=== PATIENT | female | born 1955 | race Caucasian/White ===

== ENCOUNTER → 2017-12-14 12:08 | Outpatient (CLI) | payer SELFPAY | PROVIDERS: Family Provider Family Medicine Geriatric Medicine; PCP Family Medicine Geriatric Medicine; Visit Provider Family Medicine Geriatric Medicine | DX: R69 Illness, unspecified (principal) | CPT/HCPCS: 87633 ==

== ENCOUNTER → 2018-09-05 10:04 | Outpatient (CLI) | payer MEDICARE, SELFPAY ==
[2018-09-05 12:38] LABS: Absolute Lymphocyte Count 1.84 X10^3/ul (0.83-4.51); Absolute Neutrophil Count 4.2 X10^3/uL (2.0-7.7); Basophil# 0.06 X10^3/uL; Basophil% 0.8 % (0-1); Eosinophil# 0.56 X10^3/uL; Eosinophils% 7.9 % (0-5); Hematocrit 45.6 % (37-47); Hemoglobin 14.4 g/dl (12.0-15.0); Lymphocyte # 1.84 X10^3/ul (4.0); Lymphocyte % 25.8 % (19-41); Mean Corp Hgb Conc 31.6 g/gl (32-36); Mean Corpuscular Hgb 30.1 pg (27.0-32.0); Mean Corpuscular Volume 95.2 fL (81-99); Mean Platelet Vol. 11.2 fl (6.2-12.0); Monocyte# 0.51 X10^3/uL; Monocyte% 7.2 % (0-10); Neutrophil # 4.15 X10^3/uL (2.7-7.7); Neutrophil % 58.3 % (47-70); Platelet Count 262 K/mm3 (150-450); RBC Distribution Width SD 45.1 fl (35.1-43.9); Red Blood Count 4.79 M/mm3 (4.2-5.4); White Blood Count 7.1 K/mm3 (4.4-11.0)
[2018-09-05 12:44] LABS: POSITIVE COUNT NO; POSITIVE DIFFERENTIAL NO; POSITIVE MORPHOLOGY NO
[2018-09-05 12:58] LABS: ALB/GLOB Ratio 0.9 RATIO (0.9-2.4); AST(SGOT) 31 U/L (15-37); Alanine Aminotransfer ALT/SGPT 42 U/L (13-56); Albumin, Serum 3.5 g/dL (3.2-5.0); Alkaline Phosphatase 208 U/L (45-117); Anion Gap 5 (5-15); BUN 5 mg/dL (7-18); BUN/Creat Ratio 7.7 RATIO (10-20); Calcium,Total 8.8 mg/dL (8.5-10.1); Chloride 105 mmol/L (98-107); Creatinine, Serum 0.65 mg/dL (0.55-1.02); EST Glomerular Filtration Rate 97 mL/min (>60); Est Glom Filt Rate - Afr Amer 118 mL/min (>60); Globulin 3.9 g/dL (2.2-4.2); Glucose 104 mg/dL (74-106); Potassium 3.7 mmol/L (3.5-5.1); Protein, Total 7.4 g/dL (6.4-8.2); Sodium Level 139 mmol/L (136-145); Thyroid Stim Hormone (TSH) 0.77 uIU/mL (0.358-3.74)
== END ==
PROVIDERS: Family Provider Family Medicine Geriatric Medicine; PCP Family Medicine Geriatric Medicine; Visit Provider Family Medicine Geriatric Medicine
DX: I10 Essential (primary) hypertension (principal)
CPT/HCPCS: 36415; 80053; 84443; 85025

== ENCOUNTER → 2018-09-12 17:47 | Outpatient (CLI) | payer MEDICARE, BC, SELFPAY ==
--- NOTE | 2018-09-12 17:56 | CT_ITS ---
STUDY: LOW DOSE CT LUNG CANCER SCREENING REASON FOR EXAM: Female, 63 years old. TOBACCO USE X 45 YRS 1/2 PPD. WEIGHT 129 RADIATION DOSAGE (If Supplied By Facility): CTDIvol = ( 2.01 ) mGy, DLP = ( 70.22 ) mGycm TECHNIQUE: No contrast was administered. Low dose technique was utilized (average mAS-38 and kVp 120). 1.25 mm axial source images with a slice interval of 1.25-mm were reconstructed in lung windows. 2.5 mm axial source images with a slice interval of 2.5-mm were reconstructed in lung windows. 5.0 mm axial source images with a slice interval of 5.0-mm were reconstructed in soft tissue windows. Nodule measured using lung windows on PACS and/or independent workstation with automated measurement of minimum and maximum diameter. Nodule measurement reported as average diameter rounded to the nearest whole number. Growth is defined as an increase ins size of greater than 1.5 mm. COMPARISON: None. NODULES: Hyperinflation are noted in both lungs suggesting COPD. There is no demonstrated pleural abnormality. Normal heart and pericardium. Normal mediastinum. Normal hilar regions. Normal unenhanced pulmonary arteries. Normal aorta arch and descending thoracic aorta. There is demineralization of the thoracic spine. Old compression fractures are noted at T5, T6, T7, T8, T12, L1. There is no demonstrated abnormality of the visualized upper abdomen. CT/Low Dose CT Lung Screening IMPRESSION: Lung-RADS category 2. Recommendation: Routine screening CT scan in one year. IMPORTANT NOTES FOR USE: ACR Lung-RADS Version 1.0 Assessment Categories Release Date: December 24, 2013 Category: Coded 0-4 bases on nodule(s) with highest degree of suspicion. Negative screen is defined as categories 1 and 2; a positive screen is defined as categories 3 and 4. Category 3 and 4A nodules that are unchanged on interval CT should be coded as category 2, and individuals returned to screening in 12 months. Category 4X: Category 3 or 4 nodules with additional imaging findings that increase the suspicion of lung cancer, such as spiculation, GGN that doubles in size in 1 year, enlarged lymph notes, etc. Category Modifiers: S (significant finding unrelated to lung cancer) and C (prior history of treated lung cancer) may be added to the 0-4 Lung-RADS Electronically Signed: Luis Higgins MD at 8:20 EST Tel , Service support ,
== END ==
PROVIDERS: Family Provider Family Medicine Geriatric Medicine; PCP Family Medicine Geriatric Medicine; Referring Provider Family Medicine Geriatric Medicine; Visit Provider Family Medicine Geriatric Medicine
DX: Z87.891 Personal history of nicotine dependence (principal)
CPT/HCPCS: G0297

== ENCOUNTER → 2020-03-07 | Outpatient (CLI) | payer MEDICARE, SELFPAY ==
[2020-03-07 13:41] VITALS: BMI 19.2
[2020-03-07 15:19] LABS: Absolute Lymphocyte Count 1.86 X10^3/uL (0.83-4.51); Absolute Neutrophil Count 2.2 X10^3/uL (2.0-7.7); Basophil# 0.09 X10^3/uL; Basophil% 1.8 % (0-1); Eosinophil# 0.48 X10^3/uL; Eosinophils% 9.4 % (0-5); Hematocrit 46.6 % (37-47); Hemoglobin 14.6 g/dL (12.0-15.0); Lymphocyte # 1.86 X10^3/ul (4.0); Lymphocyte % 36.5 % (19-41); Mean Corp Hgb Conc 31.3 g/dL (32-36); Mean Corpuscular Hgb 30.9 pg (27.0-32.0); Mean Corpuscular Volume 98.5 fL (81-99); Mean Platelet Vol. 10.2 fl (6.2-12.0); Monocyte# 0.46 X10^3/uL; NRBC Flagged by Analyzer 0 % (0-5); Neutrophil % 43.1 % (47-70); Platelet Count 305 K/mm3 (150-450); RBC Distribution Width CV 11.8 % (11.6-14.6); RBC Distribution Width SD 42.8 fl (35.1-43.9); Red Blood Count 4.73 M/mm3 (4.2-5.4); White Blood Count 5.1 K/mm3 (4.4-11.0)
[2020-03-07 16:13] LABS: ALB/GLOB Ratio 0.9 RATIO (0.9-2.4); AST(SGOT) 31 U/L (15-37); Alanine Aminotransfer ALT/SGPT 48 U/L (13-56); Albumin, Serum 3.6 g/dL (3.2-5.0); Alkaline Phosphatase 248 U/L (45-117); Anion Gap 7 (5-15); BUN 6 mg/dL (7-18); BUN/Creat Ratio 9.3 RATIO (10-20); Calcium,Total 9.1 mg/dL (8.5-10.1); Chloride 100 mmol/L (98-107); Cholesterol 277 mg/dL (200); Creatinine, Serum 0.65 mg/dL (0.55-1.02); EST Glomerular Filtration Rate 97 mL/min (>60); Est Glom Filt Rate - Afr Amer 118 mL/min (>60); Globulin 4.2 g/dL (2.2-4.2); Glucose 105 mg/dL (74-106); High Density Lipoprotein 72 mg/dL; Potassium 4.5 mmol/L (3.5-5.1); Protein, Total 7.8 g/dL (6.4-8.2); Sodium Level 137 mmol/L (136-145); Triglycerides 127 mg/dL; Very Low Density Lipoprotein 25 mg/dL (5-40)
[2020-03-07 16:25] LABS: Vitamin D,25 Hydroxy 28.5 ng/mL
== END | disposition home or self-care (01) ==
LOC: BIMLAB 14:25
PROVIDERS: PCP Internal Medicine; Referring Provider Internal Medicine; Visit Provider Internal Medicine
DX: I10 Essential (primary) hypertension (principal); J45.909 Unspecified asthma, uncomplicated; E55.9 Vitamin D deficiency, unspecified
CPT/HCPCS: 36415; 80053; 80061; 82306; 85025

== ENCOUNTER → 2020-04-08 14:01 | Outpatient (CLI) | payer MEDICARE, SELFPAY ==
[2020-03-07 13:41] VITALS: BMI 19.2
[2020-04-08 13:32] VITALS: BMI 19.5
--- NOTE | 2020-04-08 14:03 | CT_ITS ---
STUDY: LOW DOSE CT LUNG CANCER SCREENING REASON FOR EXAM: Female, 64 years old. ASYMPTOMATIC, LUNG CANCER SCREENING RADIATION DOSAGE (If Supplied By Facility): CTDIvol = ( 2.01 ) mGy, DLP = ( 70.22 ) mGycm TECHNIQUE: No contrast was administered. Low dose technique was utilized (average mAS-38 and kVp 120). 1.25 mm axial source images with a slice interval of 1.25-mm were reconstructed in lung windows. 2.5 mm axial source images with a slice interval of 2.5-mm were reconstructed in lung windows. 5.0 mm axial source images with a slice interval of 5.0-mm were reconstructed in soft tissue windows. Nodule measured using lung windows on PACS and/or independent workstation with automated measurement of minimum and maximum diameter. Nodule measurement reported as average diameter rounded to the nearest whole number. Growth is defined as an increase ins size of greater than 1.5 mm. COMPARISON: Comparison is made with prior examination dated 09/12/2018. NODULES: No suspicious nodules are seen. Emphysema: Hyperinflation. Stable thickening in both lung apices with emphysematous changes and small bulla formation worse in the upper lobes. Endobronchial lesion: None. Calcified left hilar lymph nodes. Aorta: Atherosclerotic plaque formation of the aortic arch. Coronary arteries: Coronary artery calcification. Mediastinal nodes: Small benign-appearing mediastinal lymph nodes. Other chest and abdominal findings: Stable loss of height of the T5, T6 T7 T8 and T12 vertebrae. CT/Low Dose CT Lung Screening IMPRESSION: Lung-RADS category 2 - Continue annual screening with LDCT in 12 months. IMPORTANT NOTES FOR USE: ACR Lung-RADS Version 1.0 Assessment Categories Release Date: December 24, 2013 Category: Coded 0-4 bases on nodule(s) with highest degree of suspicion. Negative screen is defined as categories 1 and 2; a positive screen is defined as categories 3 and 4. Category 3 and 4A nodules that are unchanged on interval CT should be coded as category 2, and individuals returned to screening in 12 months. Category 4X: Category 3 or 4 nodules with additional imaging findings that increase the suspicion of lung cancer, such as spiculation, GGN that doubles in size in 1 year, enlarged lymph notes, etc. Category Modifiers: S (significant finding unrelated to lung cancer) and C (prior history of treated lung cancer) may be added to the 0-4 Lung-RADS Electronically Signed: Rivera De La O, at 14:29 EDT , Service support ,
== END ==
PROVIDERS: PCP Internal Medicine; Referring Provider Nurse Practitioner Family; Visit Provider Nurse Practitioner Family
DX: Z12.2 Encounter for screening for malignant neoplasm of respiratory organs (principal); F17.210 Nicotine dependence, cigarettes, uncomplicated
CPT/HCPCS: G0297

== ENCOUNTER → 2020-05-01 | Outpatient (CLI) | payer MEDICARE, SELFPAY ==
[2020-04-08 13:32] VITALS: BMI 19.5
--- NOTE | 2020-05-01 13:19 | BI_ITS ---
MAMMOGRAPHY - BILATERAL SCREENING REASON FOR EXAM: Female, 64 years old. Routine annual screening examination. PERTINENT HISTORY: Daughter with breast cancer. TECHNIQUE: Digital bilateral breast chevy (3D mammographic acquisition) in the CC and MLO projections. 2-D mediolateral oblique (MLO) and craniocaudad (CC) views of both breasts were obtained. CAD: Full Field Digital Mammography with Computer Added Detection was performed. COMPARISON: None. Baseline examination. FINDINGS: Breast Composition: The breasts are almost entirely fatty. There are no dominant masses or suspicious calcifications. No other significant abnormalities are identified. BI/SCREEN MAMM (CAD) W/CHEVY BILAT IMPRESSION: Negative screening mammogram. Yearly followup mammogram recommended. (A) ASSESSMENT CATEGORY: BIRADS Category 1: Negative. A letter regarding these results will be sent to the patient by the facility within 30 days. Approximately 10% of breast cancers are not detected by mammography. A normal mammogram should not delay biopsy of a clinically suspicious abnormality. [id number] Electronically Signed: Rivera De La O, at 15:29 EDT , Service support ,
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
== END | disposition home or self-care (01) ==
LOC: OPBD 13:19
PROVIDERS: PCP Internal Medicine; Referring Provider Internal Medicine; Visit Provider Internal Medicine
DX: Z78.0 Asymptomatic menopausal state (principal); Z12.31 Encounter for screening mammogram for malignant neoplasm of breast
CPT/HCPCS: 77063; 77067; 77080

== ENCOUNTER 2020-09-16 00:12 | Emergency (ER) | payer OTHER, MEDICARE, SELFPAY ==
[2020-06-06 13:35] VITALS: BMI 19.5
[2020-09-16 00:13] VITALS: BP 160/82; PULSE 85; RESP 18; TEMP 36.5; O2SAT 94; BMI 23.1
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
[2020-09-16] MEDS: Ketorolac 15 MG/ML Vial IM (00:25)
[2020-09-16 01:40] VITALS: O2SAT 98
== END 2020-09-16 01:49 | disposition home or self-care (01) ==
PROVIDERS: Emergency Provider Student in an Organized Health Care Education/Training Program; PCP Internal Medicine
DX: S16.1XXA Strain of muscle, fascia and tendon at neck level, initial encounter (principal); S39.012A Strain of muscle, fascia and tendon of lower back, initial encounter; J45.909 Unspecified asthma, uncomplicated; I10 Essential (primary) hypertension; F41.9 Anxiety disorder, unspecified; F32.9 Major depressive disorder, single episode, unspecified; F17.200 Nicotine dependence, unspecified, uncomplicated; Z79.899 Other long term (current) drug therapy; V43.52XA Car driver injured in collision with other type car in traffic accident, initial encounter; Y93.I9 Activity, other involving external motion; Y92.410 Unspecified street and highway as the place of occurrence of the external cause; Y99.8 Other external cause status
CPT/HCPCS: 72040; 72100; 96372; 99284

== ENCOUNTER → 2020-11-07 14:57 | Outpatient (CLI) | payer MEDICARE, SELFPAY ==
[2020-11-07 13:13] VITALS: BMI 22.6
--- NOTE | 2020-11-07 14:58 | RAD_ITS ---
INDICATION: shortness of breath EXAMINATION/TECHNIQUE: X-RAY - XR Chest 2 Views COMPARISON: None. FINDINGS: The lungs are clear. Tortuous and calcified thoracic aorta. The heart is not enlarged. No pleural effusion or pneumothorax. Biapical pleural scarring. Degenerative changes of the thoracic spine. Multiple compression deformities of several thoracic vertebra. RAD/Chest PA and Lateral IMPRESSION: Multiple compression deformities of several thoracic vertebra. No acute cardiopulmonary findings. Electronically Signed: Oleg Dawn MD at 21:50 EST Tel , Service support ,
== END ==
PROVIDERS: PCP Internal Medicine; Referring Provider Nurse Practitioner Family; Visit Provider Nurse Practitioner Family
DX: R06.00 Dyspnea, unspecified (principal)
CPT/HCPCS: 71046

== ENCOUNTER → 2021-04-09 13:07 | Outpatient (CLI) | payer MEDICARE, SELFPAY ==
[2021-04-09 12:40] VITALS: BMI 22.6
[2021-04-09 15:00] LABS: Absolute Lymphocyte Count 1.95 X10^3/uL (0.83-4.51); Absolute Neutrophil Count 3.4 X10^3/uL (2.0-7.7); Basophil# 0.07 X10^3/uL; Basophil% 1.1 % (0-1); Eosinophil# 0.24 X10^3/uL; Eosinophils% 3.8 % (0-5); Hematocrit 43.9 % (37-47); Hemoglobin 13.8 g/dL (12.0-15.0); Lymphocyte # 1.95 X10^3/ul (0.83-4.51); Lymphocyte % 30.8 % (19-41); Mean Corp Hgb Conc 31.4 g/dL (32-36); Mean Corpuscular Hgb 30.5 pg (27.0-32.0); Mean Corpuscular Volume 97.1 fL (81-99); Mean Platelet Vol. 10.7 fl (6.2-12.0); Monocyte# 0.69 X10^3/uL; Monocyte% 10.9 % (0-10); NRBC Flagged by Analyzer 0 % (0-5); Neutrophil # 3.36 X10^3/uL (2.7-7.7); Neutrophil % 53.1 % (47-70); Platelet Count 284 K/mm3 (150-450); RBC Distribution Width CV 12.3 % (11.6-14.6); RBC Distribution Width SD 44.1 fl (35.1-43.9); Red Blood Count 4.52 M/mm3 (4.2-5.4); White Blood Count 6.3 K/mm3 (4.4-11.0)
[2021-04-09 15:16] LABS: ALB/GLOB Ratio 0.9 RATIO (0.9-2.4); AST(SGOT) 67 U/L (15-37); Alanine Aminotransfer ALT/SGPT 76 U/L (13-56); Albumin, Serum 3.5 g/dL (3.2-5.0); Alkaline Phosphatase 216 U/L (45-117); Anion Gap 6 (5-15); BUN 11 mg/dL (7-18); BUN/Creat Ratio 18.6 RATIO (10-20); Calcium,Total 9.2 mg/dL (8.5-10.1); Chloride 103 mmol/L (98-107); Cholesterol 220 mg/dL (200); Creatinine, Serum 0.59 mg/dL (0.55-1.02); EST Glomerular Filtration Rate 108 mL/min (>60); Est Glom Filt Rate - Afr Amer 131 mL/min (>60); Glucose 97 mg/dL (74-106); High Density Lipoprotein 85 mg/dL; Potassium 4.6 mmol/L (3.5-5.1); Protein, Total 7.5 g/dL (6.4-8.2); Sodium Level 141 mmol/L (136-145); Triglycerides 54 mg/dL; Very Low Density Lipoprotein 11 mg/dL (5-40)
[2021-04-09 15:21] LABS: Vitamin D,25 Hydroxy 34.1 ng/mL
== END ==
PROVIDERS: PCP Internal Medicine; Referring Provider Physician Assistant; Visit Provider Physician Assistant
DX: I10 Essential (primary) hypertension (principal); F32.9 Major depressive disorder, single episode, unspecified; F41.9 Anxiety disorder, unspecified; J45.909 Unspecified asthma, uncomplicated; E55.9 Vitamin D deficiency, unspecified
CPT/HCPCS: 36415; 80053; 80061; 82306; 85025

== ENCOUNTER → 2021-05-13 13:52 | Outpatient (CLI) | payer MEDICARE, SELFPAY ==
[2021-05-13 15:19] LABS: AST(SGOT) 35 U/L (15-37); Alanine Aminotransfer ALT/SGPT 50 U/L (13-56); Albumin, Serum 3.2 g/dL (3.2-5.0); Alkaline Phosphatase 183 U/L (45-117); Bilirubin, Direct 0.07 mg/dL (0.00-0.30); Protein, Total 7.2 g/dL (6.4-8.2)
== END ==
PROVIDERS: PCP Internal Medicine; Referring Provider Physician Assistant; Visit Provider Physician Assistant
DX: R74.8 Abnormal levels of other serum enzymes (principal)
CPT/HCPCS: 36415; 80076

== ENCOUNTER → 2022-04-02 | Outpatient (CLI) | payer MEDICARE, SELFPAY ==
[2022-04-02 16:42] LABS: Absolute Lymphocyte Count 1.52 X10^3/uL (0.83-4.51); Absolute Neutrophil Count 3.1 X10^3/uL (2.0-7.7); Basophil# 0.07 X10^3/uL; Basophil% 1.3 % (0-1); Eosinophil# 0.21 X10^3/uL; Hematocrit 43.4 % (37-47); Hemoglobin 14.2 g/dL (12.0-15.0); Lymphocyte # 1.52 X10^3/ul (0.83-4.51); Lymphocyte % 28.8 % (19-41); Mean Corp Hgb Conc 32.7 g/dL (32-36); Mean Corpuscular Hgb 32.1 pg (27.0-32.0); Mean Platelet Vol. 10.7 fl (6.2-12.0); Monocyte% 7.6 % (0-10); NRBC Flagged by Analyzer 0 % (0-5); Neutrophil # 3.06 X10^3/uL (2.7-7.7); Neutrophil % 58.1 % (47-70); Platelet Count 267 K/mm3 (150-450); RBC Distribution Width CV 12.1 % (11.6-14.6); RBC Distribution Width SD 44.5 fl (35.1-43.9); Red Blood Count 4.43 M/mm3 (4.2-5.4); White Blood Count 5.3 K/mm3 (4.4-11.0)
[2022-04-02 17:02] LABS: AST(SGOT) 29 U/L (15-37); Alanine Aminotransfer ALT/SGPT 38 U/L (13-56); Albumin, Serum 3.6 g/dL (3.2-5.0); Alkaline Phosphatase 197 U/L (45-117); Anion Gap 5 (5-15); BUN 7 mg/dL (7-18); BUN/Creat Ratio 10.9 RATIO (10-20); Chloride 101 mmol/L (98-107); Cholesterol 187 mg/dL (200); Creatinine, Serum 0.64 mg/dL (0.55-1.02); EST Glomerular Filtration Rate 97 mL/min (>60); Est Glom Filt Rate - Afr Amer 118 mL/min (>60); Globulin 3.7 g/dL (2.2-4.2); Glucose 111 mg/dL (74-106); High Density Lipoprotein 67 mg/dL; Potassium 4.3 mmol/L (3.5-5.1); Protein, Total 7.3 g/dL (6.4-8.2); Sodium Level 137 mmol/L (136-145); Thyroid Stim Hormone (TSH) 0.82 uIU/mL (0.358-3.74); Triglycerides 112 mg/dL; Very Low Density Lipoprotein 22 mg/dL (5-40)
== END | disposition home or self-care (01) ==
LOC: BIMLAB 14:38
PROVIDERS: PCP Internal Medicine; Referring Provider Nurse Practitioner Family; Visit Provider Nurse Practitioner Family
DX: I10 Essential (primary) hypertension (principal); M19.90 Unspecified osteoarthritis, unspecified site; J45.909 Unspecified asthma, uncomplicated; F41.9 Anxiety disorder, unspecified; F32.9 Major depressive disorder, single episode, unspecified
CPT/HCPCS: 36415; 80053; 80061; 84443; 85025

== ENCOUNTER → 2022-04-15 | Outpatient (CLI) | payer MEDICARE, SELFPAY ==
--- NOTE | 2022-04-15 14:03 | BI_ITS ---
MAMMOGRAPHY - BILATERAL SCREENING REASON FOR EXAM: Female, 66 years old. Routine annual screening examination. PERTINENT HISTORY: Daughter with breast cancer. TECHNIQUE: Digital bilateral breast chevy (3D mammographic acquisition) in the CC and MLO projections. 2-D mediolateral oblique (MLO) and craniocaudad (CC) views of both breasts were obtained. CAD: Full Field Digital Mammography with Computer Added Detection was performed. COMPARISON: Comparison is made with prior study 05/01/2020. FINDINGS: Breast Composition: The breasts are almost entirely fatty. There are no dominant masses or suspicious calcifications. No other significant abnormalities are identified. There has been no significant change since the prior study. BI/SCRN MAMM (CAD)W/CHEVY BILAT IMPRESSION: Stable bilateral screening mammogram. Yearly follow-up mammogram recommended. (A) ASSESSMENT CATEGORY: BIRADS Category 1: Negative. A letter regarding these results will be sent to the patient by the facility within 30 days. Approximately 10% of breast cancers are not detected by mammography. A normal mammogram should not delay biopsy of a clinically suspicious abnormality. [id number] Electronically Signed: Rivera De La O MD at 15:00 EDT ,
== END | disposition home or self-care (01) ==
LOC: OPBI 14:02
PROVIDERS: PCP Internal Medicine; Referring Provider Nurse Practitioner Family; Visit Provider Nurse Practitioner Family
DX: Z12.31 Encounter for screening mammogram for malignant neoplasm of breast (principal); Z80.3 Family history of malignant neoplasm of breast
CPT/HCPCS: 77063; 77067

== ENCOUNTER → 2022-06-29 | Outpatient (CLI) | payer MEDICARE, SELFPAY ==
--- NOTE | 2022-06-29 13:24 | CT_ITS ---
STUDY: LOW DOSE CT LUNG CANCER SCREENING REASON FOR EXAM: Female, 66 years old. Lung cancer screening -- and gt;20 pk yr hx;current smoker;asymptomatic RADIATION DOSAGE (If Supplied By Facility): CTDIvol = ( 1.52 ) mGy, DLP = ( 49.45 ) mGycm TECHNIQUE: No contrast was administered. Low dose technique was utilized (average mAS-38 and kVp 120). 1.25 mm axial source images with a slice interval of 1.25-mm were reconstructed in lung windows. 2.5 mm axial source images with a slice interval of 2.5-mm were reconstructed in lung windows. 5.0 mm axial source images with a slice interval of 5.0-mm were reconstructed in soft tissue windows. COMPARISON: Comparison is made with prior examination dated 04/08/2020. NODULES: No suspicious nodules are seen. Emphysema: Scarring in the apices. Hyperinflation. Emphysematous changes. Endobronchial lesion: None Aorta: Atherosclerotic calcific plaques. CORONARY ARTERIES: Coronary artery calcification is seen. Heart: Unremarkable. Pulmonary artery: Unremarkable. Mediastinal nodes: Small benign-appearing mediastinal lymph nodes. Other chest and abdominal findings: CT/Low Dose CT Lung Screening IMPRESSION: Lung-RADS category 2 - Continue annual screening with LDCT in 12 months. IMPORTANT NOTES FOR USE: ACR Lung-RADS Version 1.1 Assessment Categories Release Date: 2018 Category: Coded 0-4 bases on nodule(s) with highest degree of suspicion. Negative screen is defined as categories 1 and 2; a positive screen is defined as categories 3 and 4. Category 3 and 4A nodules that are unchanged on interval CT should be coded as category 2, and individuals returned to screening in 12 months. Category 4X: Category 3 or 4 nodules with additional imaging findings that increase the suspicion of lung cancer, such as spiculation, GGN that doubles in size in 1 year, enlarged lymph notes, etc. Category Modifiers: S (significant finding unrelated to lung cancer) Electronically Signed: Rivera De La O MD at 14:30 EDT ,
== END | disposition home or self-care (01) ==
LOC: CT 13:23
PROVIDERS: PCP Internal Medicine; Referring Provider Nurse Practitioner Family; Visit Provider Nurse Practitioner Family
DX: Z87.891 Personal history of nicotine dependence (principal); Z12.2 Encounter for screening for malignant neoplasm of respiratory organs
CPT/HCPCS: 71271

== ENCOUNTER → 2022-10-08 | Outpatient (CLI) | payer MEDICARE, SELFPAY ==
[2022-10-08 16:46] LABS: AST(SGOT) 30 U/L (15-37); Alanine Aminotransfer ALT/SGPT 36 U/L (13-56); Albumin, Serum 3.7 g/dL (3.2-5.0); Alkaline Phosphatase 148 U/L (45-117); Anion Gap 5 (5-15); BUN 8 mg/dL (7-18); BUN/Creat Ratio 12.9 RATIO (10-20); Calcium,Total 9.3 mg/dL (8.5-10.1); Chloride 101 mmol/L (98-107); Creatinine, Serum 0.62 mg/dL (0.55-1.02); EST Glomerular Filtration Rate 102 mL/min (>60); Est Glom Filt Rate - Afr Amer 123 mL/min (>60); Globulin 3.8 g/dL (2.2-4.2); Glucose 114 mg/dL (74-106); Potassium 4.1 mmol/L (3.5-5.1); Protein, Total 7.5 g/dL (6.4-8.2); Sodium Level 135 mmol/L (136-145)
== END | disposition home or self-care (01) ==
LOC: BIMLAB 14:54
PROVIDERS: PCP Internal Medicine; Referring Provider Internal Medicine; Visit Provider Internal Medicine
DX: M81.0 Age-related osteoporosis without current pathological fracture (principal)
CPT/HCPCS: 36415; 80053; 82306

== ENCOUNTER → 2022-10-21 | Outpatient (CLI) | payer MEDICARE, SELFPAY ==
--- NOTE | 2022-10-21 14:23 | BD_ITS ---
STUDY: DUAL ENERGY X-RAY ABSORPTIOMETRY / DXA REASON FOR EXAM: Female, 67 years old. Osteoporosis TECHNIQUE: Bone Mineral Density (BMD) measurements of lumbar spine and bilateral hips were obtained. COMPARISON: Comparison is made with prior study dated 05/01/2020. FINDINGS: Lumbar Spine (L1-L4): g/cm2 (0.877) / T-score (-2.0) / Z-score (0.1) Findings are suggestive of osteopenia with a moderate fracture risk. Left Femur Total: g/cm2 (0.678) / T-score (-2.2) / Z-score (-0.7) Left Femoral Neck: g/cm2 (0.609) / T-score (-2.2) / Z-score (-0.4) Right Femur Total: g/cm2 (0.631) / T-score (-2.6) / Z-score (-1.1) Right Femoral Neck: g/cm2 (0.562) / T-score (-2.6) / Z-score (-0.8) The T-Scores on the most recent prior examination were: Lumbar Spine (L1-L4): There has been worsening of bone density since the previous examination. Left Femur Total: which represents an improvement of 0.8%. Right Femur Total: which represents a worsening of 0.9%. BD/Dexa Bone Density Study IMPRESSION: The patient is considered osteoporotic as outlined below according to World [employer] Organization (WHO) criteria with a high fracture risk. There has been worsening of bone density since the previous examination. Reference Information: The T-score is the number of standard deviations above or below the standard which is normal for young adults at their peak bone mineral density. The World Health Organization (WHO) interprets the T-scores as follows: Above -1 Normal bone density Between -1 and -2.5 Osteopenia Equal to / or below -2.5 Osteoporosis As a practical clinical guideline, osteopenia may be graded as follows: Mild -1 through -1.5 Moderate -1.6 through -2.0 Severe -2.1 through -2.4 The Z-score is the number of standard deviations above or below age-matched controls. A Z-score of less than -1.5 would be considered abnormal. References: 1. NIH Osteoporosis and Related Bone Diseases www osteo.org 2. International Society for Clinical Densitometry www iscd.org 3. National Osteoporosis Foundation www nof.org Electronically Signed: Rivera De La O MD at 15:38 EST ,
== END | disposition home or self-care (01) ==
LOC: OPBD 14:20
PROVIDERS: PCP Internal Medicine; Referring Provider Internal Medicine; Visit Provider Internal Medicine
DX: M81.0 Age-related osteoporosis without current pathological fracture (principal)
CPT/HCPCS: 77080

== ENCOUNTER → 2023-01-06 | Outpatient (CLI) | payer MEDICARE, SELFPAY ==
[2023-01-06 17:06] LABS: Absolute Lymphocyte Count 1.44 X10^3/uL (0.83-4.51); Absolute Neutrophil Count 2.2 X10^3/uL (2.0-7.7); Basophil# 0.06 X10^3/uL; Basophil% 1.3 % (0-1); Eosinophil# 0.37 X10^3/uL; Eosinophils% 8.3 % (0-5); Hemoglobin 14.5 g/dL (12.0-15.0); Lymphocyte # 1.44 X10^3/ul (0.83-4.51); Lymphocyte % 32.2 % (19-41); Mean Corp Hgb Conc 31.5 g/dL (32-36); Mean Corpuscular Hgb 31.5 pg (27.0-32.0); Mean Corpuscular Volume 99.8 fL (81-99); Mean Platelet Vol. 11.1 fl (6.2-12.0); Monocyte# 0.45 X10^3/uL; Monocyte% 10.1 % (0-10); NRBC Flagged by Analyzer 0 % (0-5); Neutrophil # 2.15 X10^3/uL (2.7-7.7); Neutrophil % 48.1 % (47-70); Platelet Count 266 K/mm3 (150-450); RBC Distribution Width CV 11.9 % (11.6-14.6); RBC Distribution Width SD 43.8 fl (35.1-43.9); Red Blood Count 4.61 M/mm3 (4.2-5.4); White Blood Count 4.5 K/mm3 (4.4-11.0)
[2023-01-06 17:28] LABS: ALB/GLOB Ratio 0.9 RATIO (0.9-2.4); AST(SGOT) 34 U/L (15-37); Alanine Aminotransfer ALT/SGPT 58 U/L (13-56); Albumin, Serum 3.6 g/dL (3.2-5.0); Alkaline Phosphatase 228 U/L (45-117); Anion Gap 5 (5-15); BUN 9 mg/dL (7-18); BUN/Creat Ratio 16.8 RATIO (10-20); Calcium,Total 9.4 mg/dL (8.5-10.1); Chloride 103 mmol/L (98-107); Creatinine, Serum 0.54 mg/dL (0.55-1.02); EST Glomerular Filtration Rate 120 mL/min (>60); Est Glom Filt Rate - Afr Amer 145 mL/min (>60); Glucose 101 mg/dL (74-106); Potassium 4.3 mmol/L (3.5-5.1); Protein, Total 7.6 g/dL (6.4-8.2); Sodium Level 137 mmol/L (136-145); Vitamin D,25 Hydroxy 49.2 ng/mL
== END | disposition home or self-care (01) ==
LOC: BIMLAB 15:04
PROVIDERS: PCP Internal Medicine; Referring Provider Internal Medicine; Visit Provider Internal Medicine
DX: I10 Essential (primary) hypertension (principal); M81.0 Age-related osteoporosis without current pathological fracture
CPT/HCPCS: 36415; 80053; 82306; 85025

== ENCOUNTER → 2023-09-22 | Outpatient (CLI) | payer MEDICARE, SELFPAY ==
--- OUTSIDE RECORDS SUMMARY | 2023-09-22 16:07 | XMS RPT_ITS | CCD ---
Author Name Unknown Address [address] [place] [address] Organization [facility] Care Team Providers Care Educational Technician Name Role Phone DarrellBlanche Avery Primary Care Provider Jillian GONGORA, Silviano Oh Primary Care Provider [phone] Allergies Allergy Classification Reported Allergen(s) Allergy Type Date of Onset Reaction(s) Facility (2 sources) moxifloxacin Drug Allergy 1 Rash, Swelling [facility] Medications Current Medications Medication Drug Class(es) Dates Sig (Normalized) Sig (Original) amoxicillin 875 mg / clavulanate 125 mg oral tablet (1 source) Penicillin-class Antibacterial Start: 12-14-2022 End: 12-21-2022 take 1 tablet by mouth twice daily amoxicillin-clavulan ic acid (AUGMENTIN) 875-125 mg per tablet Indications: Sinobronchitis Take 1 tablet by mouth twice daily for 7 days. 14 tablet 0 12/14/2022 12/21/2022 Active Completed/Discontinued Medications Medication Drug Class(es) Dates Sig (Normalized) Sig (Original) 8 hr acetaminophen 650 mg extended release oral tablet (1 source) Start: 04-02-2022 acetaminophen 650 mg CR tablet Take by mouth. 0 04/02/2022 Active Problems Problem Classification Problem Date Documented Da te Episodic/Chronic Allergic reactions (1 source) Allergic contact dermatitis due to metal; Translations: [Allergic contact dermatitis due to metals] Episodic Other upper respiratory infections (1 source) Chronic sinusitis; Translations: [Chronic sinusitis, unspecified] Chronic Results Test Name Value Interpretation Reference Range Facil ity Vital Signs Date Time Vital Sign Value Performing Clinician Faci lity 12-14-2022 14:29-0400 Body temperature 97.2 [degF] Ericka Choe APRN.[employer] Work Phone: [facility] 12-14-2022 14:29-0400 Body weight 52.62 kg Ericka Praisler-Wood SENIOR CONTRACT SPECIALIST.[employer] Work Phone: [facility] 12-14-2022 14:29-0400 Diastolic blood pressure 72 mm[Hg] Ericka Praisler-Wood SENIOR CONTRACT SPECIALIST.[employer] Work Phone: [facility] 12-14-2022 14:29-0400 Heart rate 101 /min Ericka Praisler-Wood SENIOR CONTRACT SPECIALIST.[employer] Work Phone: [facility] 12-14-2022 14:29-0400 Respiratory rate 20 /min Ericka Praisler-Wood SENIOR CONTRACT SPECIALIST.[employer] Work Phone: [facility] 12-14-2022 14:29-0400 SaO2% (BldA) [Mass fraction] 97 % Ericka Praisler-Wood SENIOR CONTRACT SPECIALIST.[employer] Work Phone: [facility] 12-14-2022 14:29-0400 Systolic blood pressure 124 mm[Hg] Ericka Praisler-Wood SENIOR CONTRACT SPECIALIST.[employer] Work Phone: [facility] 12-02-2020 13:39-0400 Body Temperature 97.7 [degF] [facility] c 12-02-2020 13:39-0400 Body weight 59.88 kg [facility] 12-02-2020 13:39-0400 BP Diastolic 82 mm[Hg] [facility] 12-02-2020 13:39-0400 BP Systolic 132 mm[Hg] [facility] 12-02-2020 13:39-0400 Pulse (Heart Rate) 110 /min [facility] 12-02-2020 13:39-0400 Pulse Oximetry 95 % [facility] 12-02-2020 13:39-0400 Respiratory Rate 18 /min [facility] Encounters Encounter Date Encounter Type Care Provider Facility Start: 12-14-2022 End: 12-14-2022 Patient encounter procedure Ericka Praisler-Wood SENIOR CONTRACT SPECIALIST.[employer] Work Phone: [facility] Plan of Treatment Date Care Activity Detail Author Start: 04-29-2023 Influenza vaccination INFLUENZA (Sea son Ended) [facility] Start: 08-29-2022 ADVANCE DIRECTIVE DISCUSSION ADVANCE DIRECTIVE DISCUSSION [facility] Start: 08-29-2022 DEPRESSION ASSESSMENT DEPRESSION ASS ESSMENT [facility] Start: 06-17-2021 COVID-19 VACCINE (3 - Booster for Pfizer series) COVID-19 VACCINE (3 - Booster for Pfizer series) [facility] Start: 04-29-2021 Influenza vaccination INFLUENZA (Sea son Ended) [facility] Start: 2018 ADVANCE DIRECTIVE DISCUSSION ADVANCE DIRECTIVE DISCUSSION [facility] Start: 2018 BONE DENSITY BONE DENSITY [facility] Start: 2018 PNEUMOVAX AGE 65 AND OVER WITH 5YR LOOKBACK (#1) PNEUMOVAX AGE 65 AND OVER WITH 5YR LOOKBACK (#1) [facility] Start: 2003 Screening for malign ant neoplasm of colon [facility] Start: 2003 SHINGRIX VACCINE (1 of 2) SHINGRIX V ACCINE (1 of 2) [facility] Start: 1998 COLOGUARD (FIT-DNA) COLOGUARD (FIT-D NA) [facility] Start: 1998 Colonoscopy COLONOSCOPY [facility] Start: 1998 COLORECTAL CANCER SCREENING COLORECTAL CANCER SCREENING [facility] Start: [address] COLONOGRAPHY [facility] Start: 1998 DIABETES SCREEN DIABETES SCREEN [facility] Start: 1998 FECAL OCCULT BLOOD FECAL OCCULT BLOO D [facility] Start: 1998 LIPID SCREEN LIPID SCREEN [facility] Start: 1998 SIGMOIDOSCOPY SIGMOIDOSCOPY [facility] Start: 1993 Mammography MAMMOGRAM [facility] Start: 1972 Urine microalbumin profile DTAP,TDAP ,TD (1 - Tdap) [facility] Start: 1971 HEPATITIS C SCREENING HEPATITIS C SC REENING [facility] Start: 1965 Adult depression scr eening assessment DEPRESSION SCREENING [facility] Start: 1959 PNEUMOCOCCAL: 65+ (1 - PCV) PNEUMOCOCCAL: 65+ (1 - PCV) [facility] Payers Date Payer Category Payer Medicare MEDICARE MEDICAR E A AND B [id number] 2018-Present [place], [place] Medicare [id number] 2018 Medicare MEDICARE MEDICAR E A AND B [id number] 2018-Present [phone] [place] [address] Medicare [id number] Social History Date Type Detail Facility Start: 12-02-2020 Tobacco smoking stat [facility] Current every day smoker [facility] Start: 12-02-2020 End: 12-14-2022 Tobacco use and exposure Never used [facility] Start: 1955 Sex Assigned At Not on file [facility] Exposure to SARS-CoV -2 (event) Not sure [facility] Start: 12-14-2022 Tobacco smoking stat [facility] Occasional tobacco smoker [facility] History of tobacco use Cigarette Smoker [facility] History of Present illness Narrative 12-14-2022 Ericka Choe APRN.[employer] - 12/14/2022 2:39 PM EDT Note Date & Type Note Facility 12-14-2022 History of Presen t illness Narrative Subjective Cough Associated symptoms include headaches and shortness of breath. Pertinent negatives include no chills, no ear pain, no sore throat and no myalgias. Viola George is a 67 year old female who presents with a week of sinus congestion, cough, productive cough, sinus headache. She has not had a fever. She has been taking sudafed, and using her albuterol and advair inhaler. She has had intermittent shortness of breath. 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 Review of Systems Constitutional: Negative for chills and fever. HENT: Positive for congestion and sinus pain. Negative for ear pain and sore throat. Respiratory: Positive for cough, sputum production and shortness of breath. Cardiovascular: Negative. Gastrointestinal: Negative for diarrhea, nausea and vomiting. Musculoskeletal: Negative for myalgias. Neurological: Positive for headaches. BP 124/72 Pulse 101 Temp 36.2 C (97.2 F) (Tympanic) Resp 20 Wt 52.6 kg (116 lb) SpO2 97% No past medical history on file. No past surgical history on file. ALLERGIES Moxifloxacin MEDICATIONS acetaminophen 650 mg CR tablet Take by mouth. PROLIA 60 mg/mL simvastatin (ZOCOR) 40 mg tablet lisinopril (ZESTRIL, PRINIVIL) 40 mg tablet Take 40 mg by mouth. hydroCHLOROthiazide (HYDRODIURIL, ESIDRIX) 12.5 mg tablet fluticasone-salmeterol (ADVAIR, WIXELA) 250-50 mcg/dose inhaler INHALE ONE PUFF BY MOUTH TWICE DAILY citalopram (CELEXA) 40 mg tablet Take 40 mg by mouth. albuterol HFA (PROVENTIL HFA, VENTOLIN HFA) 90 mcg/actuation inhaler albuterol HFA (PROVENTIL HFA, VENTOLIN HFA) 90 mcg/actuation inhaler cyclobenzaprine (FLEXERIL) 10 mg tablet Take 10 mg by mouth. metoprolol succinate ER (TOPROL XL) 25 mg 24 hr tablet Take 25 mg by mouth. amoxicillin-clavulanic acid (AUGMENTIN) 875-125 mg per tablet Take 1 tablet by mouth twice daily for 7 days. predniSONE (DELTASONE) 20 mg tablet Take 2 tablets by mouth once daily for 4 days. Take daily with food. No family history on file. Social History Tobacco Use Smoking status: Some Days Types: Cigarettes Smokeless tobacco: Never Substance Use Topics Drug use: Never Objective Physical Exam Vitals and nursing note reviewed. Constitutional: Appearance: Normal appearance. HENT: Right Ear: Tympanic membrane, ear canal and external ear normal. Left Ear: Tympanic membrane, ear canal and external ear normal. Nose: Nasal tenderness, mucosal edema, congestion and rhinorrhea present. Mouth/Throat: Mouth: Mucous membranes are moist. Pharynx: Oropharynx is clear. Uvula midline. No oropharyngeal exudate or posterior oropharyngeal erythema. Cardiovascular: Rate and Rhythm: Normal rate and regular rhythm. Heart sounds: Normal heart sounds. Pulmonary: Effort: Pulmonary effort is normal. No respiratory distress. Breath sounds: Examination of the right-upper field reveals wheezing. Examination of the left-upper field reveals wheezing. Examination of the right-lower field reveals wheezing. Examination of the left-lower field reveals wheezing. Wheezing present. No rales. Musculoskeletal: Cervical back: Neck supple. Lymphadenopathy: Cervical: No cervical adenopathy. Skin: General: Skin is warm and dry. Findings: No erythema or rash. Neurological: Mental Status: She is alert. ASSESSMENT/PLAN: 1. Sinobronchitis - ICD9: 473.9, 490, ICD10: J32.9, J40 - Will begin treatment with as per antibiotic as written, see orders - The patient should also use her inhalers as prescribed. - Supportive care with plenty of fluids, rest, and analgesia prn. - AMOXICILLIN 875 MG-POTASSIUM CLAVULANATE 125 MG TABLET - PREDNISONE 20 MG TABLET - Follow-up with your PCP in 3-5 days if symptoms have not improved or sooner if symptoms worsen - Discussed red flags and need for immediate medical evaluation if any occur. - Discussed supportive care treatment with fluids, rest and analgesia. - Discussed expected course of illness Ericka Choe APRN.CNP documented in this encounter [facility] Instructions 12-14-2022 Patient Instructions Note Date & Type Note Facility 12-14-2022 Instructions Ericka Choe APRN.CNP - 12/14/2022 2:37 PM EDT ASSESSMENT/PLAN: 1. Sinobronchitis - ICD9: 473.9, 490, ICD10: J32.9, J40 - Will begin treatment with as per antibiotic as written, see orders - The patient should also use her inhalers as prescribed. - Supportive care with plenty of fluids, rest, and analgesia prn. - AMOXICILLIN 875 MG-POTASSIUM CLAVULANATE 125 MG TABLET - PREDNISONE 20 MG TABLET - Follow-up with your PCP in 3-5 days if symptoms have not improved or sooner if symptoms worsen - Discussed red flags and need for immediate medical evaluation if any occur. - Discussed supportive care treatment with fluids, rest and analgesia. - Discussed expected course of illness Ericka Choe APRN.CNP ACUTE BRONCHITIS: You have acute bronchitis. This means the airway passages in your lungs are inflamed. Bronchitis may be caused by viruses or bacteria. Inhaling cigarette smoke will always make it worse. Exposure to irritating chemicals or second hand smoke as well as allergies can contribute to bronchitis. Repeat episodes of bronchitis may cause lifelong lung problems. Acute bronchitis is usually treated with rest, fluids, cough medicine, and possibly antibiotics or inhaled medicine to open up the small airways. It is very important that you avoid smoke and drink increased amounts of fluids. A cool air vaporizer can help thin bronchial secretions. This makes it easier to cough and clear your chest. If you are a cigarette smoker, consider using nicotine gum or skin patches to help you withdraw. Recovery from bronchitis is often slow, but you should start feeling better after 2-3 days of treatment. Please call your doctor or return here if you have any of the following symptoms: Increased fever, chills, or chest pain. Severe shortness of breath or bloody sputum. Do not improve after 3 days of proper treatment. documented in this encounter [facility] Evaluation note Note Date & Type Note Facility documented in this encounter [facility] Summary Purpose Family History No Family History Records FoundNo Family History Records Found Advance Directives No Advanced Directives Records FoundNo Advanced Directives Records Found History of Present Illness * Robyn Flowers (Ashish) - 12/02/2020 1:53 PM EDT This note was created using [employer]. Subjective Viola George is a 65 year old female. HPI Patient presents with a rash around her neck the past 2 weeks. She wore a metal necklace prior to the rash and then it had started the day after. She has gotten rashes from metal previously. She thinks maybe it was nickel. She had noticed her throat was feeling a little swollen today so she came infor evaluation. No cough. No chest pain. States her chest feels little tight but she does have asthma. No wheezing recently. She has not tried anything [id number] for her symptoms. No other newmedications. No new exposures other than the metal necklace. Review of Systems Constitutional: Negative for chills, fatigue and fever. HENT: Negative. Eyes: Negative. Respiratory: Negative. Cardiovascular: Negative. Gastrointestinal: Negative. Endocrine: Negative. Genitourinary: Negative. Musculoskeletal: Negative. Skin: Positive for rash. All other systems reviewed and are negative. No past medical history on file. Current Outpatient Medications Medication Sig Dispense Refill fluticasone-salmeterol (ADVAIR DISKUS) 250-50 mcg/dose INHALE ONE PUFF BY MOUTH TWICE DAILY albuterol HFA (PROAIR HFA) 90 mcg/actuation inhaler simvastatin (ZOCOR) 40 mg tablet lisinopril (ZESTRIL, PRINIVIL) 40 mg tablet Take 40 mg by mouth. hydroCHLOROthiazide (HYDRODIURIL, ESIDRIX) 12.5 mg tablet citalopram (CELEXA) 40 mg tablet Take 40 mg by mouth. albuterol HFA (PROVENTIL HFA, VENTOLIN HFA) 90 mcg/actuation inhaler cyclobenzaprine (FLEXERIL) 10 mg tablet Take 10 mg by mouth. metoprolol succinate ER (TOPROL XL) 25 mg 24 hr tablet Take 25 mg by mouth. predniSONE (DELTASONE) 20 mg tablet Take 2 tablets by mouth once daily for 5 days. 10 tablet 0 cetirizine (ZYRTEC) 10 mg tablet Take 1 tablet by mouth once daily for 14 days. 14 tablet 0 triamcinolone acetonide (KENALOG) 0.1 % cream Apply 1 application to affected area three times daily for 7 days. Apply sparingly to area for rash/itching. 45 g 0 No current facility-administered medications for this visit. No past surgical history on file. No family history on file. Social History Tobacco Use Smoking status: Current Every Day Smoker Smokeless tobacco: Never Used Substance Use Topics Alcohol use: Not on file Drug use: Not on file Objective BP 132/82 Pulse 110 Temp 36.5 C (97.7 F) (Tympanic) Resp 18 Wt 59.9 kg (132 lb) SpO2 95% Physical Exam Vitals reviewed. Constitutional: Appearance: Normal appearance. HENT: Head: Normocephalic and atraumatic. Mouth/Throat: Lips: [place]. Mouth: Mucous membranes are moist. Pharynx: Oropharynx is clear. Uvula midline. No pharyngeal swelling, posterior oropharyngeal erythema or uvula swelling. Tonsils: 0 on the right. 0 on the left. Neck: Comments: Patient has multiple erythematous papular lesions circumferentially around her neck with some scabbing and excoriations. Consistent with contact dermatitis. No swelling. Cardiovascular: Rate and Rhythm: Normal rate and regular rhythm. Heart sounds: Normal heart sounds. Comments: HR 92 bpm Pulmonary: Effort: Pulmonary effort is normal. Breath sounds: Normal breath sounds. Skin: General: Skin is warm and dry. Neurological: Mental Status: She is alert. Assessment and Plan ASSESSMENT/PLAN: 1. Allergic contact dermatitis due to metals - ICD9: 692.83, ICD10: L23.0 Given prednisone, triamcinolone, and zyrtec. Discussed with patient concerning symptoms to go to the emergency department or follow up here. Avoid the necklace in the future. Pt agreeable with this plan. Robyn Flowers PA-C documented in this encounter Assessments Diagnosis Allergic contact dermatitis due to metals- Primary Dermatitis due to metals Additional Source Comments INFORMATION SOURCE (unrecogn ized section and content) DATE CREATED AUTHOR AUTHOR'S ORGANIZ ATION 12/03/2020 [facility] Source Comments (unrecognize d section and content) In the event this informatio n is protected by the Federal Confidentiality of Alcohol and Drug Abuse Patient Records regulations: The Federal rules restrict any use of the information to criminally investigate or prosecute any alcohol or drug abuse patient.[facility] the event this information is protected by the Federal Confidentiality of Alcohol and Drug Abuse Patient Records regulations: The Federal rules restrict any use of the information to criminally investigate or prosecute any alcohol or drug abuse patient.[facility] Reason for Visit (unrecogniz ed section and content) Reason Comments Cough T reported chest con gestion, Reeves x1 wk. Care Teams (unrecognized sec tion and content) FOR RECORDS PERTAINING TO PATIENTS WHO ARE OR HAVE BEEN ENROLLED IN A CHEMICAL DEPENDENCY/SUBSTANCEABUSE PROGRAM, SOME INFORMATION MAY BE OMITTED. This clinical summary was aggregated from multiple sources. Caution should be exercised in using it in the provision of clinical care. This summary normalizes information from multiple sources, and as a consequence, information in this document may materially change the coding, format and clinical context of patient data. In addition, data may be omitted in some cases. CLINICAL DECISIONS SHOULD BE BASED ON THE PRIMARY CLINICAL RECORDS. [employer] [facility]. provides no warranty or guarantee of the accuracy or completeness of information in this document.
[2023-09-22 16:36] LABS: Absolute Lymphocyte Count 1.45 X10^3/uL (0.83-4.51); Absolute Neutrophil Count 2.5 X10^3/uL (2.0-7.7); Basophil# 0.08 X10^3/uL; Basophil% 1.7 % (0-1); Eosinophil# 0.17 X10^3/uL; Eosinophils% 3.6 % (0-5); Hematocrit 42.1 % (37-47); Lymphocyte # 1.45 X10^3/ul (0.83-4.51); Lymphocyte % 30.9 % (19-41); Mean Corp Hgb Conc 33.3 g/dL (32-36); Mean Corpuscular Hgb 31.7 pg (27.0-32.0); Mean Corpuscular Volume 95.2 fL (81-99); Mean Platelet Vol. 9.7 fl (6.2-12.0); Monocyte# 0.47 X10^3/uL; NRBC Flagged by Analyzer 0 % (0-5); Neutrophil # 2.52 X10^3/uL (2.7-7.7); Neutrophil % 53.6 % (47-70); Platelet Count 251 K/mm3 (150-450); RBC Distribution Width CV 11.6 % (11.6-14.6); RBC Distribution Width SD 40.6 fl (35.1-43.9); Red Blood Count 4.42 M/mm3 (4.2-5.4); White Blood Count 4.7 K/mm3 (4.4-11.0)
[2023-09-22 16:56] LABS: ALB/GLOB Ratio 0.9 RATIO (0.9-2.4); AST(SGOT) 23 U/L (15-37); Alanine Aminotransfer ALT/SGPT 34 U/L (13-56); Albumin, Serum 3.5 g/dL (3.2-5.0); Alkaline Phosphatase 178 U/L (45-117); Anion Gap 3 (5-15); BUN 8 mg/dL (7-18); BUN/Creat Ratio 13.5 RATIO (10-20); Calcium,Total 9.4 mg/dL (8.5-10.1); Chloride 100 mmol/L (98-107); Cholesterol 187 mg/dL (200); Creatinine, Serum 0.59 mg/dL (0.55-1.02); EST Glomerular Filtration Rate 107 mL/min (>60); Est Glom Filt Rate - Afr Amer 129 mL/min (>60); Globulin 3.8 g/dL (2.2-4.2); Glucose 120 mg/dL (74-106); High Density Lipoprotein 82 mg/dL; Potassium 4.4 mmol/L (3.5-5.1); Protein, Total 7.3 g/dL (6.4-8.2); Sodium Level 133 mmol/L (136-145); Triglycerides 58 mg/dL; Very Low Density Lipoprotein 12 mg/dL (5-40)
== END | disposition home or self-care (01) ==
LOC: BIMLAB 15:50
PROVIDERS: PCP Internal Medicine; Referring Provider Internal Medicine; Visit Provider Internal Medicine
DX: I10 Essential (primary) hypertension (principal)
CPT/HCPCS: 36415; 80053; 80061; 85025

== ENCOUNTER → 2023-10-14 | Outpatient (CLI) | payer MEDICARE, SELFPAY ==
--- OUTSIDE RECORDS SUMMARY | 2023-10-14 16:27 | XMS RPT_ITS | CCD ---
Author Name Unknown Address [address] [place] [address] Organization [facility] Care Team Providers Care Applications Systems Analyst Name Role Phone DarrellBlanche Avery Primary Care Provider Jillian GONGORA, Silviano Oh Primary Care Provider Allergies Allergy Classification Reported Allergen(s) Allergy Type Date of Onset Reaction(s) Facility (2 sources) moxifloxacin Drug Allergy 1 Rash, Swelling [facility] Medications Current Medications Medication Drug Class(es) Dates [...] 14:29-0400 Body temperature 97.2 [degF] Ericka Choe APRN.POWDERER Work Phone: [facility] 12-14-2022 14:29-0400 Body weight 52.62 kg Ericka Praisler-Wood MANAGER AGRICULTURAL.POWDERER Work Phone: [facility] 12-14-2022 14:29-0400 Diastolic blood pressure 72 mm[Hg] Ericka Praisler-Wood MANAGER AGRICULTURAL.POWDERER Work Phone: [facility] 12-14-2022 14:29-0400 Heart rate 101 /min Ericka Praisler-Wood MANAGER AGRICULTURAL.POWDERER Work Phone: [facility] 12-14-2022 14:29-0400 Respiratory rate 20 /min Ericka Praisler-Wood MANAGER AGRICULTURAL.POWDERER Work Phone: [facility] 12-14-2022 14:29-0400 SaO2% (BldA) [Mass fraction] 97 % Ericka Praisler-Wood MANAGER AGRICULTURAL.POWDERER Work Phone: [facility] 12-14-2022 14:29-0400 Systolic blood pressure 124 mm[Hg] Ericka Praisler-Wood MANAGER AGRICULTURAL.POWDERER Work Phone: [facility] 12-02-2020 13:39-0400 Body Temperature 97.7 [degF] [facility] 12-02-2020 13:39-0400 Body weight 59.88 kg [facility] 12-02-2020 13:39-0400 BP Diastolic 82 mm[Hg] [facility] 12-02-2020 13:39-0400 BP Systolic 132 mm[Hg] [facility] 12-02-2020 13:39-0400 Pulse (Heart Rate) 110 /min [facility] 12-02-2020 13:39-0400 Pulse Oximetry 95 % [facility] 12-02-2020 13:39-0400 Respiratory Rate 18 /min [facility] Encounters Encounter Date Encounter Type Care Provider Facility Start: 12-14-2022 End: 12-14-2022 Patient encounter procedure Ericka Praisler-Wood MANAGER AGRICULTURAL.POWDERER Work Phone: [facility] Care Plan of Treatment Date Care Activity Detail Author Start: 04-29-2023 Influenza vaccination INFLUENZA (Sea son Ended) [facility] Start: 08-29-2022 ADVANCE DIRECTIVE DISCUSSION ADVANCE DIRECTIVE DISCUSSION [facility] Start: 08-29-2022 DEPRESSION ASSESSMENT DEPRESSION ASS ESSMENT [facility] Start: 06-17-2021 COVID-19 VACCINE (3 - Booster for Pfizer series) COVID-19 VACCINE (3 - Booster for Pfizer series) [facility] Start: 04-29-2021 Influenza vaccination INFLUENZA (Sea son Ended) [facility] Start: 2018 ADVANCE DIRECTIVE DISCUSSION ADVANCE DIRECTIVE DISCUSSION [facility] Start: 2018 BONE DENSITY BONE DENSITY [facility] Start: 2018 PNEUMOVAX AGE 65 AND OVER WITH 5YR LOOKBACK (#1) PNEUMOVAX AGE 65 AND OVER WITH 5YR LOOKBACK (#1) [facility] Start: 2003 Screening for malign ant neoplasm of colon [facility] Start: 2003 SHINGRIX VACCINE (1 of 2) SHINGRIX V ACCINE (1 of 2) [facility] Start: 1998 COLOGUARD (FIT-DNA) COLOGUARD (FIT-D NA) [facility] Start: 1998 Colonoscopy COLONOSCOPY [facility] Start: 1998 COLORECTAL CANCER SCREENING COLORECTAL CANCER SCREENING [facility] Start: [address] COLONOGRAPHY [facility] Start: 1998 DIABETES SCREEN DIABETES SCREEN [facility] Start: 1998 FECAL OCCULT BLOOD FECAL OCCULT BLOO D [facility] Start: 1998 LIPID SCREEN LIPID SCREEN [facility] Start: 1998 SIGMOIDOSCOPY SIGMOIDOSCOPY [facility] Start: 1993 Mammography MAMMOGRAM [facility] Start: 1972 Urine microalbumin profile DTAP,TDAP ,TD (1 - Tdap) [facility] Start: 1971 HEPATITIS C SCREENING HEPATITIS C SC REENING [facility] Start: 1965 Adult depression scr eening assessment DEPRESSION SCREENING [facility] Start: 1959 PNEUMOCOCCAL: 65+ (1 - PCV) PNEUMOCOCCAL: 65+ (1 - PCV) [facility] Payers Date Payer Category Payer Medicare MEDICARE MEDICAR E A AND B [id number] 2018-Present [place], [place] Medicare [id number] 2018 Medicare MEDICARE MEDICAR E A AND B [id number] 2018-Present [phone] [place] [address] Medicare [id number] Social History Date Type Detail Facility Start: 12-02-2020 Tobacco smoking stat [facility] Current every day smoker [facility] Start: 12-02-2020 End: 12-14-2022 Tobacco use and exposure Never used [facility] Start: 1955 Sex Assigned At Not on file [facility] Exposure to SARS-CoV -2 (event) Not sure [facility] Start: 12-14-2022 Tobacco smoking stat [facility] Occasional tobacco smoker [facility] History of tobacco use Cigarette Smoker [facility] History of Present illness Narrative 12-14-2022 Ericka Choe APRN.POWDERER - 12/14/2022 2:39 PM EDT Note Date [...] shortness of breath. 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 documented in this encounter [facility] Evaluation note Note Date & Type Note Facility documented in this encounter [facility] Summary Purpose Family History No Family History Records FoundNo Family History Records Found Advance Directives No Advanced Directives Records FoundNo Advanced Directives Records Found History of Present Illness * Robyn Flowers (Ashish) - 12/02/2020 1:53 PM EDT This note was created using inDplayriter. Subjective Viola George is a 65 year [...] wheezing recently. She has not tried anything [id number] for her symptoms. No other newmedications. No [...] HENT: Head: Normocephalic and atraumatic. Mouth/Throat: Lips: Haena. Mouth: Mucous membranes are moist. Pharynx: Oropharynx [...] DATE CREATED AUTHOR AUTHOR'S ORGANIZ ATION 12/03/2020 [facility] Source Comments (unrecognize d section and content) In the event this informatio n is protected by the Federal Confidentiality of Alcohol and Drug Abuse Patient Records regulations: The Federal rules restrict any use of the information to criminally investigate or prosecute any alcohol or drug abuse patient.[facility] the event this information is protected by the Federal Confidentiality of Alcohol and Drug Abuse Patient Records regulations: The Federal rules restrict any use of the information to criminally investigate or prosecute any alcohol or drug abuse patient.[facility] Reason for Visit (unrecogniz ed section and [...] BE BASED ON THE PRIMARY CLINICAL RECORDS. [facility]. provides no warranty or guarantee of the accuracy or completeness of information in this document.
[2023-10-14 16:44] LABS: GGTP 180 U/L (5-55)
== END | disposition home or self-care (01) ==
LOC: BIMLAB 14:42
PROVIDERS: PCP Internal Medicine; Referring Provider Internal Medicine; Visit Provider Internal Medicine
DX: R74.8 Abnormal levels of other serum enzymes (principal)
CPT/HCPCS: 36415; 82977

== ENCOUNTER → 2024-03-09 | Outpatient (CLI) | payer MEDICARE, SELFPAY ==
[2024-03-09 16:53] LABS: Absolute Lymphocyte Count 1.15 X10^3/uL (0.83-4.51); Absolute Neutrophil Count 2.9 X10^3/uL (2.0-7.7); Basophil# 0.06 X10^3/uL; Basophil% 1.3 % (0-1); Eosinophil# 0.25 X10^3/uL; Eosinophils% 5.3 % (0-5); Hemoglobin 13.4 g/dL (12.0-15.0); Lymphocyte # 1.15 X10^3/ul (0.83-4.51); Lymphocyte % 24.4 % (19-41); Mean Corp Hgb Conc 32.7 g/dL (32-36); Mean Corpuscular Hgb 30.9 pg (27.0-32.0); Mean Corpuscular Volume 94.7 fL (81-99); Mean Platelet Vol. 10.8 fl (6.2-12.0); Monocyte# 0.38 X10^3/uL; Monocyte% 8.1 % (0-10); NRBC Flagged by Analyzer 0 % (0-5); Neutrophil # 2.85 X10^3/uL (2.7-7.7); Neutrophil % 60.5 % (47-70); Platelet Count 212 K/mm3 (150-450); RBC Distribution Width CV 11.8 % (11.6-14.6); RBC Distribution Width SD 41.3 fl (35.1-43.9); Red Blood Count 4.33 M/mm3 (4.2-5.4); White Blood Count 4.7 K/mm3 (4.4-11.0)
[2024-03-09 17:05] LABS: Vitamin D,25 Hydroxy 19.3 ng/mL
[2024-03-09 17:13] LABS: ALB/GLOB Ratio 0.9 RATIO (0.9-2.4); AST(SGOT) 33 U/L (15-37); Alanine Aminotransfer ALT/SGPT 30 U/L (13-56); Albumin, Serum 3.4 g/dL (3.2-5.0); Alkaline Phosphatase 231 U/L (45-117); Anion Gap 5 (5-15); BUN 4 mg/dL (7-18); BUN/Creat Ratio 5.8 RATIO (10-20); Calcium,Total 9.1 mg/dL (8.5-10.1); Chloride 96 mmol/L (98-107); Creatinine, Serum 0.69 mg/dL (0.55-1.02); EST Glomerular Filtration Rate 89 mL/min (>60); Est Glom Filt Rate - Afr Amer 108 mL/min (>60); Globulin 3.8 g/dL (2.2-4.2); Glucose 123 mg/dL (74-106); Potassium 4.3 mmol/L (3.5-5.1); Protein, Total 7.2 g/dL (6.4-8.2); Sodium Level 130 mmol/L (136-145)
== END | disposition home or self-care (01) ==
PROVIDERS: PCP Internal Medicine; Referring Provider Internal Medicine; Visit Provider Internal Medicine
DX: I10 Essential (primary) hypertension (principal); M81.0 Age-related osteoporosis without current pathological fracture
CPT/HCPCS: 36415; 80053; 82306; 85025

== ENCOUNTER → 2024-03-22 | Outpatient (CLI) | payer MEDICARE, SELFPAY ==
[2024-03-22 16:49] LABS: Anion Gap 5 (5-15); BUN 7 mg/dL (7-18); BUN/Creat Ratio 11.3 RATIO (10-20); Calcium,Total 9.1 mg/dL (8.5-10.1); Chloride 102 mmol/L (98-107); Creatinine, Serum 0.62 mg/dL (0.55-1.02); EST Glomerular Filtration Rate 101 mL/min (>60); Est Glom Filt Rate - Afr Amer 122 mL/min (>60); Glucose 97 mg/dL (74-106); Sodium Level 135 mmol/L (136-145)
== END | disposition home or self-care (01) ==
LOC: BIMLAB 15:58
PROVIDERS: PCP Internal Medicine; Referring Provider Internal Medicine; Visit Provider Internal Medicine
DX: E87.1 Hypo-osmolality and hyponatremia (principal)
CPT/HCPCS: 36415; 80048

== ENCOUNTER → 2024-05-02 | Outpatient (CLI) | payer MEDICARE, OTHER, SELFPAY ==
--- NOTE | 2024-05-02 14:41 | BI_ITS ---
MAMMOGRAPHY - BILATERAL SCREENING REASON FOR EXAM: Female, 68 years old. Routine annual screening examination. PERTINENT HISTORY: Daughter with breast cancer. TECHNIQUE: Digital bilateral breast chevy (3D mammographic acquisition) in the CC and MLO projections. 2-D mediolateral oblique (MLO) and craniocaudad (CC) views of both breasts were obtained. CAD: Full Field Digital Mammography with Computer Added Detection was performed. COMPARISON: Comparison is made with prior study April 15, 2022 and May 01, 2020. FINDINGS: Breast Composition: The breasts are almost entirely fatty. There are no dominant masses or suspicious calcifications. No other significant abnormalities are identified. There has been no significant change since the prior study. BI/SCRN MAMM (CAD)W/CHEVY BILAT IMPRESSION: Stable bilateral screening mammogram. Yearly follow-up mammogram recommended. (A) ASSESSMENT CATEGORY: BIRADS Category 1: Negative. A letter regarding these results will be sent to the patient by the facility within 30 days. Approximately 10% of breast cancers are not detected by mammography. A normal mammogram should not delay biopsy of a clinically suspicious abnormality. [id number] Electronically Signed: Rivera De La O MD at 15:29 EDT ,
== END | disposition home or self-care (01) ==
LOC: OPBI 14:40
PROVIDERS: PCP Internal Medicine; Referring Provider Internal Medicine; Visit Provider Internal Medicine
DX: Z12.31 Encounter for screening mammogram for malignant neoplasm of breast (principal)
CPT/HCPCS: 77063; 77067

== ENCOUNTER 2024-05-10 13:49 | Outpatient (CLI) | payer MEDICARE, SELFPAY ==
[2024-05-10] MEDS: Zoledronic Acid 5 MG 100 ML 300 MG IV (14:07)
[2024-05-10] MEDS: 0.9% NaCl Peripheral Flush Adult/Peds IV (14:07)
[2024-05-10 14:12] VITALS: BP 169/88; PULSE 93; RESP 16; TEMP 36.3; O2SAT 93; BMI 21.6
[2024-05-10 14:36] VITALS: BP 152/76; PULSE 90; RESP 16; TEMP 36.4
== END 2024-05-10 23:59 | disposition home or self-care (01) ==
PROVIDERS: PCP Internal Medicine; Referring Provider Internal Medicine; Visit Provider Internal Medicine
DX: M81.0 Age-related osteoporosis without current pathological fracture (principal)
CPT/HCPCS: 96365; A4216; J3489

== ENCOUNTER 2024-05-14 10:58 | Emergency (ER) | payer MEDICARE, SELFPAY ==
[2024-05-14 10:59] VITALS: BP 187/91; PULSE 104; RESP 18; TEMP 36.1; O2SAT 98; BMI 20.6
--- NOTE | 2024-05-14 11:43 | RAD_ITS ---
STUDY: X-RAY - LUMBAR SPINE REASON FOR EXAM: Female, 68 years old. 3-4 week history of back pain. TECHNIQUE: 3 view(s) of the lumbar spine were obtained. COMPARISON: Comparison is made with prior study dated March 16, 2021. FINDINGS: There is an exaggerated lumbar lordosis. There is no substantial scoliosis. Minimal anterior listhesis of L4 on L5. Loss of height of the L5 vertebrae as well as the T12 and L1 vertebrae. This has progressed as compared to prior study. There is multi-level degenerative disc disease with multi-level disc space narrowing. Facet joint osteoarthritis. There is atherosclerotic calcification of the abdominal aorta without a demonstrated aneurysm. RAD/Lumbar Spine 2 or 3 Views IMPRESSION: Degenerative changes of the spine, as detailed above. Exaggerated lordosis. Loss of height of the superior endplate of the T12, L1 and L5 vertebrae. These have progressed as compared to prior study. Electronically Signed: Rivera De La O MD at 12:33 EDT ,
--- NOTE | 2024-05-14 11:43 | RAD_ITS ---
STUDY: X-RAY - THORACIC SPINE REASON FOR EXAM: Female, 68 years old. Back pain. TECHNIQUE: 3 view(s) of the thoracic spine were obtained. COMPARISON: None. FINDINGS: There is an increase in the normal thoracic kyphosis. Mild dextroscoliosis. There is demineralization of the thoracic spine. Loss of height of mid and lower dorsal vertebrae. There is multilevel disc space narrowing of the thoracic spine. Atherosclerotic calcification of the aortic arch. RAD/Thoracic Spine 2 Views IMPRESSION: Minimal dextroscoliosis of the upper thoracic spine. Increased kyphosis. Loss of height of the mid and lower dorsal vertebrae. Electronically Signed: Rivera De La O MD at 12:37 EDT ,
--- NOTE | 2024-05-14 11:44 | EDS_ITS ---
HPI History of Present Illness Chief Complaint: Back Informant: patient Narrative Narrative: 68-year-old female with gradual onset of pain in her low-mid back nonlateralizing worse with movement for the past 3 to 4 weeks. She been referred to pain management has not seen them yet. She been taking baclofen and Tylenol for the pain, she had this from a prior back problem ended up being a compression fracture. She does not recall the events surrounding the onset of the pain. She denies any bowel or bladder dysfunction, radiation down her legs, numbness, or focal weakness. She denies any urinary abnormalities/symptoms. No saddle anesthesia. [facility] Medical History Hyponatremia Health care maintenance Cat bite of hand Elevated liver enzymes Chronic cough COPD (chronic obstructive pulmonary disease) Right hip pain Tobacco use disorder, continuous Encounter for screening for malignant neoplasm of lung in current smoker with 30 pack year history or greater Osteoporosis Muscle spasm of back Osteoarthritis Asthma exacerbation Allergic rhinitis Heart burn Pleurisy Vitamin deficiency History of skin cancer Osteoarthritis History of kidney stones Migraine High cholesterol Hypertension Frequent headaches History of fracture Back pain Asthma Arthritis Seasonal allergies Home Medications ?Medication ?Instructions ?Recorded ?Last Taken ?Type Lactobacillus acidophilus 250 100 mmu cells PO DAILY 03/07/20 Unknown History million cell capsule (Probiotic Acidophilus) ephedrine-guaifenesin 12.5 mg-200 1 tab PO Q4H PRN 03/07/20 Unknown History mg tablet (Primatene Asthma) nebulizer accessories (Hypersoniq #1 ea 07/01/20 Unknown Rx Nebulizer Cartridge) albuterol sulfate 2.5 mg/3 mL 2.5 mg (3 mL) inhalation Q4H PRN 06/17/21 Unknown Rx (0.083 %) solution for nebulization shortness of breath or wheezing #90 mL calcium carb 300 mg-D3 20 mcg-mag 1 tab PO DAILY 07/09/21 Unknown History ox 25 mg-copying machine repairer 0.5 [id number] tablet (Caltrate-D3 Plus Minerals) ascorbic acid (vitamin C) 500 mg mg PO 11/05/21 Unknown History capsule acetaminophen 650 mg 650 mg PO Q8H 04/02/22 Unknown History tablet,extended release (Tylenol Arthritis Pain) triamcinolone acetonide 0.1 % 1 applic topical TID PRN rash #80 01/06/23 Unknown Rx topical cream grams fluticasone propionate 50 1 spray intranasal BID PRN 09/26/23 Unknown Rx mcg/actuation nasal allergies, congestion #16 grams spray,suspension metoprolol succinate 25 mg 12.5 mg (1/2 x 25 mg) PO DAILY #90 09/26/23 Unknown Rx tablet,extended release 24 hr tabs albuterol sulfate 90 mcg/actuation 2 puff inhalation Q4H PRN 03/09/24 Unknown Rx aerosol inhaler shortness of breath or wheezing #18 grams citalopram 40 mg tablet (Celexa) 40 mg PO DAILY #90 tabs 03/09/24 Unknown Rx hydrochlorothiazide 12.5 mg tablet 12.5 mg PO QAM #90 tabs 03/09/24 Unknown Rx lisinopril 40 mg tablet 40 mg PO DAILY #90 tabs 03/09/24 Unknown Rx meloxicam 15 mg tablet See Rx Instructions .Route 03/09/24 Unknown Rx .COMPLEX #90 tabs montelukast 10 mg tablet 10 mg PO QHS #90 tabs 03/09/24 Unknown Rx (Singulair) simvastatin 40 mg tablet 40 mg PO QPM #90 tabs 03/09/24 Unknown Rx zoledronic acid 5 mg/100 mL in 1 ea .Route .Yearly #100 mL 03/09/24 Unknown Rx mannitol 5 %-water intravenous piggybck (Reclast) baclofen 10 mg tablet 5 - 10 mg (0.5 - 1 x 10 mg) PO BID 03/13/24 Unknown Rx PRN muscle spasm #30 tabs budesonide 160 mcg-glycopyr 9 2 inh inhalation BID #10.7 grams 05/08/24 Unknown Rx mcg-formot 4.8 mcg/actuation HFA inhaler (Breztri Aerosphere) oxycodone-acetaminophen 5 mg-325 1 tab PO Q6H PRN PRN Pain 3 days 05/14/24 Unknown Rx mg tablet #12 TABLETS Allergy/AdvReac Type Severity Reaction Status Date / Time moxifloxacin (From Avelox) Allergy Severe hives/swell Verified 05/14/24 11:02 ing Seasonal Allergies: Uncoded Allergy Intermediate Other Verified 05/14/24 11:02 Family History Father Skin cancer TIA (transient ischemic attack) High cholesterol Hypertension Heart disease Asthma Alzheimer disease Surgical History H/O tubal ligation H/O hernia repair History of tonsillectomy and adenoidectomy Social History 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- [employer] Smoking Status: Current every day smoker tobacco type: cigarettes Tobacco: How many years used: 45 Electronic Cigarette Use: not used second hand exposure: Yes quit status: has quit before alcohol intake: never substance use type: does not use what type of physical activity do you participate in: walking ROS ROS ED Constitutional Constitutional ED: Denies chills or fever(s) Cardiovascular Cardiovascular: Denies syncope Gastrointestinal Gastrointestinal: Denies abdominal pain, constipation, fecal incontinence, nausea or vomiting Genitourinary Genitourinary ED: Reports other Details: no urinary retention ; Denies abdominal discomfort or urinary incontinence Musculoskeletal Musculoskeletal: Reports as per HPI and back pain; Denies extremity pain or neck pain Integumentary Denies rash or wounds Neurologic Neurologic: Denies headache(s), paresthesias or weakness EXAM Physical Exam Const Vital Signs: 05/14/24 10:59 Temperature 96.9 F L Temperature Source Temporal Pulse Rate 104 H Respiratory Rate 18 Blood Pressure 187/91 H Blood Pressure Mean 123 Pulse Ox 98 Oxygen Delivery Method Room Air Positive well nourished and well developed General Appearance ED: well developed and NAD HEENT Negative for trauma or tenderness Eyes PERRL and EOMs intact bilaterally Neck full ROM and supple GI normal to inspection, nondistended, normoactive bowel sounds, soft to palpation and non-tender Back/Spine normal to inspection Back/Spine Narrative: Patient has some mild midline lower thoracic and upper lumbar tenderness including the paraspinal musculature bilaterally. Inspection is normal. She is able to sit up and bend over just with discomfort. Ranges full. General Back: Negative for CVA tenderness Lumbar Spine / Lower Back: lumbar spinal tenderness, paraspinal muscle tenderness and straight leg raise negative bilaterally Extremity normal to inspection, full ROM and no pedal edema Neuro oriented x3 and no sensory deficits noted Sensorium / Orientation: alert Motor Exam: strength 5/5 throughout and clonus absent Deep Tendon Reflexes: Rt Patellar (L4): 2+, Lt Patellar (L4): 2+, Rt Ankle (S1): 2+ and Lt Ankle (S1): 2+ Deep Tendon Reflexes Back: Rt Patellar (L4): 2+, Lt Patellar (L4): 2+, Rt Ankle (S1): 2+ and Lt Ankle (S1): 2+ Plantar Reflex: Downgoing: bilateral Psych mental status grossly normal and thought process normal Skin no rashes or lesions noted and no wounds MDM MDM MDM Narrative Medical decision making narrative: Thoracic and lumbar spine x-rays were obtained. 2 views of the thoracic and 3 views of the lumbar spine noted by myself, she does appear to have some minor superior endplate fractures, radiology was in agreement that there is nothing definitively acute, age is undetermined. Patient was doing better after oxycodone but then she was worse after they did obtain the x-rays. She is neurologically intact, does not need any emergent MRI today, I think she is stable to follow-up as an outpatient as scheduled. Will prescribe her some pain medication. Radiography Diagnostic Testing: Clinical Impression(s) from Imaging Studies Lumbar Spine X-Ray 05/14/24 11:43 IMPRESSION: Degenerative changes of the spine, as detailed above. Exaggerated lordosis. Loss of height of the superior endplate of the T12, L1 and L5 vertebrae. These have progressed as compared to prior study. Electronically Signed: Rivera De La O MD at 12:33 EDT , Thoracic Spine X-Ray 05/14/24 11:43 IMPRESSION: Minimal dextroscoliosis of the upper thoracic spine. Increased kyphosis. Loss of height of the mid and lower dorsal vertebrae. Electronically Signed: Rivera De La O MD at 12:37 EDT , Discharge Plan Triage Chief Complaint: Back ED Provider: Kamron Zazueta Dx/Rx/DC Orders Clinical Impression: Acute low back pain, Compression fracture of thoracic vertebra Instructions: Compression Fx Prescriptions: New oxycodone-acetaminophen 5-325 mg tablet 1 tab PO Q6H PRN PRN (Reason: Pain) 3 Days Qty: 12 0RF No Action Primatene Asthma 12.5-200 mg tablet 1 tab PO Q4H PRN Probiotic Acidophilus 1.5 mg (250 million cell) capsule 100 mmu cells PO DAILY Rx Instructions: administer with large glass of water Caltrate-D3 Plus Minerals 300 mg-800 unit -25 mg-0.5 mg tablet 1 tab PO DAILY ascorbic acid (vitamin C) 500 mg capsule PO acetaminophen [Tylenol Arthritis Pain] 650 mg tablet extended release 650 mg PO Q8H triamcinolone acetonide 0.1 % cream 1 applic topical TID PRN (Reason: rash) Qty: 80 2RF zoledronic yqea-jzskwlev-allft [Reclast] 5 mg/100 mL piggyback 1 ea .Route .Yearly Qty: 100 0RF Rx Instructions: Yearly albuterol sulfate 90 mcg/actuation HFA aerosol inhaler 2 puff INHALATION Q4H PRN (Reason: shortness of breath or wheezing) Qty: 18 2RF meloxicam 15 mg tablet See Rx Instructions .ROUTE .COMPLEX Qty: 90 1RF Dose Instruction: TAKE ONE-HALF TO ONE TABLET BY MOUTH ONCE DAILY NEEDED FOR JOINT PAIN Rx Instructions: TAKE ONE-HALF TO ONE TABLET BY MOUTH ONCE DAILY NEEDED FOR JOINT PAIN lisinopril 40 mg tablet 40 mg PO DAILY Qty: 90 1RF hydrochlorothiazide 12.5 mg tablet 12.5 mg PO QAM Qty: 90 1RF simvastatin 40 mg tablet 40 mg PO QPM Qty: 90 1RF montelukast [Singulair] 10 mg tablet 10 mg PO QHS Qty: 90 1RF citalopram [Celexa] 40 mg tablet 40 mg PO DAILY Qty: 90 1RF (DME) Hypersoniq Nebulizer Cartridge Misc See Rx Instructions .ROUTE .MEDSUPPLY Qty: 1 2RF Rx Instructions: nebulizer supplies albuterol sulfate 2.5 mg /3 mL (0.083 %) solution for nebulization 2.5 mg INHALATION Q4H PRN (Reason: shortness of breath or wheezing) Qty: 90 3RF fluticasone propionate 50 mcg/actuation spray,suspension 1 spray intranasal BID PRN (Reason: allergies, congestion) Qty: 16 3RF Rx Instructions: administer into each nostril metoprolol succinate 25 mg tablet extended release 24 hr 12.5 mg PO DAILY Qty: 90 0RF baclofen 10 mg tablet 5 - 10 mg PO BID PRN (Reason: muscle spasm) Qty: 30 1RF Breztri Aerosphere 160-9-4.8 mcg/actuation HFA aerosol inhaler 2 inh inhalation BID Qty: 10.7 1RF Primary Care Provider: Silviano Walsh Referrals: Silviano Walsh MD [Primary Care Provider] - (And/or Dr. Anderson as scheduled) Activity Restrictions/Additional Instructions: You may start by taking half of a prescription pain pill if you need one, you may also take 1 or 2 to begin with if you need, they will does not last as long. Print Language: Mauritanian Disposition Disposition: Home, Self Care
[2024-05-14] MEDS: oxyCODONE 5 MG Tablet PO (12:01)
[2024-05-14 13:25] VITALS: BP 175/84; PULSE 70; RESP 16; TEMP 36.6; O2SAT 99
--- NOTE | 2024-05-14 13:26 | ED.RN ---
DR. CONTRERAS AWARE OF ELEVATED BP. PT IS PRESCRIBED HYPERTENSION MEDICATION. PT IS RATING PAIN 7/10. PT WAS GIVEN PAIN MEDICATION. NO CHANGE IN BEHAVIOR. PT IS LAUGHING IN BED ON CELL PHONE.
== END 2024-05-14 13:37 | disposition home or self-care (01) ==
PROVIDERS: Emergency Provider Emergency Medicine; PCP Internal Medicine; Visit Provider Emergency Medicine
DX: M54.50 Low back pain, unspecified (principal); S22.009A Unspecified fracture of unspecified thoracic vertebra, initial encounter for closed fracture; J44.9 Chronic obstructive pulmonary disease, unspecified; X58.XXXA Exposure to other specified factors, initial encounter; F17.210 Nicotine dependence, cigarettes, uncomplicated; I10 Essential (primary) hypertension; E78.00 Pure hypercholesterolemia, unspecified; M81.0 Age-related osteoporosis without current pathological fracture; M19.90 Unspecified osteoarthritis, unspecified site; G43.909 Migraine, unspecified, not intractable, without status migrainosus; Z79.899 Other long term (current) drug therapy; Z85.828 Personal history of other malignant neoplasm of skin
CPT/HCPCS: 72070; 72100; 99282

== ENCOUNTER 2024-06-08 15:30 | Outpatient (RCR) | payer MEDICARE, SELFPAY | END 2024-06-08 19:00 | disposition home or self-care (01) | LOC: PT 15:30 | PROVIDERS: PCP Internal Medicine; Referring Provider Internal Medicine; Visit Provider Internal Medicine | DX: M54.9 Dorsalgia, unspecified (principal); G89.29 Other chronic pain | CPT/HCPCS: 97110; 97162 ==

== ENCOUNTER → 2024-06-28 | Outpatient (CLI) | payer MEDICARE, SELFPAY ==
--- NOTE | 2024-06-28 14:49 | RAD_ITS ---
STUDY: X-RAY - PELVIS AND RIGHT HIP REASON FOR EXAM: Female, 68 years old. Right hip pain. TECHNIQUE: 3 views of the pelvis and right hip. COMPARISON: None. FINDINGS: There is a non-specific bowel gas pattern. There are multiple metallic surgical clips in the pelvis.. Normal bilateral iliac wings, sacroiliac joints and visualized sacrum. Normal bilateral superior and inferior pubic rami. Normal pubic symphysis. Normal bilateral ischial tuberosities. Normal visualized femoral head. Normal acetabulum. Normal hip joint. There is no demonstrated acute fracture. RAD/HIP, UNI W/ Pelvis 2-3 Views IMPRESSION: Unremarkable x-ray examination of the pelvis and right hip. Electronically Signed: Ignacio Brady MD at 15:32 EDT ,
[2024-06-28 15:14] LABS: Absolute Lymphocyte Count 1.18 X10^3/uL (0.83-4.51); Absolute Neutrophil Count 5.4 X10^3/uL (2.0-7.7); Basophil# 0.06 X10^3/uL; Basophil% 0.8 % (0-1); Eosinophil# 0.27 X10^3/uL; Eosinophils% 3.6 % (0-5); Hematocrit 46.2 % (37-47); Hemoglobin 14.6 g/dL (12.0-15.0); Lymphocyte # 1.18 X10^3/ul (0.83-4.51); Lymphocyte % 15.8 % (19-41); Mean Corp Hgb Conc 31.6 g/dL (32-36); Mean Corpuscular Volume 98.1 fL (81-99); Mean Platelet Vol. 10.6 fl (6.2-12.0); Monocyte# 0.56 X10^3/uL; Monocyte% 7.5 % (0-10); NRBC Flagged by Analyzer 0 % (0-5); Neutrophil # 5.38 X10^3/uL (2.7-7.7); Neutrophil % 71.9 % (47-70); Platelet Count 337 K/mm3 (150-450); RBC Distribution Width CV 12.4 % (11.6-14.6); RBC Distribution Width SD 45.4 fl (35.1-43.9); Red Blood Count 4.71 M/mm3 (4.2-5.4); White Blood Count 7.5 K/mm3 (4.4-11.0)
[2024-06-28 15:54] LABS: Anion Gap 3 (5-15); BUN 9 mg/dL (7-18); BUN/Creat Ratio 13.2 RATIO (10-20); Calcium,Total 9.7 mg/dL (8.5-10.1); Chloride 104 mmol/L (98-107); Creatinine, Serum 0.68 mg/dL (0.55-1.02); EST Glomerular Filtration Rate 91 mL/min (>60); Est Glom Filt Rate - Afr Amer 110 mL/min (>60); Glucose 126 mg/dL (74-106); Sodium Level 136 mmol/L (136-145)
--- OUTSIDE RECORDS SUMMARY | 2024-06-28 18:06 | XMS RPT_ITS | CCD ---
Author Organization [facility] Care Team Providers Care Ratings Analyst Name Role Phone Blanche Ramírez Primary Care Provider [phone] Silviano Walsh MD Primary Care Provider Silviano Walsh MD Primary Care Provider Allergies Allergy Classification Reported Allergen(s) Allergy Type Date of Onset Reaction(s) Facility (3 sources) moxifloxacin Drug Allergy 1 Rash, Swelling [facility] Medications Current Medications Medication Drug Class(es) Dates Sig (Normalized) Sig (Original) 8 hr acetaminophen 650 mg extended release oral tablet (2 sources) Start: 04-02-2022 acetaminophen 650 mg CR tablet Take by mouth. 04/02/2022 Active Comment on above: Take by mouth. [id number] 200 actuat albuterol 0.09 mg/actuat metered dose inhaler (5 sources) beta2-Adrenergic Agonist Start: 05-30-2017 albuterol HFA (PROVENTIL HFA, VENTOLIN HFA) 90 mcg/actuation inhaler 11/26/2020 Active Start: 05-30-2017 albuterol HFA (PROAIR HFA) 90 mcg/actuation inhaler amoxicillin 875 mg / clavulanate 125 mg oral tablet (1 source) Penicillin-class Antibacterial Start: 12-14-2022 End: 12-21-2022 take 1 tablet by mouth twice daily amoxicillin-clavulanic acid (AUGMENTIN) 875-125 mg per tablet Indications: Sinobronchitis Take 1 tablet by mouth twice daily for 7 days. 14 tablet 0 12/14/2022 12/21/2022 Active Comment on above: Take 1 tablet by baljinder twice daily for 7 days. baclofen 10 mg oral tablet (1 source) gamma-Aminobutyric Acid-ergic Agonist Start: 01-06-2023 baclofen (LIORESAL) 10 mg tablet 01/06/2023 Active citalopram 40 mg oral tablet (3 sources) Serotonin Reuptake Inhibitor citalopram (CELEXA) 40 mg tablet Take 40 mg by mouth. Active Comment on above: Take 40 mg by mouth. cyclobenzaprine hydrochloride 10 mg oral tablet (3 sources) Muscle Relaxant cyclobenzaprine (FLEXERIL) 10 mg tablet Take 10 mg by mouth. Active Comment on above: Take 10 mg by mouth. 1 ml denosumab 60 mg/ml prefilled syringe (2 sources) RANK Ligand Inhibitor Start: 10-12-2022 PROLIA 60 mg/mL 10/12/2022 Active fluticasone / salmeterol (3 sources) Corticosteroid, beta2-Adrenergic Agonist Start: 03-15-2017 take 1 puff(s) by mouth twice daily fluticasone-salmeterol (ADVAIR, WIXELA) 250-50 mcg/dose inhaler INHALE ONE PUFF BY MOUTH TWICE DAILY 03/15/2017 Active Start: 03-15-2017 take 1 puff(s) by mo uth twice daily fluticasone-salmeterol (ADVAIR, WIXELA) 250-50 mcg/dose inhaler INHALE ONE PUFF BY MOUTH TWICE DAILY 0 03/15/2017 Active Start: 03-15-2017 take 1 puff(s) by mo uth twice daily fluticasone-salmeterol (ADVAIR DISKUS) 250-50 mcg/dose INHALE ONE PUFF BY MOUTH TWICE DAILY 0 03/15/2017 Active Comment on above: INHALE ONE PUFF BY M OUTH TWICE DAILY hydroCHLOROthiazide 12.5 mg oral tablet (3 sources) Thiazide Diuretic Start: 2020 hydroCHLOROthiazide (HYDRODIURIL, ESIDRIX) 12.5 mg tablet 09/26/2020 Active lisinopril 40 mg oral tablet (3 sources) Angiotensin Converting Enzyme Inhibitor lisinopril (ZESTRIL, PRINIVIL) 40 mg tablet Take 40 mg by mouth. Active Comment on above: Take 40 mg by mouth. 24 hr metoprolol succinate 25 mg extended release oral tablet (3 sources) beta-Adrenergic Chantel take 1 tablet by mouth every twenty-four hours metoprolol succinate ER (TOPROL XL) 25 mg 24 hr tablet Take 25 mg by mouth. Active Comment on above: Take 25 mg by mouth. predniSONE 20 mg oral tablet (2 sources) Start: 2022 End: 2022 take 2 tablets by mouth once daily at mealtime predniSONE (DELTASONE) 20 mg tablet Indications: Sinobronchitis Take 2 tablets by mouth once daily for 4 days. Take daily with food. 8 tablet 0 12/14/2022 12/18/2022 Active Start: 12-02-2020 End: 12-07-2020 take 2 tablets by mouth once daily predniSONE (DELTASONE) 20 mg tablet Take 2 tablets by mouth once daily for 5 days. 10 tablet 0 12/02/2020 12/07/2020 Active Comment on above: Take 2 tablets by [facility] once daily for 5 days. Take 2 tablets by [facility] once daily for 4 days. Take daily with food. simvastatin 40 mg oral tablet (3 sources) HMG-CoA Reductase Inhibitor Start: 09-27-2020 simvastatin (ZOCOR) 40 mg tablet 09/27/2020 Active Completed/Discontinued Medications Medication Drug Class(es) Dates Sig (Normalized) Sig (Original) albuterol HFA (PROVENTIL HFA, VENTOLIN HFA) 90 mcg/actuation inhaler (1 source) Start: 11-26-2020 albuterol HFA (PROVENTIL HFA, VENTOLIN HFA) 90 mcg/actuation inhaler cetirizine hydrochloride 10 mg oral tablet (1 source) Histamine-1 Receptor Antagonist Start: 12-02-2020 End: 12-16-2020 take 1 tablet by mouth once daily cetirizine (ZYRTEC) 10 mg tablet Take 1 tablet by mouth once daily for 14 days. 14 tablet 0 12/02/2020 12/16/2020 Active Comment on above: Take 1 tablet by [facility] once daily for 14 days. triamcinolone acetonide 1 mg/ml topical cream (1 source) Corticosteroid Start: 12-02-2020 End: 12-09-2020 triamcinolone acetonide (KENALOG) 0.1 % cream Apply 1 application to affected area three times daily for 7 days. Apply sparingly to area for rash/itching. 45 g 0 12/02/2020 12/09/2020 Active Comment on above: Apply 1 application to affected area three times daily for 7 days. Apply sparingly to area for rash/itching. Problems Problem Classification Problem Date Documented Da te Episodic/Chronic Allergic reactions (1 source) Allergic contact dermatitis due to metal; Translations: [Allergic contact dermatitis due to metals] Episodic Other upper respiratory infections (1 source) Chronic sinusitis; Translations: [Chronic sinusitis, unspecified] Chronic Spondylosis; intervertebral disc disorders; other back problems (1 source) Acute back pain with sciatica; Translations: [Lumbago with sciatica, right side] 01-17-2023 Episodic Results Test Name Value Interpretation Reference Range Facility XR Lumbar spine 3 Viewson IMPRESSION: Age indeterminant moderate superior endplate compression deformity of T12 and mild superior endplate compression deformity of L1. Grade 1 retrolisthesis of L1 on L2 and of L2 on L3. Degenerative changes as described Utility Agent: EILEEN Transcribe Date/Time: Jan 17 2023 4:03P Dictated by : RANDELL BAXTER MD This examination was interpreted and the report reviewed and electronically signed by: RANDELL BAXTER MD on Jan 17 2023 4:06PM [facility] DIVISION OF RADIOLOGY * * *Final Report* * * DATE OF EXAM: Jan 17 2023 3:56PM [id number] - XR LUMBAR 3V AP/LAT/L5-S1 / PROCEDURE REASON: Acute right-sided low back pain with right-sided sciatica * * * * Physician Interpretation * * * * TITLE: XR LUMBAR 3V AP/LAT/L5-S1 CLINICAL INDICATION: Back pain TECHNIQUE: 3 view radiographic study of the lumbar spine COMPARISON: None FINDINGS: For the purposes of this report, L4/L5 will be at the level of the iliac crests. There is exaggeration of the normal lumbar lordosis. There is mild age indeterminate superior endplate compression deformity of L1. There is moderate age indeterminate superior endplate compression deformity of T12. There is grade 1 retrolisthesis of L1 on L2 and of L2 on L3 in a stepwise fashion. There is mild disc space narrowing of L1/L2. There is facet joint arthrosis at L3/L4, L4/L5 and L5/S1. There is atherosclerotic calcification of the vasculature. Tubal ligation clips in the pelvis. DIVISION OF RADIOLOGY Provider, [facility] [place] - 01/17/2023 * * *Final Report* * * DATE OF EXAM: Jan 17 2023 3:56PM [id number] - XR LUMBAR 3V AP/LAT/L5-S1 / PROCEDURE REASON: Acute right-sided low back pain with right-sided sciatica * * * * Physician Interpretation * * * * TITLE: XR LUMBAR 3V AP/LAT/L5-S1 CLINICAL INDICATION: Back pain TECHNIQUE: 3 view radiographic study of the lumbar spine COMPARISON: None FINDINGS: For the purposes of this report, L4/L5 will be at the level of the iliac crests. There is exaggeration of the normal lumbar lordosis. There is mild age indeterminate superior endplate compression deformity of L1. There is moderate age indeterminate superior endplate compression deformity of T12. There is grade 1 retrolisthesis of L1 on L2 and of L2 on L3 in a stepwise fashion. There is mild disc space narrowing of L1/L2. There is facet joint arthrosis at L3/L4, L4/L5 and L5/S1. There is atherosclerotic calcification of the vasculature. Tubal ligation clips in the pelvis. IMPRESSION IMPRESSION: Age indeterminant moderate superior endplate compression deformity of T12 and mild superior endplate compression deformity of L1. Grade 1 retrolisthesis of L1 on L2 and of L2 on L3. Degenerative changes as described Utility Agent: EILEEN Transcribe Date/Time: Jan 17 2023 4:03P Dictated by : RANDELL BAXTER MD This examination was interpreted and the report reviewed and electronically signed by: RANDELL BAXTER MD on Jan 17 2023 4:06PM [facility] Radiology Study observation (narrative) [facility] XR Lumbar spine 3 ViewsOrder ed By: [facility] Provider on 01-17-2023 [facility] CNOVon 12-02-2020 CNOV Office Visit ([facility] ) -------- VIOLA GEORGE ([id number]) 1955 F Date Time Provider Department 12/02/20 1:30 PM MADELINE CHAIDEZ) [facility] During your visit today, we recorded the following information about you: Temperature Pulse Respiration Blood pressure 97.7 degrees 110/minute 18/minute 132/82 Weight 59.9 kg Madeline Chaidez PA-C 12/02/2020 2:28 PM Signed This note was created using [employer]. Subjective Viola George is a 65 year [...] a little swollen today so she came in for evaluation. No cough. No chest pain. States her chest feels little tight but she does have asthma. No wheezing recently. She has not tried anything [id number] for her symptoms. No other new medications. No new exposures other than the metal necklace. Review of Systems Constitutional: Negative for chills, fatigue and fever. HENT: Negative. Eyes: Negative. Respiratory: Negative. Cardiovascular: Negative. Gastrointestinal: Negative. Endocrine: Negative. Genitourinary: Negative. Musculoskeletal: Negative. Skin: Positive for rash. All other systems reviewed and are negative. No past medical history on file. Current Outpatient Medications Medication Sig Dispense Refill - fluticasone-salmeterol (ADVAIR DISKUS) 250-50 mcg/dose INHALE ONE PUFF BY MOUTH TWICE DAILY - albuterol HFA (PROAIR HFA) 90 mcg/actuation inhaler - simvastatin (ZOCOR) 40 mg tablet - lisinopril (ZESTRIL, PRINIVIL) 40 mg tablet Take 40 mg by mouth. - hydroCHLOROthiazide (HYDRODIURIL, ESIDRIX) 12.5 mg tablet - citalopram (CELEXA) 40 mg tablet Take 40 mg by mouth. - albuterol HFA (PROVENTIL HFA, VENTOLIN HFA) 90 mcg/actuation inhaler - cyclobenzaprine (FLEXERIL) 10 mg tablet Take 10 mg by mouth. - metoprolol succinate ER (TOPROL XL) 25 mg 24 hr tablet Take 25 mg by mouth. - predniSONE (DELTASONE) 20 mg tablet Take 2 tablets by mouth once daily for 5 days. 10 tablet 0 - cetirizine (ZYRTEC) 10 mg tablet Take 1 tablet by mouth once daily for 14 days. 14 tablet 0 - triamcinolone acetonide (KENALOG) 0.1 % cream Apply 1 application to affected area three times daily for 7 days. Apply sparingly to area for rash/itching. 45 g 0 No current facility-administered medications for this visit. No past surgical history on file. No family history on file. Social History Tobacco Use - Smoking status: Current Every Day Smoker - Smokeless tobacco: Never Used Substance Use Topics - Alcohol use: Not on file - Drug use: Not on file Objective BP 132/82 Pulse 110 Temp 36.5 ?C (97.7 ?F) (Tympanic) Resp 18 Wt 59.9 kg (132 lb) SpO2 95% Physical Exam Vitals reviewed. Constitutional: Appearance: Normal appearance. HENT: Head: Normocephalic and atraumatic. Mouth/Throat: Lips: [place]. Mouth: Mucous membranes are moist. Pharynx: Oropharynx [...] the future. Pt agreeable with this plan. Madeline Chaidez PA-C Referring Provider: SELF [[id number]] Allergies As of Date: 12/02/2020 Noted Allergy Reaction MOXIFLOXACIN 12/02/2020 2 - Rash 7 - Swelling Date Reviewed: Never Reviewed Reason for Visit: Rash [1087] Cmt: around neck x 2 weeks, itching and swollen throat x today Primary Visit Diagnosis:Allergic contact dermatitis due to metals [L23.0] Order(s):predniSONE (DELTASONE) 20 mg tabletTake 2 tablets by mouth once daily for 5 days.Disp: 10 tabletRfl: 0 cetirizine (ZYRTEC) 10 mg tabletTake 1 tablet by mouth once daily for 14 days.Disp: 14 tabletRfl: 0 triamcinolone acetonide (KENALOG) 0.1 % creamApply 1 application to affected area three times daily for 7 days. Apply sparingly to area for rash/itching.Disp: 45 gRfl: 0 Prescriptions as of 12/02/2020 Sig: FLUTICASONE 250 MCG-SALMETERO* INHALE ONE PUFF BY MOUTH TWIC* ALBUTEROL SULFATE HFA 90 MCG/* SIMVASTATIN 40 MG TABLET LISINOPRIL 40 MG TABLET Take 40 mg by mouth. HYDROCHLOROTHIAZIDE 12.5 MG T* CITALOPRAM 40 MG TABLET Take 40 mg by mouth. ALBUTEROL SULFATE HFA 90 MCG/* CYCLOBENZAPRINE 10 MG TABLET Take 10 mg by mouth. METOPROLOL SUCCINATE ER 25 MG* Take 25 mg by mouth. PREDNISONE 20 MG TABLET Take 2 tablets by mouth once * CETIRIZINE 10 MG TABLET Take 1 tablet by mouth once d* TRIAMCINOLONE ACETONIDE 0.1 %* Apply 1 application to affect* Problem List As Of Date: 12/02/2020 (None) Prescriptions ordered this encounter Disp Refills Start End PREDNISONE 20 MG TABLET 10 t* 0 12/02/2020 12/07/2020 Route: ORAL Sig: Take 2 tablets by mouth once daily for 5 days. CETIRIZINE 10 MG TABLET 14 t* 0 12/02/2020 12/16/2020 Route: ORAL Sig: Take 1 tablet by mouth once daily for 14 days. TRIAMCINOLONE ACETONIDE 0.1 % TOPICA* 45 g 0 12/02/2020 12/09/2020 Route: TOPICAL Sig: Apply 1 application to affected area three times daily for 7 days. Apply sparingly to area for rash/itching. Encounter Status:Closed by MADELINE CHAIDEZ PA-C on 12/02/20 [facility] PROGRESSon 12-02-2020 PROGRESS HNO ID: [id number] Author: Madeline Boudreaux) Lionel Service: ? Author Type: Physician Flange Machine Operator Type: Progress Notes Filed: 12/02/2020 2:28 PM Note Text: This note was created using [employer]. Subjective Viola George is a 65 year [...] a little swollen today so she came in for evaluation. No cough. No chest pain. States her chest feels little tight but she does have asthma. No wheezing recently. She has not tried anything [id number] for her symptoms. No other new medications. No new exposures other than the metal necklace. Review of Systems Constitutional: Negative for chills, fatigue and fever. HENT: Negative. Eyes: Negative. Respiratory: Negative. Cardiovascular: Negative. Gastrointestinal: Negative. Endocrine: Negative. Genitourinary: Negative. Musculoskeletal: Negative. Skin: Positive for rash. All other systems reviewed and are negative. No past medical history on file. Current Outpatient Medications Medication Sig Dispense Refill - fluticasone-salmeterol (ADVAIR DISKUS) 250-50 mcg/dose INHALE ONE PUFF BY MOUTH TWICE DAILY - albuterol HFA (PROAIR HFA) 90 mcg/actuation inhaler - simvastatin (ZOCOR) 40 mg tablet - lisinopril (ZESTRIL, PRINIVIL) 40 mg tablet Take 40 mg by mouth. - hydroCHLOROthiazide (HYDRODIURIL, ESIDRIX) 12.5 mg tablet - citalopram (CELEXA) 40 mg tablet Take 40 mg by mouth. - albuterol HFA (PROVENTIL HFA, VENTOLIN HFA) 90 mcg/actuation inhaler - cyclobenzaprine (FLEXERIL) 10 mg tablet Take 10 mg by mouth. - metoprolol succinate ER (TOPROL XL) 25 mg 24 hr tablet Take 25 mg by mouth. - predniSONE (DELTASONE) 20 mg tablet Take 2 tablets by mouth once daily for 5 days. 10 tablet 0 - cetirizine (ZYRTEC) 10 mg tablet Take 1 tablet by mouth once daily for 14 days. 14 tablet 0 - triamcinolone acetonide (KENALOG) 0.1 % cream Apply 1 application to affected area three times daily for 7 days. Apply sparingly to area for rash/itching. 45 g 0 No current facility-administered medications for this visit. No past surgical history on file. No family history on file. Social History Tobacco Use - Smoking status: Current Every Day Smoker - Smokeless tobacco: Never Used Substance Use Topics - Alcohol use: Not on file - Drug use: Not on file Objective BP 132/82 Pulse 110 Temp 36.5 ?C (97.7 ?F) (Tympanic) Resp 18 Wt 59.9 kg (132 lb) SpO2 95% Physical Exam Vitals reviewed. Constitutional: Appearance: Normal appearance. HENT: Head: Normocephalic and atraumatic. Mouth/Throat: Lips: [place]. Mouth: Mucous membranes are moist. Pharynx: Oropharynx [...] the future. Pt agreeable with this plan. Madeline Chaidez PA-C Normal [facility] COVID PCR, SCREENING CONGREG ATEon 02-21-2020 CORONAVIRUS 2019,PCR NOT DETECTED Normal Not Detected [facility] Comment on above: Result Comment: This assay is designed to detect the N, ORF1ab and/or S genes of SARS-CoV-2 via nucleic acid amplification. A Negative (NOT DETECTED) result does not preclude 2019-nCoV infection since the adequacy of sample collection and/or low viral burden may result in presence of viral nucleic acids below the clinical sensitivity of this test method. Negative (NOT DETECTED) result should not be used as the sole basis for treatment or other patient management decisions. Rather negative results should be combined with clinical observations, patient history, and epidemiological information to make patient management decisions. Fact sheet for providers: https://www.fda.gov/media/419462/download Fact sheet for patients: https://www.fda.gov/media/162419/download This test has received FDA Emergency Use Authorization (EUA) and has been verified by [facility] ([facility]). This test is only authorized for the duration of time that circumstances exist to justify the authorization of the emergency use of in vitro diagnostic tests for the detection of SARS-CoV-2 virus and/or diagnosis of COVID-19 infection under section 564(b)(1) of the Act, 21 U.S.C. 360bbb-3(b)(1), unless the authorization is terminated or revoked sooner. [facility] ([facility]) is certified under CLIA-88 as qualified to perform high complexity testing. This tests analytical performance characteristics have been determined by [facility]. Testing is performed at [facility] is located at [address] [place] [address] (CLIA License #[id number], CAP #[id number]). Performed By: #### C VCLA #### [facility] [address] [place] [address] COVID PCR, SCREENING CONGREG ATEon 02-20-2020 Lab Specimen Source Nasal, Nasopharyngeal Normal [facility] Comment on above: Performed By: #### C VCLA #### [facility] [address] [place] [address] Vital Signs Date Time Vital Sign Value Performing Clinician Hugh esposito 12-14-2022 14:29-0400 Body temperature 97.2 [degF] Ericka Choe APRN.CNP Work Phone: [facility] 12-14-2022 14:29-0400 Body weight 52.62 kg Ericka Praisler-Wood LOCOMOTIVE ENGINEER.DIRECTOR OF PHYSICAL SECURITY Work Phone: [facility] 12-14-2022 14:29-0400 Diastolic blood pressure 72 mm[Hg] Ericka Praisler-Wood LOCOMOTIVE ENGINEER.DIRECTOR OF PHYSICAL SECURITY Work Phone: [facility] 12-14-2022 14:29-0400 Heart rate 101 /min Ericka Praisler-Wood LOCOMOTIVE ENGINEER.DIRECTOR OF PHYSICAL SECURITY Work Phone: [facility] 12-14-2022 14:29-0400 Respiratory rate 20 /min Ericka Praisler-Wood LOCOMOTIVE ENGINEER.DIRECTOR OF PHYSICAL SECURITY Work Phone: [facility] 12-14-2022 14:29-0400 SaO2% (BldA) [Mass fraction] 97 % Ericka Praisler-Wood LOCOMOTIVE ENGINEER.DIRECTOR OF PHYSICAL SECURITY Work Phone: [facility] 12-14-2022 14:29-0400 Systolic blood pressure 124 mm[Hg] Ericka Praisler-Wood LOCOMOTIVE ENGINEER.DIRECTOR OF PHYSICAL SECURITY Work Phone: [facility] 12-02-2020 13:39-0400 Body Temperature 97.7 [degF] [facility] 12-02-2020 13:39-0400 Body weight 59.88 kg [facility] 12-02-2020 13:39-0400 BP Diastolic 82 mm[Hg] [facility] 12-02-2020 13:39-0400 BP Systolic 132 mm[Hg] [facility] 12-02-2020 13:39-0400 Pulse (Heart Rate) 110 /min [facility] 12-02-2020 13:39-0400 Pulse Oximetry 95 % [facility] 12-02-2020 13:39-0400 Respiratory Rate 18 /min [facility] Encounters Encounter Date Encounter Type Care Provider Facility Start: 01-17-2023 End: 01-17-2023 Subsequent hospital visit by physician [facility] Work Phone: Radiology Comment on above: Acute right-sided lo w back pain with right-sided sciatica [M54.41] Start: 12-14-2022 End: 12-14-2022 Patient encounter procedure Ericka Choe LOCOMOTIVE ENGINEER.DIRECTOR OF PHYSICAL SECURITY Work Phone: [facility] Comment on above: Sinobronchitis (Prim randal Dx) Start: 12-02-2020 End: 12-02-2020 Patient encounter procedure Madeline Gutierrez (Ashish) [place] Work Phone: [facility] Comment on above: Allergic contact spencer matitis due to metals (Primary Dx) Procedures Date Procedure Procedure Detail Performing Clinician Start: 01-17-2023 Radex spine lumbosac ral 2/3 views Marina TRUJILLO Work Phone: Plan of Treatment Date Care Activity Detail Author Start: 05-14-2032 Urine microalbumin profile DTa P,Tdap,Td Vaccine (2 - Td or Tdap) [facility] Start: 04-29-2024 Covid-19 Vaccine () Covid-19 Vaccine () [facility] Start: 04-29-2024 Influenza vaccination Influenza Vacc ine (#1) [facility] Start: 08-29-2023 Advance Directive Discussion Advance Directive Discussion [facility] Start: 04-29-2023 Influenza vaccination INFLUENZA (Sea son Ended) [facility] Start: 03-28-2023 Screening for malign ant neoplasm of colon [facility] Start: 08-29-2022 ADVANCE DIRECTIVE DISCUSSION ADVANCE DIRECTIVE DISCUSSION [facility] Start: 08-29-2022 DEPRESSION ASSESSMENT DEPRESSION ASS ESSMENT [facility] Start: 06-17-2021 COVID-19 VACCINE (3 - Booster for Pfizer series) COVID-19 VACCINE (3 - Booster for Pfizer series) [facility] Start: 04-29-2021 Influenza vaccination INFLUENZA (Sea son Ended) [facility] Start: 2018 ADVANCE DIRECTIVE DISCUSSION ADVANCE DIRECTIVE DISCUSSION [facility] Start: 2018 BONE DENSITY BONE DENSITY [facility] Start: 2018 PNEUMOVAX AGE 65 AND OVER WITH 5YR LOOKBACK (#1) PNEUMOVAX AGE 65 AND OVER WITH 5YR LOOKBACK (#1) [facility] Start: 2018 Screening for osteoporosis Bone Dens ity Screening [facility] Start: 2013 RSV Vaccine (1 - 1-d ose 60+ series) RSV Vaccine (1 - 1-dose 60+ series) [facility] Start: 2003 Screening for malign ant neoplasm of colon [facility] Start: 2003 SHINGRIX VACCINE (1 of 2) SHINGRIX V ACCINE (1 of 2) [facility] Start: 1998 COLOGUARD (FIT-DNA) COLOGUARD (FIT-D NA) [facility] Start: 1998 Colonoscopy COLONOSCOPY [facility] Start: 1998 COLORECTAL CANCER SCREENING COLORECTAL CANCER SCREENING [facility] Start: [address] COLONOGRAPHY [facility] Start: 1998 DIABETES SCREEN DIABETES SCREEN [facility] Start: 1998 Diabetes Screening Diabetes Screenin g [facility] Start: 1998 FECAL OCCULT BLOOD FECAL OCCULT BLOO D [facility] Start: 1998 Lipid panel Lipid Screening [facility] Start: 1998 LIPID SCREEN LIPID SCREEN [facility] Start: 1998 Screening for malign ant neoplasm of colon [facility] Start: 1998 SIGMOIDOSCOPY SIGMOIDOSCOPY [facility] Start: 1993 Mammography MAMMOGRAM [facility] Start: 1993 Screening for malign ant neoplasm of breast Mammogram Screening [facility] Start: 1972 Urine microalbumin profile DTAP,TDAP ,TD (1 - Tdap) [facility] Start: 1971 Anxiety Screening Anxiety Screening [facility] Start: 1971 Depression Screening Depression Scre ening [facility] Start: 1971 HEPATITIS C SCREENING HEPATITIS C [facility] Start: 1971 Hepatitis C screening Hepatitis C [facility] Start: 1965 Adult depression scr eening assessment DEPRESSION SCREENING [facility] Start: 1959 Pneumococcal Vaccine : 65+ (1 of 2 - PCV) Pneumococcal Vaccine: 65+ (1 of 2 - PCV) [facility] Start: 1959 PNEUMOCOCCAL: 65+ (1 - PCV) PNEUMOCOCCAL: 65+ (1 - PCV) [facility] Payers Date Payer Category Payer Medicare MEDICARE MEDICAR E A AND B [id number] 2018-Present [place], [place] Medicare [id number] 2018 Medicare MEDICARE MEDICAR E A AND B [id number] 2018-Present [phone] [place] [address] Medicare [id number] Social History Date Type Detail Facility Start: 12-02-2020 Tobacco smoking stat [facility] Current every day smoker [facility] Start: 12-02-2020 End: 12-14-2022 Tobacco use and exposure Never used [facility] Start: 1955 Sex Assigned At Not on file [facility] Exposure to SARS-CoV -2 (event) Not sure [facility] Start: 12-14-2022 Tobacco smoking stat [facility] Occasional tobacco smoker [facility] History of tobacco use Cigarette Smoker [facility] Start: 12-02-2020 End: 01-17-2023 History of Social function [facility] Start: 12-02-2020 End: 01-17-2023 Tobacco use panel [facility] National Score (1-10 0), lower number is lower risk Not on file [facility] History of Present illness Narrative 01-17-2023 Celeste Ojeda, RT(R) - 01/17/2023 3:40 PM EDT Note Date & Type Note Facility 01-17-2023 History of Presen t illness Narrative Radiology Service Progress Note PATIENT NAME: Viola George DATE OF SERVICE: January 17, 2023 TIME: 3:46 PM PATIENT IDENTITY VERIFICATION COMPLETED USING TWO (2) IDENTIFIERS: Name and Date of confirmed by patient verbally. FALL SCREENING: Has the patient had 2 falls in the last year or 1 fall with injury or currently using an Ambulatory Assistive Device (Walker, Cane, Wheelchair, Crutches, etc.)? No PATIENT GENDER DATA: Female. status: : No status: NO. PATIENT RELEVANT IMPLANT DATA REVIEWED: Not Applicable RADIOLOGY DEPARTMENT: General X-ray: Exam(s) Completed: Spine X-Ray(s): Lumbar AP / LAT / L5-S1 PERIPHERAL IV DATA: Not applicable SIGNED BY: RT Shola(R) January 17, 2023 3:46 PM documented in this encounter [facility] History of Present illness Narrative 12-14-2022 Ericka Choe APRN.DIRECTOR OF PHYSICAL SECURITY - 12/14/2022 2:39 PM EDT Note Date [...] shortness of breath. 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 documented in this encounter [facility] Evaluation note Note Date & Type Note Facility Evaluation note Diagnosis Sinobronchitis- Primary Unspecified sinusitis (chronic) documented in this encounter [facility] Evaluation note Note Date & Type Note Facility Evaluation note Diagnosis Acute right-sided low back pain with right-sided sciatica documented in this encounter [facility] Reason for referral (narrative) Diagnostic Procedure Only (Urgent) - Closed Note Date & Type Note Facility Reason for referral (narrati ve) Specialty Diagnoses / Procedures Referred By Zeynep t Referred To Contact XR IMAGING Diagnoses Acute right-sided low back pain with right-sided sciatica Procedures XR LUMBAR GENERAL 3V AP/LAT/L5-S1 RADEX SPINE LUMBOSACRAL 2/3 VIEWS [facility] [address] [place] [address] [place] [address] Referral ID Status Reason Start Date Expiration Date V isits Requested Visits Authorized [id number] Closed Auto-Generate d Referral 01/17/2023 02/16/2024 1 1 [facility] Reason for visit Narrative Diagnostic Procedure Only (Urgent) - Closed Note Date & Type Note Facility Reason for visit Narrative Specialty Diagnoses / Procedures Referred By Contac t Referred To Contact XR IMAGING Diagnoses Acute right-sided low back pain with right-sided sciatica Procedures XR LUMBAR GENERAL 3V AP/LAT/L5-S1 RADEX SPINE LUMBOSACRAL 2/3 VIEWS [facility] [address] [place] [address] [place] [address] Referral ID Status Reason Start Date Expiration Date V isits Requested Visits Authorized [id number] Closed Auto-Generate d Referral 01/17/2023 02/16/2024 1 1 [facility] Summary Purpose Family History No Family History Records FoundNo Family History Records Found Advance Directives No Advanced Directives Records FoundNo Advanced Directives Records Found History of Present Illness * Madeline Chaidez (Ashish) - 12/02/2020 1:53 PM EDT This note was created using LumiFoldriter. Subjective Viola George is a 65 year [...] wheezing recently. She has not tried anything [id number]-kei-[id number] for her symptoms. No other newmedications. No [...] HENT: Head: Normocephalic and atraumatic. Mouth/Throat: Lips: [place]. Mouth: Mucous membranes are moist. Pharynx: Oropharynx [...] the future. Pt agreeable with this plan. Madeline Chaidez PA-C documented in this encounter Assessments Diagnosis Allergic contact dermatitis due to metals- Primary Dermatitis due to metals Additional Source Comments INFORMATION SOURCE (unrecogn ized section and content) DATE CREATED AUTHOR 03/18/2020 [facility] DATE CREATED AUTHOR AUTHOR'S ORGANIZ ATION 12/03/2020 [facility] Source Comments (unrecognize d section and content) In the event this informatio n is protected by the Federal Confidentiality of Alcohol and Drug Abuse Patient Records regulations: The Federal rules restrict any use of the information to criminally investigate or prosecute any alcohol or drug abuse patient[facility] event this information is protected by the Federal Confidentiality of Alcohol and Drug Abuse Patient Records regulations: The Federal rules restrict any use of the information to criminally investigate or prosecute any alcohol or drug abuse patient.[facility] the event this information is protected by the Federal Confidentiality of Alcohol and Drug Abuse Patient Records regulations: The Federal rules restrict any use of the information to criminally investigate or prosecute any alcohol or drug abuse patient.[facility] Reason for Visit (unrecogniz ed section and content) Reason Comments Rash around neck x 2 week s, itching and swollen throat x today Reason Comments Cough T reported chest con gestion, Reeves x1 wk. Care Teams (unrecognized sec tion and content) Ratings Analyst Relationship Specialty Start Date End Date Silviano Walsh MD [address] [place] [address] PCP - General Internal Medicine 12/14/22 Ratings Analyst Relationship Specialty Start Date End Date Silviano Walsh MD [address] [place] [address] PCP - General Internal Medicine 12/14/22 FOR RECORDS PERTAINING TO PATIENTS WHO ARE [...] BE BASED ON THE PRIMARY CLINICAL RECORDS. [facility]. provides no warranty or guarantee of the accuracy or completeness of information in this document.
== END | disposition home or self-care (01) ==
PROVIDERS: PCP Internal Medicine; Referring Provider Internal Medicine; Visit Provider Internal Medicine
DX: M25.551 Pain in right hip (principal); I10 Essential (primary) hypertension
CPT/HCPCS: 36415; 73502; 80048; 85025

== ENCOUNTER 2024-10-01 23:04 | Emergency (ER) | payer MEDICARE, SELFPAY ==
[2024-10-01 23:05] VITALS: BP 157/95; PULSE 112; RESP 18; TEMP 36.8; O2SAT 92; BMI 18.1
--- NOTE | 2024-10-02 00:13 | RAD_ITS ---
PROCEDURE: CHEST PA AND LATERAL REASON FOR EXAM: Cough. Dyspnea. TECHNIQUE: Frontal and lateral views of the chest. COMPARISON: CT chest from 06/29/2022. FINDINGS: Cardiac size and pulmonary vasculature are within normal limits. No consolidation, pleural effusion, or pneumothorax is present. There is hyperinflation of the lungs with flattening of the hemidiaphragms compatible with COPD. There is biapical scarring. There are chronic anterior wedge compression fractures involving the thoracic spine. There is scoliosis of the thoracolumbar spine. RAD/Chest PA and Lateral IMPRESSION: 1. No acute cardiopulmonary process. 2. COPD. Reading Location: [facility]
[2024-10-02 00:25] VITALS: PULSE 100; RESP 20
[2024-10-02] MEDS: Ipratropium/Albuterol Sulfate 3 ML AMPUL.NEB INHALATION (00:25)
[2024-10-02] MEDS: Albuterol 2.5 MG/3 ML VIAL.NEB. INHALATION (00:25)
[2024-10-02] MEDS: predniSONE 20 MG Tablet 60 MG PO (00:41)
[2024-10-02 01:04] VITALS: BP 159/85; PULSE 91; RESP 16; O2SAT 93
--- NOTE | 2024-10-02 01:07 | CPS ---
[0025] x1 Albuterol given to pt. in ED as well
--- NOTE | 2024-10-02 01:43 | EX.ED.DYSGE1 ---
HPI History of Present Illness Chief Complaint: Shortness of Breath Informant: patient and family Narrative Narrative: Patient is a 69-year-old female with past medical history of hypertension hyperlipidemia and COPD. She states she does not require supplemental oxygen at baseline. She reports that she was seen at an urgent care roughly 1 week ago for similar symptoms. She states at that time she tested negative for COVID and influenza and had a chest x-ray did not reveal any obvious pneumonia. She reports she was placed on an inhaler and steroids and a Z-Niko. She reports has been taking those as directed but her cough and shortness of breath symptoms have persisted and secondary to this she returns for repeat evaluation [facility] Medical History Flu vaccine need Chronic back pain Hyponatremia Health care maintenance Cat bite of hand Elevated liver enzymes Chronic cough COPD (chronic obstructive pulmonary disease) Right hip pain Tobacco use disorder, continuous Encounter for screening for malignant neoplasm of lung in current smoker with 30 pack year history or greater Osteoporosis Muscle spasm of back Osteoarthritis Asthma exacerbation Allergic rhinitis Heart burn Pleurisy Vitamin deficiency History of skin cancer Osteoarthritis History of kidney stones Migraine High cholesterol Hypertension Frequent headaches History of fracture Back pain Asthma Arthritis Seasonal allergies Home Medications ?Medication ?Instructions ?Recorded ?Last Taken ?Type Lactobacillus acidophilus 250 100 mmu cells PO DAILY 03/07/20 Unknown History million cell capsule (Probiotic Acidophilus) ephedrine-guaifenesin 12.5 mg-200 1 tab PO Q4H PRN 03/07/20 Unknown History mg tablet (Primatene Asthma) nebulizer accessories (Hypersoniq #1 ea 07/01/20 Unknown Rx Nebulizer Cartridge) albuterol sulfate 2.5 mg/3 mL 2.5 mg (3 mL) inhalation Q4H PRN 06/17/21 Unknown Rx (0.083 %) solution for nebulization shortness of breath or wheezing #90 mL calcium 300 mg-D3 20 mcg-magnesium 1 tab PO DAILY 07/09/21 Unknown History 25 mg-coppr 0.5 jh-dhyb-whsy tablet (Caltrate-D3 Plus Minerals) ascorbic acid (vitamin C) 500 mg mg PO 11/05/21 Unknown History capsule acetaminophen 650 mg 650 mg PO Q8H 04/02/22 Unknown History tablet,extended release (Tylenol Arthritis Pain) triamcinolone acetonide 0.1 % 1 applic topical TID PRN rash #80 01/06/23 Unknown Rx topical cream grams fluticasone propionate 50 1 spray intranasal BID PRN 09/26/23 Unknown Rx mcg/actuation nasal allergies, congestion #16 grams spray,suspension hydrochlorothiazide 12.5 mg tablet 12.5 mg PO QAM #90 tabs 03/09/24 Unknown Rx lisinopril 40 mg tablet 40 mg PO DAILY #90 tabs 03/09/24 Unknown Rx meloxicam 15 mg tablet See Rx Instructions .Route 03/09/24 Unknown Rx .COMPLEX #90 tabs montelukast 10 mg tablet 10 mg PO QHS #90 tabs 03/09/24 Unknown Rx (Singulair) simvastatin 40 mg tablet 40 mg PO QPM #90 tabs 03/09/24 Unknown Rx zoledronic acid 5 mg/100 mL in 1 ea .Route .Yearly #100 mL 03/09/24 Unknown Rx mannitol 5 %-water intravenous piggybck (Reclast) metoprolol succinate 25 mg 12.5 mg (1/2 x 25 mg) PO DAILY #90 06/28/24 Unknown Rx tablet,extended release 24 hr tabs budesonide 160 mcg-glycopyr 9 2 inh inhalation BID #10.7 grams 07/05/24 Unknown Rx mcg-formot 4.8 mcg/actuation HFA inhaler (Breztri Aerosphere) baclofen 10 mg tablet 10 mg PO Q8H PRN muscle spasm #90 08/30/24 Unknown Rx tabs citalopram 40 mg tablet (Celexa) 40 mg PO DAILY #90 tabs 09/21/24 Unknown Rx albuterol sulfate 90 mcg/actuation 2 puff inhalation Q4H PRN 09/28/24 Unknown Rx aerosol inhaler shortness of breath or wheezing #18 grams codeine 10 mg-guaifenesin 100 mg/5 10 ml PO 4X/DAY PRN cough 7 days 10/02/24 Unknown Rx mL oral liquid (Guaifenesin AC) #280 mL ipratropium 0.5 mg-albuterol 3 mg 3 ml inhalation Q6H PRN shortness 10/02/24 Unknown Rx (2.5 mg base)/3 mL nebulization of breath #180 mL soln prednisone 10 mg tablet 10 mg PO UD #33 tabs 10/02/24 Unknown Rx Allergy/AdvReac Type Severity Reaction Status Date / Time moxifloxacin (From Avelox) Allergy Severe hives/swell Verified 10/01/24 23:07 ing Seasonal Allergies: Uncoded Allergy Intermediate Other Verified 10/01/24 23:07 Family History Father Skin cancer TIA (transient ischemic attack) High cholesterol Hypertension Heart disease Asthma Alzheimer disease Surgical History H/O tubal ligation H/O hernia repair History of tonsillectomy and adenoidectomy Social History 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- [employer] Smoking Status: Current every day smoker tobacco type: cigarettes Tobacco: How many years used: 45 Electronic Cigarette Use: not used second hand exposure: Yes quit status: has quit before alcohol intake: never substance use type: does not use what type of physical activity do you participate in: walking ROS ROS ED Constitutional Constitutional ED: Denies chills or fever(s) Eyes Eyes: Denies blurry vision or change in vision ENT ENT ED: Reports rhinorrhea and sore throat Cardiovascular Cardiovascular: Denies chest pain Respiratory/Chest Respiratory/Chest: Reports cough and dyspnea Gastrointestinal Gastrointestinal: Denies abdominal pain, diarrhea, nausea or vomiting Genitourinary Genitourinary ED: Denies dysuria Musculoskeletal Musculoskeletal: Reports myalgias Integumentary Denies rash Neurologic Neurologic: Denies headache(s) Hematologic/Lymphatic Hematologic/Lymphatic: Denies easy bleeding or easy bruising Allergic/Immunologic Allergic/Immunologic ED: Denies mouth swelling or tongue swelling EXAM Physical Exam Const Vital Signs: 10/01/24 23:05 10/01/24 23:22 10/02/24 00:25 Temperature 98.2 F Temperature Source Oral Pulse Rate 112 H 100 Respiratory Rate 18 20 H Respiratory Effort Short of Breath Respiratory Depth Shallow Respiratory Pattern Normal Blood Pressure 157/95 H Blood Pressure Mean 115 Pulse Ox 92 Oxygen Delivery Method Room Air 10/02/24 01:04 Temperature Temperature Source Pulse Rate 91 Respiratory Rate 16 Respiratory Effort Respiratory Depth Respiratory Pattern Blood Pressure 159/85 H Blood Pressure Mean 109 Pulse Ox 93 Oxygen Delivery Method Room Air Positive well nourished and well developed General Appearance ED: well developed; Negative for pallor HEENT HEENT Narrative: Nasal mucosa is hyperemic and boggy There is cobblestoning present in the posterior pharynx consistent with sinus drainage without airway edema or compromise Eyes PERRL and EOMs intact bilaterally General Eye ED: Negative for scleral icterus Neck supple and no JVD Chest Wall palpation of chest normal Resp normal respiratory effort Resp Narrative: Breath sounds are diminished throughout with diffuse inspiratory and expiratory wheezing and faint rhonchi noted in the bilateral lower lobes However no nasal flaring retractions tachypnea accessory muscle use or stridor Cardio regular rate and regular rhythm Extremity normal to inspection Extremity Narrative: No asymmetric edema no pitting edema negative Homans' sign bilaterally Neuro oriented x3, CN's II-XII intact bilaterally and no sensory deficits noted Sensorium / Orientation: alert Motor Exam: strength 5/5 throughout Psych mental status grossly normal Skin no rashes or lesions noted General Skin Exam: Negative for jaundice or pallor MDM MDM MDM Narrative Medical decision making narrative: Patient presented to the ER in no acute respiratory distress satting in the mid 90s on room air. Her constellation of symptoms are most concerning for viral infection such as COVID versus influenza versus RSV. There is also potential for pneumonia. As vitals are stable and she is not showing signs of respiratory distress I do not feel there is need for blood work. Chest x-ray was obtained which revealed COPD changes consistent with history but no pneumonia or pneumothorax. Viral swab was positive for RSV which correlates with her congestion cough shortness of breath sensation and symptoms being present for over 7 days. At this time she is not in respiratory distress she is not hypoxic she is not requiring supplemental oxygen and therefore there is no need for admission to the hospital. As this is viral there is no need for emergent antibiotics but patient will continue with steroids and breathing treatments to help control inflammation from the virus but is otherwise safe for discharge History & Record Review Discussion w/independent historian: Patient and Family Radiography Diagnostic Testing: Clinical Impression(s) from Imaging Studies Chest X-Ray 10/02/24 00:13 IMPRESSION: 1. No acute cardiopulmonary process. 2. COPD. Reading Location: [facility] Chest x-ray as interpreted by the emergency medicine physician reveals no acute infiltrate pneumothorax or pleural effusion Discharge Plan Triage Chief Complaint: Shortness of Breath ED Provider: Luis Madrigal Dx/Rx/DC Orders Clinical Impression: RSV bronchitis, Hypertension, COPD (chronic obstructive pulmonary disease) Instructions: RSV (Respiratory Syncytial Virus), ED COPD Flare Prescriptions: New prednisone 10 mg tablet 10 mg PO UD Qty: 33 0RF Rx Instructions: Take 4 tablets daily for 3 days, then 3 daily for 3 days, then 2 daily for 3 days, then 1 a day for 3 days then 1 QOD for 3 doses. ipratropium-albuterol 0.5 mg-3 mg(2.5 mg base)/3 mL solution for nebulization 3 ml inhalation Q6H PRN (Reason: shortness of breath) Qty: 180 0RF codeine-guaifenesin [Guaifenesin AC] 10-100 mg/5 mL liquid 10 ml PO 4X/DAY PRN (Reason: cough) 7 Days Qty: 280 0RF No Action Primatene Asthma 12.5-200 mg tablet 1 tab PO Q4H PRN Probiotic Acidophilus 1.5 mg (250 million cell) capsule 100 mmu cells PO DAILY Rx Instructions: administer with large glass of water Caltrate-D3 Plus Minerals 300 mg-800 unit -25 mg-0.5 mg tablet 1 tab PO DAILY ascorbic acid (vitamin C) 500 mg capsule PO acetaminophen [Tylenol Arthritis Pain] 650 mg tablet extended release 650 mg PO Q8H triamcinolone acetonide 0.1 % cream 1 applic topical TID PRN (Reason: rash) Qty: 80 2RF zoledronic cfha-bfbwrxms-tpfwo [Reclast] 5 mg/100 mL piggyback 1 ea .Route .Yearly Qty: 100 0RF Rx Instructions: Yearly meloxicam 15 mg tablet See Rx Instructions .ROUTE .COMPLEX Qty: 90 1RF Dose Instruction: TAKE ONE-HALF TO ONE TABLET BY MOUTH ONCE DAILY NEEDED FOR JOINT PAIN Rx Instructions: TAKE ONE-HALF TO ONE TABLET BY MOUTH ONCE DAILY NEEDED FOR JOINT PAIN lisinopril 40 mg tablet 40 mg PO DAILY Qty: 90 1RF hydrochlorothiazide 12.5 mg tablet 12.5 mg PO QAM Qty: 90 1RF simvastatin 40 mg tablet 40 mg PO QPM Qty: 90 1RF montelukast [Singulair] 10 mg tablet 10 mg PO QHS Qty: 90 1RF metoprolol succinate 25 mg tablet extended release 24 hr 12.5 mg PO DAILY Qty: 90 1RF (DME) Hypersoniq Nebulizer Cartridge Misc See Rx Instructions .ROUTE .MEDSUPPLY Qty: 1 2RF Rx Instructions: nebulizer supplies albuterol sulfate 2.5 mg /3 mL (0.083 %) solution for nebulization 2.5 mg INHALATION Q4H PRN (Reason: shortness of breath or wheezing) Qty: 90 3RF fluticasone propionate 50 mcg/actuation spray,suspension 1 spray intranasal BID PRN (Reason: allergies, congestion) Qty: 16 3RF Rx Instructions: administer into each nostril Breztri Aerosphere 160-9-4.8 mcg/actuation HFA aerosol inhaler 2 inh inhalation BID Qty: 10.7 3RF baclofen 10 mg tablet 10 mg PO Q8H PRN (Reason: muscle spasm) Qty: 90 1RF citalopram [Celexa] 40 mg tablet 40 mg PO DAILY Qty: 90 1RF albuterol sulfate 90 mcg/actuation HFA aerosol inhaler 2 puff INHALATION Q4H PRN (Reason: shortness of breath or wheezing) Qty: 18 0RF Stand Alone Forms: ED Work / School Excuse Primary Care Provider: Silviano Walsh Referrals: Silviano Walsh MD [Primary Care Provider] - Print Language: Ghanaian Disposition Disposition: Home, Self Care Discharge Date/Time: 10/02/24 02:34
[2024-10-02 02:32] VITALS: BP 171/83; PULSE 87; RESP 18; TEMP 36.1; O2SAT 97
== END 2024-10-02 02:34 | disposition home or self-care (01) ==
LOC: ED 10-02 02:03
PROVIDERS: Emergency Provider Emergency Medicine; PCP Internal Medicine; Visit Provider Emergency Medicine
DX: J44.0 Chronic obstructive pulmonary disease with (acute) lower respiratory infection (principal); J20.5 Acute bronchitis due to respiratory syncytial virus; I10 Essential (primary) hypertension; E78.00 Pure hypercholesterolemia, unspecified; M81.0 Age-related osteoporosis without current pathological fracture; Z79.899 Other long term (current) drug therapy; F17.210 Nicotine dependence, cigarettes, uncomplicated
CPT/HCPCS: 71046; 87631; 94640; 99282

== ENCOUNTER → 2024-11-22 | Outpatient (CLI) | payer MEDICARE, SELFPAY ==
[2024-11-22 16:33] LABS: Absolute Lymphocyte Count 1.37 X10^3/uL (0.83-4.51); Absolute Neutrophil Count 2.6 X10^3/uL (2.0-7.7); Basophil# 0.06 X10^3/uL; Basophil% 1.3 % (0-1); Eosinophil# 0.15 X10^3/uL; Eosinophils% 3.2 % (0-5); Hematocrit 39.9 % (37-47); Lymphocyte # 1.37 X10^3/ul (0.83-4.51); Lymphocyte % 29.3 % (19-41); Mean Corp Hgb Conc 32.6 g/dL (32-36); Mean Corpuscular Hgb 30.9 pg (27.0-32.0); Mean Corpuscular Volume 94.8 fL (81-99); Mean Platelet Vol. 11.1 fl (6.2-12.0); Monocyte# 0.48 X10^3/uL; Monocyte% 10.3 % (0-10); NRBC Flagged by Analyzer 0 % (0-5); Neutrophil # 2.61 X10^3/uL (2.7-7.7); Neutrophil % 55.7 % (47-70); Platelet Count 233 K/mm3 (150-450); RBC Distribution Width CV 12.5 % (11.6-14.6); RBC Distribution Width SD 43.6 fl (35.1-43.9); Red Blood Count 4.21 M/mm3 (4.2-5.4); White Blood Count 4.7 K/mm3 (4.4-11.0)
[2024-11-22 20:02] LABS: ALB/GLOB Ratio 1.4 RATIO (0.9-2.4); AST(SGOT) 36 U/L (<=31); Alanine Aminotransfer ALT/SGPT 32 U/L (<=34); Albumin, Serum 3.7 g/dL (3.4-4.8); Alkaline Phosphatase 288 U/L (35-104); Anion Gap 12 (5-15); BUN 7 mg/dL (4-19); BUN/Creat Ratio 11.8 RATIO (10-20); Calcium,Total 9.1 mg/dL (7.6-11.0); Carbon Dioxide 25.3 mmol/L (21.0-32.0); Chloride 102 mmol/L (98-108); Creatinine, Serum 0.58 mg/dL (0.70-1.20); EST Glomerular Filtration Rate 97 (>60); Globulin 2.6 g/dL (2.2-4.2); Glucose 91 mg/dL (70-99); Potassium 4.4 mmol/L (3.3-5.1); Protein, Total 6.3 g/dL (5.9-8.4); Sodium Level 139 mmol/L (133-145); Thyroid Stim Hormone (TSH) 0.811 uIU/mL (0.300-4.200); Total Bilirubin 0.26 mg/dL (0.00-1.30)
== END | disposition home or self-care (01) ==
LOC: BIMLAB 15:02
PROVIDERS: PCP Internal Medicine; Referring Provider Physician Assistant; Visit Provider Physician Assistant
DX: I10 Essential (primary) hypertension (principal); R63.4 Abnormal weight loss
CPT/HCPCS: 36415; 80053; 84436; 84443; 85025

== ENCOUNTER → 2024-12-12 | Outpatient (CLI) | payer MEDICARE, SELFPAY | END | disposition home or self-care (01) | LOC: LABSPEC 15:26 | PROVIDERS: PCP Internal Medicine; Referring Provider Physician Assistant; Visit Provider Physician Assistant | DX: R63.4 Abnormal weight loss (principal) | CPT/HCPCS: 82274 ==

== ENCOUNTER → 2025-01-22 | Outpatient (CLI) | payer MEDICARE, SELFPAY ==
--- NOTE | 2025-01-22 14:20 | CT_ITS ---
PROCEDURE: LOW DOSE CT LUNG SCREENING 01/22/2025 REASON FOR EXAM: LUNG CANCER SCREENING Current smoker. TECHNIQUE: Low Dose CT Lung screening without contrast. Coronal and Sagittal reconstruction series were provided. One or more dose reduction techniques were used (e.g., Automated exposure control, adjustment of the mA and/or kV according to patient size, use of iterative reconstruction technique). REFERENCE LINK: [employer] Lung-RADS RADIATION DOSE SUMMARY: CTDlvol: 2.01 mGy DLP: 65.7 mGycm COMPARISON: Prior study dated June 29, 2022.. FINDINGS: PULMONARY NODULES: (Only nodules >3mm are reported) Nodules described below are on series 1 unless otherwise specified. Pulmonary Nodules: No suspicious pulmonary nodules are seen. Hardware:None Lymph Nodes:Small benign-appearing mediastinal lymph nodes. Heart and Vasculature:The heart is nonenlarged. Coronary Artery Calcifications: Present Lungs and Airways: Mild emphysematous changes are present. Stable scarring at both lung apices. Pleura:Unremarkable Upper Abdomen:Unremarkable Bones:Degenerative changes of the thoracic spine. CT/Low Dose CT Lung Screening IMPRESSION: No suspicious nodular seen. Coronary artery calcification (CAC) is is present Lung-RADS Category: 2 BENIGN (BASED ON IMAGING FEATURES OR INDOLENT BEHAVIOR). RECOMMEND 12-MONTH SCREENING LDCT. Other Significant Findings: None. Reading Location: [place] [address]
== END | disposition home or self-care (01) ==
LOC: CT 14:14
PROVIDERS: PCP Internal Medicine; Referring Provider Nurse Practitioner Family; Visit Provider Nurse Practitioner Family
DX: Z12.2 Encounter for screening for malignant neoplasm of respiratory organs (principal); Z87.891 Personal history of nicotine dependence
CPT/HCPCS: 71271

== ENCOUNTER → 2025-01-23 | Outpatient (CLI) | payer MEDICARE, SELFPAY ==
[2025-01-23 17:15] LABS: Absolute Lymphocyte Count 1.74 X10^3/uL (0.83-4.51); Absolute Neutrophil Count 1.7 X10^3/uL (2.0-7.7); Basophil% 2.2 % (0-1); Hematocrit 41.1 % (37-47); Hemoglobin 13.3 g/dL (12.0-15.0); Lymphocyte # 1.74 X10^3/ul (0.83-4.51); Lymphocyte % 38.3 % (19-41); Mean Corp Hgb Conc 32.4 g/dL (32-36); Mean Corpuscular Hgb 30.9 pg (27.0-32.0); Mean Corpuscular Volume 95.6 fL (81-99); Mean Platelet Vol. 11.9 fl (6.2-12.0); Monocyte# 0.46 X10^3/uL; Monocyte% 10.1 % (0-10); NRBC Flagged by Analyzer 0 % (0-5); Neutrophil # 1.73 X10^3/uL (2.7-7.7); Neutrophil % 38.2 % (47-70); Platelet Count 211 K/mm3 (150-450); RBC Distribution Width CV 12.6 % (11.6-14.6); RBC Distribution Width SD 44.2 fl (35.1-43.9); White Blood Count 4.5 K/mm3 (4.4-11.0)
[2025-01-23 17:20] LABS: Hemoglobin A1c 5.3 % (<=5.6)
[2025-01-23 18:02] LABS: Hepatitis B Surface Antibody Nonreactive
[2025-01-23 18:11] LABS: ALB/GLOB Ratio 1.3 RATIO (0.9-2.4); AST(SGOT) 44 U/L (<=31); Alanine Aminotransfer ALT/SGPT 41 U/L (<=34); Alkaline Phosphatase 355 U/L (35-104); Anion Gap 9 (5-15); BUN 7 mg/dL (4-19); Bilirubin, Direct 0.12 mg/dL (0.00-0.30); Calcium,Total 9.2 mg/dL (7.6-11.0); Carbon Dioxide 26.9 mmol/L (21.0-32.0); Chloride 100 mmol/L (98-108); Cholesterol 216 mg/dL (<=200); Creatinine, Serum 0.57 mg/dL (0.70-1.20); EST Glomerular Filtration Rate 97 (>60); Ferritin 68 ng/mL (22-378); Glucose 78 mg/dL (70-99); High Density Lipoprotein 71 mg/dL; Low Density Lipoprotein Calc. 122 mg/dL; Potassium 3.7 mmol/L (3.3-5.1); Sodium Level 137 mmol/L (133-145); Thyroid Stim Hormone (TSH) 0.868 uIU/mL (0.300-4.200); Total Bilirubin 0.25 mg/dL (0.00-1.30); Triglycerides 116 mg/dL; Very Low Density Lipoprotein 23 mg/dL (5-40); Vitamin D,25 Hydroxy 31.9 ng/mL (30-100); cholesterol:hdl ratio screen 3.03
[2025-01-23 18:24] LABS: International Normalized Ratio 0.9; Prothrombin Time (Protime)PT. 12.2 SECONDS (11.7-14.9)
[2025-01-23 18:52] LABS: CRP < 3.00 mg/L (0.0-3.0); LDH 188 U/L (84-246)
[2025-01-25 15:08] LABS: ANTINUCLEAR ANTIBODIES DIRECT Negative (Negative); Anti-Mitochondrial AB <20.0 Units (0.0-20.0)
[2025-01-25 16:09] LABS: Alkaline Phosphatase, Serum 353 IU/L (44-121); Anti-Smooth Muscle ABS 126 Units (0-19); Bone Fraction 24 % (14-68); GGTP 165 IU/L (0-60); HEPATITIS B SURFACE AG Negative (Negative); Hep C Antibodies Non Reactive (Non Reactive); Hepatitis A IgM Antibody Negative (Negative); Hepatitis B Core AB IgM Negative (Negative); Intestinal Fraction 0 % (0-18); Liver Fraction 76 % (18-85)
== END | disposition home or self-care (01) ==
PROVIDERS: PCP Internal Medicine; Referring Provider Internal Medicine; Visit Provider Internal Medicine
DX: I10 Essential (primary) hypertension (principal); K74.60 Unspecified cirrhosis of liver; M81.0 Age-related osteoporosis without current pathological fracture; R63.4 Abnormal weight loss; R74.8 Abnormal levels of other serum enzymes; R73.9 Hyperglycemia, unspecified
CPT/HCPCS: 36415; 80053; 80061; 80074; 82248; 82306; 82728; 82977; 83036; 83516; 83615; 84075; 84080; 84443; 85025; 85610; 86038; 86140; 86225; 86706

== ENCOUNTER → 2025-05-03 | Outpatient (CLI) | payer MEDICARE, SELFPAY ==
--- NOTE | 2025-05-03 07:23 | US_ITS ---
PROCEDURE: ABD LIMITED W/ ELASTOGRAPHY REASON FOR EXAM: ELEVATED ALP AND GGT COMPARISON: None. TECHNIQUE: Procedure Code: [id number] Modality: US Procedure: ABD LIMITED W/ ELASTOGRAPHY Right upper quadrant abdominal ultrasound. [facility] ElastQ Imaging shear wave elastography for non-invasive assessment of liver tissue stiffness. [facility] EPIQ Elite. FINDINGS: LIVER: Size: Unremarkable Length: 16.7 cm Echotexture: Coarsened Contour: Normal Lesions: None identified Elastography: EQI Med: 6.5 kPa EQI Med Remy: 1.47 m/s IQR/Med: 22 %* GALLBLADDER: Multiple small gallstones. COMMON BILE DUCT: Normal measuring 5.6 mm . PANCREAS: Normal Visualized portions of the right kidney are unremarkable. No right upper quadrant ascites. The spleen is not enlarged. The spleen measures 8.5 cm 3.8 cm 3.8 cm. US/ABD Limited w/ Elastography IMPRESSION: Mild hepatic fibrosis. Multiple gallstones. The spleen is not enlarged. Reference Values: SRU <1.37 m/s (5.7kPa): No to mild fibrosis 1.37 m/s - 2.2 m/s: Moderate to severe fibrosis >2.2 m/s (15kPa): Significant fibrosis / cirrhosis METAVIR Score F2 or higher: 1.34 m/s (5.7kPa) F3 or higher: 1.55 m/s (7.3kPa) F4: 1.80 m/s (10kPa) * If the IQR/Med is >30%, the variance in the measurements is a large and the a ccuracy of the measurement may be in question. Reading Location: [place] [address]
--- OUTSIDE RECORDS SUMMARY | 2025-05-03 07:37 | XMS RPT_ITS | CCD ---
Author Organization [facility] Care Team Providers Care Floor Nurse Name Role Phone Blanche Ramírez Primary Care Provider [phone] Dr. Silviano Walsh Primary Care Provider [phone] Dr. Silviano Walsh Referring Provider [phone] Erica CIGARETTE MACHINE FILLER, CIGARETTE MACHINE FILLER-C Luís Attending Provider [phone] Dr. Silviano Walsh Primary Care Provider [phone] Dr. Silviano Walsh Referring Provider [phone] Erica CIGARETTE MACHINE FILLER, CIGARETTE MACHINE FILLER-C Luís Attending Provider [phone] Norma CIGARETTE MACHINE FILLER, CIGARETTE MACHINE FILLER-C Trinity Attending Provider Dr. Silviano Walsh Primary Care Provider [phone] Norma CIGARETTE MACHINE FILLER, CIGARETTE MACHINE FILLER-C Trinity Referring Provider Dr. Silviano Walsh Attending Provider [phone] Dr. Silviano Walsh Referring Provider [phone] Silviano Walsh MD Primary Care Provider [phone] Dr. Silviano Walsh Primary Care Provider [phone]) Dr. Silviano Walsh Attending Provider [phone] Dr. Silviano Walsh Referring Provider [phone] Dr. Silviano Walsh Primary Care Provider [phone] [phone]) Dr. Silviano Walsh Attending Provider [phone] Dr. Silviano Walsh Referring Provider [phone] Silviano Walsh MD Primary Care Provider [phone] Jillian GONGORA, Dr. Shore Primary Care Provider Jillian GONGORA, Dr. Shore Referring Provider [phone] Frank Oro Attending Provider Rohan LEE, Dr. Smith Attending Provider Rohan LEE, Dr. Smith Emergency Provider Jillian GONGORA, Dr. Shore Attending Provider [phone] Malik Diaz Attending Provider Malik Diaz Referring Provider Norma CIGARETTE MACHINE FILLER-C, Trinity Attending Provider Norma CIGARETTE MACHINE FILLER-C, Trinity Referring Provider Jani GONGORA, Dr. Berrios Attending Provider Jillian GONGORA, Dr. Shore Primary Care Provider Jillian GONGORA, Dr. Shore Referring Provider [phone] Jani GONGORA, Dr. Berrios Referring Provider Jillian GONGORA, Dr. Shore Primary Care Provider Jillian GONGORA, Dr. Shore Referring Provider [phone] THO ANDERSON Attending Unavailable ANDERSON, THO Primary Care Unavailable ANDERSON, THO Admitting Unavailable RENEA, SAMIR CHI Consulting Unavailable PROVIDER, UNKNOWN Consulting Unavailable PROVIDER, UNKNOWN Consulting Unavailable ANDERSON, THO Primary Care Unavailable ANDERSON, THO Admitting Unavailable ANDERSON, THO Attending Unavailable RENEA, SAMIR CHI Consulting Unavailable PROVIDER, UNKNOWN Consulting Unavailable PROVIDER, UNKNOWN Consulting Unavailable ANDERSON, THO Primary Care Unavailable ANDERSON, THO Admitting Unavailable ANDERSON, THO Attending Unavailable RENEA, SAMIR CHI Consulting Unavailable PROVIDER, UNKNOWN Consulting Unavailable PROVIDER, UNKNOWN Consulting Unavailable ANDERSON, THO Attending Unavailable PROVIDER, UNKNOWN Consulting Unavailable ANDERSON, THO Primary Care Unavailable ANDERSON, THO Admitting Unavailable ANDERSON, THO Primary Care Unavailable ANDERSON, THO Admitting Unavailable ANDERSON, THO Attending Unavailable RENEA, SAMIR CHI Consulting Unavailable PROVIDER, UNKNOWN Consulting Unavailable PROVIDER, UNKNOWN Consulting Unavailable Norma CIGARETTE MACHINE FILLER-C, Trinity Referring Provider Jillian GONGORA, Dr. Shore Primary Care Provider Jillian GONGORA, Dr. Shore Referring Provider Malik Diaz Attending Provider Oleghe, Efewongbe Primary Care Unavailable Oleghe, Efewongbe Referring Unavailable Jani, Yash Attending Unavailable Oleghe, Efewongbe Primary Care Unavailable Norma CIGARETTE MACHINE FILLER, Trinity Referring Unavailable Norma CIGARETTE MACHINE FILLER, Trinity Attending Unavailable Oleghe, Efewongbe Referring Unavailable Oleghe, Efewongbe Primary Care Unavailable Oleghe, Efewongbe Attending Unavailable Oleghe, Efewongbe Attending Unavailable Oleghe, Efewongbe Primary Care Unavailable Oleghe, Efewongbe Referring Unavailable Oleghe, Efewongbe Primary Care Unavailable Waystephanie PAMalik Referring Unavailable Waystephanie PA, Malik Attending Unavailable Oleghe, Efewongbe Primary Care Unavailable Wayt PA, Malik Attending Unavailable Wayt PA, Malik Referring Unavailable Oleghe, Efewongbe Attending Unavailable Oleghe, Efewongbe Referring Unavailable Oleghe, Efewongbe Primary Care Unavailable Oleghe, Efewongbe Primary Care Unavailable Jani, Yash Attending Unavailable Jani, Yash Referring Unavailable Oleghe, Efewongbe Referring Unavailable Oleghe, Efewongbe Primary Care Unavailable WayMalik Barboza Attending Unavailable Norma CIGARETTE MACHINE FILLER, Trinity Attending Unavailable Oleghe, Efewongbe Primary Care Unavailable Norma CIGARETTE MACHINE FILLER, Trinity Referring Unavailable Oleghe, Efewongbe Referring Unavailable Oleghe, Efewongbe Primary Care Unavailable Wayt Malik TRUJILLO Attending Unavailable Oleghe, Efewongbe Primary Care Unavailable Oleghe, Efewongbe Referring Unavailable Wayt PA, Malik Attending Unavailable Oleghe, Efewongbe Referring Unavailable Oleghe, Efewongbe Primary Care Unavailable Wayt PA, Malik Attending Unavailable Oleghe, Efewongbe Attending Unavailable Oleghe, Efewongbe Primary Care Unavailable Oleghe, Efewongbe Referring Unavailable Oleghe, Efewongbe Attending Unavailable Oleghe, Efewongbe Primary Care Unavailable Oleghe, Efewongbe Referring Unavailable Frank Oro Attending Unavailable Oleghe, Efewongbe Primary Care Unavailable Oleghe, Efewongbe Referring Unavailable Oleghe, Efewongbe Attending Unavailable Oleghe, Efewongbe Primary Care Unavailable Oleghe, Efewongbe Referring Unavailable Oleghe, Efewongbe Primary Care Unavailable Oleghe, Efewongbe Referring Unavailable Malik Diaz Attending Unavailable Oleghe, Efewongbe Referring Unavailable Oleghe, Efewongbe Primary Care Unavailable Oleghe, Efewongbe Attending Unavailable Oleghe, Efewongbe Primary Care Unavailable Kamron Zazueta Attending Unavailable Oleghe, Efewongbe Primary Care Unavailable Luis Madrigal Attending Unavailable Oleghe, Efewongbe Primary Care Unavailable Yash Gunter Referring Unavailable Yash Gunter Attending Unavailable Oleghe, Efewongbe Referring Unavailable Oleghe, Efewongbe Primary Care Unavailable Oleghe, Efewongbe Attending Unavailable Allergies Allergy Classification Reported Allergen(s) Allergy Type Date of Onset Reaction(s) Facility (19 sources) moxifloxacin Drug Allergy 1 Rash, Swelling [facility] (10 sources) Seasonal Allergies: Uncoded; Translations: [Seasonal Allergies: Uncoded] Allergy to substance 5 Other [facility] Comment on above: runny nose, cough (1 source) AVALOX Drug allergy (disorder) [facility] (1 source) moxifloxacin Drug Allergy 5 [facility] Medications Current Medications Medication Drug Class(es) Dates Sig (Normalized) Sig (Original) 8 hr acetaminophen 650 mg extended release oral tablet (20 sources) Start: 04-02-2022 End: 12-21-2024 take 1 tablet by mouth every eight hours as needed Acetaminophen (Tylenol Arthritis Pain) 650 mg tablet extended release Active 650 mg PO Q8H as needed December 21, 2024 2:00pm Comment on above: Take by mouth. [id number] 200 actuat albuterol 0.09 mg/actuat metered dose inhaler (20 sources) beta2-Adrenergic Agonist Start: 11-10-2020 End: 04-19-2025 Albuterol Sulfate 90 mcg/actuation HFA aerosol inhaler Active 2 NMA INHALATION Q4H as needed for shortness of breath or wheezing 18 April 19, 2025 1:51pm Start: 11-10-2020 End: 09-26-2023 take 1 puff(s) by inhalation every four hours Albuterol Sulfate Active 2 PUFF INHALATION Q4H September 26, 2023 5:49pm Start: 03-07-2020 End: 06-17-2021 take 2.5 mg by inhalation every four hours as needed for wheezing Albuterol Sulfate 2.5 mg /3 mL (0.083 %) solution for nebulization Discontinued 2.5 mg INHALATION Q4H as needed for shortness of breath or wheezing 90 3 January 08, 2021 8:25am June 17, 2021 2:00pm Start: 03-07-2020 End: 11-10-2020 Albuterol Sulfate 90 mcg/act uation HFA aerosol inhaler Discontinued 2 NMA INHALATION EVERY 6 HOURS as needed for shortness of breath or wheezing 18 October 24, 2020 5:29pm November 10, 2020 11:19pm Start: 03-07-2020 End: 11-10-2020 take 1 puff(s) by inhalation every six hours Albuterol Sulfate Discontinued 2 PUFF INHALATION EVERY 6 HOURS October 24, 2020 4:29pm November 10, 2020 10:19pm Start: 05-30-2017 albuterol HFA (PROVENTIL HFA, VENTOLIN HFA) 90 mcg/actuation inhaler 11/26/2020 Active Start: 05-30-2017 albuterol HFA (PROAIR HFA) 90 mcg/actuation inhaler albuterol 0.833 mg/ml / ipratropium bromide 0.167 mg/ml inhalation solution (18 sources) Anticholinergic, beta2-Adrenergic Agonist Start: 09-27-2024 End: 10-02-2024 take 1 mL by inhalation every six hours as needed Ipratropium-Albuterol 0.5 mg-3 mg(2.5 mg base)/3 mL solution for nebulization Active 3 mL INHALATION EVERY 6 HOURS as needed for shortness of breath 180 0 October 02, 2024 2:44am ascorbic acid 500 mg oral capsule (16 sources) Vitamin C Start: 11-05-2021 Ascorbic Acid (Vitamin C) 500 mg capsule Active mg PO November 05, 2021 1:00am Start: 11-05-2021 Ascorbic Acid (Vitamin C) Active MG PO November 05, 2021 12:00am baclofen 10 mg oral tablet (20 sources) gamma-Aminobutyric Acid-ergic Agonist Start: 05-23-2024 End: 08-30-2024 take 1 tablet by mouth every eight hours as needed for muscle spasms Baclofen 10 mg tablet Active 10 mg PO Q8H as needed for muscle spasm 90 1 August 30, 2024 2:50pm Start: 01-06-2023 baclofen (SARAH ESAL) 10 mg tablet 01/06/2023 Active Start: 11-05-2021 End: 05-23-2024 take 5-10 mg by mouth twice daily as needed for muscle spasms Baclofen 10 mg tablet Discontinued 5 - 10 mg PO TWICE A DAY as needed for muscle spasm 30 March 13, 2024 10:36am May 23, 2024 1:35pm Cxgewzuskj-Ogodaqkm-Mbhojvaq ol (20 sources) Corticosteroid, beta2-Adrenergic Agonist Start: 12-21-2024 Dypvpuhnno-Pjehnvis-Juwmottv ol (Breztri Aerosphere) 160-9-4.8 mcg/actuation HFA aerosol inhaler Active 2 NMA INHALATION TWICE A DAY 10.7 3 December 21, 2024 2:42pm Start: 12-21-2024 Budesonide-Gly copyr-Formoterol (Breztri Aerosphere) 160-9-4.8 mcg/actuation HFA aerosol inhaler Active 2 NMA INHALATION TWICE A DAY 10.7 December 21, 2024 2:42pm Start: 10-09-2024 End: 12-21-2024 Ewshmkaklr-Qrhhizvu-Mgxqxbws ol (Breztri Aerosphere) 160-9-4.8 mcg/actuation HFA aerosol inhaler Discontinued 2 NMA INHALATION TWICE A DAY 10.7 3 October 09, 2024 12:34pm December 21, 2024 2:42pm Start: 10-09-2024 End: 12-21-2024 Aayjiuwgom-Waaepmwy-Jvqutual ol (Breztri Aerosphere) 160-9-4.8 mcg/actuation HFA aerosol inhaler Discontinued 2 NMA INHALATION TWICE A DAY 10.7 October 09, 2024 12:34pm December 21, 2024 2:42pm Start: 10-09-2024 Budesonide-Gly copyr-Formoterol (Breztri Aerosphere) 160-9-4.8 mcg/actuation HFA aerosol inhaler Active 2 NMA INHALATION TWICE A DAY 10.7 October 09, 2024 12:34pm Start: 07-05-2024 End: 10-09-2024 Ffzeaulzvz-Gefshoid-Lifamydz ol (Breztri Aerosphere) 160-9-4.8 mcg/actuation HFA aerosol inhaler Discontinued 2 NMA INHALATION TWICE A DAY 10.7 3 July 05, 2024 11:40am October 09, 2024 12:34pm Start: 07-05-2024 End: 10-09-2024 Vpmntmdsoc-Jyvtqyko-Zguedwsv ol (Breztri Aerosphere) 160-9-4.8 mcg/actuation HFA aerosol inhaler Discontinued 2 NMA INHALATION TWICE A DAY 10.7 July 05, 2024 11:40am October 09, 2024 12:34pm Start: 07-04-2024 End: 07-05-2024 Tsxzuuzdlv-Qbbwubni-Ivlpguoa ol (Breztri Aerosphere) 160-9-4.8 mcg/actuation HFA aerosol inhaler Discontinued 2 NMA INHALATION TWICE A DAY 10.7 1 July 04, 2024 4:42pm July 05, 2024 11:40am Start: 07-04-2024 End: 07-05-2024 Cuaamqnsvv-Uvliklot-Puwaezxd ol (Breztri Aerosphere) 160-9-4.8 mcg/actuation HFA aerosol inhaler Discontinued 2 NMA INHALATION TWICE A DAY 10.7 July 04, 2024 4:42pm July 05, 2024 11:40am Start: 05-08-2024 End: 07-04-2024 Ysyhwydkvk-Tgeoqyjm-Urvaljdf ol (Breztri Aerosphere) 160-9-4.8 mcg/actuation HFA aerosol inhaler Discontinued 2 NMA INHALATION TWICE A DAY 10.7 May 08, 2024 4:11pm July 04, 2024 4:42pm Start: 05-08-2024 End: 07-04-2024 Zaceygjptt-Vcdkxksj-Pojszufs ol (Breztri Aerosphere) 160-9-4.8 mcg/actuation HFA aerosol inhaler Discontinued 2 NMA INHALATION TWICE A DAY 10.7 May 08, 2024 4:11pm July 04, 2024 4:42pm Start: 08-08-2023 End: 05-08-2024 Tqbinhqdcd-Adbckjyh-Mtvqpmkt ol (Breztri Aerosphere) 160-9-4.8 mcg/actuation HFA aerosol inhaler Discontinued 2 NMA INHALATION TWICE A DAY 10.7 1 August 08, 2023 4:57pm May 08, 2024 4:12pm Start: 08-08-2023 End: 05-08-2024 Wofccavmny-Mypqoasx-Heqkpszb ol (Breztri Aerosphere) 160-9-4.8 mcg/actuation HFA aerosol inhaler Discontinued 2 NMA INHALATION TWICE A DAY 10.7 August 08, 2023 4:57pm May 08, 2024 4:12pm Start: 08-08-2023 Budesonide-Gly copyr-Formoterol (Breztri Aerosphere) 160-9-4.8 mcg/actuation HFA aerosol inhaler Active 2 INH INHALATION TWICE A DAY 10.7 August 08, 2023 3:57pm Start: 05-30-2023 End: 08-08-2023 Wkauryiotc-Oooueutd-Jhsyhdwn ol (Breztri Aerosphere) 160-9-4.8 mcg/actuation HFA aerosol inhaler Discontinued 2 NMA INHALATION TWICE A DAY 10.7 1 May 30, 2023 8:59pm August 08, 2023 4:57pm Start: 05-30-2023 End: 08-08-2023 Gnsoutussj-Ehgzvczw-Zkdledtj ol (Breztri Aerosphere) 160-9-4.8 mcg/actuation HFA aerosol inhaler Discontinued 2 NMA INHALATION TWICE A DAY 10.7 May 30, 2023 8:59pm August 08, 2023 4:57pm Start: 05-30-2023 End: 12-11-2023 Fnttrxjjqo-Sbunjmvo-Madmnqzm ol (Breztri Aerosphere) 160-9-4.8 mcg/actuation HFA aerosol inhaler Discontinued 2 INH INHALATION TWICE A DAY 10.7 May 30, 2023 7:59pm August 08, 2023 3:57pm Start: 01-18-2023 End: 05-30-2023 Iqsbplwwbd-Edjfgtyz-Otdgwymf ol (Breztri Aerosphere) 160-9-4.8 mcg/actuation HFA aerosol inhaler Discontinued 2 NMA INHALATION TWICE A DAY 10.7 3 January 18, 2023 12:00am May 30, 2023 8:59pm Start: 01-18-2023 End: 05-30-2023 Ztdzvwcjju-Axwxcrrt-Kdfjjlnv ol (Breztri Aerosphere) 160-9-4.8 mcg/actuation HFA aerosol inhaler Discontinued 2 NMA INHALATION TWICE A DAY 10.7 January 18, 2023 12:00am May 30, 2023 8:59pm Start: 01-18-2023 End: 05-30-2023 Zxmjlqthjr-Mfcldmpe-Bxcqzoxh ol (Breztri Aerosphere) 160-9-4.8 mcg/actuation HFA aerosol inhaler Discontinued 2 INH INHALATION TWICE A DAY 10.7 January 17, 2023 11:00pm May 30, 2023 7:59pm Ca Carb-D3-Mag Dq-Iju-Kntn-Zn (Caltrate + D3 Plus Minerals) 300 mg-800 unit -25 mg-0.5 mg tablet (16 sources) Start: 07-09-2021 take 1 tablet by mouth once daily Ca Carb-D3-Mag Iq-Med-Lpmy-Zn (Caltrate + D3 Plus Minerals) 300 mg-800 unit -25 mg-0.5 mg tablet Active 1 {tbl} PO DAILY July 09, 2021 1:00am Start: 07-09-2021 take 1 tablet by baljinder once daily Ca Carb-D3-Mag Ft-Xqp-Yqle-Zn (Caltrate + D3 Plus Minerals) 300 mg-800 unit -25 mg-0.5 mg tablet Active 1 TABLET PO DAILY July 09, 2021 12:00am Start: 07-09-2021 take 1 tablet by baljinder once daily Ca Carb-D3-Mag Nf-Acd-Alsx-Zn (Caltrate + D3 Plus Minerals) 300 mg-800 unit -25 mg-0.5 mg tablet Active 1 TABLET PO DAILY July 09, 2021 1:00am hydroCHLOROthiazide 25 mg oral tablet (20 sources) Thiazide Diuretic Start: 04-19-2025 take 1 tablet by mouth once daily Hydrochlorothiazide 25 mg tablet Active 25 mg PO daily 30 0 April 19, 2025 12:00am Start: 03-22-2025 End: 04-19-2025 take 1 tablet by mouth once daily in the morning Hydrochlorothiazide 12.5 mg tablet Discontinued 12.5 mg PO EVERY MORNING 30 0 March 22, 2025 12:00am April 19, 2025 1:46pm Start: 09-26-2020 End: 10-05-2024 take 1 tablet by mouth once daily in the morning Hydrochlorothiazide 12.5 mg tablet Discontinued 12.5 mg PO EVERY MORNING 90 1 September 26, 2023 6:50pm March 09, 2024 3:09pm ibuprofen 200 mg oral tablet (20 sources) Nonsteroidal Anti-inflammatory Drug Start: 12-21-2024 take 1 tablet by mouth once as needed Ibuprofen 200 mg tablet Active 200 mg PO ONCE as needed December 21, 2024 12:00am Start: 03-07-2020 End: 11-05-2021 take 1 capsule by mouth every six hours as needed Ibuprofen 200 mg capsule Discontinued 200 mg PO EVERY 6 HOURS as needed March 07, 2020 12:00am November 05, 2021 12:20pm lactobacillus acidophilus 1.5 mg oral capsule (16 sources) Start: 03-07-2020 Lactobacillus Acidophilus (Probiotic Acidophilus) 1.5 mg (250 million cell) capsule Active 100 NMA PO DAILY March 07, 2020 12:00am administer with large glass of water 24 hr metoprolol succinate 50 mg extended release oral tablet (20 sources) beta-Adrenergi c Chantel Start: 04-19-2025 take 1 tablet by mouth once daily Metoprolol Succinate 50 mg tablet extended release 24 hr Active 50 mg PO daily 30 0 April 19, 2025 12:00am Start: 12-21-2024 End: 04-19-2025 take 1 tablet by mouth once daily Metoprolol Succinate 25 mg tablet extended release 24 hr Discontinued 25 mg PO DAILY 90 1 December 21, 2024 2:34pm April 19, 2025 1:46pm Start: 03-07-2020 End: 12-21-2024 take 2 tablets by mouth once daily Metoprolol Succinate 25 mg tablet extended release 24 hr Discontinued 12.5 mg PO DAILY 90 0 September 26, 2023 6:50pm June 28, 2024 1:51pm Start: 03-07-2020 End: 09-26-2023 take 12.5 mg by mouth once daily Metoprolol Succinate Active 12.5 MG PO DAILY September 26, 2023 5:50pm Start: 03-07-2020 End: 03-07-2020 take 1 capsule by mouth once daily Metoprolol Succinate 25 mg capsule,sprinkle,ER 24hr Discontinued 25 mg PO DAILY March 07, 2020 12:00am March 07, 2020 2:20pm take 1 tablet by baljinder th every twenty-four hours metoprolol succinate ER (TOPROL XL) 25 mg 24 hr tablet Take 25 mg by mouth. Active Comment on above: Take 25 mg by mouth. Nebulizer Accessories (Hypersoniq Nebulizer Cartridge) misc (16 sources) Start: 07-01-2020 Nebulizer Accessories (Hypersoniq Nebulizer Cartridge) misc Active 0 .ROUTE .MEDSUPPLY 1 July 01, 2020 1:00am Unspecified asthma, uncomplicated nebulizer supplies Start: 07-01-2020 Nebulizer Acce ssories (Hypersoniq Nebulizer Cartridge) misc Active 0 .ROUTE .MEDSUPPLY July 01, 2020 12:00am nebulizer supplies Start: 07-01-2020 Nebulizer Acce ssories (Hypersoniq Nebulizer Cartridge) misc Active 0 .ROUTE .MEDSUPPLY July 01, 2020 1:00am nebulizer supplies traMADol hydrochloride 50 mg oral tablet (9 sources) Opioid Agonist Start: 11-22-2024 take 1 tablet by mouth three times daily as needed Tramadol 50 mg tablet Active 50 mg PO THREE TIMES A DAY as needed November 22, 2024 12:00am triamcinolone acetonide 1 mg/ml topical cream (20 sources) Corticosteroid Start: 01-06-2023 End: 01-06-2023 Triamcinolone Acetonide 0.1 % cream Active 1 NMA TOPICAL THREE TIMES A DAY as needed for rash 80 2 January 06, 2023 4:52pm Start: 12-02-2020 End: 12-09-2020 triamcinolone acetonide (ARTI ALOG) 0.1 % cream Apply 1 application to affected area three times daily for 7 days. Apply sparingly to area for rash/itching. 45 g 0 12/02/2020 12/09/2020 Active Comment on above: Apply 1 application to affected area three times daily for 7 days. Apply sparingly to area for rash/itching. ursodiol 500 mg oral tablet (10 sources) Bile Acid Start: 01-26-2025 take 1 tablet by mouth three times daily Ursodiol 500 mg tablet Active 500 mg PO THREE TIMES A DAY 90 30 4 January 26, 2025 7:23am After the lab draw Start: 01-23-2025 End: 01-26-2025 take 1 tablet by mouth twice daily Ursodiol 500 mg tablet Discontinued 500 mg PO TWICE A DAY 60 30 4 January 23, 2025 12:00am January 26, 2025 7:24am After the lab draw 100 ml zoledronic acid 0.05 mg/ml injection (9 sources) Bisphosphonate Start: 03-09-2024 Zoledronic Eazz-Hgcasghl-Lgwnz (Reclast) 5 mg/100 mL piggyback Active 1 NMA .Route .Yearly 100 0 March 09, 2024 12:00am Yearly Completed/Discontinued Medications Medication Drug Class(es) Dates Sig (Normalized) Sig (Original) acetaminophen 500 mg / diphenhydrAMINE hydrochloride 25 mg oral tablet (16 sources) Histamine-1 Receptor Antagonist Start: 03-07-2020 End: 03-09-2024 Diphenhydramine-Ac etaminophen (Tylenol Pm Extra Strength) 25-500 mg tablet Discontinued 2 {tbl} PO AT BEDTIME as needed March 07, 2020 12:00am March 09, 2024 2:54pm acetaminophen 325 mg / oxyCODONE hydrochloride 5 mg oral tablet (9 sources) Opioid Agonist Start: 05-14-2024 End: 05-23-2024 Oxycodone-Acetamin ophen 5-325 mg tablet Discontinued 1 {tbl} PO EVERY 6 HOURS NEEDED as needed for Pain 12 3 0 May 14, 2024 May 23, 2024 1:21pm Compression fracture of thoracic vertebra Albuterol 90 mcg/actuation aerosol (9 sources) Start: 03-07-2020 End: 03-07-2020 Albuterol 90 mcg/actuation aerosol Discontinued 90 ug INHALATION .2 [id number] March 07, 2020 12:00am March 07, 2020 2:22pm albuterol 90 mcg/actuation aerosol inhaler (7 sources) Start: 03-07-2020 End: 03-07-2020 albuterol 90 mcg/actuation aerosol inhaler Discontinued 90 MCG INHALATION .2 [id number] March 06, 2020 11:00pm March 07, 2020 1:22pm Start: 03-07-2020 End: 03-07-2020 albuterol 90 mcg/actuation a erosol inhaler Discontinued 90 MCG INHALATION .2 [id number] March 07, 2020 12:00am March 07, 2020 2:22pm albuterol HFA (PROVENTIL HFA, VENTOLIN HFA) 90 mcg/actuation inhaler (1 source) Start: 11-26-2020 albuterol HFA (PROVENTIL HFA, VENTOLIN HFA) 90 mcg/actuation inhaler alendronic acid 70 mg oral tablet (20 sources) Bisphosphonate Start: 06-06-2020 End: 11-05-2021 take 1 tablet by mouth every week Alendronate 70 mg tablet Discontinued 70 mg PO EVERY WEEK 10 October 31, 2020 3:41pm November 05, 2021 12:00pm amoxicillin 875 mg / clavulanate 125 mg oral tablet (20 sources) Penicillin-class Antibacterial Start: 03-09-2024 End: 05-14-2024 Amoxicillin-Pot Clavulanate 875-125 mg tablet Discontinued 1 {tbl} PO Q12H 14 0 March 09, 2024 12:00am May 14, 2024 11:03am Start: 10-08-2022 End: 01-06-2023 Amoxicillin-Pot Clavulanate 875-125 mg tablet Discontinued 1 {tbl} PO TWICE A DAY 14 0 October 08, 2022 1:00am January 06, 2023 2:25pm Start: 10-08-2022 End: 01-06-2023 take 1 tablet by mouth twice daily Amoxicillin-Pot Clavulanate Discontinued 1 TABLET PO TWICE A DAY 14 October 08, 2022 12:00am January 06, 2023 1:25pm Start: 05-14-2022 End: 06-29-2022 Amoxicillin-Pot Clavulanate 875-125 mg tablet Discontinued 1 {tbl} PO TWICE A DAY May 14, 2022 12:00am June 29, 2022 1:08pm Start: 05-14-2022 End: 06-29-2022 take 1 tablet by mouth twice daily Amoxicillin-Pot Clavulanate Discontinued 1 TABLET PO TWICE A DAY May 13, 2022 11:00pm June 29, 2022 12:08pm Start: 02-10-2021 End: 04-09-2021 Amoxicillin-Pot Clavulanate (Augmentin) 875-125 mg tablet Discontinued 1 {tbl} PO TWICE A DAY 14 February 10, 2021 10:11am April 09, 2021 12:36pm Start: 11-07-2020 End: 01-22-2021 Amoxicillin-Pot Clavulanate (Augmentin) 875-125 mg tablet Discontinued 1 {tbl} PO TWICE A DAY 14 November 07, 2020 1:00am January 22, 2021 2:26pm Comment on above: Take 1 tablet by baljinder twice daily for 7 days. cetirizine hydrochloride 10 mg oral tablet (1 source) Histamine-1 Receptor Antagonist Start: 12-03-19 End: 12-17-19 take 1 tablet by mouth once daily cetirizine (ZYRTEC) 10 mg tablet Take 1 tablet by mouth once daily for 14 days. 14 tablet 0 12/02/2020 12/16/2020 Active Comment on above: Take 1 tablet by [facility] once daily for 14 days. cholecalciferol 0.01 mg oral capsule (16 sources) Vitamin D Start: 06-06-20 End: 07-09-20 take 1 capsule by mouth once daily Cholecalciferol (Vitamin D3) 10 mcg (400 unit) capsule Discontinued 10 ug PO DAILY June 06, 2020 12:00am July 09, 2021 2:09pm citalopram 40 mg oral tablet (20 sources) Serotonin Reuptake Inhibitor Start: 04-22-20 End: 09-21-19 take 1 tablet by mouth once daily Citalopram (Celexa) 40 mg tablet Discontinued 40 mg PO DAILY September 18, 2024 1:58pm September 21, 2024 5:04pm Start: 03-07-2020 End: 04-22-2020 Citalopram (Celexa) 40 mg ta blet Discontinued 20 mg PO DAILY April 22, 2020 12:00am April 22, 2020 11:57am Comment on above: Take 40 mg by mouth. codeine phosphate 2 mg/ml / guaiFENesin 20 mg/ml oral solution (9 sources) Opioid Agonist Start: 10-02-19 End: 12-22-19 take 1 mL by mouth four times daily as needed for cough Codeine-Guaifenesin (Guaifenesin Ac) 10-100 mg/5 mL liquid Discontinued 10 mL PO 4 TIMES DAILY as needed for cough 280 7 0 October 02, 2024 2:45am December 21, 2024 2:00pm Respiratory syncytial virus bronchitis Acute bronchitis due to respiratory syncytial virus cyclobenzaprine hydrochloride 10 mg oral tablet (20 sources) Muscle Relaxant Start: 04-09-20 End: 11-06-19 take 1 tablet by mouth twice daily as needed for muscle spasms Cyclobenzaprine 10 mg tablet Discontinued 10 mg PO TWICE A DAY as needed for muscle spasm 30 1 September 16, 2021 3:09pm November 05, 2021 12:21pm Start: 03-07-2020 End: 04-09-2021 take 1 tablet by mouth three times daily as needed for muscle spasms Cyclobenzaprine 10 mg tablet Discontinued 10 mg PO THREE TIMES A DAY as needed for muscle spasm 30 0 March 20, 2021 1:54pm April 09, 2021 12:59pm Comment on above: Take 10 mg by mouth. 1 ml denosumab 60 mg/ml prefilled syringe (20 sources) RANK Ligand Inhibitor Start: 09-20-19 End: 03-09-20 24 Denosumab (Prolia) 60 mg/mL syringe Discontinued 60 mg SC every 6 months 1 March 24, 2023 4:44pm March 09, 2024 2:54pm dexamethasone 6 mg oral tablet (16 sources) Corticosteroid Start: 09-01-19 End: 11-06-19 take 1 tablet by mouth once daily Dexamethasone 6 mg tablet Discontinued 6 mg PO DAILY 7 0 September 01, 2021 1:00am November 05, 2021 12:00pm doxycycline hyclate 100 mg oral capsule (16 sources) Tetracycline-class Drug Start: 10-02-19 End: 11-08-19 take 1 capsule by mouth twice daily Doxycycline Hyclate 100 mg capsule Discontinued 100 mg PO TWICE A DAY 14 0 October 02, 2020 1:00am November 07, 2020 2:11pm ePHEDrine hydrochloride 12.5 mg / guaiFENesin 200 mg oral tablet (16 sources) alpha-Adrenergic Agonist, beta-Adrenergic Agonist, Norepinephrine Releasing Agent Start: 03-07-20 End: 12-22-19 Ephedrine-Guaifenesi n (Primatene Asthma) 12.5-200 mg tablet Discontinued 1 {tbl} PO Q4H as needed March 07, 2020 12:00am December 21, 2024 2:01pm fluticasone propionate 0.05 mg/actuat metered dose nasal spray (20 sources) Corticosteroid Start: 07-09-20 End: 03-12-20 Fluticasone Propionate 50 mcg/actuation spray,suspension Discontinued 1 NMA INTRANASAL TWICE A DAY as needed for allergies, congestion 16 September 26, 2023 6:50pm March 12, 2025 1:21pm administer into each nostril Start: 07-09-2021 End: 09-26-2023 take 1 spray(s) nasal route twice daily Fluticasone Propionate Active 1 SPRAY INTRANASAL TWICE A DAY September 26, 2023 5:50pm administer into each nostril Fluticasone Propion-Salmeterol (20 sources) Corticosteroid, beta2-Adrenergic Agonist Start: 11-09-2022 End: 01-18-2023 Fluticasone Propion-Salmeterol (Advair Diskus) 500-50 mcg/dose blister with device Discontinued 1 NMA INHALATION TWICE A DAY 60 3 November 09, 2022 2:14pm January 18, 2023 2:28pm Start: 11-09-2022 End: 01-18-2023 Fluticasone Propion-Salmeter ol (Advair Diskus) 500-50 mcg/dose blister with device Discontinued 1 NMA INHALATION TWICE A DAY 60 November 09, 2022 2:14pm January 18, 2023 2:28pm Start: 11-09-2022 End: 01-18-2023 Fluticasone Propion-Salmeter ol (Advair Diskus) 500-50 mcg/dose blister with device Discontinued 1 INH INHALATION TWICE A DAY 60 November 09, 2022 1:14pm January 18, 2023 1:28pm Start: 11-09-2022 Fluticasone Pr opion-Salmeterol (Advair Diskus) 500-50 mcg/dose blister with device Active 1 INH INHALATION TWICE A DAY 60 November 09, 2022 2:14pm Start: 02-26-2022 End: 11-09-2022 Fluticasone Propion-Salmeter ol (Advair Diskus) 500-50 mcg/dose blister with device Discontinued 1 NMA INHALATION TWICE A DAY 60 3 February 26, 2022 1:24pm November 09, 2022 2:14pm Start: 02-26-2022 End: 11-09-2022 Fluticasone Propion-Salmeter ol (Advair Diskus) 500-50 mcg/dose blister with device Discontinued 1 NMA INHALATION TWICE A DAY 60 February 26, 2022 1:24pm November 09, 2022 2:14pm Start: 02-26-2022 End: 11-09-2022 Fluticasone Propion-Salmeter ol (Advair Diskus) 500-50 mcg/dose blister with device Discontinued 1 INH INHALATION TWICE A DAY 60 February 26, 2022 12:24pm November 09, 2022 1:14pm Start: 02-26-2022 End: 11-09-2022 Fluticasone Propion-Salmeter ol (Advair Diskus) 500-50 mcg/dose blister with device Discontinued 1 INH INHALATION TWICE A DAY 60 February 26, 2022 1:24pm November 09, 2022 2:14pm Start: 02-26-2022 Fluticasone Pr opion-Salmeterol (Advair Diskus) 500-50 mcg/dose blister with device Active 1 INH INHALATION TWICE A DAY 60 February 26, 2022 12:24pm Start: 02-26-2022 Fluticasone Pr opion-Salmeterol (Advair Diskus) 500-50 mcg/dose blister with device Active 1 INH INHALATION TWICE A DAY 60 February 26, 2022 1:24pm Start: 02-26-2022 End: 02-26-2022 Fluticasone Propion-Salmeter ol (Advair Diskus) 500-50 mcg/dose blister with device Discontinued 1 NMA INHALATION TWICE A DAY 60 3 February 26, 2022 11:06am February 26, 2022 1:24pm Start: 02-26-2022 End: 02-26-2022 Fluticasone Propion-Salmeter ol (Advair Diskus) 500-50 mcg/dose blister with device Discontinued 1 NMA INHALATION TWICE A DAY 60 February 26, 2022 11:06am February 26, 2022 1:24pm Start: 02-26-2022 End: 02-26-2022 Fluticasone Propion-Salmeter ol (Advair Diskus) 500-50 mcg/dose blister with device Discontinued 1 INH INHALATION TWICE A DAY 60 February 26, 2022 10:06am February 26, 2022 12:24pm Start: 02-26-2022 End: 02-26-2022 Fluticasone Propion-Salmeter ol (Advair Diskus) 500-50 mcg/dose blister with device Discontinued 1 INH INHALATION TWICE A DAY 60 February 26, 2022 11:06am February 26, 2022 1:24pm Start: 11-05-2021 End: 02-26-2022 Fluticasone Propion-Salmeter ol (Advair Diskus) 500-50 mcg/dose blister with device Discontinued 1 NMA INHALATION TWICE A DAY 60 3 November 05, 2021 12:22pm February 26, 2022 11:06am Start: 11-05-2021 End: 02-26-2022 Fluticasone Propion-Salmeter ol (Advair Diskus) 500-50 mcg/dose blister with device Discontinued 1 NMA INHALATION TWICE A DAY 60 November 05, 2021 12:22pm February 26, 2022 11:06am Start: 11-05-2021 End: 02-26-2022 Fluticasone Propion-Salmeter ol (Advair Diskus) 500-50 mcg/dose blister with device Discontinued 1 INH INHALATION TWICE A DAY 60 November 05, 2021 11:22am February 26, 2022 10:06am Start: 11-05-2021 End: 02-26-2022 Fluticasone Propion-Salmeter ol (Advair Diskus) 500-50 mcg/dose blister with device Discontinued 1 INH INHALATION TWICE A DAY 60 November 05, 2021 12:22pm February 26, 2022 11:06am Start: 09-16-2021 End: 11-05-2021 Fluticasone Propion-Salmeter ol (Advair Diskus) 500-50 mcg/dose blister with device Discontinued 1 NMA INHALATION TWICE A DAY 60 September 16, 2021 3:09pm November 05, 2021 12:22pm Start: 09-16-2021 End: 11-05-2021 Fluticasone Propion-Salmeter ol (Advair Diskus) 500-50 mcg/dose blister with device Discontinued 1 NMA INHALATION TWICE A DAY 60 September 16, 2021 3:09pm November 05, 2021 12:22pm Start: 09-16-2021 End: 11-05-2021 Fluticasone Propion-Salmeter ol (Advair Diskus) 500-50 mcg/dose blister with device Discontinued 1 INH INHALATION TWICE A DAY 60 September 16, 2021 2:09pm November 05, 2021 11:22am Start: 09-16-2021 End: 11-05-2021 Fluticasone Propion-Salmeter ol (Advair Diskus) 500-50 mcg/dose blister with device Discontinued 1 INH INHALATION TWICE A DAY 60 September 16, 2021 3:09pm November 05, 2021 12:22pm Start: 07-09-2021 End: 09-16-2021 Fluticasone Propion-Salmeter ol (Advair Diskus) 500-50 mcg/dose blister with device Discontinued 1 NMA INHALATION TWICE A DAY 60 July 09, 2021 1:00am September 16, 2021 3:09pm Start: 07-09-2021 End: 09-16-2021 Fluticasone Propion-Salmeter ol (Advair Diskus) 500-50 mcg/dose blister with device Discontinued 1 NMA INHALATION TWICE A DAY 60 July 09, 2021 1:00am September 16, 2021 3:09pm Start: 07-09-2021 End: 09-16-2021 Fluticasone Propion-Salmeter ol (Advair Diskus) 500-50 mcg/dose blister with device Discontinued 1 INH INHALATION TWICE A DAY 60 July 09, 2021 12:00am September 16, 2021 2:09pm Start: 07-09-2021 End: 09-16-2021 Fluticasone Propion-Salmeter ol (Advair Diskus) 500-50 mcg/dose blister with device Discontinued 1 INH INHALATION TWICE A DAY 60 July 09, 2021 1:00am September 16, 2021 3:09pm Start: 04-09-2021 End: 07-09-2021 Fluticasone Propion-Salmeter ol (Advair Diskus) 250-50 mcg/dose blister with device Discontinued 1 NMA INHALATION TWICE A DAY 60 3 April 09, 2021 1:21pm July 09, 2021 2:31pm Start: 04-09-2021 End: 07-09-2021 Fluticasone Propion-Salmeter ol (Advair Diskus) 250-50 mcg/dose blister with device Discontinued 1 NMA INHALATION TWICE A DAY 60 April 09, 2021 1:21pm July 09, 2021 2:31pm Start: 04-09-2021 End: 07-09-2021 Fluticasone Propion-Salmeter ol (Advair Diskus) 250-50 mcg/dose blister with device Discontinued 1 INH INHALATION TWICE A DAY 60 April 09, 2021 12:21pm July 09, 2021 1:31pm Start: 04-09-2021 End: 07-09-2021 Fluticasone Propion-Salmeter ol (Advair Diskus) 250-50 mcg/dose blister with device Discontinued 1 INH INHALATION TWICE A DAY 60 April 09, 2021 1:21pm July 09, 2021 2:31pm Start: 01-19-2021 End: 04-09-2021 Fluticasone Propion-Salmeter ol (Advair Diskus) 250-50 mcg/dose blister with device Discontinued 1 NMA INHALATION TWICE A DAY 60 January 19, 2021 9:43am April 09, 2021 1:21pm Start: 01-19-2021 End: 04-09-2021 Fluticasone Propion-Salmeter ol (Advair Diskus) 250-50 mcg/dose blister with device Discontinued 1 NMA INHALATION TWICE A DAY 60 January 19, 2021 9:43am April 09, 2021 1:21pm Start: 01-19-2021 End: 04-09-2021 Fluticasone Propion-Salmeter ol (Advair Diskus) 250-50 mcg/dose blister with device Discontinued 1 INH INHALATION TWICE A DAY 60 January 19, 2021 8:43am April 09, 2021 12:21pm Start: 01-19-2021 End: 04-09-2021 Fluticasone Propion-Salmeter ol (Advair Diskus) 250-50 mcg/dose blister with device Discontinued 1 INH INHALATION TWICE A DAY 60 January 19, 2021 9:43am April 09, 2021 1:21pm Start: 10-03-2020 End: 01-19-2021 Fluticasone Propion-Salmeter ol (Advair Diskus) 250-50 mcg/dose blister with device Discontinued 1 NMA INHALATION TWICE A DAY 60 2 October 03, 2020 6:06pm January 19, 2021 9:43am Start: 10-03-2020 End: 01-19-2021 Fluticasone Propion-Salmeter ol (Advair Diskus) 250-50 mcg/dose blister with device Discontinued 1 NMA INHALATION TWICE A DAY 60 October 03, 2020 6:06pm January 19, 2021 9:43am Start: 10-03-2020 End: 01-19-2021 Fluticasone Propion-Salmeter ol (Advair Diskus) 250-50 mcg/dose blister with device Discontinued 1 INH INHALATION TWICE A DAY 60 October 03, 2020 5:06pm January 19, 2021 8:43am Start: 10-03-2020 End: 01-19-2021 Fluticasone Propion-Salmeter ol (Advair Diskus) 250-50 mcg/dose blister with device Discontinued 1 INH INHALATION TWICE A DAY 60 October 03, 2020 6:06pm January 19, 2021 9:43am Start: 03-07-2020 End: 10-03-2020 Fluticasone Propion-Salmeter ol (Advair Diskus) 250-50 mcg/dose blister with device Discontinued 1 NMA INHALATION TWICE A DAY March 07, 2020 12:00am October 03, 2020 6:06pm Start: 03-07-2020 End: 10-03-2020 Fluticasone Propion-Salmeter ol (Advair Diskus) 250-50 mcg/dose blister with device Discontinued 1 INH INHALATION TWICE A DAY March 06, 2020 11:00pm October 03, 2020 5:06pm Start: 03-07-2020 End: 10-03-2020 Fluticasone Propion-Salmeter ol (Advair Diskus) 250-50 mcg/dose blister with device Discontinued 1 INH INHALATION TWICE A DAY March 07, 2020 12:00am October 03, 2020 6:06pm Start: 03-15-2017 take 1 puff(s) by mo [...] ONE PUFF BY M OUTH TWICE DAILY glucosamine sulfate 1000 mg oral capsule (16 sources) Start: 022 End: 023 take 1 capsule by mouth once daily Glucosamine Sulfate 1,000 mg capsule Discontinued 1000 mg PO DAILY April 02, 2022 12:00am October 08, 2022 3:19pm administer with a meal hydroCHLOROthiazide 12.5 mg / lisinopril 20 mg oral tablet (20 sources) Thiazide Diuretic, Angiotensin Converting Enzyme Inhibitor Start: 020 End: 021 Lisinopril-Hydrochl orothiazide 20-12.5 mg tablet Discontinued 1 {tbl} PO DAILY 90 3 March 07, 2020 2:21pm November 07, 2020 2:12pm Start: 03-07-2020 End: 11-07-2020 take 1 tablet by mouth once daily Lisinopril-Hydrochlorothiazide Discontin ued 1 TABLET PO DAILY March 07, 2020 1:21pm November 07, 2020 1:12pm lisinopril 40 mg oral tablet (20 sources) Angiotensin Converting Enzyme Inhibitor Start: 09-26-2020 End: 11-22-2024 take 1 tablet by mouth once daily Lisinopril 40 mg tablet Discontinued 40 mg PO DAILY September 26, 2023 6:50pm March 09, 2024 3:09pm Comment on above: Take 40 mg by mouth. loratadine 10 mg oral tablet (16 sources) Start: 03-07-2020 End: 02-10-2021 take 1 tablet by mouth once daily Loratadine (Claritin) 10 mg tablet Discontinued 10 mg PO DAILY March 07, 2020 12:00am February 10, 2021 10:07am magnesium oxide 500 mg oral capsule (16 sources) Start: 03-07-2020 End: 01-22-2021 take 1 capsule by mouth once daily Magnesium Oxide 500 mg capsule Discontinued 500 mg PO DAILY March 07, 2020 12:00am January 22, 2021 2:26pm meloxicam 15 mg oral tablet (20 sources) Nonsteroidal Anti-inflammatory Drug Start: 11-05-2021 End: 11-22-2024 take 0.5-1 tablets by mouth once daily as needed for pain Meloxicam 15 mg tablet Discontinued 0 .ROUTE .COMPLEX July 19, 2023 2:27pm March 09, 2024 3:09pm TAKE ONE-HALF TO ONE TABLET BY MOUTH ONCE DAILY NEEDED FOR JOINT PAIN methylPREDNISolone 4 mg oral tablet (20 sources) Corticosteroid Start: 09-27-2024 End: 10-03-2024 take 1 tablet by mouth once Methylprednisolone (Medrol (Niko)) 4 mg tablets,dose pack Discontinued 4 mg PO per package directions 21 September 27, 2024 1:00am October 02, 2024 1:00am October 03, 2024 1:11am Start: 05-23-2024 End: 06-28-2024 take 1 tablet by mouth once Methylprednisolone (Medrol (Niko)) 4 mg tablets,dose pack Discontinued 0 PO per package directions May 23, 2024 12:00am June 28, 2024 1:51pm PO PER PKG DIR for 6 days Start: 01-22-2021 End: 02-10-2021 take 1 tablet by mouth once Methylprednisolone (Medrol (Niko)) 4 mg tablets,dose pack Discontinued 0 PO per package directions 21 January 22, 2021 12:00am February 10, 2021 10:07am PO PER PKG DIR Milk Thistle (20 sources) Start: 12-21-2024 End: 02-15-2025 take 1 capsule by mouth once Milk Thistle 150 mg capsule Discontinued 150 mg PO ONCE December 21, 2024 12:00am February 15, 2025 2:10pm give with meal/snack Start: 12-21-2024 take 1 capsule by mouth once M joe Thistle 150 mg capsule Active 150 mg PO ONCE December 21, 2024 12:00am give with meal/snack Start: 07-09-2021 End: 04-02-2022 take 1 capsule by mouth twice daily Milk Thistle 150 mg capsule Discontinued 150 mg PO TWICE A DAY July 09, 2021 1:00am April 02, 2022 2:19pm give with meal/snack Start: 07-09-2021 End: 04-02-2022 take 150 mg by mouth twice daily Milk Thistle Discontinued 150 MG PO TWICE A DAY July 09, 2021 12:00am April 02, 2022 1:19pm give with meal/snack Start: 07-09-2021 End: 04-02-2022 take 150 mg by mouth twice daily Milk Thistle Discontinued 150 MG PO TWICE A DAY July 09, 2021 1:00am April 02, 2022 2:19pm give with meal/snack montelukast 10 mg oral tablet (20 sources) Leukotriene Receptor Antagonist Start: 01-22-2021 End: 03-12-2025 take 1 tablet by mouth at bedtime Montelukast (Singulair) 10 mg tablet Discontinued 10 mg PO AT BEDTIME 2 September 26, 2023 6:50pm March 09, 2024 3:09pm predniSONE 10 mg oral tablet (20 sources) Start: 10-02-2024 End: 11-22-2024 take 4 tablets by mouth once daily, then take 3 tablets by mouth once daily, then take 2 tablets by mouth once daily, then take 1 tablet by mouth once daily, then take 1 tablet by mouth every other day Prednisone 10 mg tablet Discontinued 10 mg PO DIRECTED 33 October 02, 2024 1:00am November 22, 2024 2:05pm Take 4 tablets daily for 3 days, then 3 daily for 3 days, then 2 daily for 3 days, then 1 a day for 3 days then 1 QOD for 3 doses. Start: 10-08-2022 End: 01-06-2023 take 2 tablets by mouth once daily Prednisone 20 mg tablet Discontinued 40 mg PO DAILY October 08, 2022 1:00am January 06, 2023 2:26pm Start: 10-08-2022 End: 01-06-2023 take 40 mg by mouth once daily Prednisone Discontinued 40 MG PO DAILY October 08, 2022 12:00am January 06, 2023 1:26pm Start: 02-10-2021 End: 04-09-2021 Prednisone 10 mg tablet Disc ontinued 0 PO daily February 10, 2021 10:10am April 09, 2021 12:36pm 4 tabs for 3 days, then 3 tabs for 3 days, then 2 tabs for 3 days, then 1 tab for 3 days PO QDAY; administer with food or milk Start: 12-02-2020 End: 12-07-2020 take 2 tablets by mouth once daily predniSONE (DELTASONE) 20 mg tablet Take 2 tablets by mouth once daily for 5 days. 10 tablet 0 12/02/2020 12/07/2020 Active Start: 10-02-2020 End: 01-22-2021 Prednisone 10 mg tablet Disc ontinued 0 PO daily November 07, 2020 1:00am January 22, 2021 2:25pm 4 tabs for 3 days, then 3 tabs for 3 days, then 2 tabs for 3 days, then 1 tab for 3 days PO QDAY; administer with food or milk Comment on above: Take 2 tablets by mo uth once daily for 5 days. Take 2 tablets by mo uth once daily for 4 days. Take daily with food. promethazine hydrochloride 12.5 mg oral tablet (16 sources) Phenothiazine Start: 09-01-19 End: 11-06-19 take 1 tablet by mouth twice daily as needed for nausea and vomiting Promethazine 12.5 mg tablet Discontinued 12.5 mg PO TWICE A DAY as needed for nausea and vomiting 20 0 September 01, 2021 1:00am November 05, 2021 12:01pm simvastatin 40 mg oral tablet (20 sources) HMG-CoA Reductase Inhibitor Start: 03-13-20 End: 03-09-20 take 1 tablet by mouth once daily in the evening Simvastatin 40 mg tablet Discontinued 40 mg PO EVERY EVENING 90 1 September 26, 2023 6:51pm March 09, 2024 3:09pm tumeric with cumin OTC (16 sources) Start: 03-07-20 End: 11-06-19 tumeric with cumin OTC Discontinued PO 0 March 07, 2020 12:00am November 05, 2021 12:02pm Start: 03-07-2020 End: 11-05-2021 tumeric with cumin OTC Disco ntinued PO March 06, 2020 11:00pm November 05, 2021 11:02am Start: 03-07-2020 End: 11-05-2021 tumeric with cumin OTC Disco ntinued PO March 07, 2020 12:00am November 05, 2021 12:02pm Zinc (16 sources) Start: 07-09-2021 End: 10-08-2022 take 1 tablet by mouth once daily Zinc 50 mg tablet Discontinued 50 mg PO DAILY July 09, 2021 1:00am October 08, 2022 3:20pm Start: 07-09-2021 End: 10-08-2022 take 50 mg by mouth once daily Zinc Discontinued 50 MG PO DAILY July 09, 2021 1:00am October 08, 2022 3:20pm Start: 07-09-2021 End: 10-08-2022 take 50 mg by mouth once daily Zinc Discontinued 50 MG PO DAILY July 09, 2021 12:00am October 08, 2022 2:20pm Start: 07-09-2021 take 50 mg by mouth once daily Zinc Active 50 MG PO DAILY July 09, 2021 12:00am Start: 07-09-2021 take 50 mg by mouth once daily Zinc Active 50 MG PO DAILY July 09, 2021 1:00am Problems Active Problems Problem Classification Problem Date Documented Da te Episodic/Chronic Acute bronchitis (15 sources) Respiratory syncytial virus bronchitis; Translations: [Acute bronchitis due to respiratory syncytial virus] 10-10-2024 Episodic Allergic reactions (1 source) Allergic contact dermatitis due to metal; Translations: [Allergic contact dermatitis due to metals] Episodic Anxiety disorders (20 sources) Mixed anxiety and depressive disorder; Translations: [Anxiety disorder, unspecified] Chronic Asthma (20 sources) Exacerbation of asthma; Translations: [Unspecified asthma with (acute) exacerbation] Chronic Chronic obstructive pulmonary disease and bronchiectasis (20 sources) Chronic obstructive lung disease; Translations: [Chronic obstructive pulmonary disease, unspecified] 01-06-2023 Chronic Essential hypertension (20 sources) Hypertensive disorder; Translations: [Essential (primary) hypertension] Onset: 02-04-2025 Chronic Fluid and electrolyte disorders (9 sources) Hyponatremia; Translations: [Hypo-osmolality and hyponatremia] 03-09-2024 Episodic Immunizations and screening for infectious disease (10 sources) Encounter for immunization; Translations: [Need for prophylactic vaccination and inoculation against diphtheria-tetanus- pertussis, combined [DTP] [DTaP]] Episodic Comment on above: Patient declined Open wounds of extremities (9 sources) Cat bite - wound; Translations: [Open bite of unspecified hand, initial encounter] 03-09-2024 Episodic Osteoarthritis (20 sources) Osteoarthritis; Translations: [Unspecified osteoarthritis, unspecified site] Chronic Osteoporosis (20 sources) Osteoporosis; Translations: [Age-related osteoporosis without current pathological fracture] Onset: 06-02-2024 Chronic Other circulatory disease (14 sources) Elevated blood pressure; Translations: [Elevated blood-pressure reading, without diagnosis of hypertension] 12-24-2024 Episodic Other connective tissue disease (2 sources) Synovial cyst of popliteal space [Funes], right knee; Translations: [Synovial cyst of right popliteal space] 03-22-2025 Episodic Other fractures (9 sources) Compression fracture of thoracic spine; Translations: [Wedge compression fracture of unspecified thoracic vertebra, initial encounter for closed fracture] 05-22-2024 Episodic Other liver diseases (18 sources) Elevated liver enzymes level; Translations: [Abnormal levels of other serum enzymes] 01-07-2023 Episodic Other liver diseases (1 source) Abnormal levels of other serum enzymes; Translations: [Abnormal levels of other serum enzymes] Onset: 04-25-2025 Episodic Other lower respiratory disease (11 sources) Chronic cough; Translations: [Chronic cough] 01-06-2023 Episodic Other nervous system disorders (1 source) Other chronic pain; Translations: [Other chronic pain] Onset: 05-23-2024 Chronic Other non-traumatic joint disorders (13 sources) Hip pain; Translations: [Pain in right hip] 10-08-2022 Episodic Other non-traumatic joint disorders (4 sources) Pain in right knee; Translations: [Right knee pain] Onset: 03-22-2025 03-22-2025 Episodic Other nutritional; endocrine; and metabolic disorders (20 sources) Weight decreased; Translations: [Abnormal weight loss] 11-22-2024 Episodic Other nutritional; endocrine; and metabolic disorders (2 sources) Abnormal weight loss; Translations: [Abnormal weight loss] Onset: 12-17-2024 Episodic Other screening for suspected conditions (not mental disorders or infectious disease) (20 sources) Patient encounter status; Translations: [Encounter for screening for malignant neoplasm of respiratory organs] Onset: 06-09-2024 Episodic Other upper respiratory disease (16 sources) Allergic rhinitis; Translations: [Allergic rhinitis, unspecified] 01-22-2021 Chronic Other upper respiratory infections (1 source) Chronic sinusitis; Translations: [Chronic sinusitis, unspecified] Chronic Screening and history of mental health and substance abuse codes (1 source) Personal history of nicotine dependence; Translations: [Personal history of nicotine dependence] Onset: 02-27-2025 Episodic Skin and subcutaneous tissue infections (1 source) Cellulitis, unspecified; Translations: [Cellulitis and abscess of unspecified sites] Episodic Substance-related disorders (20 sources) Tobacco dependence, continuous; Translations: [Nicotine dependence, unspecified, with unspecified nicotine-induced disorders] Onset: 02-27-2025 Chronic Unclassified (16 sources) Elevated liver enzymes; Translations: [R74.8 - Abnormal levels of other serum enzymes] Unclassified (1 source) Cough, unspecified; Translations: [Cough, unspecified] Onset: 09-27-2024 Unclassified (1 source) Low back pain, unspecified; Translations: [Low back pain, unspecified] Onset: 06-06-2024 Past or Other Problems Problem Classification Problem Date Documented Da te Episodic/Chronic Other lower respiratory disease (1 source) Shortness of breath; Translations: [Shortness of breath] Onset: 10-19-2024 Episodic Other lower respiratory disease (1 source) Wheezing; Translations: [Wheezing] Onset: 09-27-2024 Episodic Other non-traumatic joint disorders (1 source) Pain in right hip; Translations: [Pain in right hip] Onset: 07-17-2024 Episodic Spondylosis; intervertebral disc disorders; other back problems (20 sources) Spasm of back muscles; Translations: [Muscle spasm of back] Onset: 05-23-2024 11-05-2021 Episodic Results Test Name Value Interpretation Reference Range Facility Internal Medicine Office Vis iton 04-19-2025 Internal Medicine Office Visit [facility] [address] [place], [place] [address] OFFICE VISIT Date of Service: 04/19/25 MR#: [id number] Acct: [id number] Name: VIOLA SCOTT Rep #: [id number] : 1955 Provider: CASSANDRA Tiwari Age/Sex: 69/F Location: [facility] [place] Status: Signed Intake Vital Signs 03/22/25 13:42 03/22/25 14:06 Height 5 ft 2 in 5 ft 2 in Weight: 97 lb 6 oz 94 lb BMI 17.8 17.2 BP 146/86 H 156/88 H Blood Pressure Location Lt brachial Lt brachial Position Sitting Sitting Respiration 16 16 Pulse 70 102 H Pulse Source Monitor Monitor Temp 98.1 F 98.8 F Temp Source Temporal Temporal Pulse Oximetry (%) 70 95 Oxygen Delivery Method room air room air Intake Visit Reasons: 3 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 Accompanied by: Self Is patient in pain?: No Allergies moxifloxacin (From Avelox) Allergy (Severe, Verified 04/19/25 13:26) hives/swelling Seasonal Allergies: Uncoded Allergy (Intermediate, Verified 04/19/25 13:26) Other Medications ???Medication ???Instructions ???Recorded ???Confirmed ???Type Lactobacillus acidophilus 250 100 mmu cells PO DAILY 03/07/20 History million cell capsule (Probiotic Acidophilus) nebulizer accessories (Hypersoniq #1 ea 07/01/20 03/22/25 Rx Nebulizer Cartridge) albuterol sulfate 2.5 mg/3 mL 2.5 mg (3 mL) inhalation Q4H PRN 1 04/19/25 Rx (0.083 %) solution for nebulization shortness of breath or wheezing #90 mL calcium 300 mg-D3 20 mcg-magnesium 1 tab PO DAILY 07/09/21 04/19/25 History 25 mg-coppr 0.5 dm-oivm-gouq tablet (Caltrate-D3 Plus Minerals) ascorbic acid (vitamin C) 500 mg mg PO 11/05/21 04/19/25 History capsule triamcinolone acetonide 0.1 % 1 applic topical TID PRN rash #80 01/06/23 04/19/25 Rx topical cream grams simvastatin 40 mg tablet 40 mg PO QPM #90 tabs 03/09/24 Rx zoledronic acid 5 mg/100 mL in 1 ea .Route .Yearly #100 mL 04/19/25 Rx mannitol 5 %-water intravenous piggybck (Reclast) baclofen 10 mg tablet 10 mg PO Q8H PRN muscle spasm #90 08/30/24 04/19/25 Rx tabs citalopram 40 mg tablet (Celexa) 40 mg PO DAILY #90 tabs 09/21/24 0 04/19/25 Rx ipratropium 0.5 mg-albuterol 3 mg 3 ml inhalation Q6H PRN shortness 10/02/24 04/19/25 Rx (2.5 mg base)/3 mL nebulization of breath #180 mL soln lisinopril 40 mg tablet 40 mg PO DAILY #90 tabs 11/22/24 0 04/19/25 Rx tramadol 50 mg tablet 50 mg PO TID PRN 11/22/24 04/19/25 History acetaminophen 650 mg 650 mg PO Q8H PRN 12/21/24 5 History tablet,extended release (Tylenol Arthritis Pain) budesonide 160 mcg-glycopyr 9 2 inh inhalation BID #10.7 grams 0 12/21/24 04/19/25 Rx mcg-formot 4.8 mcg/actuation HFA inhaler (Breztri Aerosphere) ibuprofen 200 mg tablet 200 mg PO ONCE PRN 12/21/24 History ursodiol 500 mg tablet 500 mg PO TID 1 month #90 tabs 04/19/25 Rx fluticasone propionate 50 1 spray intranasal BID PRN 5 04/19/25 Rx mcg/actuation nasal allergies, congestion #16 grams spray,suspension montelukast 10 mg tablet 10 mg PO QHS #90 tabs 03/12/25 Rx (Singulair) albuterol sulfate 90 mcg/actuation 2 puff inhalation Q4H PRN 04/19/25 Rx aerosol inhaler shortness of breath or wheezing #18 grams hydrochlorothiazide 25 mg tablet 25 mg PO QDAY #30 tabs 04/19/25 Rx metoprolol succinate 50 mg 50 mg PO QDAY #30 tabs 04/19/25 Rx tablet,extended release 24 hr Have you fallen in the past year?: No PFSH Medical History Encounter for screening for malignant neoplasm of lung Flu vaccine need Chronic back pain Hyponatremia Health care maintenance Cat bite of hand Elevated liver enzymes Chronic cough COPD (chronic obstructive pulmonary disease) Right hip pain Tobacco use disorder, continuous Encounter for screening for malignant neoplasm of lung in current smoker with 30 pack year history or greater Osteoporosis Muscle spasm of back Osteoarthritis Asthma exacerbation Allergic rhinitis Heart burn Pleurisy Vitamin deficiency History of skin cancer Osteoarthritis History of kidney stones Migraine High cholesterol Hypertension Frequent headaches History of fracture Back pain Asthma Arthritis Seasonal allergies Surgical History H/O tubal ligation H/O hernia repair History of tonsillectomy and adenoidectomy Family History Father Skin cancer TIA (transient ischemic attack) High cholesterol Hypertension Heart disease Asthma Alzheimer disease Social History ... Normal [facility] Internal Medicine Office Vis vivian 03-22-2025 Internal Medicine Office Visit [facility] [address] [place] [address] [address] [place] [address] OFFICE VISIT Date of Service: 03/22/25 MR#: [id number] Acct: [id number] Name: VIOLA SCOTT Rep #: [id number] : 1955 Provider: CASSANDRA Tiwari Age/Sex: 69/F Location: [facility] [place] Status: Signed Intake Vital Signs 02/15/25 14:09 03/13/25 12:19 03/22/25 13:42 Height 5 ft 2 in 5 ft 2 in 5 ft 2 in Weight: 97 lb 97 lb 6 oz BMI 17.7 17.8 BP 148/92 H 146/86 H Blood Pressure Location Lt brachial Lt brachial Position Sitting Sitting Respiration 18 16 Pulse 81 70 Pulse Source Monitor Monitor Temp 97.8 F 98.1 F Temp Source Temporal Temporal Pulse Oximetry (%) 94 70 Oxygen Delivery Method room air room air Intake Visit Reasons: ACUTE RIGHT KNEE PAIN Chief Complaint: large behind 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 knee 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 Accompanied by: Self Is patient in pain?: No Allergies moxifloxacin (From Avelox) Allergy (Severe, Verified 02/15/25 14:09) hives/swelling Seasonal Allergies: Uncoded Allergy (Intermediate, Verified 02/15/25 14:09) Other Medications ???Medication ???Instructions ???Recorded ???Confirmed ???Type Lactobacillus acidophilus 250 100 mmu cells PO DAILY 03/07/20 History million cell capsule (Probiotic Acidophilus) nebulizer accessories ([employer]oniq #1 ea 07/01/20 03/22/25 Rx Nebulizer Cartridge) albuterol sulfate 2.5 mg/3 mL 2.5 mg (3 mL) inhalation Q4H PRN 1 03/22/25 Rx (0.083 %) solution for nebulization shortness of breath or wheezing #90 mL calcium 300 mg-D3 20 mcg-magnesium 1 tab PO DAILY 07/09/21 03/22/25 History 25 mg-coppr 0.5 xs-tagi-munc tablet (Caltrate-D3 Plus Minerals) ascorbic acid (vitamin C) 500 mg mg PO 11/05/21 03/22/25 History capsule triamcinolone acetonide 0.1 % 1 applic topical TID PRN rash #80 01/06/23 03/22/25 Rx topical cream grams simvastatin 40 mg tablet 40 mg PO QPM #90 tabs 03/09/24 Rx zoledronic acid 5 mg/100 mL in 1 ea .Route .Yearly #100 mL 03/22/25 Rx mannitol 5 %-water intravenous piggybck (Reclast) baclofen 10 mg tablet 10 mg PO Q8H PRN muscle spasm #90 08/30/24 03/22/25 Rx tabs citalopram 40 mg tablet (Celexa) 40 mg PO DAILY #90 tabs 09/21/24 0 03/22/25 Rx ipratropium 0.5 mg-albuterol 3 mg 3 ml inhalation Q6H PRN shortness 10/02/24 03/22/25 Rx (2.5 mg base)/3 mL nebulization of breath #180 mL soln lisinopril 40 mg tablet 40 mg PO DAILY #90 tabs 11/22/24 0 03/22/25 Rx tramadol 50 mg tablet 50 mg PO TID PRN 11/22/24 03/22/25 History acetaminophen 650 mg 650 mg PO Q8H PRN 12/21/24 5 History tablet,extended release (Tylenol Arthritis Pain) budesonide 160 mcg-glycopyr 9 2 inh inhalation BID #10.7 grams 0 12/21/24 03/22/25 Rx mcg-formot 4.8 mcg/actuation HFA inhaler (Breztri Aerosphere) ibuprofen 200 mg tablet 200 mg PO ONCE PRN 12/21/24 History metoprolol succinate 25 mg 25 mg PO DAILY #90 tabs 12/21/24 0 03/22/25 Rx tablet,extended release 24 hr albuterol sulfate 90 mcg/actuation 2 puff inhalation Q4H PRN 03/22/25 Rx aerosol inhaler shortness of breath or wheezing #18 grams ursodiol 500 mg tablet 500 mg PO TID 1 month #90 tabs 03/22/25 Rx fluticasone propionate 50 1 spray intranasal BID PRN 5 03/22/25 Rx mcg/actuation nasal allergies, congestion #16 grams spray,suspension montelukast 10 mg tablet 10 mg PO QHS #90 tabs 03/12/25 Rx (Singulair) hydrochlorothiazide 12.5 mg tablet 12.5 mg PO QAM #30 tabs 03/22/25 03/22/25 Rx Have you fallen in the past year?: No Nurse's Note: right knee [facility] Medical History Encounter for screening for malignant neoplasm of lung Flu vaccine need Chronic back pain Hyponatremia Health care maintenance Cat bite of hand Elevated liver enzymes Chronic cough COPD (chronic obstructive pulmonary disease) Right hip pain Tobacco use disorder, continuous Encounter for screening for malignant neoplasm of lung in current smoker with 30 pack year history or greater Osteoporosis Muscle spasm of back Osteoarthritis Asthma exacerbation Allergic rhinitis Heart burn Pleurisy Vitamin deficiency History of skin cancer Osteoarthritis History of kidney stones Migraine High cholesterol Hypertension Frequent headaches History of fracture Back pain Asthma Arthritis Seasonal allergies Surgical History H/O tubal ligation H/O hernia repair History of tonsillectomy and adenoidectomy Family History Father Skin cancer TIA (transient ischemic attack) High cholesterol (more content not included)... Normal [facility] Internal Medicine Office Vis iton 02-15-2025 Internal Medicine Office Visit [facility] [address] [place] [address] OFFICE VISIT Date of Service: 02/15/25 MR#: [id number] Acct: [id number] Name: VIOLA SCOTT Rep #: [id number] : 1955 Provider: CASSANDRA Tiwari Age/Sex: 69/F Location: [facility] [place] Status: Signed Intake Vital Signs 12/21/24 13:58 01/23/25 13:59 02/15/25 14:09 Height 5 ft 2 in 5 ft 2 in 5 ft 2 in Weight: 97 lb BMI 17.7 BP 148/92 H Blood Pressure Location Lt brachial Position Sitting Respiration 18 Pulse 81 Pulse Source Monitor Temp 97.8 F Temp Source Temporal Pulse Oximetry (%) 94 Oxygen Delivery Method room air Intake Visit Reasons: 2 M FU Chief Complaint: 2 M FU Is patient in pain?: No Allergies moxifloxacin (From Avelox) Allergy (Severe, Verified 02/15/25 14:09) hives/swelling Seasonal Allergies: Uncoded Allergy (Intermediate, Verified 02/15/25 14:09) Other Medications ???Medication ???Instructions ???Recorded ???Confirmed ???Type Lactobacillus acidophilus 250 100 mmu cells PO DAILY 03/07/20 History million cell capsule (Probiotic Acidophilus) nebulizer accessories (Hypersoniq #1 ea 07/01/20 01/22/25 Rx Nebulizer Cartridge) albuterol sulfate 2.5 mg/3 mL 2.5 mg (3 mL) inhalation Q4H PRN 1 02/15/25 Rx (0.083 %) solution for nebulization shortness of breath or wheezing #90 mL calcium 300 mg-D3 20 mcg-magnesium 1 tab PO DAILY 07/09/21 02/15/25 History 25 mg-coppr 0.5 oy-kjbi-lgiu tablet (Caltrate-D3 Plus Minerals) ascorbic acid (vitamin C) 500 mg mg PO 11/05/21 02/15/25 History capsule triamcinolone acetonide 0.1 % 1 applic topical TID PRN rash #80 01/06/23 02/15/25 Rx topical cream grams fluticasone propionate 50 1 spray intranasal BID PRN 4 02/15/25 Rx mcg/actuation nasal allergies, congestion #16 grams spray,suspension montelukast 10 mg tablet 10 mg PO QHS #90 tabs 03/09/24 Rx (Singulair) simvastatin 40 mg tablet 40 mg PO QPM #90 tabs 03/09/24 Rx zoledronic acid 5 mg/100 mL in 1 ea .Route .Yearly #100 mL 02/15/25 Rx mannitol 5 %-water intravenous piggybck (Reclast) baclofen 10 mg tablet 10 mg PO Q8H PRN muscle spasm #90 08/30/24 02/15/25 Rx tabs citalopram 40 mg tablet (Celexa) 40 mg PO DAILY #90 tabs 09/21/24 0 02/15/25 Rx ipratropium 0.5 mg-albuterol 3 mg 3 ml inhalation Q6H PRN shortness 10/02/24 02/15/25 Rx (2.5 mg base)/3 mL nebulization of breath #180 mL soln lisinopril 40 mg tablet 40 mg PO DAILY #90 tabs 11/22/24 0 02/15/25 Rx tramadol 50 mg tablet 50 mg PO TID PRN 11/22/24 02/15/25 History acetaminophen 650 mg 650 mg PO Q8H PRN 12/21/24 5 History tablet,extended release (Tylenol Arthritis Pain) budesonide 160 mcg-glycopyr 9 2 inh inhalation BID #10.7 grams 0 12/21/24 02/15/25 Rx mcg-formot 4.8 mcg/actuation HFA inhaler (Breztri Aerosphere) ibuprofen 200 mg tablet 200 mg PO ONCE PRN 12/21/24 History metoprolol succinate 25 mg 25 mg PO DAILY #90 tabs 12/21/24 0 02/15/25 Rx tablet,extended release 24 hr albuterol sulfate 90 mcg/actuation 2 puff inhalation Q4H PRN 02/15/25 Rx aerosol inhaler shortness of breath or wheezing #18 grams ursodiol 500 mg tablet 500 mg PO TID 1 month #90 tabs 02/15/25 Rx Have you fallen in the past year?: No PFSH Medical History Encounter for screening for malignant neoplasm of lung Flu vaccine need Chronic back pain Hyponatremia Health care maintenance Cat bite of hand Elevated liver enzymes Chronic cough COPD (chronic obstructive pulmonary disease) Right hip pain Tobacco use disorder, continuous Encounter for screening for malignant neoplasm of lung in current smoker with 30 pack year history or greater Osteoporosis Muscle spasm of back Osteoarthritis Asthma exacerbation Allergic rhinitis Heart burn Pleurisy Vitamin deficiency History of skin cancer Osteoarthritis History of kidney stones Migraine High cholesterol Hypertension Frequent headaches History of fracture Back pain Asthma Arthritis Seasonal allergies Surgical History H/O tubal ligation H/O hernia repair History of tonsillectomy and adenoidectomy Family History Father Skin cancer TIA (transient ischemic attack) High cholesterol Hypertension Heart disease Asthma Alzheimer disease Social History (Reviewed 02/15/25 @ 14:11 by CRUZITO Gonsalez 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 Normal [facility] L3410.9992on 01-28-2025 [facility] [place]. COMMENT Normal . [facility] Comment on above: Order Comment: [id number] 3Alpha-1 pheno TIGER RT Result Comment: Test Ordered: [id number] Bqkgh-6-Whebkuylzcx Phenotyp Xnopg-6-Recpvrosvjh, Serum 172 mg/dL CB Reference Range: 101-187 Phenotype (PI) MM BN Reference Range: . MM Phenotype is considered to be normal, producing normal serum levels of dfuha-1-engzujkb inhibitor and not associated with clinical disease. Associated A1A total serum levels in other phenotypes and their incidence in the general population are shown in the table below. Phenotype Population % function A-1-AT Conc.* Incidence % compared to MM (Typical Range) MM 86.5% 100% (96 - 189) MS 8.0% 86% (83 - 161) MZ 3.9% 61% (60 - 111) FM 0.4% 100% (93 - 191) SZ 0.3% 41% (42 - 75) SS 0.1% 64% (62 - 119) ZZ 0.05% 19% (16 - 38) FS 0.05% 70% (70 - 128) FZ Unknown 46% (44 - 88) FF Unknown Unknown *A-1-AT concentration in the homozygous MM phenotype is taken as the reference normal. Percent deficiency in each phenotype is reported relative to this reference. Ranges used to confirm phenotype. Performed at: - [facility] [id number] Orthophotography Technician: Neel Tate PhD, Phone: [phone] Performed at: - [facility] [id number] Orthophotography Technician: Henrry Andres MD, Phone: [phone] Performed By: #### L 3100.5450, L500.4050, L506.1001, L504.2610, L501.4700, L501.9520, L501.5101, L500.4100, L300.3900, L3410.9994, L800.1280, L803.2200, L503.6550, L501.6710, L3890.6202, L3410.9992, L3250.0100, L501.9985, L100.0100, L3000.0375 ####[facility] [address] [place], [place], [id number] JUAQUIN w/ Reflex Mult Confirmon 01-26-2025 ANTI-DNA (DS)AB TNP Normal [facility] Comment on above: Performed By: #### L 3100.5450, L500.4050, L506.1001, L504.2610, L501.4700, L501.9520, L501.5101, L500.4100, L300.3900, L3410.9994, L800.1280, L803.2200, L503.6550, L501.6710, L3890.6202, L3410.9992, L3250.0100, L501.9985, L100.0100, L3000.0375 ####[facility] [address] [place], [address] ANTI-SS-A TNP Normal [facility] Comment on above: Performed By: #### L 3100.5450, L500.4050, L506.1001, L504.2610, L501.4700, L501.9520, L501.5101, L500.4100, L300.3900, L3410.9994, L800.1280, L803.2200, L503.6550, L501.6710, L3890.6202, L3410.9992, L3250.0100, L501.9985, L100.0100, L3000.0375 ####[facility] [address] [place], [place], [id number] ANTI-SS-B TNP Normal [facility] Comment on above: Performed By: #### L 3100.5450, L500.4050, L506.1001, L504.2610, L501.4700, L501.9520, L501.5101, L500.4100, L300.3900, L3410.9994, L800.1280, L803.2200, L503.6550, L501.6710, L3890.6202, L3410.9992, L3250.0100, L501.9985, L100.0100, L3000.0375 ####[facility] [address] [place], [place], [id number] ALK Phos Isoenzymeon 01-25- 025 ALK PHOS, S 353 IU/L High 44-121 [facility] Comment on above: Performed By: #### L 3100.5450, L500.4050, L506.1001, L504.2610, L501.4700, L501.9520, L501.5101, L500.4100, L300.3900, L3410.9994, L800.1280, L803.2200, L503.6550, L501.6710, L3890.6202, L3410.9992, L3250.0100, L501.9985, L100.0100, L3000.0375 ####[facility] [address] [place], [place], [id number] BONE FRACTION 24 Normal 14- [facility] Comment on above: Performed By: #### L 3100.5450, L500.4050, L506.1001, L504.2610, L501.4700, L501.9520, L501.5101, L500.4100, L300.3900, L3410.9994, L800.1280, L803.2200, L503.6550, L501.6710, L3890.6202, L3410.9992, L3250.0100, L501.9985, L100.0100, L3000.0375 ####[facility] [address] [place], [place], [id number] INTESTINAL FRAC 0 Normal 0-18 [facility] Comment on above: Performed By: #### L 3100.5450, L500.4050, L506.1001, L504.2610, L501.4700, L501.9520, L501.5101, L500.4100, L300.3900, L3410.9994, L800.1280, L803.2200, L503.6550, L501.6710, L3890.6202, L3410.9992, L3250.0100, L501.9985, L100.0100, L3000.0375 ####[facility] [address] [place], [place], [id number] LIVER FRACTION 76 Normal 18-85 [facility] Comment on above: Performed By: #### L 3100.5450, L500.4050, L506.1001, L504.2610, L501.4700, L501.9520, L501.5101, L500.4100, L300.3900, L3410.9994, L800.1280, L803.2200, L503.6550, L501.6710, L3890.6202, L3410.9992, L3250.0100, L501.9985, L100.0100, L3000.0375 ####[facility] [address] [place], [place], [id number] Anti-Mitochondrial ABon 05-3 0-2024 ANTIMITOCHON AB <20.0 Normal 0.0-20.0 [facility] Comment on above: Result Comment: Nega tive 0.0 - 20.0 Equivocal 20.1 - 24.9 Positive >24.9 Mitochondrial (M2) Antibodies are found in 90-96% of patients with primary biliary cirrhosis. Performed By: #### L 3100.5450, L500.4050, L506.1001, L504.2610, L501.4700, L501.9520, L501.5101, L500.4100, L300.3900, L3410.9994, L800.1280, L803.2200, L503.6550, L501.6710, L3890.6202, L3410.9992, L3250.0100, L501.9985, L100.0100, L3000.0375 ####[facility] [address] [place], [place], [id number] Anti-Smooth Muscle ABSon ANTISMOOTH MUSC 126 Units Abnormal 0-19 [facility] Comment on above: Result Comment: Nega tive 0 - 19 Weak positive 20 - 30 Moderate to strong positive >30 Actin Antibodies are found in 52-85% of patients with autoimmune hepatitis or chronic active hepatitis and in 22% of patients with primary biliary cirrhosis. Performed By: #### L 3100.5450, L500.4050, L506.1001, L504.2610, L501.4700, L501.9520, L501.5101, L500.4100, L300.3900, L3410.9994, L800.1280, L803.2200, L503.6550, L501.6710, L3890.6202, L3410.9992, L3250.0100, L501.9985, L100.0100, L3000.0375 ####[facility] [address] [facility] [place], [place], [id number] Hepatitis Panel Acuteon 05- COMMENT Comment Normal . [facility] Comment on above: Result Comment: Not infected with HCV unless early or acute infection is suspected (which may be delayed in an immunocompromised individual), or other evidence exists to indicate HCV infection. Performed By: #### L 3100.5450, L500.4050, L506.1001, L504.2610, L501.4700, L501.9520, L501.5101, L500.4100, L300.3900, L3410.9994, L800.1280, L803.2200, L503.6550, L501.6710, L3890.6202, L3410.9992, L3250.0100, L501.9985, L100.0100, L3000.0375 ####[facility] [address] [place], [place], [id number] HEP B CORE,IgM Negative Normal Negative [facility] Comment on above: Performed By: #### L 3100.5450, L500.4050, L506.1001, L504.2610, L501.4700, L501.9520, L501.5101, L500.4100, L300.3900, L3410.9994, L800.1280, L803.2200, L503.6550, L501.6710, L3890.6202, L3410.9992, L3250.0100, L501.9985, L100.0100, L3000.0375 ####[facility] [address] [place], [address] HEP B SURF AG Negative Normal Negative [facility] Comment on above: Performed By: #### L 3100.5450, L500.4050, L506.1001, L504.2610, L501.4700, L501.9520, L501.5101, L500.4100, L300.3900, L3410.9994, L800.1280, L803.2200, L503.6550, L501.6710, L3890.6202, L3410.9992, L3250.0100, L501.9985, L100.0100, L3000.0375 ####[facility] [address] [place], [place], [id number] HEP C VIRUS AB Non-Reactive Normal Non Reactive [facility] Comment on above: Performed By: #### L 3100.5450, L500.4050, L506.1001, L504.2610, L501.4700, L501.9520, L501.5101, L500.4100, L300.3900, L3410.9994, L800.1280, L803.2200, L503.6550, L501.6710, L3890.6202, L3410.9992, L3250.0100, L501.9985, L100.0100, L3000.0375 ####[facility] [address] [place], [place], [id number] HEPATITIS A-IgM Negative Normal Negative [facility] Comment on above: Result Comment: A ne gative anti-HAV IgM result suggests no recent or current HAV infection. Performed By: #### L 3100.5450, L500.4050, L506.1001, L504.2610, L501.4700, L501.9520, L501.5101, L500.4100, L300.3900, L3410.9994, L800.1280, L803.2200, L503.6550, L501.6710, L3890.6202, L3410.9992, L3250.0100, L501.9985, L100.0100, L3000.0375 ####[facility] [address] [facility] [place], [place], [id number] L3410.9994on 01-25-2025 [facility]. 2 COMMENT Normal . [facility] Comment on above: Order Comment: [id number] 9Serum ELF test RF Result Comment: Perf ormed at: - [facility] [address] [id number] Orthophotography Technician: Neel Tate PhD, Phone: [phone] Performed By: #### L 3100.5450, L500.4050, L506.1001, L504.2610, L501.4700, L501.9520, L501.5101, L500.4100, L300.3900, L3410.9994, L800.1280, L803.2200, L503.6550, L501.6710, L3890.6202, L3410.9992, L3250.0100, L501.9985, L100.0100, L3000.0375 ####[facility] [address] [facility] [place], [place], [id number] L501.5101on 01-25-2025 GGTP 165 IU/L Abnormal 0-60 [facility] Comment on above: Result Comment: Perf ormed at: - [facility] [address] [id number] Orthophotography Technician: Neel Tate PhD, Phone: [phone] Performed By: #### L 3100.5450, L500.4050, L506.1001, L504.2610, L501.4700, L501.9520, L501.5101, L500.4100, L300.3900, L3410.9994, L800.1280, L803.2200, L503.6550, L501.6710, L3890.6202, L3410.9992, L3250.0100, L501.9985, L100.0100, L3000.0375 ####[facility] [address] [facility] [place], [place], [id number] Absolute lymphocyte countOrd ered By: Yash Gunter on 01-23-2025 Lymphocytes Auto (Unsp spec) [#/Vol] 1.74 10*3/uL 0.83-4.51 [facility] Absolute neutrophil countOrd ered By: Yash Gunter on 01-23-2025 Neutrophils (Bld) [#/Vol] 1.7 10*3/uL Low 2.0-7.7 [facility] Alkaline phosphatase, serumO rdered By: Yash Gunter on 01-23-2025 ALP [Catalytic activity/Vol] 353 U/L High 44-121 [facility] Anion gap in Serum or Plasma Ordered By: Yash Gunter on 01-23-2025 Anion gap [Moles/Vol] 9 mmol/L 5-15 [facility] Automated lymphocyte count a s percentage of total leukocytesOrdered By: Yash Gunter on 01-23-2025 Lymphocytes/100 WBC Auto (Unsp spec) 38.3 % [facility] BUN/creatinine ratioOrdered By: Yash Gunter on 01-23-2025 Urea nitrogen/Creatinine [Mass ratio] 13.0 mg/mg 10- [facility] Basophil percentageOrdered B y: Yash Gunter on 01-23-2025 Basophils/100 WBC (Bld) 2.2 % High 0-1 [facility] Bilirubin directOrdered By: Yash Gunter on 01-23-2025 Bilirubin.direct [Mass/Vol] 0.12 mg/dL 0.00-0.30 [facility] Bilirubin, Directon 01-24-20 Bilirubin.direct [Mass/Vol] 0.12 mg/dL Normal 0.00-0.30 [facility] Comment on above: Performed By: #### L 3100.5450, L500.4050, L506.1001, L504.2610, L501.4700, L501.9520, L501.5101, L500.4100, L300.3900, L3410.9994, L800.1280, L803.2200, L503.6550, L501.6710, L3890.6202, L3410.9992, L3250.0100, L501.9985, L100.0100, L3000.0375 ####[facility] [address] [place], [place], [id number] Bilirubin, totalOrdered By: Yash Gunter on 01-23-2025 Bilirubin [Mass/Vol] 0.25 mg/dL 0.00-1.30 [facility] CBC W/Diff, Automatedon 12-28 Absolute Lymph 1.74 X10 3/uL Normal 0.83-4.51 [facility] Comment on above: Performed By: #### L 3100.5450, L500.4050, L506.1001, L504.2610, L501.4700, L501.9520, L501.5101, L500.4100, L300.3900, L3410.9994, L800.1280, L803.2200, L503.6550, L501.6710, L3890.6202, L3410.9992, L3250.0100, L501.9985, L100.0100, L3000.0375 ####[facility] [address] [place], [place], [phone](682) Absolute Neut 1.7 X10 3/uL Low 2.0-7.7 [facility] Comment on above: Performed By: #### L 3100.5450, L500.4050, L506.1001, L504.2610, L501.4700, L501.9520, L501.5101, L500.4100, L300.3900, L3410.9994, L800.1280, L803.2200, L503.6550, L501.6710, L3890.6202, L3410.9992, L3250.0100, L501.9985, L100.0100, L3000.0375 ####[facility] [address] [place], [address](226) Basophils/100 WBC (Bld) 2.2 % High 0-1 [facility] Comment on above: Performed By: #### L 3100.5450, L500.4050, L506.1001, L504.2610, L501.4700, L501.9520, L501.5101, L500.4100, L300.3900, L3410.9994, L800.1280, L803.2200, L503.6550, L501.6710, L3890.6202, L3410.9992, L3250.0100, L501.9985, L100.0100, L3000.0375 ####[facility] [address] [place], [place], [phone](867) Eosinophils/100 WBC (Bld) 11.0 % High 0-5 [facility] Comment on above: Performed By: #### L 3100.5450, L500.4050, L506.1001, L504.2610, L501.4700, L501.9520, L501.5101, L500.4100, L300.3900, L3410.9994, L800.1280, L803.2200, L503.6550, L501.6710, L3890.6202, L3410.9992, L3250.0100, L501.9985, L100.0100, L3000.0375 ####[facility] [address] [place], [address] Erythrocyte distribution width (RBC) [Ratio] 12.6 % Normal 11.6-14.6 [facility] Comment on above: Performed By: #### L 3100.5450, L500.4050, L506.1001, L504.2610, L501.4700, L501.9520, L501.5101, L500.4100, L300.3900, L3410.9994, L800.1280, L803.2200, L503.6550, L501.6710, L3890.6202, L3410.9992, L3250.0100, L501.9985, L100.0100, L3000.0375 ####[facility] [address] [place], [place], [phone] Hematocrit (Bld) [Volume fraction] 41.1 % Normal 37-47 [facility] Comment on above: Performed By: #### L 3100.5450, L500.4050, L506.1001, L504.2610, L501.4700, L501.9520, L501.5101, L500.4100, L300.3900, L3410.9994, L800.1280, L803.2200, L503.6550, L501.6710, L3890.6202, L3410.9992, L3250.0100, L501.9985, L100.0100, L3000.0375 ####[facility] [address] [facility] [place], [address] Hemoglobin (Bld) [Mass/Vol] 13.3 g/dL Normal 12.0-15.0 [facility] Comment on above: Performed By: #### L 3100.5450, L500.4050, L506.1001, L504.2610, L501.4700, L501.9520, L501.5101, L500.4100, L300.3900, L3410.9994, L800.1280, L803.2200, L503.6550, L501.6710, L3890.6202, L3410.9992, L3250.0100, L501.9985, L100.0100, L3000.0375 ####[facility] [address] [place], [address] IG% 0.200 Normal 0.0-0.9 [facility] Comment on above: Result Comment: IG% - Immature Granulocytes (promyelocytes, myelocytes and metamyelocytes) > 1% indicates that a LEFT SHIFT is Present. Performed By: #### L 3100.5450, L500.4050, L506.1001, L504.2610, L501.4700, L501.9520, L501.5101, L500.4100, L300.3900, L3410.9994, L800.1280, L803.2200, L503.6550, L501.6710, L3890.6202, L3410.9992, L3250.0100, L501.9985, L100.0100, L3000.0375 ####[facility] [address] [facility] [place], [address] Lymphocytes/100 WBC (Bld) 38.3 % Normal 19-41 [facility] Comment on above: Performed By: #### L 3100.5450, L500.4050, L506.1001, L504.2610, L501.4700, L501.9520, L501.5101, L500.4100, L300.3900, L3410.9994, L800.1280, L803.2200, L503.6550, L501.6710, L3890.6202, L3410.9992, L3250.0100, L501.9985, L100.0100, L3000.0375 ####[facility] [address] [facility] [place], [address] MCH (RBC) [Entitic mass] 30.9 pg Normal 27.0-32.0 [facility] Comment on above: Performed By: #### L 3100.5450, L500.4050, L506.1001, L504.2610, L501.4700, L501.9520, L501.5101, L500.4100, L300.3900, L3410.9994, L800.1280, L803.2200, L503.6550, L501.6710, L3890.6202, L3410.9992, L3250.0100, L501.9985, L100.0100, L3000.0375 ####[facility] [address] [place], [address] MCHC (RBC) [Mass/Vol] 32.4 g/dL Normal 32-36 [facility] Comment on above: Performed By: #### L 3100.5450, L500.4050, L506.1001, L504.2610, L501.4700, L501.9520, L501.5101, L500.4100, L300.3900, L3410.9994, L800.1280, L803.2200, L503.6550, L501.6710, L3890.6202, L3410.9992, L3250.0100, L501.9985, L100.0100, L3000.0375 ####[facility] [address] [facility] [place], [address] MCV (RBC) [Entitic vol] 95.6 fL Normal 81-99 [facility] Comment on above: Performed By: #### L 3100.5450, L500.4050, L506.1001, L504.2610, L501.4700, L501.9520, L501.5101, L500.4100, L300.3900, L3410.9994, L800.1280, L803.2200, L503.6550, L501.6710, L3890.6202, L3410.9992, L3250.0100, L501.9985, L100.0100, L3000.0375 ####[facility] [address] [facility] [place], [address] Monocytes/100 WBC (Bld) 10.1 % High 0-10 [facility] Comment on above: Performed By: #### L 3100.5450, L500.4050, L506.1001, L504.2610, L501.4700, L501.9520, L501.5101, L500.4100, L300.3900, L3410.9994, L800.1280, L803.2200, L503.6550, L501.6710, L3890.6202, L3410.9992, L3250.0100, L501.9985, L100.0100, L3000.0375 ####[facility] [address] [facility] [place], [address] Neutrophils/100 WBC (Bld) 38.2 % Low 47-70 [facility] Comment on above: Performed By: #### L 3100.5450, L500.4050, L506.1001, L504.2610, L501.4700, L501.9520, L501.5101, L500.4100, L300.3900, L3410.9994, L800.1280, L803.2200, L503.6550, L501.6710, L3890.6202, L3410.9992, L3250.0100, L501.9985, L100.0100, L3000.0375 ####[facility] [address] [place], [place], [phone](161) Nucleated RBC (Bld) [#/Vol] 0 10*3/uL Normal 0-5 [facility] Comment on above: Performed By: #### L 3100.5450, L500.4050, L506.1001, L504.2610, L501.4700, L501.9520, L501.5101, L500.4100, L300.3900, L3410.9994, L800.1280, L803.2200, L503.6550, L501.6710, L3890.6202, L3410.9992, L3250.0100, L501.9985, L100.0100, L3000.0375 ####[facility] [address] [place], [place], [phone](572) Platelet mean volume (Bld) [Entitic vol] 11.9 fL Normal 6.2-12.0 [facility] Comment on above: Performed By: #### L 3100.5450, L500.4050, L506.1001, L504.2610, L501.4700, L501.9520, L501.5101, L500.4100, L300.3900, L3410.9994, L800.1280, L803.2200, L503.6550, L501.6710, L3890.6202, L3410.9992, L3250.0100, L501.9985, L100.0100, L3000.0375 ####[facility] [address] [place], [place], [phone](596) Platelets (Bld) [#/Vol] 211 10*3/uL Normal 150-450 [facility] Comment on above: Performed By: #### L 3100.5450, L500.4050, L506.1001, L504.2610, L501.4700, L501.9520, L501.5101, L500.4100, L300.3900, L3410.9994, L800.1280, L803.2200, L503.6550, L501.6710, L3890.6202, L3410.9992, L3250.0100, L501.9985, L100.0100, L3000.0375 ####[facility] [address] [place], [place], [phone] RBC (Bld) [#/Vol] 4.30 10*6/uL Normal 4.2-5.4 [facility] Comment on above: Performed By: #### L 3100.5450, L500.4050, L506.1001, L504.2610, L501.4700, L501.9520, L501.5101, L500.4100, L300.3900, L3410.9994, L800.1280, L803.2200, L503.6550, L501.6710, L3890.6202, L3410.9992, L3250.0100, L501.9985, L100.0100, L3000.0375 ####[facility] [address] [place], [place], [phone] RDW SD 44.2 fl High 35.1-43.9 [facility] Comment on above: Performed By: #### L 3100.5450, L500.4050, L506.1001, L504.2610, L501.4700, L501.9520, L501.5101, L500.4100, L300.3900, L3410.9994, L800.1280, L803.2200, L503.6550, L501.6710, L3890.6202, L3410.9992, L3250.0100, L501.9985, L100.0100, L3000.0375 ####[facility] [address] [place], [address] WBC (Bld) [#/Vol] 4.5 10*3/uL Normal 4.4-11.0 [facility] Comment on above: Performed By: #### L 3100.5450, L500.4050, L506.1001, L504.2610, L501.4700, L501.9520, L501.5101, L500.4100, L300.3900, L3410.9994, L800.1280, L803.2200, L503.6550, L501.6710, L3890.6202, L3410.9992, L3250.0100, L501.9985, L100.0100, L3000.0375 ####[facility] [address] [place], [address] CRPon 01-23-2025 C-REACTIVE PROT < 3.00 Normal 0.0-3.0 [facility] Comment on above: Performed By: #### L 3100.5450, L500.4050, L506.1001, L504.2610, L501.4700, L501.9520, L501.5101, L500.4100, L300.3900, L3410.9994, L800.1280, L803.2200, L503.6550, L501.6710, L3890.6202, L3410.9992, L3250.0100, L501.9985, L100.0100, L3000.0375 ####[facility] [address] [facility] [place], [address] Calculated very low density lipoprotein (VLDL) cholesterol measurementOrdered By: Yash Gunter on 01-23-2025 Calculated very low density lipoprotein (VLDL) cholesterol measurement 23 mg/dL 5-40 [facility] Carbon dioxide, total [Moles /volume] in Central venous bloodOrdered By: Yash Gunter on 01-23-2025 CO2 [Moles/Vol] 26.9 mmol/L 21.0-32.0 [facility] Chloride assayOrdered By: Jannette Gunter on 01-23-2025 Chloride [Moles/Vol] 100 mmol/L 98-108 [facility] Comprehensive Metabolic Prof ilon 01-23-2025 Albumin [Mass/Vol] 4.0 g/dL Normal 3.4-4.8 [facility] Comment on above: Performed By: #### L 3100.5450, L500.4050, L506.1001, L504.2610, L501.4700, L501.9520, L501.5101, L500.4100, L300.3900, L3410.9994, L800.1280, L803.2200, L503.6550, L501.6710, L3890.6202, L3410.9992, L3250.0100, L501.9985, L100.0100, L3000.0375 ####[facility] [address] [place], [place], [phone] Albumin/Globulin [Mass ratio] 1.3 {ratio} Normal 0.9-2.4 [facility] Comment on above: Performed By: #### L 3100.5450, L500.4050, L506.1001, L504.2610, L501.4700, L501.9520, L501.5101, L500.4100, L300.3900, L3410.9994, L800.1280, L803.2200, L503.6550, L501.6710, L3890.6202, L3410.9992, L3250.0100, L501.9985, L100.0100, L3000.0375 ####[facility] [address] [place], [place], [phone](481) ALK PHOS 355 U/L High 35-104 [facility] Comment on above: Performed By: #### L 3100.5450, L500.4050, L506.1001, L504.2610, L501.4700, L501.9520, L501.5101, L500.4100, L300.3900, L3410.9994, L800.1280, L803.2200, L503.6550, L501.6710, L3890.6202, L3410.9992, L3250.0100, L501.9985, L100.0100, L3000.0375 ####[facility] [address] [place], [place], [phone] ALT [Catalytic activity/Vol] 41 U/L High <=34 [facility] Comment on above: Performed By: #### L 3100.5450, L500.4050, L506.1001, L504.2610, L501.4700, L501.9520, L501.5101, L500.4100, L300.3900, L3410.9994, L800.1280, L803.2200, L503.6550, L501.6710, L3890.6202, L3410.9992, L3250.0100, L501.9985, L100.0100, L3000.0375 ####[facility] [address] [place], [place], [phone] AST [Catalytic activity/Vol] 44 U/L High <=31 [facility] Comment on above: Performed By: #### L 3100.5450, L500.4050, L506.1001, L504.2610, L501.4700, L501.9520, L501.5101, L500.4100, L300.3900, L3410.9994, L800.1280, L803.2200, L503.6550, L501.6710, L3890.6202, L3410.9992, L3250.0100, L501.9985, L100.0100, L3000.0375 ####[facility] [address] [place], [place], [phone] Bilirubin [Mass/Vol] 0.25 mg/dL Normal 0.00-1.30 [facility] Comment on above: Performed By: #### L 3100.5450, L500.4050, L506.1001, L504.2610, L501.4700, L501.9520, L501.5101, L500.4100, L300.3900, L3410.9994, L800.1280, L803.2200, L503.6550, L501.6710, L3890.6202, L3410.9992, L3250.0100, L501.9985, L100.0100, L3000.0375 ####[facility] [address] [place], [address] BUN/CRE 13.0 RATIO Normal 10-20 [facility] Comment on above: Performed By: #### L 3100.5450, L500.4050, L506.1001, L504.2610, L501.4700, L501.9520, L501.5101, L500.4100, L300.3900, L3410.9994, L800.1280, L803.2200, L503.6550, L501.6710, L3890.6202, L3410.9992, L3250.0100, L501.9985, L100.0100, L3000.0375 ####[facility] [address] [facility]. [place], [place], [phone] Calcium [Mass/Vol] 9.2 mg/dL Normal 7.6-11.0 [facility] Comment on above: Performed By: #### L 3100.5450, L500.4050, L506.1001, L504.2610, L501.4700, L501.9520, L501.5101, L500.4100, L300.3900, L3410.9994, L800.1280, L803.2200, L503.6550, L501.6710, L3890.6202, L3410.9992, L3250.0100, L501.9985, L100.0100, L3000.0375 ####[facility] [address] [facility]. [place], [place], [phone](382) Chloride [Moles/Vol] 100 mmol/L Normal 98-108 [facility] Comment on above: Performed By: #### L 3100.5450, L500.4050, L506.1001, L504.2610, L501.4700, L501.9520, L501.5101, L500.4100, L300.3900, L3410.9994, L800.1280, L803.2200, L503.6550, L501.6710, L3890.6202, L3410.9992, L3250.0100, L501.9985, L100.0100, L3000.0375 ####[facility] [address] [place], [place], [phone](629) CO2 [Moles/Vol] 26.9 mmol/L Normal 21.0-32.0 [facility] Comment on above: Performed By: #### L 3100.5450, L500.4050, L506.1001, L504.2610, L501.4700, L501.9520, L501.5101, L500.4100, L300.3900, L3410.9994, L800.1280, L803.2200, L503.6550, L501.6710, L3890.6202, L3410.9992, L3250.0100, L501.9985, L100.0100, L3000.0375 ####[facility] [address] [facility]. [place], [place], [phone](918) Creatinine [Mass/Vol] 0.57 mg/dL Low 0.70-1.20 [facility] Comment on above: Performed By: #### L 3100.5450, L500.4050, L506.1001, L504.2610, L501.4700, L501.9520, L501.5101, L500.4100, L300.3900, L3410.9994, L800.1280, L803.2200, L503.6550, L501.6710, L3890.6202, L3410.9992, L3250.0100, L501.9985, L100.0100, L3000.0375 ####[facility] [address] [place], [place], [phone] GAP 9 Normal 5-15 [facility] Comment on above: Performed By: #### L 3100.5450, L500.4050, L506.1001, L504.2610, L501.4700, L501.9520, L501.5101, L500.4100, L300.3900, L3410.9994, L800.1280, L803.2200, L503.6550, L501.6710, L3890.6202, L3410.9992, L3250.0100, L501.9985, L100.0100, L3000.0375 ####[facility] [address] [facility]. [place], [place], [phone] GFR/1.73 sq M.predicted among non-blacks MDRD (S/P/Bld) [Vol rate/Area] 97 mL/min/{1.73_m2} Normal >60 [facility] Comment on above: Result Comment: mL/m in/1.73m2 CKD-EPI Creatinine Equation (2020) Performed By: #### L 3100.5450, L500.4050, L506.1001, L504.2610, L501.4700, L501.9520, L501.5101, L500.4100, L300.3900, L3410.9994, L800.1280, L803.2200, L503.6550, L501.6710, L3890.6202, L3410.9992, L3250.0100, L501.9985, L100.0100, L3000.0375 ####[facility] [address] [place], [place], [phone](265) Globulin (S) [Mass/Vol] 3.0 g/dL Normal 2.2-4.2 [facility] Comment on above: Performed By: #### L 3100.5450, L500.4050, L506.1001, L504.2610, L501.4700, L501.9520, L501.5101, L500.4100, L300.3900, L3410.9994, L800.1280, L803.2200, L503.6550, L501.6710, L3890.6202, L3410.9992, L3250.0100, L501.9985, L100.0100, L3000.0375 ####[facility] [address] [place], [place], [phone] Glucose [Mass/Vol] 78 mg/dL Normal 70-99 [facility] Comment on above: Performed By: #### L 3100.5450, L500.4050, L506.1001, L504.2610, L501.4700, L501.9520, L501.5101, L500.4100, L300.3900, L3410.9994, L800.1280, L803.2200, L503.6550, L501.6710, L3890.6202, L3410.9992, L3250.0100, L501.9985, L100.0100, L3000.0375 ####[facility] [address] [facility] [place], [place], [phone](678) Potassium [Moles/Vol] 3.7 mmol/L Normal 3.3-5.1 [facility] Comment on above: Performed By: #### L 3100.5450, L500.4050, L506.1001, L504.2610, L501.4700, L501.9520, L501.5101, L500.4100, L300.3900, L3410.9994, L800.1280, L803.2200, L503.6550, L501.6710, L3890.6202, L3410.9992, L3250.0100, L501.9985, L100.0100, L3000.0375 ####[facility] [address] [place], [place], [phone] Sodium [Moles/Vol] 137 mmol/L Normal 133-145 [facility] Comment on above: Performed By: #### L 3100.5450, L500.4050, L506.1001, L504.2610, L501.4700, L501.9520, L501.5101, L500.4100, L300.3900, L3410.9994, L800.1280, L803.2200, L503.6550, L501.6710, L3890.6202, L3410.9992, L3250.0100, L501.9985, L100.0100, L3000.0375 ####[facility] [address] [facility] [place], [address] T PROT 7.0 g/dL Normal 5.9-8.4 [facility] Comment on above: Performed By: #### L 3100.5450, L500.4050, L506.1001, L504.2610, L501.4700, L501.9520, L501.5101, L500.4100, L300.3900, L3410.9994, L800.1280, L803.2200, L503.6550, L501.6710, L3890.6202, L3410.9992, L3250.0100, L501.9985, L100.0100, L3000.0375 ####[facility] [address] [facility]. [place], [place], [phone] Urea nitrogen [Mass/Vol] 7 mg/dL Normal 4-19 [facility] Comment on above: Performed By: #### L 3100.5450, L500.4050, L506.1001, L504.2610, L501.4700, L501.9520, L501.5101, L500.4100, L300.3900, L3410.9994, L800.1280, L803.2200, L503.6550, L501.6710, L3890.6202, L3410.9992, L3250.0100, L501.9985, L100.0100, L3000.0375 ####[facility] [address] [facility]. [place], [place], [phone] Eosinophil percentageOrdered By: [facility] on 01-23-2025 Eosinophils/100 WBC (Bld) 11.0 % High 0-5 [facility] Erythrocyte distribution wid th ratioOrdered By: [facility] on 01-23-2025 Erythrocyte distribution width (RBC) [Ratio] 12.6 % 11.6-14.6 [facility] Erythrocyte distribution wid th standard deviationOrdered By: [facility] on 01-23-2025 Erythrocyte distribution width (RBC) [Ratio] 44.2 fl High 35.1-43.9 [facility] Ferritinon 01-23-2025 Ferritin [Mass/Vol] 68 ng/mL Normal 22-378 [facility] Comment on above: Performed By: #### L 3100.5450, L500.4050, L506.1001, L504.2610, L501.4700, L501.9520, L501.5101, L500.4100, L300.3900, L3410.9994, L800.1280, L803.2200, L503.6550, L501.6710, L3890.6202, L3410.9992, L3250.0100, L501.9985, L100.0100, L3000.0375 ####[facility] [address] [place], [address] Gamma glutamyl transferase ( GGT) measurementOrdered By: Yash Gunter on 01-23-2025 Amylase [Catalytic activity/Vol] 165 U/L High 0-60 [facility] Comment on above: Performed at: - L [address] [id number] Director: Neel Tate PhD, Phone: [phone] Gastroenterology Visit Repor ton 01-23-2025 Gastroenterology Visit Report [facility] [address] [place] [address] OFFICE VISIT Date of Service: 01/23/25 MR#: [id number] Acct: [id number] Name: VIOLA SCOTT Rep #: [id number] : 1955 Provider: Dr. Yash rick MD Age/Sex: 69/F Location: [facility] Status: Signed Intake Vital Signs 12/21/24 13:58 01/22/25 13:58 01/23/25 13:59 Height 5 ft 2 in 5 ft 2 in 5 ft 2 in Weight: 99 lb 6 oz BMI 18.1 BP 155/74 H Blood Pressure Location Lt brachial Position Sitting Respiration 17 Pulse 78 Pulse Source Monitor Pulse Oximetry (%) 93 Oxygen Delivery Method room air Intake Visit Reasons: Elevated LFTs Chief Complaint: 4 WK FU Allergies moxifloxacin (From Avelox) Allergy (Severe, Verified 01/23/25 14:02) hives/swelling Seasonal Allergies: Uncoded Allergy (Intermediate, Verified 01/23/25 14:02) Other Medications ???Medication ???Instructions ???Recorded ???Confirmed ???Type Lactobacillus acidophilus 250 100 mmu cells PO DAILY 03/07/20 History million cell capsule (Probiotic Acidophilus) nebulizer accessories (Hypersoniq #1 ea 07/01/20 01/22/25 Rx Nebulizer Cartridge) albuterol sulfate 2.5 mg/3 mL 2.5 mg (3 mL) inhalation Q4H PRN 1 01/23/25 Rx (0.083 %) solution for nebulization shortness of breath or wheezing #90 mL calcium 300 mg-D3 20 mcg-magnesium 1 tab PO DAILY 07/09/21 01/23/25 History 25 mg-coppr 0.5 [id number] tablet (Caltrate-D3 Plus Minerals) ascorbic acid (vitamin C) 500 mg mg PO 11/05/21 01/23/25 History capsule triamcinolone acetonide 0.1 % 1 applic topical TID PRN rash #80 01/06/23 01/23/25 Rx topical cream grams fluticasone propionate 50 1 spray intranasal BID PRN 4 01/23/25 Rx mcg/actuation nasal allergies, congestion #16 grams spray,suspension montelukast 10 mg tablet 10 mg PO QHS #90 tabs 03/09/24 Rx (Singulair) simvastatin 40 mg tablet 40 mg PO QPM #90 tabs 03/09/24 Rx zoledronic acid 5 mg/100 mL in 1 ea .Route .Yearly #100 mL 01/23/25 Rx mannitol 5 %-water intravenous piggybck (Reclast) baclofen 10 mg tablet 10 mg PO Q8H PRN muscle spasm #90 08/30/24 01/23/25 Rx tabs citalopram 40 mg tablet (Celexa) 40 mg PO DAILY #90 tabs 09/21/24 0 01/23/25 Rx ipratropium 0.5 mg-albuterol 3 mg 3 ml inhalation Q6H PRN shortness 10/02/24 01/23/25 Rx (2.5 mg base)/3 mL nebulization of breath #180 mL soln lisinopril 40 mg tablet 40 mg PO DAILY #90 tabs 11/22/24 0 01/23/25 Rx tramadol 50 mg tablet 50 mg PO TID PRN 11/22/24 01/23/25 History acetaminophen 650 mg 650 mg PO Q8H PRN 12/21/24 5 History tablet,extended release (Tylenol Arthritis Pain) budesonide 160 mcg-glycopyr 9 2 inh inhalation BID #10.7 grams 0 12/21/24 01/23/25 Rx mcg-formot 4.8 mcg/actuation HFA inhaler (Breztri Aerosphere) ibuprofen 200 mg tablet 200 mg PO ONCE PRN 12/21/24 History metoprolol succinate 25 mg 25 mg PO DAILY #90 tabs 12/21/24 0 01/23/25 Rx tablet,extended release 24 hr milk thistle 150 mg capsule 150 mg PO ONCE 12/21/24 01/23/25 H istory albuterol sulfate 90 mcg/actuation 2 puff inhalation Q4H PRN 01/23/25 Rx aerosol inhaler shortness of breath or wheezing #18 grams ursodiol 500 mg tablet 500 mg PO BID 1 month #60 tabs 01/23/25 Rx Have you fallen in the past year?: No PFSH Medical History Encounter for screening for malignant neoplasm of lung Flu vaccine need Chronic back pain Hyponatremia Health care maintenance Cat bite of hand Elevated liver enzymes Chronic cough COPD (chronic obstructive pulmonary disease) Right hip pain Tobacco use disorder, continuous Encounter for screening for malignant neoplasm of lung in current smoker with 30 pack year history or greater Osteoporosis Muscle spasm of back Osteoarthritis Asthma exacerbation Allergic rhinitis Heart burn Pleurisy Vitamin deficiency History of skin cancer Osteoarthritis History of kidney stones Migraine High cholesterol Hypertension Frequent headaches History of fracture Back pain Asthma Arthritis Seasonal allergies Surgical History H/O tubal ligation H/O hernia repair History of tonsillectomy and adenoidectomy Family History Father Skin cancer TIA (transient ischemic attack) High cholesterol Hypertension Heart disease Asthma Alzheimer disease Social History 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 Normal [facility] Glomerular filtration rate ( GFR) estimation/1.73 sq m using serum, plasma, or whole bOrdered By: Yash Gunter on 01-23-2025 GFR/1.73 sq M.predicted among non-blacks MDRD (S/P/Bld) [Vol rate/Area] 97 mL/min/{1.73_m2} >60 [facility] Comment on above: mL/min/1.73m2 CKD-EP I Creatinine Equation (2020) Hematocrit Auto (Bld) [Volum e fraction]Ordered By: Yash Gunter on 01-23-2025 Hematocrit (Bld) [Volume fraction] 41.1 % 37-47 [facility] Hemoglobin A1con 01-23-2025 HbA1c (Bld) [Mass fraction] 5.3 % Normal <=5.6 [facility] Comment on above: Result Comment: Norm al < 5.7 % Prediabetic 5.7 - 6.4 % Diabetic >or= 6.5 % Please note range changes. Performed By: #### L 3100.5450, L500.4050, L506.1001, L504.2610, L501.4700, L501.9520, L501.5101, L500.4100, L300.3900, L3410.9994, L800.1280, L803.2200, L503.6550, L501.6710, L3890.6202, L3410.9992, L3250.0100, L501.9985, L100.0100, L3000.0375 ####[facility] [address] [place], [place], [id number] Hemoglobin A1c percentageOrd ered By: Yash Gunter on 01-23-2025 HbA1c (Bld) [Mass fraction] 5.3 % <5.7 [facility] Comment on above: Normal < 5.7 % Predi abetic 5.7 - 6.4 % Diabetic >or= 6.5 % Please note range changes. Hemoglobin measurementOrdere d By: Yash Gunter on 01-23-2025 Hemoglobin (Bld) [Mass/Vol] 13.3 g/dL 12.0-15.0 [facility] Hepatitis B Surface Antibody on 01-23-2025 HEP B Surf Ab Non-Reactive Normal [facility] Comment on above: Result Comment: <8.5 mIU/mL: Non-Reactive 8.5<= x <11.5 mIU/mL: Indeterminate >=11.5 mIU/mL: Reactive Non Reactive: Inconsistent with immunity less than <10 mIU/mL Reactive: Consistent with immunity greater than or equal to 10 mIU/mL Performed By: #### L 3100.5450, L500.4050, L506.1001, L504.2610, L501.4700, L501.9520, L501.5101, L500.4100, L300.3900, L3410.9994, L800.1280, L803.2200, L503.6550, L501.6710, L3890.6202, L3410.9992, L3250.0100, L501.9985, L100.0100, L3000.0375 ####[facility] [address] [facility] [place], [address] Immature granulocytes/100 WB C Auto (Bld)Ordered By: Yash Gunter on 01-23-2025 Immature granulocytes/100 WBC (Bld) 0.200 % 0.0-0.9 [facility] Comment on above: IG% - Immature Granu locytes (promyelocytes, myelocytes and metamyelocytes) > 1% indicates that a LEFT SHIFT is Present. International normalized rat io (INR) calculationOrdered By: Yash Gunter on 01-23-2025 INR Coag (Bld) [Relative time] 0.9 {INR} [facility] LDHon 01-23-2025 LDH 188 U/L Normal 84-246 [facility] Comment on above: Order Comment: 1 Performed By: #### L 3100.5450, L500.4050, L506.1001, L504.2610, L501.4700, L501.9520, L501.5101, L500.4100, L300.3900, L3410.9994, L800.1280, L803.2200, L503.6550, L501.6710, L3890.6202, L3410.9992, L3250.0100, L501.9985, L100.0100, L3000.0375 ####[facility] [address] [place], [place], [id number] LDL calc ser/plasOrdered By: Yash Gunter on 01-23-2025 Cholesterol in LDL [Mass/Vol] 122 mg/dL [facility] Comment on above: Aenaajettb=970-450 m g/dL & Higher Tafq=835 mg/dL or greater Laboratory - Chemistry and C hemistry - challengeOrdered By: Yash Gunter on 01-23-2025 AST [Catalytic activity/Vol] 44 U/L High <32 [facility] Lactate dehydrogenase (LDH) measurementOrdered By: Yash Gunter on 01-23-2025 LDH [Catalytic activity/Vol] 188 U/L 84-246 [facility] Lipid Profileon 01-23-2025 CHOL:HDL 3.03 Normal [facility] Comment on above: Performed By: #### L 3100.5450, L500.4050, L506.1001, L504.2610, L501.4700, L501.9520, L501.5101, L500.4100, L300.3900, L3410.9994, L800.1280, L803.2200, L503.6550, L501.6710, L3890.6202, L3410.9992, L3250.0100, L501.9985, L100.0100, L3000.0375 ####[facility] [address] [place], [address] Cholesterol [Mass/Vol] 216 mg/dL High <=200 [facility] Comment on above: Result Comment: Chol esterol level, Desirable <200 mg/dL Borderline high cholesterol 200-239 mg/dL High cholesterol >=240 mg/dL Recommendations of the NCEP Adult Treatment Panel for the following risk-cutoff thresholds for the [place] population. Performed By: #### L 3100.5450, L500.4050, L506.1001, L504.2610, L501.4700, L501.9520, L501.5101, L500.4100, L300.3900, L3410.9994, L800.1280, L803.2200, L503.6550, L501.6710, L3890.6202, L3410.9992, L3250.0100, L501.9985, L100.0100, L3000.0375 ####[facility] [address], [address] Cholesterol in HDL [Mass/Vol] 71 mg/dL Normal [facility] Comment on above: Result Comment: Megan onal Cholesterol Education Program (NCEP) guidelines: <40 mg/dL: Low HDL-cholesterol (major risk factor for CHD) >= 60 mg/dL: High HDL-cholesterol (negative risk factor for CHD) HDL-cholesterol is affected by a number of factors, e.g. smoking, exercise, hormones, sex and age. Performed By: #### L 3100.5450, L500.4050, L506.1001, L504.2610, L501.4700, L501.9520, L501.5101, L500.4100, L300.3900, L3410.9994, L800.1280, L803.2200, L503.6550, L501.6710, L3890.6202, L3410.9992, L3250.0100, L501.9985, L100.0100, L3000.0375 ####[facility] [address] [place], [address] Cholesterol in LDL [Mass/Vol] 122 mg/dL Normal [facility] Comment on above: Result Comment: Bord tdnsrc=989-337 mg/dL Higher Dfcv=096 mg/dL or greater Performed By: #### L 3100.5450, L500.4050, L506.1001, L504.2610, L501.4700, L501.9520, L501.5101, L500.4100, L300.3900, L3410.9994, L800.1280, L803.2200, L503.6550, L501.6710, L3890.6202, L3410.9992, L3250.0100, L501.9985, L100.0100, L3000.0375 ####[facility] [address] [place], [address] Cholesterol in VLDL [Mass/Vol] 23 mg/dL Normal 5-40 [facility] Comment on above: Performed By: #### L 3100.5450, L500.4050, L506.1001, L504.2610, L501.4700, L501.9520, L501.5101, L500.4100, L300.3900, L3410.9994, L800.1280, L803.2200, L503.6550, L501.6710, L3890.6202, L3410.9992, L3250.0100, L501.9985, L100.0100, L3000.0375 ####[facility] [address] [place], [address] Triglyceride [Mass/Vol] 116 mg/dL Normal [facility] Comment on above: Result Comment: The drugs N-Acetylcysteine and Metamizole may falsely depress this assay. Normal range: <150 mg/dL Borderline High: 150-199 mg/dL High: 200-499 mg/dL Very High: >500 mg/dL Performed By: #### L 3100.5450, L500.4050, L506.1001, L504.2610, L501.4700, L501.9520, L501.5101, L500.4100, L300.3900, L3410.9994, L800.1280, L803.2200, L503.6550, L501.6710, L3890.6202, L3410.9992, L3250.0100, L501.9985, L100.0100, L3000.0375 ####[facility] [address] [place], [address] MCV (mean corpuscular volume ) determinationOrdered By: Yash Gunter on 01-23-2025 MCV (RBC) [Entitic vol] 95.6 fL 81-99 [facility] Mean corpuscular hemoglobin (MCH) determinationOrdered By: Yash Gunter on 01-23-2025 MCH (RBC) [Entitic mass] 30.9 pg 27.0-32.0 [facility] Mean corpuscular hemoglobin concentration (MCHC) determinationOrdered By: Yash Gunter on 01-23-2025 MCHC (RBC) [Mass/Vol] 32.4 g/dL 32-36 [facility] Mean platelet volume determi nationOrdered By: Yash Gunter on 01-23-2025 Platelet mean volume (Bld) [Entitic vol] 11.9 fL 6.2-12.0 [facility] Monocyte percentageOrdered B y: Yash Gunter on 01-23-2025 Monocytes/100 WBC (Bld) 10.1 % High 0-10 [facility] Neutrophil percentageOrdered By: Yash Gunter on 01-23-2025 Neutrophils/100 WBC (Bld) 38.2 % Low 47-70 [facility] No Panel InformationOrdered By: Yash Gunter on 01-23-2025 Hepatitis C Antibody Comment Comment . [facility] Comment on above: Not infected with HC V unless early or acute infection issuspected (which may be delayed in an immunocompromisedindividual), or other evidence exists to indicate HCVinfection. Nucleated red blood cell per centageOrdered By: Yash Gunter on 01-23-2025 Nucleated RBC/100 WBC (Bld) [Ratio] 0 % 0-5 [facility] Platelet countOrdered By: Jannette Gunter on 01-23-2025 Platelets (Bld) [#/Vol] 211 10*3/uL 150-450 [facility] Potassium measurement (mass/ volume)Ordered By: Yash Gunter on 01-23-2025 Potassium (Unsp spec) [Mass/Vol] 3.7 mmol/L 3.3-5.1 [facility] Prothrombin Time w/INRon INR Coag (PPP) [Relative time] 0.9 {INR} Normal [facility] Comment on above: Performed By: #### L 3100.5450, L500.4050, L506.1001, L504.2610, L501.4700, L501.9520, L501.5101, L500.4100, L300.3900, L3410.9994, L800.1280, L803.2200, L503.6550, L501.6710, L3890.6202, L3410.9992, L3250.0100, L501.9985, L100.0100, L3000.0375 ####[facility] [address] [place], [place], [id number] PT Coag (PPP) [Time] 12.2 s Normal 11.7-14.9 [facility] Comment on above: Performed By: #### L 3100.5450, L500.4050, L506.1001, L504.2610, L501.4700, L501.9520, L501.5101, L500.4100, L300.3900, L3410.9994, L800.1280, L803.2200, L503.6550, L501.6710, L3890.6202, L3410.9992, L3250.0100, L501.9985, L100.0100, L3000.0375 ####[facility] [address] [place], [place], [id number] Prothrombin timeOrdered By: Yash Gunter on 01-23-2025 PT Coag (PPP) [Time] 12.2 s 11.7-14.9 [facility] RBC Auto (Bld) [#/Vol]Ordere d By: Yash Gunter on 01-23-2025 RBC (Bld) [#/Vol] 4.30 10*6/uL 4.2-5.4 [place] Screening total cholesterol/ high density lipoprotein (HDL) cholesterol ratioOrdered By: Yash Gunter on 01-23-2025 Cholesterol.total/Choles terol in HDL [Mass ratio] 3.03 {ratio} [facility] Serum DNA double strand anti body assay (units/volume)Ordered By: Yash Gunter on 01-23-2025 DNA double strand Ab Qn (S) TNP [facility] Comment on above: Test not performed Serum Scl-70 antibody assay (units/volume)Ordered By: Yash Gunter on 01-23-2025 SCL-70 extractable nuclear Ab Qn (S) TNP [facility] Comment on above: Test not performed Serum creatinine measurement (mass/volume)Ordered By: Yash Gunter on 01-23-2025 Creatinine [Mass/Vol] 0.57 mg/dL Low 0.70-1.20 [facility] Serum globulin measurementOr dered By: Yash Gunter on 01-23-2025 Globulin (S) [Mass/Vol] 3.0 g/dL 2.2-4.2 [facility] Serum glucose measurement (m ass/volume)Ordered By: Yash Gunter on 01-23-2025 Glucose [Mass/Vol] 78 mg/dL 70-99 [facility] Serum hepatitis B virus surf mari antibody detectionOrdered By: Yash Gunter on 01-23-2025 HBV surface Ab Ql (S) Non-Reactive [facility] Comment on above: <8.5 mIU/mL: Non-Marissa ctive8.5<= x <11.5 mIU/mL: Indeterminate>=11.5 mIU/mL: Reactive Non Reactive: Inconsistent with immunity less than <10 mIU/mL Reactive: Consistent with immunity greater than or equal to 10 mIU/mL Serum mitochondria antibody detectionOrdered By: Yash Gunter on 01-23-2025 Mitochondria Ab Ql (S) <20.0 Units 0.0-20.0 [facility] Comment on above: Negative 0.0 - 20.0 Equivocal 20.1 - 24.9 Positive >24.9Mitochondrial (M2) Antibodies are found in 90-96% ofpatients with primary biliary cirrhosis. Serum or plasma C reactive p rotein measurement (mass/volume)Ordered By: Yash Gunter on 01-23-2025 CRP [Mass/Vol] mg/L 0.0-3.0 [facility] Serum or plasma actin IgG an tibody assay (units/volume)Ordered By: Yash Gunter on 01-23-2025 Actin IgG Qn 126 Units High 0-19 [facility] Comment on above: Negative 0 - 19 Weak positive 20 - 30 Moderate to strong positive >30 Actin Antibodies are found in 52-85% of patients with autoimmune hepatitis or chronic active hepatitis and in 22% of patients with primary biliary cirrhosis. Serum or plasma alanine valdez otransferase (ALT) measurementOrdered By: Yash Gunter on 01-23-2025 ALT [Catalytic activity/Vol] 41 U/L High <35 [facility] Serum or plasma albumin makayla urement (mass/volume)Ordered By: Yash Gunter on 01-23-2025 Albumin [Mass/Vol] 4.0 g/dL 3.4-4.8 [facility] Serum or plasma albumin/glob ulin mass ratioOrdered By: Yash Gunter on 01-23-2025 Albumin/Globulin [Mass ratio] 1.3 {ratio} 0.9-2.4 [facility] Serum or plasma alkaline martha sphatase measurementOrdered By: Yash Gunter on 01-23-2025 ALP [Catalytic activity/Vol] 355 U/L High 35-104 [facility] Serum or plasma bone alkalin e phosphatase/total alkaline phosphatase ratio (catalyticOrdered By: Yash Gunter on 01-23-2025 ALP Bone [Catalytic fraction] 24 % 14-68 [facility] Serum or plasma calcium makayla urement (mass/volume)Ordered By: Yash Gunter on 01-23-2025 Calcium [Mass/Vol] 9.2 mg/dL 7.6-11.0 [facility] Serum or plasma cholesterol in HDL measurement (mass/volume)Ordered By: Yash Gunter on 01-23-2025 Cholesterol in HDL [Mass/Vol] 71 mg/dL >40 [facility] Comment on above: National Cholesterol Education Program (NCEP) guidelines:<40 mg/dL: Low HDL-cholesterol (major risk factor for CHD)>= 60 mg/dL: High HDL-cholesterol (negative risk factor for CHD)HDL-cholesterol is affected by a number of factors, e.g. smoking, exercise, hormones, sex and age. Serum or plasma cholesterol measurement (mass/volume)Ordered By: Yash Gunter on 01-23-2025 Cholesterol [Mass/Vol] 216 mg/dL High <201 [facility] Comment on above: Cholesterol level, D esirable <200 mg/dLBorderline high cholesterol 200-239 mg/dLHigh cholesterol >=240 mg/dLRecommendations of the NCEP Adult Treatment Panel for the following risk-cutoff thresholds for the [place] population. Serum or plasma ferritin stan surement (mass/volume)Ordered By: Yash Gunter on 01-23-2025 Ferritin [Mass/Vol] 68 ng/mL 22-378 [place] Serum or plasma hepatitis B virus surface antigen detection by immunoassayOrdered By: Yash Gunter on 01-23-2025 HBV surface Ag IA Ql Negative Negative [facility] Serum or plasma intestinal a lkaline phosphatase/total alkaline phosphatase ratio (catOrdered By: Yash Gunter on 01-23-2025 ALP Intest [Catalytic fraction] 0 % 0-18 [facility] Serum or plasma liver alkali ne phosphatase/total alkaline phosphatase ratio (catalytiOrdered By: Yash Gunter on 01-23-2025 ALP Liver [Catalytic fraction] 76 % 18-85 [facility] Serum or plasma urea nitroge n measurement (mass/volume)Ordered By: Yash Gunter on 01-23-2025 Urea nitrogen [Mass/Vol] 7 mg/dL 4-19 [facility] Sodium levelOrdered By: Dada Gunter on 01-23-2025 Sodium [Moles/Vol] 137 mmol/L 133-145 [facility] TSH DL <= 0.005 mIU/L QnOrde red By: Yash Gunter on 01-23-2025 TSH Qn 0.868 uIU/mL 0.300-4.200 [facility] Thyroid Stim Hormone (TSH)on 01-23-2025 TSH 0.868 uIU/mL Normal 0.300-4.200 [facility] Comment on above: Performed By: #### L 3100.5450, L500.4050, L506.1001, L504.2610, L501.4700, L501.9520, L501.5101, L500.4100, L300.3900, L3410.9994, L800.1280, L803.2200, L503.6550, L501.6710, L3890.6202, L3410.9992, L3250.0100, L501.9985, L100.0100, L3000.0375 ####[facility] [address] [place], [place], [address] Total proteinOrdered By: Kendy Gunter on 01-23-2025 Protein [Mass/Vol] 7.0 g/dL 5.9-8.4 [facility] Triglycerides measurementOrd ered By: Yash Gunter on 01-23-2025 Triglyceride [Mass/Vol] 116 mg/dL <199 [facility] Comment on above: The drugs N-Acetylcy steine and Metamizole may falsely depress this assay. Normal range: <150 mg/dLBorderline High: 150-199 mg/dLHigh: 200-499 mg/dLVery High: >500 mg/dL Vitamin D,25 Hydroxyon 01-23 Vitamin D 25-OH 31.9 ng/mL Normal 30-100 [facility] Comment on above: Result Comment: Tori min D Status Deficiency: <20 ng/mL (50nmol/L) Insufficiency: 20-30 ng/mL (50-75 nmol/L) Sufficiency: 30-100 ng/mL (75-250 nmol/L) Toxicity: >100 ng/mL (>250 nmol/L) Performed By: #### L 3100.5450, L500.4050, L506.1001, L504.2610, L501.4700, L501.9520, L501.5101, L500.4100, L300.3900, L3410.9994, L800.1280, L803.2200, L503.6550, L501.6710, L3890.6202, L3410.9992, L3250.0100, L501.9985, L100.0100, L3000.0375 ####[facility] [address] [place], [place], [id number] White blood cell (WBC) count Ordered By: Yash Gunter on 01-23-2025 WBC (Bld) [#/Vol] 4.5 10*3/uL 4.4-11.0 [facility] Low Dose CT Lung Screeningon 01-22-[address] Lung Screening [facility] Services [address] [place] [address] Lung Screening MR#: [id number] Acct: [id number] Name: VIOLA SCOTT Rep #: [id number] : 1955 F 69 From: Rivera wong MD PCP: Dr. Silviano Walsh MD Status: REG CLI Study: Low Dose CT Lung Screening Date of Exam: 01/22 Exam# [id number] Ordering Dr: Trinity Green NP, NP PROCEDURE: LOW DOSE CT LUNG SCREENING 01/22/2025 REASON FOR EXAM: LUNG CANCER SCREENING Current smoker. TECHNIQUE: Low Dose CT Lung screening without contrast. Coronal and Sagittal reconstruction series were provided. One or more dose reduction techniques were used (e.g., Automated exposure control, adjustment of the mA and/or kV according to patient size, use of iterative reconstruction technique). REFERENCE LINK: [facility] Lung-RADS RADIATION DOSE SUMMARY: CTDlvol: 2.01 mGy DLP: 65.7 mGycm COMPARISON: Prior study dated June 29, 2022.. FINDINGS: PULMONARY NODULES: (Only nodules >3mm are reported) Nodules described below are on series 1 unless otherwise specified. Pulmonary Nodules: No suspicious pulmonary nodules are seen. Hardware:None Lymph Nodes:Small benign-appearing mediastinal lymph nodes. Heart and Vasculature:The heart is nonenlarged. Coronary Artery Calcifications: Present Lungs and Airways: Mild emphysematous changes are present. Stable scarring at both lung apices. Pleura:Unremarkable Upper Abdomen:Unremarkable Bones:Degenerative changes of the thoracic spine. CT/Low Dose CT Lung Screening IMPRESSION: No suspicious nodular seen. Coronary artery calcification (CAC) is is present Lung-RADS Category: 2 BENIGN (BASED ON IMAGING FEATURES OR INDOLENT BEHAVIOR). RECOMMEND 12-MONTH SCREENING LDCT. Other Significant Findings: None. Reading Location: [place] [address] CC: JAJA Green; Dr. Silviano Walsh MD [employer] Worker: Signed Normal [facility] Oncology Visit Reporton 12-[address] [facility] [address] [place] [address] OFFICE VISIT Date of Service: 01/22/25 1352 MR#: [id number] Acct: [id number] Name: VIOLA SCOTT Rep #: [id number] : 1955 From: Trinity Green NP [employer] -C Age/Sex: 69/F Location[place] [facility] [place] Status: Signed HPI HPI Reviewed eligibility criteria: 69 year old F with a > 20 pack year smoking history (0.5-1 ppd x 51 years) Smoking Status: Current every day smoker ( 0.5 ppd ) Decision Making Engaged in shared decision making visit utilizing a visual aid. Discussed the risks and benefits of lung cancer screening including the total radiation exposure, false positive rate, over diagnosis and potential need for follow-up diagnostic testing all associated with low-dose chest CT. Comorbidities osteoporosis, asthma, htn ROS Const Denies anorexia, Denies fatigue, Denies headache(s), Denies poor appetite and Denies weight loss ENT Denies headache(s) Card Denies chest pain, Denies dyspnea on exertion (adamantly denies ) and Denies palpitations Resp Denies cough, Denies dyspnea on exertion (adamantly denies ), Denies hemoptysis and Reports wheezing (uses albuterol inhaler 2-4 times per day on average) GI Reports system reviewed and no additional complaints, except as documented Musc Reports system reviewed and no additional complaints, except as documented Skin/Breast Reports system reviewed and no additional complaints, except as documented Neuro Yes system reviewed and no additional complaints, except as documented and No headache(s) Psych Reports system reviewed and no additional complaints, except as documented Endo Reports system reviewed and no additional complaints, except as documented, Denies fatigue and Denies palpitations Behzad/Lymph Reports system reviewed and no additional complaints, except as documented Aller/Immun Reports wheezing (uses albuterol inhaler 2-4 times per day on average) Exam Const General: not in acute distress Orientation: alert and oriented x3 HENMT Head: normocephalic and atraumatic Neck Neck: trachea midline and no lymphadenopathy noted Resp Effort Inspection: normal respiratory effort and symmetric chest movement Auscultation: Bilateral: Diminished Lung Sounds Cardio Rate: regular rate Rhythm: regular rhythm Heart Sounds: S1 normal and S2 normal Psych Mood: euthymic mood Affect: normal affect Results Results January 22, [address] Lung Screening IMPRESSION: No suspicious nodular seen. Coronary artery calcification (CAC) is is present Lung-RADS Category: 2 BENIGN (BASED ON IMAGING FEATURES OR INDOLENT BEHAVIOR). RECOMMEND 12-MONTH SCREENING LDCT. Other Significant Findings: None. Intake Vital Signs 12/21/24 13:58 01/22/25 13:58 Height 5 ft 2 in 5 ft 2 in Weight: 95 lb 96 lb 6 oz BMI 17.4 17.6 BP 168/100 H 169/97 H Blood Pressure Location Lt brachial Lt brachial Position Sitting Sitting Respiration 18 18 Pulse 97 83 Pulse Source Monitor Monitor Temp 98.0 F 98.8 F Temp Source Temporal Oral Pulse Oximetry (%) 97 96 Oxygen Delivery Method room air room air Intake Visit Reasons: LUNG CANCER SCREENING Is patient in pain?: Yes (arthritis pain ) Allergies moxifloxacin (From Avelox) Allergy (Severe, Verified 01/22/25 13:56) hives/swelling Seasonal Allergies: Uncoded Allergy (Intermediate, Verified 01/22/25 13:56) Other Medications ???Medication ???Instructions ???Recorded ???Confirmed ???Type Lactobacillus acidophilus 250 100 mmu cells PO DAILY 03/07/20 History million cell capsule (Probiotic Acidophilus) nebulizer accessories (Hypersoniq #1 ea 07/01/20 01/22/25 Rx Nebulizer Cartridge) albuterol sulfate 2.5 mg/3 mL 2.5 mg (3 mL) inhalation Q4H PRN 1 01/22/25 Rx (0.083 %) solution for nebulization shortness of breath or wheezing #90 mL calcium 300 mg-D3 20 mcg-magnesium 1 tab PO DAILY 07/09/21 01/22/25 History 25 mg-coppr 0.5 [id number]-lqsq-[id number] tablet (Caltrate-D3 Plus Minerals) ascorbic acid (vitamin C) 500 mg mg PO 11/05/21 01/22/25 History capsule triamcinolone acetonide 0.1 % 1 applic topical TID PRN rash #80 01/06/23 01/22/25 Rx topical cream grams fluticasone propionate 50 1 spray intranasal BID PRN 4 05/27/25 Rx mcg/actuation nasal allergies, congestion #16 grams spray,suspension montelukast 10 mg tablet 10 mg PO QHS #90 tabs 03/09/24 Rx (Singulair) simvastatin 40 mg tablet 40 mg PO QPM #90 tabs 03/09/24 Rx zoledronic acid 5 mg/100 mL in 1 ea .Route .Yearly #100 mL 01/22/25 Rx mannitol 5 %-water intravenous piggybck (Reclast) baclofen 10 mg tablet 10 mg PO Q8H PRN muscle spasm #90 08/30/24 01/22/25 Rx tabs citalopram 40 mg t (more content not included)... Normal [facility] Internal Medicine Office Vis iton 12-21-2024 Internal Medicine Office Visit [facility] [address] [place] [address] [place] [address] OFFICE VISIT Date of Service: 12/21/24 MR#: [id number] Acct: [id number] Name: VIOLA SCOTT Rep #: [id number] : 1955 Provider: CASSANDRA Tiwari Age/Sex: 69/F Location[place] [facility] [place] Status: Signed Intake Vital Signs 11/22/24 14:06 12/21/24 13:58 12/21/24 14:03 Height 5 ft 2 in 5 ft 2 in Weight: 95 lb 95 lb BMI 17.4 17.4 BP 128/84 H 168/100 H 152/90 H Blood Pressure Location Lt brachial Lt brachial Lt brachial Position Sitting Sitting Respiration 14 18 Pulse 66 97 Pulse Source Monitor Monitor Temp 96.2 F L 98.0 F Temp Source Temporal Temporal Pulse Oximetry (%) 97 97 Oxygen Delivery Method room air room air Intake Visit Reasons: 4 WK FU Chief Complaint: 4 WK FU Is patient in pain?: No Allergies moxifloxacin (From Avelox) Allergy (Severe, Verified 12/21/24 13:59) hives/swelling Seasonal Allergies: Uncoded Allergy (Intermediate, Verified 12/21/24 13:59) Other Medications ???Medication ???Instructions ???Recorded ???Confirmed ???Type Lactobacillus acidophilus 250 100 mmu cells PO DAILY 03/07/20 History million cell capsule (Probiotic Acidophilus) nebulizer accessories (Hypersoniq #1 ea 07/01/20 12/21/24 Rx Nebulizer Cartridge) albuterol sulfate 2.5 mg/3 mL 2.5 mg (3 mL) inhalation Q4H PRN 1 12/21/24 Rx (0.083 %) solution for nebulization shortness of breath or wheezing #90 mL calcium 300 mg-D3 20 mcg-magnesium 1 tab PO DAILY 07/09/21 12/21/24 History 25 mg-coppr 0.5 fe-octb-lmkd tablet (Caltrate-D3 Plus Minerals) ascorbic acid (vitamin C) 500 mg mg PO 11/05/21 12/21/24 History capsule triamcinolone acetonide 0.1 % 1 applic topical TID PRN rash #80 01/06/23 12/21/24 Rx topical cream grams fluticasone propionate 50 1 spray intranasal BID PRN 4 12/21/24 Rx mcg/actuation nasal allergies, congestion #16 grams spray,suspension montelukast 10 mg tablet 10 mg PO QHS #90 tabs 03/09/24 Rx (Singulair) simvastatin 40 mg tablet 40 mg PO QPM #90 tabs 03/09/24 Rx zoledronic acid 5 mg/100 mL in 1 ea .Route .Yearly #100 mL 12/21/24 Rx mannitol 5 %-water intravenous piggybck (Reclast) baclofen 10 mg tablet 10 mg PO Q8H PRN muscle spasm #90 08/30/24 12/21/24 Rx tabs citalopram 40 mg tablet (Celexa) 40 mg PO DAILY #90 tabs 09/21/24 0 12/21/24 Rx ipratropium 0.5 mg-albuterol 3 mg 3 ml inhalation Q6H PRN shortness 10/02/24 12/21/24 Rx (2.5 mg base)/3 mL nebulization of breath #180 mL soln albuterol sulfate 90 mcg/actuation 2 puff inhalation Q4H PRN 12/21/24 Rx aerosol inhaler shortness of breath or wheezing #18 grams lisinopril 40 mg tablet 40 mg PO DAILY #90 tabs 03/27/25 0 12/21/24 Rx tramadol 50 mg tablet 50 mg PO TID PRN 11/22/24 12/21/24 History acetaminophen 650 mg 650 mg PO Q8H PRN 12/21/24 5 History tablet,extended release (Tylenol Arthritis Pain) budesonide 160 mcg-glycopyr 9 2 inh inhalation BID #10.7 grams 0 12/21/24 12/21/24 Rx mcg-formot 4.8 mcg/actuation HFA inhaler (Breztri Aerosphere) ibuprofen 200 mg tablet 200 mg PO ONCE PRN 12/21/24 History metoprolol succinate 25 mg 25 mg PO DAILY #90 tabs 12/21/24 0 12/21/24 Rx tablet,extended release 24 hr milk thistle 150 mg capsule 150 mg PO ONCE 12/21/24 12/21/24 H istory Have you fallen in the past year?: No Nurse's Note: pt reports today is a follow up on her weight loss. BP is noted elevated today pt reports that she did just smoke a cigarette. pt denies chest pain or SOB PFSH Medical History Flu vaccine need Chronic back pain Hyponatremia Health care maintenance Cat bite of hand Elevated liver enzymes Chronic cough COPD (chronic obstructive pulmonary disease) Right hip pain Tobacco use disorder, continuous Encounter for screening for malignant neoplasm of lung in current smoker with 30 pack year history or greater Osteoporosis Muscle spasm of back Osteoarthritis Asthma exacerbation Allergic rhinitis Heart burn Pleurisy Vitamin deficiency History of skin cancer Osteoarthritis History of kidney stones Migraine High cholesterol Hypertension Frequent headaches History of fracture Back pain Asthma Arthritis Seasonal allergies Surgical History H/O tubal ligation H/O hernia repair History of tonsillectomy and adenoidectomy Family History Father Skin cancer TIA (transient ischemic attack) High cholesterol Hypertension Heart disease Asthma Alzheimer disease Social History (R (more content not included)... Normal [facility] Lower GI hemoglobin IA Ql (S tl)Ordered By: Malik Gant on 12-12-2024 Stool Occult Blood (KLAUDIA) [facility] Stool Occult Blood iFOBon STOB Negative Normal [facility] Comment on above: Performed By: #### M 100.7900 #### [facility] [address] [place], [address] Stool gastrointestinal hemog lobin detection by immunologic methodOrdered By: Malik Gant on 12-12-2024 Lower GI hemoglobin IA Ql (Stl) [facility] Absolute lymphocyte countOrd ered By: Malik Gant on 11-22-2024 Lymphocytes Auto (Unsp spec) [#/Vol] 1.37 10*3/uL 0.83-4.51 [facility] Absolute neutrophil countOrd ered By: Malik Gant on 11-22-2024 Neutrophils (Bld) [#/Vol] 2.6 10*3/uL 2.0-7.7 [facility] Anion gap in Serum or Plasma Ordered By: Malik Gant on 11-22-2024 Anion gap [Moles/Vol] 12 mmol/L 5-15 [facility] Automated lymphocyte count a s percentage of total leukocytesOrdered By: Malik Gant on 11-22-2024 Lymphocytes/100 WBC Auto (Unsp spec) 29.3 % - [facility] BUN/creatinine ratioOrdered By: Malik Gant on 11-22-2024 Urea nitrogen/Creatinine [Mass ratio] 11.8 mg/mg 10-20 [facility] Basophil percentageOrdered B y: Malik Gant on 11-22-2024 Basophils/100 WBC (Bld) 1.3 % High 0-1 [facility] Bilirubin, totalOrdered By: Malik Gant on 11-22-2024 Bilirubin [Mass/Vol] 0.26 mg/dL 0.00-1.30 [facility] CBC W/Diff, Automatedon 10-28 Absolute Lymph 1.37 X10 3/uL Normal 0.83-4.51 [facility] Comment on above: Performed By: #### L 501.9520, L500.4050, L501.9310, L100.0100 ####[facility] [address] [place], [address] Absolute Neut 2.6 X10 3/uL Normal 2.0-7.7 [facility] Comment on above: Performed By: #### L 501.9520, L500.4050, L501.9310, L100.0100 ####[facility] [address] [place], [address] Basophils/100 WBC (Bld) 1.3 % High 0-1 [facility] Comment on above: Performed By: #### L 501.9520, L500.4050, L501.9310, L100.0100 ####[facility] [address] [place], [address] Eosinophils/100 WBC (Bld) 3.2 % Normal 0-5 [facility] Comment on above: Performed By: #### L 501.9520, L500.4050, L501.9310, L100.0100 ####[facility] [address] [place], [address] Erythrocyte distribution width (RBC) [Ratio] 12.5 % Normal 11.6-14.6 [facility] Comment on above: Performed By: #### L 501.9520, L500.4050, L501.9310, L100.0100 ####[facility] [address] [place], [address] Hematocrit (Bld) [Volume fraction] 39.9 % Normal 37-47 [facility] Comment on above: Performed By: #### L 501.9520, L500.4050, L501.9310, L100.0100 ####[facility] [address] [place], [address] Hemoglobin (Bld) [Mass/Vol] 13.0 g/dL Normal 12.0-15.0 [facility] Comment on above: Performed By: #### L 501.9520, L500.4050, L501.9310, L100.0100 ####[facility] [address] [place], [address] IG% 0.200 Normal 0.0-0.9 [facility] Comment on above: Result Comment: IG% - Immature Granulocytes (promyelocytes, myelocytes and metamyelocytes) > 1% indicates that a LEFT SHIFT is Present. Performed By: #### L 501.9520, L500.4050, L501.9310, L100.0100 ####[facility] [address] [place], [address] Lymphocytes/100 WBC (Bld) 29.3 % Normal 19-41 [facility] Comment on above: Performed By: #### L 501.9520, L500.4050, L501.9310, L100.0100 ####[facility] [address] [place], [address] MCH (RBC) [Entitic mass] 30.9 pg Normal 27.0-32.0 [facility] Comment on above: Performed By: #### L 501.9520, L500.4050, L501.9310, L100.0100 ####[facility] [address] [place], [address] MCHC (RBC) [Mass/Vol] 32.6 g/dL Normal 32-36 [facility] Comment on above: Performed By: #### L 501.9520, L500.4050, L501.9310, L100.0100 ####[facility] [address] [place], [address] MCV (RBC) [Entitic vol] 94.8 fL Normal 81-99 [facility] Comment on above: Performed By: #### L 501.9520, L500.4050, L501.9310, L100.0100 ####[facility] [address] [place], [address] Monocytes/100 WBC (Bld) 10.3 % High 0-10 [facility] Comment on above: Performed By: #### L 501.9520, L500.4050, L501.9310, L100.0100 ####[facility] [address] [place], [address] Neutrophils/100 WBC (Bld) 55.7 % Normal 47-70 [facility] Comment on above: Performed By: #### L 501.9520, L500.4050, L501.9310, L100.0100 ####[facility] [address] [place], [address] Nucleated RBC (Bld) [#/Vol] 0 10*3/uL Normal 0-5 [facility] Comment on above: Performed By: #### L 501.9520, L500.4050, L501.9310, L100.0100 ####[facility] [address] [place], [address] Platelet mean volume (Bld) [Entitic vol] 11.1 fL Normal 6.2-12.0 [facility] Comment on above: Performed By: #### L 501.9520, L500.4050, L501.9310, L100.0100 ####[facility] [address] [place], [address] Platelets (Bld) [#/Vol] 233 10*3/uL Normal 150-450 [facility] Comment on above: Performed By: #### L 501.9520, L500.4050, L501.9310, L100.0100 ####[facility] [address] [place], [address] RBC (Bld) [#/Vol] 4.21 10*6/uL Normal 4.2-5.4 [place] Comment on above: Performed By: #### L 501.9520, L500.4050, L501.9310, L100.0100 ####[facility] [address] [place], [address] RDW SD 43.6 fl Normal 35.1-43.9 [facility] Comment on above: Performed By: #### L 501.9520, L500.4050, L501.9310, L100.0100 ####[facility] [address] [place], [address] WBC (Bld) [#/Vol] 4.7 10*3/uL Normal 4.4-11.0 [facility] Comment on above: Performed By: #### L 501.9520, L500.4050, L501.9310, L100.0100 ####[facility] [address] [place], [address] Carbon dioxide, total [Moles /volume] in Central venous bloodOrdered By: Malik Gant on 11-22-2024 CO2 [Moles/Vol] 25.3 mmol/L 21.0-32.0 [facility] Chloride assayOrdered By: Scott Gant on 11-22-2024 Chloride [Moles/Vol] 102 mmol/L 98-108 [facility] Comprehensive Metabolic Prof ilon 11-22-2024 Albumin [Mass/Vol] 3.7 g/dL Normal 3.4-4.8 [facility] Comment on above: Performed By: #### L 501.9520, L500.4050, L501.9310, L100.0100 ####[facility] [address] [place], [address] Albumin/Globulin [Mass ratio] 1.4 {ratio} Normal 0.9-2.4 [facility] Comment on above: Performed By: #### L 501.9520, L500.4050, L501.9310, L100.0100 ####[facility] [address] [place], [address] ALK PHOS 288 U/L High 35-104 [facility] Comment on above: Performed By: #### L 501.9520, L500.4050, L501.9310, L100.0100 ####[facility] [address] [place], [address] ALT [Catalytic activity/Vol] 32 U/L Normal <=34 [facility] Comment on above: Performed By: #### L 501.9520, L500.4050, L501.9310, L100.0100 ####[facility] [address] [place], [address] AST [Catalytic activity/Vol] 36 U/L High <=31 [facility] Comment on above: Performed By: #### L 501.9520, L500.4050, L501.9310, L100.0100 ####[facility] [address] [place], [address] Bilirubin [Mass/Vol] 0.26 mg/dL Normal 0.00-1.30 [facility] Comment on above: Performed By: #### L 501.9520, L500.4050, L501.9310, L100.0100 ####[facility] [address] [place], [address] BUN/CRE 11.8 RATIO Normal 10-20 [facility] Comment on above: Performed By: #### L 501.9520, L500.4050, L501.9310, L100.0100 ####[facility] [address] [place], [address] Calcium [Mass/Vol] 9.1 mg/dL Normal 7.6-11.0 [facility] Comment on above: Performed By: #### L 501.9520, L500.4050, L501.9310, L100.0100 ####[facility] [address] [place], [address] Chloride [Moles/Vol] 102 mmol/L Normal 98-108 [facility] Comment on above: Performed By: #### L 501.9520, L500.4050, L501.9310, L100.0100 ####[facility] [address] [place], [address] CO2 [Moles/Vol] 25.3 mmol/L Normal 21.0-32.0 [facility] Comment on above: Performed By: #### L 501.9520, L500.4050, L501.9310, L100.0100 ####[facility] [address] [place], [address] Creatinine [Mass/Vol] 0.58 mg/dL Low 0.70-1.20 [facility] Comment on above: Performed By: #### L 501.9520, L500.4050, L501.9310, L100.0100 ####[facility] [address] [place], [address] GAP 12 Normal 5-15 [facility] Comment on above: Performed By: #### L 501.9520, L500.4050, L501.9310, L100.0100 ####[facility] [address] [place], [address] GFR/1.73 sq M.predicted among non-blacks MDRD (S/P/Bld) [Vol rate/Area] 97 mL/min/{1.73_m2} Normal >60 [facility] Comment on above: Result Comment: mL/m in/1.73m2 CKD-EPI Creatinine Equation (2020) Performed By: #### L 501.9520, L500.4050, L501.9310, L100.0100 ####[facility] [address] [place], [address] Globulin (S) [Mass/Vol] 2.6 g/dL Normal 2.2-4.2 [facility] Comment on above: Performed By: #### L 501.9520, L500.4050, L501.9310, L100.0100 ####[facility] [address] [place], [address] Glucose [Mass/Vol] 91 mg/dL Normal 70-99 [facility] Comment on above: Performed By: #### L 501.9520, L500.4050, L501.9310, L100.0100 ####[facility] [address] [place], [address] Potassium [Moles/Vol] 4.4 mmol/L Normal 3.3-5.1 [facility] Comment on above: Performed By: #### L 501.9520, L500.4050, L501.9310, L100.0100 ####[facility] [address] [place], [address] Sodium [Moles/Vol] 139 mmol/L Normal 133-145 [facility] Comment on above: Performed By: #### L 501.9520, L500.4050, L501.9310, L100.0100 ####[facility] [address] [place], [address] T PROT 6.3 g/dL Normal 5.9-8.4 [facility] Comment on above: Performed By: #### L 501.9520, L500.4050, L501.9310, L100.0100 ####[facility] [address] [place], [address] Urea nitrogen [Mass/Vol] 7 mg/dL Normal 4-19 [facility] Comment on above: Performed By: #### L 501.9520, L500.4050, L501.9310, L100.0100 ####[facility] [address] [place], [address] Eosinophil percentageOrdered By: Malik Gant on 11-22-2024 Eosinophils/100 WBC (Bld) 3.2 % 0-5 [facility] Erythrocyte distribution wid th ratioOrdered By: Malik Gant on 11-22-2024 Erythrocyte distribution width (RBC) [Ratio] 12.5 % 11.6-14.6 [facility] Erythrocyte distribution wid th standard deviationOrdered By: Malik Gant on 11-22-2024 Erythrocyte distribution width (RBC) [Entitic vol] 43.6 fL 35.1-43.9 [facility] Erythrocyte distribution width (RBC) [Ratio] 43.6 fl 35.1-43.9 [facility] GFR/1.73 sq M.predicted hu g non-blacks MDRD (S/P/Bld) [Vol rate/Area]Ordered By: Malik Gant on 11-22-2024 Estimated GFR (MDRD) Non-Af Amer 97 >60 [facility] Comment on above: mL/min/1.73m2 CKD-EP I Creatinine Equation (2020) Glomerular filtration rate ( GFR) estimation/1.73 sq m using serum, plasma, or whole bOrdered By: Malik Gant on 11-22-2024 GFR/1.73 sq M.predicted among non-blacks MDRD (S/P/Bld) [Vol rate/Area] 97 mL/min/{1.73_m2} >60 [facility] Comment on above: mL/min/1.73m2 CKD-EP I Creatinine Equation (2020) Hematocrit Auto (Bld) [Volum e fraction]Ordered By: Malik Gant on 11-22-2024 Hematocrit (Bld) [Volume fraction] 39.9 % 37-47 [facility] Hemoglobin measurementOrdere d By: Malik Gant on 11-22-2024 Hemoglobin (Bld) [Mass/Vol] 13.0 g/dL 12.0-15.0 [facility] Immature granulocytes/100 WB C Auto (Bld)Ordered By: Malik Gant on 11-22-2024 Immature granulocytes/100 WBC (Bld) 0.200 % 0.0-0.9 [facility] Comment on above: IG% - Immature Granu locytes (promyelocytes, myelocytes and metamyelocytes) > 1% indicates that a LEFT SHIFT is Present. Internal Medicine Office Vis vivian 11-22-2024 Internal Medicine Office Visit [facility] [address] [place] [address] [place] [address] OFFICE VISIT Date of Service: 11/22/24 MR#: [id number] Acct: [id number] Name: VIOLA SCOTT Rep #: [id number] : 1955 Provider: CASSANDRA Tiwari Age/Sex: 69/F Location[place] [facility] [place] Status: Signed Intake Vital Signs 10/05/24 13:28 11/22/24 14:06 Height 5 ft 2 in 5 ft 2 in Weight: 97 lb 95 lb BMI 17.7 17.4 BP 144/82 H 128/84 H Blood Pressure Location Lt brachial Lt brachial Position Sitting Sitting Respiration 19 H 14 Pulse 114 H 66 Pulse Source Monitor Monitor Temp 98.7 F 96.2 F L Temp Source Temporal Temporal Pulse Oximetry (%) 97 97 Oxygen Delivery Method room air room air Intake Visit Reasons: ACUTE UNEXPLAINED WEIGHT LOSS Chief Complaint: 3 m fu 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 Is patient in pain?: No Allergies moxifloxacin (From Avelox) Allergy (Severe, Verified 11/22/24 13:58) hives/swelling Seasonal Allergies: Uncoded Allergy (Intermediate, Verified 11/22/24 13:58) Other Medications ???Medication ???Instructions ???Recorded ???Confirmed ???Type Lactobacillus acidophilus 250 100 mmu cells PO DAILY 03/07/20 History million cell capsule (Probiotic Acidophilus) ephedrine-guaifenesin 12.5 mg-200 1 tab PO Q4H PRN 03/07/20 5 History mg tablet (Primatene Asthma) nebulizer accessories (Hypersoniq #1 ea 07/01/20 11/22/24 Rx Nebulizer Cartridge) albuterol sulfate 2.5 mg/3 mL 2.5 mg (3 mL) inhalation Q4H PRN 1 11/22/24 Rx (0.083 %) solution for nebulization shortness of breath or wheezing #90 mL calcium 300 mg-D3 20 mcg-magnesium 1 tab PO DAILY 07/09/21 11/22/24 History 25 mg-coppr 0.5 cc-hshy-zhob tablet (Caltrate-D3 Plus Minerals) ascorbic acid (vitamin C) 500 mg mg PO 11/05/21 11/22/24 History capsule acetaminophen 650 mg 650 mg PO Q8H 04/02/22 11/22/24 Hi story tablet,extended release (Tylenol Arthritis Pain) triamcinolone acetonide 0.1 % 1 applic topical TID PRN rash #80 01/06/23 11/22/24 Rx topical cream grams fluticasone propionate 50 1 spray intranasal BID PRN 4 11/22/24 Rx mcg/actuation nasal allergies, congestion #16 grams spray,suspension montelukast 10 mg tablet 10 mg PO QHS #90 tabs 03/09/24 Rx (Singulair) simvastatin 40 mg tablet 40 mg PO QPM #90 tabs 03/09/24 Rx zoledronic acid 5 mg/100 mL in 1 ea .Route .Yearly #100 mL 11/22/24 Rx mannitol 5 %-water intravenous piggybck (Reclast) metoprolol succinate 25 mg 12.5 mg (1/2 x 25 mg) PO DAILY #90 06/28/24 11/22/24 Rx tablet,extended release 24 hr tabs baclofen 10 mg tablet 10 mg PO Q8H PRN muscle spasm #90 08/30/24 11/22/24 Rx tabs citalopram 40 mg tablet (Celexa) 40 mg PO DAILY #90 tabs 09/21/24 0 11/22/24 Rx codeine 10 mg-guaifenesin 100 mg/5 10 ml PO 4X/DAY PRN cough 7 days 10/02/24 11/22/24 Rx mL oral liquid (Guaifenesin AC) #280 mL ipratropium 0.5 mg-albuterol 3 mg 3 ml inhalation Q6H PRN shortness 10/02/24 11/22/24 Rx (2.5 mg base)/3 mL nebulization of breath #180 mL soln budesonide 160 mcg-glycopyr 9 2 inh inhalation BID #10.7 grams 0 10/09/24 11/22/24 Rx mcg-formot 4.8 mcg/actuation HFA inhaler (Breztri Aerosphere) albuterol sulfate 90 mcg/actuation 2 puff inhalation Q4H PRN 11/22/24 Rx aerosol inhaler shortness of breath or wheezing #18 grams lisinopril 40 mg tablet 40 mg PO DAILY #90 tabs 11/22/24 0 11/22/24 Rx tramadol 50 mg tablet 50 mg PO TID PRN 11/22/24 11/22/24 History Have you fallen in the past year?: No Nurse's Note: States the whole month of September she was sick w/ rsv and had no appetite and was nauseated and vomiting. States she has been eating again, and doing protein shakes, she feels very fatigued and wants to gain weight her granddaughter was put on a med to increase appetite. eats 2-3x a day and snacks on crackers in between, also drinks pop and body armor. States she does have an appetite but can't put weight back on. Has not had any new change in excercise or activity.Does not have lanugo. [facility] Medical History Flu vaccine need Chronic back pain Hyponatremia Health care maintenance Cat bite of hand Elevated liver enzymes Chronic cough COPD (chronic obstructive pulmonary disease) Right hip pain Tobacco use disorder, continuous Encounter for screening for malignant neoplasm of lung in current smoker with 30 pack year history or greater Osteoporosis Muscle spasm of back Osteoarthritis Asthma exacerbation Allergic rhinitis Heart burn Pleurisy Vitamin deficiency History of skin cancer Osteoarthritis History of kidney stones Migraine High cholesterol Hypertension Frequent he (more content not included)... Normal [facility] - Chemistry and C hemistry - challengeOrdered By: Malik Gant on 11-22-2024 AST [Catalytic activity/Vol] 36 U/L High <32 [facility] Lymphocytes Auto (Unsp spec) [#/Vol]Ordered By: Malik Gant on 11-22-2024 Lymphocytes (Bld) [#/Vol] 1.37 10*3/uL 0.83-4.51 [facility] Lymphocytes/100 WBC Auto (Un sp spec)Ordered By: Malik Gant on 11-22-2024 Lymphocytes/100 WBC (Bld) 29.3 % 19-41 [facility] MCV (mean corpuscular volume ) determinationOrdered By: Malik Gant on 11-22-2024 MCV (RBC) [Entitic vol] 94.8 fL 81-99 [facility] Mean corpuscular hemoglobin (MCH) determinationOrdered By: Malik Gant on 11-22-2024 MCH (RBC) [Entitic mass] 30.9 pg 27.0-32.0 [facility] Mean corpuscular hemoglobin concentration (MCHC) determinationOrdered By: Malik Gant on 11-22-2024 MCHC (RBC) [Mass/Vol] 32.6 g/dL 32-36 [facility] Mean platelet volume determi nationOrdered By: Malik Gant on 11-22-2024 Platelet mean volume (Bld) [Entitic vol] 11.1 fL 6.2-12.0 [facility] Monocyte percentageOrdered B y: Malik Gant on 11-22-2024 Monocytes/100 WBC (Bld) 10.3 % High 0-10 [facility] Neutrophil percentageOrdered By: Malik Gant on 11-22-2024 Neutrophils/100 WBC (Bld) 55.7 % 47-70 [facility] Nucleated red blood cell per centageOrdered By: Malik Gant on 11-22-2024 Nucleated RBC/100 WBC (Bld) [Ratio] 0 % 0-5 [facility] Platelet countOrdered By: Scott ttromel Gant on 11-22-2024 Platelets (Bld) [#/Vol] 233 10*3/uL 150-450 [facility] Potassium (Unsp spec) [Mass/ Vol]Ordered By: Malik Gant on 11-22-2024 Potassium [Moles/Vol] 4.4 mmol/L 3.3-5.1 [facility] Potassium measurement (mass/ volume)Ordered By: Malik Gant on 11-22-2024 Potassium (Unsp spec) [Mass/Vol] 4.4 mmol/L 3.3-5.1 [facility] RBC Auto (Bld) [#/Vol]Ordere d By: Malik Gant on 11-22-2024 RBC (Bld) [#/Vol] 4.21 10*6/uL 4.2-5.4 [place] Serum creatinine measurement (mass/volume)Ordered By: Malik Gant on 11-22-2024 Creatinine [Mass/Vol] 0.58 mg/dL Low 0.70-1.20 [facility] Serum globulin measurementOr dered By: Malik Gant on 11-22-2024 Globulin (S) [Mass/Vol] 2.6 g/dL 2.2-4.2 [facility] Serum glucose measurement (m ass/volume)Ordered By: Malik Gant on 11-22-2024 Glucose [Mass/Vol] 91 mg/dL 70-99 [facility] Serum or plasma alanine valdez otransferase (ALT) measurementOrdered By: Malik Gant on 11-22-2024 ALT [Catalytic activity/Vol] 32 U/L <35 [facility] Serum or plasma albumin makayla urement (mass/volume)Ordered By: Malik Gant on 11-22-2024 Albumin [Mass/Vol] 3.7 g/dL 3.4-4.8 [facility] Serum or plasma albumin/glob ulin mass ratioOrdered By: Malik Gant on 11-22-2024 Albumin/Globulin [Mass ratio] 1.4 {ratio} 0.9-2.4 [facility] Serum or plasma alkaline martha sphatase measurementOrdered By: Malik Gant on 11-22-2024 ALP [Catalytic activity/Vol] 288 U/L High 35-104 [facility] Serum or plasma calcium makayla urement (mass/volume)Ordered By: Malik Gant on 11-22-2024 Calcium [Mass/Vol] 9.1 mg/dL 7.6-11.0 [facility] Serum or plasma urea nitroge n measurement (mass/volume)Ordered By: Malik Gant on 11-22-2024 Urea nitrogen [Mass/Vol] 7 mg/dL 4-19 [facility] Sodium levelOrdered By: Nahun Gant on 11-22-2024 Sodium [Moles/Vol] 139 mmol/L 133-145 [facility] T4 Total, Thyroxinon 025 T4 [Mass/Vol] 6.0 ug/dL Normal 4.8-13.9 [facility] Comment on above: Performed By: #### L 501.9520, L500.4050, L501.9310, L100.0100 ####[facility] [id number] [place], [address] TSH DL <= 0.005 mIU/L QnOrde red By: Malik Gant on 11-22-2024 Thyroid Stimulating Hormone (TSH) 0.811 uIU/mL 0.300-4.200 [facility] TSH Qn 0.811 uIU/mL 0.300-4.200 [facility] Thyroid Stim Hormone (TSH)on 11-22-2024 TSH 0.811 uIU/mL Normal 0.300-4.200 [facility] Comment on above: Performed By: #### L 501.9520, L500.4050, L501.9310, L100.0100 ####[facility] [id number] [place], [address] ThyroxineOrdered By: Malik Gant on 11-22-2024 T4 [Mass/Vol] 6.0 ug/dL 4.8-13.9 [facility] Total proteinOrdered By: Khanh Gant on 11-22-2024 Protein [Mass/Vol] 6.3 g/dL 5.9-8.4 [facility] White blood cell (WBC) count Ordered By: Malik Gant on 11-22-2024 WBC (Bld) [#/Vol] 4.7 10*3/uL 4.4-11.0 [facility] Internal Medicine Office Vis iton 10-05-2024 Internal Medicine Office Visit [facility] [address] [place], [place] [address] OFFICE VISIT Date of Service: 10/05/24 MR#: [id number] Acct: [id number] Name: VIOLA SCOTT Rep #: [id number] : 1955 Provider: Dr. Silviano pastrana MD Age/Sex: 69/F Location: [facility] [place] Status: Signed Intake Vital Signs 06/28/24 13:48 10/01/24 23:05 10/05/24 13:28 Height 5 ft 3 in 5 ft 2 in 5 ft 2 in Weight: 97 lb BMI 17.7 BP 144/82 H Blood Pressure Location Lt brachial Position Sitting Respiration 19 H Pulse 114 H Pulse Source Monitor Temp 98.7 F Temp Source Temporal Pulse Oximetry (%) 97 Oxygen Delivery Method room air Intake Visit Reasons: 3 M FU Chief Complaint: 3 m fu Is patient in pain?: No Allergies moxifloxacin (From Avelox) Allergy (Severe, Verified 10/05/24 13:26) hives/swelling Seasonal Allergies: Uncoded Allergy (Intermediate, Verified 10/05/24 13:26) Other Medications ???Medication ???Instructions ???Recorded ???Confirmed ???Type Lactobacillus acidophilus 250 100 mmu cells PO DAILY 03/07/20 History million cell capsule (Probiotic Acidophilus) ephedrine-guaifenesin 12.5 mg-200 1 tab PO Q4H PRN 03/07/20 5 History mg tablet (Primatene Asthma) nebulizer accessories (Hypersoniq #1 ea 07/01/20 10/05/24 Rx Nebulizer Cartridge) albuterol sulfate 2.5 mg/3 mL 2.5 mg (3 mL) inhalation Q4H PRN 1 10/05/24 Rx (0.083 %) solution for nebulization shortness of breath or wheezing #90 mL calcium 300 mg-D3 20 mcg-magnesium 1 tab PO DAILY 07/09/21 10/05/24 History 25 mg-coppr 0.5 bl-zyvs-uuqk tablet (Caltrate-D3 Plus Minerals) ascorbic acid (vitamin C) 500 mg mg PO 11/05/21 10/05/24 History capsule acetaminophen 650 mg 650 mg PO Q8H 04/02/22 10/05/24 Hi story tablet,extended release (Tylenol Arthritis Pain) triamcinolone acetonide 0.1 % 1 applic topical TID PRN rash #80 01/06/23 10/05/24 Rx topical cream grams fluticasone propionate 50 1 spray intranasal BID PRN 4 10/05/24 Rx mcg/actuation nasal allergies, congestion #16 grams spray,suspension lisinopril 40 mg tablet 40 mg PO DAILY #90 tabs 03/09/24 0 10/05/24 Rx meloxicam 15 mg tablet See Rx Instructions .Route 4 10/05/24 Rx .COMPLEX #90 tabs montelukast 10 mg tablet 10 mg PO QHS #90 tabs 03/09/2403/22 Rx (Singulair) simvastatin 40 mg tablet 40 mg PO QPM #90 tabs 03/09/2403/22 Rx zoledronic acid 5 mg/100 mL in 1 ea .Route .Yearly #100 mL 10/05/24 Rx mannitol 5 %-water intravenous piggybck (Reclast) metoprolol succinate 25 mg 12.5 mg (1/2 x 25 mg) PO DAILY #90 06/28/24 10/05/24 Rx tablet,extended release 24 hr tabs budesonide 160 mcg-glycopyr 9 2 inh inhalation BID #10.7 grams 1 09/04/23 10/05/24 Rx mcg-formot 4.8 mcg/actuation HFA inhaler (Breztri Aerosphere) baclofen 10 mg tablet 10 mg PO Q8H PRN muscle spasm #90 08/30/24 10/05/24 Rx tabs citalopram 40 mg tablet (Celexa) 40 mg PO DAILY #90 tabs 09/21/24 0 10/05/24 Rx albuterol sulfate 90 mcg/actuation 2 puff inhalation Q4H PRN 10/05/24 Rx aerosol inhaler shortness of breath or wheezing #18 grams codeine 10 mg-guaifenesin 100 mg/5 10 ml PO 4X/DAY PRN cough 7 days 10/02/24 10/05/24 Rx mL oral liquid (Guaifenesin AC) #280 mL ipratropium 0.5 mg-albuterol 3 mg 3 ml inhalation Q6H PRN shortness 10/02/24 10/05/24 Rx (2.5 mg base)/3 mL nebulization of breath #180 mL soln prednisone 10 mg tablet 10 mg PO UD #33 tabs 10/02/2403/22 Rx Have you fallen in the past year?: No Nurse's Note: pt reports she tested positive for RSV on Tuesday [facility] Medical History Flu vaccine need Chronic back pain Hyponatremia Health care maintenance Cat bite of hand Elevated liver enzymes Chronic cough COPD (chronic obstructive pulmonary disease) Right hip pain Tobacco use disorder, continuous Encounter for screening for malignant neoplasm of lung in current smoker with 30 pack year history or greater Osteoporosis Muscle spasm of back Osteoarthritis Asthma exacerbation Allergic rhinitis Heart burn Pleurisy Vitamin deficiency History of skin cancer Osteoarthritis History of kidney stones Migraine High cholesterol Hypertension Frequent headaches History of fracture Back pain Asthma Arthritis Seasonal allergies Surgical History H/O tubal ligation H/O hernia repair History of tonsillectomy and adenoidectomy Family History Father Skin cancer TIA (transient ischemic attack) High cholesterol Hypertension Heart disease Asthma Alzheimer disease (more content not included)... Normal [facility] Chest PA and Lateralon 10-02 Chest PA and Lateral [facility] Imaging Services [address] [place], [place] [address] Chest PA and Lateral MR#: [id number] Acct: [id number] Name: VIOLA SCOTT Rep #: [id number] : 1955 F 69 From: Edwardo Ulloa DO PCP: Dr. Silviano Walsh MD Status: PRE ER Study: Chest PA and Lateral Date of Exam: 10/02/24 Exam# [id number] Ordering Dr: Luis Madrigal DO PROCEDURE: CHEST PA AND LATERAL REASON FOR EXAM: Cough. Dyspnea. TECHNIQUE: Frontal and lateral views of the chest. COMPARISON: CT chest from 06/29/2022. FINDINGS: Cardiac size and pulmonary vasculature are within normal limits. No consolidation, pleural effusion, or pneumothorax is present. There is hyperinflation of the lungs with flattening of the hemidiaphragms compatible with COPD. There is biapical scarring. There are chronic anterior wedge compression fractures involving the thoracic spine. There is scoliosis of the thoracolumbar spine. RAD/Chest PA and Lateral IMPRESSION: 1. No acute cardiopulmonary process. 2. COPD. Reading Location: [facility] CC: Dr. 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 Silviano Walsh MD Status:DEP ER Location: ED HPI History of Present Illness Chief Complaint: Shortness of Breath Informant: patient and family Narrative Narrative: Patient is a 69-year-old female with past medical history of hypertension hyperlipidemia and COPD. She states she does not require supplemental oxygen at baseline. She reports that she was seen at an urgent care roughly 1 week ago for similar symptoms. She states at that time she tested negative for COVID and influenza and had a chest x-ray did not reveal any obvious pneumonia. She reports she was placed on an inhaler and steroids and a Z-Niko. She reports has been taking those as directed but her cough and shortness of breath symptoms have persisted and secondary to this she returns for repeat evaluation [facility] Medical History Flu vaccine need Chronic back pain Hyponatremia Health care maintenance Cat bite of hand Elevated liver enzymes Chronic cough COPD (chronic obstructive pulmonary disease) Right hip pain Tobacco use disorder, continuous Encounter for screening for malignant neoplasm of lung in current smoker with 30 pack year history or greater Osteoporosis Muscle spasm of back Osteoarthritis Asthma exacerbation Allergic rhinitis Heart burn Pleurisy Vitamin deficiency History of skin cancer Osteoarthritis History of kidney stones Migraine High cholesterol Hypertension Frequent headaches History of fracture Back pain Asthma Arthritis Seasonal allergies Home Medications ???Medication ???Instructions ???Recorded ???Last Taken ???Type Lactobacillus acidophilus 250 100 mmu cells PO DAILY 03/07/20 Un known History million cell capsule (Probiotic Acidophilus) ephedrine-guaifenesin 12.5 mg-200 1 tab PO Q4H PRN 03/07/20 Unknown History mg tablet (Primatene Asthma) nebulizer accessories (Hypersoniq #1 ea 07/01/20 Unknown Rx Nebulizer Cartridge) albuterol sulfate 2.5 mg/3 mL 2.5 mg (3 mL) inhalation Q4H PRN 1 Unknown Rx (0.083 %) solution for nebulization shortness of breath or wheezing #90 mL calcium 300 mg-D3 20 mcg-magnesium 1 tab PO DAILY 07/09/21 Unknown History 25 mg-coppr 0.5 hf-ruhg-uijd tablet (Caltrate-D3 Plus Minerals) ascorbic acid (vitamin C) 500 mg mg PO 11/05/21 Unknown History capsule acetaminophen 650 mg 650 mg PO Q8H 04/02/22 Unknown His tory tablet,extended release (Tylenol Arthritis Pain) triamcinolone acetonide 0.1 % 1 applic topical TID PRN rash #80 01/06/23 Unknown Rx topical cream grams fluticasone propionate 50 1 spray intranasal BID PRN 4 Unknown Rx mcg/actuation nasal allergies, congestion #16 grams spray,suspension hydrochlorothiazide 12.5 mg tablet 12.5 mg PO QAM #90 tabs 03/09/24 Unknown Rx lisinopril 40 mg tablet 40 mg PO DAILY #90 tabs 03/09/24 U nknown Rx meloxicam 15 mg tablet See Rx Instructions .Route 4 Unknown Rx .COMPLEX #90 tabs montelukast 10 mg tablet 10 mg PO QHS #90 tabs 03/09/24 Unk nown Rx (Singulair) simvastatin 40 mg tablet 40 mg PO QPM #90 tabs 03/09/24 Unk nown Rx zoledronic acid 5 mg/100 mL in 1 ea .Route .Yearly #100 mL Unknown Rx mannitol 5 %-water intravenous piggybck (Reclast) metoprolol succinate 25 mg 12.5 mg (1/2 x 25 mg) PO DAILY #90 06/28/24 Unknown Rx tablet,extended release 24 hr tabs budesonide 160 mcg-glycopyr 9 2 inh inhalation BID #10.7 grams 1 09/04/23 Unknown Rx mcg-formot 4.8 mcg/actuation HFA inhaler (Breztri Aerosphere) baclofen 10 mg tablet 10 mg PO Q8H PRN muscle spasm #90 08/30/24 Unknown Rx tabs citalopram 40 mg tablet (Celexa) 40 mg PO DAILY #90 tabs 09/21/24 U nknown Rx albuterol sulfate 90 mcg/actuation 2 puff inhalation Q4H PRN Unknown Rx aerosol inhaler shortness of breath or wheezing #18 grams codeine 10 mg-guaifenesin 100 mg/5 10 ml PO 4X/DAY PRN cough 7 days 10/02/24 Unknown Rx mL oral liquid (Guaifenesin AC) #280 mL ipratropium 0.5 mg-albuterol 3 mg 3 ml inhalation Q6H PRN shortness 10/02/24 Unknown Rx (2.5 mg base)/3 mL nebulization of breath #180 mL soln prednisone 10 mg tablet 10 mg PO UD #33 tabs 10/02/24 Unkn own Rx Allergy/AdvReac Type Severity Reaction Status Date / Time moxifloxacin (From Avelox) Allergy Severe hives/swell Verified 10/01/24 23:07 ing Seasonal Allergies: Uncoded Allergy Intermediate Other Verified 10/01/24 23:07 Family History F (more content not included)... Normal [facility] M100.678on 10-02-2024 SARS-CoV-2 (COVID-19) Ab IA Ql Normal Reference Range = Negative FLUABV+SARS-CoV-2+RSV Pnl Resp KRISTEN+probe GeneXpert Instrument, PCR method FLUABV+SARS-CoV-2+RSV Pnl Resp KRISTEN+probe CRITICAL VALUE CALLED TO [facility] 10/02/24 [address] Ascencio. RESULTS READ BACK BY SAME. SARS-CoV-2 (COVID 19) Negative INFLUENZA A Negative INFLUENZA B Negative RSV PCR A Positive A RSV Normal [facility] Comment on above: Performed By: #### M 100.678 ####[facility] [id number] [place], [address] Influenza virus A and B and SARS-CoV-2 (COVID-19) and Respiratory syncytial virus RNAOrdered By: Luis Madrigal on 10-01-2024 SARS-CoV-2 (COVID-19) RNA KRISTEN+probe Ql (Unsp spec) RSV Abnormal [facility] No Panel InformationOrdered By: Frank Cano on 09-27-2024 Influenza Types A,B Rapid (Clinic) Negative [facility] POC SARS CoV-2 Antigen Negative [facility] Urgent Care Visit Reporton 0 09-27-2024 Urgent Care Visit Report [facility] [address], [address] [place] [address] OFFICE VISIT Date of Service: 09/27/24 MR#: [id number] Acct: [id number] Name: VIOLA SCOTT Rep #: [id number] : 1955 Provider: CASSANDRA Madsen Age/Sex: 69/F Location: [facility] [place] Status: Signed Intake Vital Signs 06/28/24 13:48 09/27/24 12:16 Height 5 ft 3 in 5 ft 2 in Weight: 100 lb BMI 18.3 BP 146/80 H Blood Pressure Location Lt brachial Position Sitting Respiration 17 Pulse 82 Pulse Source NIBP Temp 98.4 F Temp Source Oral Pulse Oximetry (%) 95 Oxygen Delivery Method room air Intake Visit Reasons: ASTHMA FLARE-UP Chief Complaint: cough, congestion, REEVES, BA, SOB, wheeze 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 pt has asthma, feels it is exacerbating d/t viral s/s. chest tightness and wheeze, inhalers not helping. did not try nebs. [facility] Medical History Flu vaccine need Chronic back pain Hyponatremia Health care maintenance Cat bite of hand Elevated liver enzymes Chronic cough COPD (chronic obstructive pulmonary disease) Right hip pain Tobacco use disorder, continuous Encounter for screening for malignant neoplasm of lung in current smoker with 30 pack year history or greater Osteoporosis Muscle spasm of back Osteoarthritis Asthma exacerbation Allergic rhinitis Heart burn Pleurisy Vitamin deficiency History of skin cancer Osteoarthritis History of kidney stones Migraine High cholesterol Hypertension Frequent headaches History of fracture Back pain Asthma Arthritis Seasonal allergies Surgical History H/O tubal ligation H/O hernia repair History of tonsillectomy and adenoidectomy Family History Father Skin cancer TIA (transient ischemic attack) High cholesterol Hypertension Heart disease Asthma Alzheimer disease Social History 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 Patient denies fever, chills, sweats. No nausea, vomiting or diarrhea. Patient does state that she has tried multiple of her at home asthma medications with little to no relief of her shortness of breath. No other associated symptoms or alleviating/aggravatin g factors. ROS Const Constitutional: Positive for other (Negative x10 systems with exception of those listed above) Exam Const General: cooperative and well developed HENMA Head: normal to inspection and atraumatic Ears: hearing grossly normal bilaterally Nose: nasal discharge clear Face and sinus: normal facial exam Mouth: oral mucosae normal Throat: abnormal tonsil bilaterally hypertrophy 1+ Resp Effort Inspection: normal respiratory effort and no audible wheezes Auscultation: Bilateral: Rhonchi Cardio Rate: regular rate Rhythm: regular rhythm Neuro General: patient alert and CN's II-XI intact bilaterally Psych Appearance: grossly normal Mental Status: mental status grossly normal Office Meds albuterol sulfate 2.5 mg/3 mL (0.083 %) solution for nebulization Performing Provider: CASSANDRA Mohan Performing Location: [facility] Administered by: Theresa Caraballo on 09/27/24 12:29 Dose Route Admin Location Dispensed Lot Number Expiration Date GREYSON [employer] ufacturer 2.5 mg continuous nebulization 3 mL [id number] 11/27/24 0236-1046- 60 [facility] Results POC SARS AG POC SARS AG Negative Last Edit by Theresa Caraballo on 09/27/24 12:23 POC FLU A B Office Flu A B Negative FLU A B Last Edit by Theresa Caraballo on 09/27/24 12:23 Coding Level of Care Code Off vis,est,level 3 Diagnoses Acute asthmatic bronchitis J45.909 Assessment and Plan Assessment and Plan (1) Acute asthmatic bronchitis: Status: Acute Plan (more content not included)... Normal [facility] OPERATIVE PROCEDURESon 08-07 OPERATIVE PROCEDURES [facility] OPERATIVE REPORT NAME ACCOUNT SEX AGE ADMIT DISCHARGE PT MED. RECORD# NUMBER DATE DATE TYPE TYLER [id number] F 68 08/06/24 08/06/24 2 VIOLA Perez [id number] ROOM: DATE OF : 1955 DICTATING PHYSICIAN: Tho Anderson DATE OF PROCEDURE: August 06, 2024 SURGEON: Tho Anderson DO EMPLOYEE RELATIONS MANAGER: None. ANESTHESIA: Local. PREPROCEDURE DIAGNOSIS: Right hip/bursal pain/M70.61. POSTPROCEDURE DIAGNOSIS: Right hip/bursal pain/M70.61. PROCEDURE: Right hip/bursal injection under palpatory guidance. COMPLICATIONS: None. IV FLUIDS: None. ESTIMATED BLOOD LOSS: None. INDICATIONS OF PROCEDURE: This is a 68-year-old female with severe reproducible right hip bursal pain refractory to medications. DESCRIPTION OF OPERATION: She was placed in the standing position, and then under sterile prep with Betadine and alcohol, a #25 gauge needle was placed into the right hip/bursal sac. After negative aspiration, Kenalog 40 mg with Marcaine 0.25% preservative-free 4 mL was then injected. The needle was then removed intact. Dictated By: Tho Anderson DO 08/06/24 13:14 JOB #: [id number] Transcribed By: am 08/07/24 12:13 Electronically signed by: E-SIGN: THO ANDERSON Page 1 of 2 VIOLA SCOTT Operative Report VIOLA SCOTT : 1955 08/07/24 14:43 Page 2 of 2 VIOLA SCOTT Operative Report Normal [facility] DRUG SCREEN URINE MEDICon AMPHETAMINES Negative Normal [facility] Comment on above: Performed By: #### 2 [id number] #### [facility],[address] [place] [address],[facility] [address] B-DIAZEPINES Negative Normal [facility] Comment on above: Performed By: #### 2 [id number] #### [facility],[address] [place] [address],[facility] [address] BARBITURATES Negative Normal [facility] Comment on above: Performed By: #### 2 89010 #### [facility],[address] [place] [address],[facility] [address] COCAINE Negative Normal [facility] Comment on above: Performed By: #### 2 66542 #### [facility],[address] [place] [address] DRUG SCREEN URINE MEDIC Normal [facility] Comment on above: Result Comment: DRUG SCREEN - URINE Performed By: #### 2 [id number] #### [facility],[address] [place] [address] METHADONE Negative Normal [facility] Comment on above: Performed By: #### 2 68194 #### [facility],[address] [place] [address] OPIATES Negative Normal [facility] Comment on above: Performed By: #### 2 81518 #### [facility],[address] [place] [address] [place] [address] PCP Negative Normal [facility] Comment on above: Performed By: #### 2 50598 #### [facility],[address] [place] [address] THC Negative Normal [facility] Comment on above: Result Comment: DAVID ENTS RECEIVING PROTON PUMP INHIBITORS MAY DEMONSTRATE FALSE POSITIVE THC/CANNABINOID RESULTS. AN ALTERNATIVE CONFIRMATORY METHOD SHOULD BE CONSIDERED TO VERIFY POSITIVE RESULTS. Performed By: #### 2 95007 #### [facility],[address] [address] Internal Medicine Office Vis vivian 07-25-2024 Internal Medicine Office Visit [facility] [address] [place] [address] [place] [address] OFFICE VISIT Date of Service: 07/25/24 MR#: [id number] Acct: [id number] Name: VIOLA SCOTT Rep #: [id number] : 1955 Provider: SHAKIRA NURSE Age/Sex: 68/F Location: [facility] Status: Signed Intake Vital Signs 06/28/24 13:48 07/25/24 14:45 07/25/24 14:46 Height 5 ft 3 in Weight: 112 lb BMI 19.8 BP 116/72 150/80 H 158/88 H Blood Pressure Location Lt brachial Lt brachial Lt brachial Position Sitting Sitting Sitting Respiration 12 Pulse 122 H Pulse Source Monitor Temp 97.3 F L Temp Source Temporal Pulse Oximetry (%) 96 Oxygen Delivery Method room air Comment pt monitor Intake Visit Reasons: BP/Monitor check Chief Complaint: bp check. Allergies moxifloxacin (From Avelox) Allergy (Severe, Verified 06/28/24 13:49) hives/swelling Seasonal Allergies: Uncoded Allergy (Intermediate, Verified 06/28/24 13:49) Other Medications ???Medication ???Instructions ???Recorded ???Confirmed ???Type Lactobacillus acidophilus 250 100 mmu cells PO DAILY 03/07/20 07/25/24 History million cell capsule (Probiotic Acidophilus) ephedrine-guaifenesin 12.5 mg-200 1 tab PO Q4H PRN 03/07/20 07/25/24 History mg tablet (Primatene Asthma) nebulizer accessories (Hypersoniq #1 ea 07/01/20 07/25/24 Rx Nebulizer Cartridge) albuterol sulfate 2.5 mg/3 mL 2.5 mg (3 mL) inhalation Q4H PRN 06/17/21 07/25/24 Rx (0.083 %) solution for nebulization shortness of breath or wheezing #90 mL calcium 300 mg-D3 20 mcg-magnesium 1 tab PO DAILY 07/09/21 07/25/24 History 25 mg-coppr 0.5 al-iyek-pmwk tablet (Caltrate-D3 Plus Minerals) ascorbic acid (vitamin C) 500 mg mg PO 11/05/21 07/25/24 History capsule acetaminophen 650 mg 650 mg PO Q8H 04/02/22 07/25/24 History tablet,extended release (Tylenol Arthritis Pain) triamcinolone acetonide 0.1 % 1 applic topical TID PRN rash #80 01/06/23 07/25/24 Rx topical cream grams fluticasone propionate 50 1 spray intranasal BID PRN 09/26/23 07/25/24 Rx mcg/actuation nasal allergies, congestion #16 grams spray,suspension citalopram 40 mg tablet (Celexa) 40 mg PO DAILY #90 tabs 03/09/24 07/25/24 Rx hydrochlorothiazide 12.5 mg tablet 12.5 mg PO QAM #90 tabs 03/09/24 07/25/24 Rx lisinopril 40 mg tablet 40 mg PO DAILY #90 tabs 03/09/24 07/25/24 Rx meloxicam 15 mg tablet See Rx Instructions .Route 03/09/24 07/25/24 Rx .COMPLEX #90 tabs montelukast 10 mg tablet 10 mg PO QHS #90 tabs 03/09/24 07/25/24 Rx (Singulair) simvastatin 40 mg tablet 40 mg PO QPM #90 tabs 03/09/24 07/25/24 Rx zoledronic acid 5 mg/100 mL in 1 ea .Route .Yearly #100 mL 03/09/24 07/25/24 Rx mannitol 5 %-water intravenous piggybck (Reclast) baclofen 10 mg tablet 10 mg PO Q8H PRN muscle spasm #90 05/23/24 07/25/24 Rx tabs metoprolol succinate 25 mg 12.5 mg (1/2 x 25 mg) PO DAILY #90 06/28/24 07/25/24 Rx tablet,extended release 24 hr tabs albuterol sulfate 90 mcg/actuation 2 puff inhalation Q4H PRN 07/04/24 07/25/24 Rx aerosol inhaler shortness of breath or wheezing #18 grams budesonide 160 mcg-glycopyr 9 2 inh inhalation BID #10.7 grams 07/05/24 07/25/24 Rx mcg-formot 4.8 mcg/actuation HFA inhaler (Breztri [employer] Systemsphere) Have you fallen in the past year?: No Nurse's Note: pt presents for BP check, pt states no htn sx , taking medication as prescribed. pt bp cuff-184/99 pulse 86 after adjustment of arm and bp monitor pt bp 158/88 our cuff- 150/80, pulse 80 pt informed of form to use when bp is being checked. and to continue to monitor [facility] Medical History (Updated 06/28/24 @ 14:[address] Silviano Walsh MD) Flu vaccine need Chronic back pain Hyponatremia Health care maintenance Cat bite of hand Elevated liver enzymes Chronic cough COPD (chronic obstructive pulmonary disease) Right hip pain Tobacco use disorder, continuous Encounter for screening for malignant neoplasm of lung in current smoker with 30 pack year history or greater Osteoporosis Muscle spasm of back Osteoarthritis Asthma exacerbation Allergic rhinitis Heart burn Pleurisy Vitamin deficiency History of skin cancer Osteoarthritis History of kidney stones Migraine High cholesterol Hypertension Frequent headaches History of fracture Back pain Asthma Arthritis Seasonal allergies Surgical History H/O tubal ligation H/O hernia repair History of tonsillectomy and adenoidectomy Family History Father Skin cancer TIA (transient ischemic attack) High cholesterol Hypertension Heart disease Asthma Alzheimer disease Social History current occupation: (more content not included)... Normal [facility] Basic Metabolic Profile (BMP )on 06-28-2024 BUN/CRE 13.2 RATIO Normal 06-17 [facility] Comment on above: Performed By: #### L 500.2500, L100.0100 #### [facility] [address] [place], [address] CA,Total 9.7 mg/dL Normal 8.5-10.1 [facility] Comment on above: Performed By: #### L 500.2500, L100.0100 #### [facility] [address] [place], [address] Chloride [Moles/Vol] 104 mmol/L Normal 98-107 [facility] Comment on above: Performed By: #### L 500.2500, L100.0100 #### [facility] [address] [place], [address] CO2 [Moles/Vol] 29.0 mmol/L Normal 21.0-32.0 [facility] Comment on above: Performed By: #### L 500.2500, L100.0100 #### [facility] [address] [place], [address] Creatinine [Mass/Vol] 0.68 mg/dL Normal 0.55-1.02 [facility] Comment on above: Result Comment: The validity of the calculated GFR GFRAA in patients over 70 years has not been determined. Clinical correlation is essential. Performed By: #### L 500.2500, L100.0100 #### [facility] [address] [place], [address] EST GFR - AA 110 mL/min Normal >60 [facility] Comment on above: Result Comment: Afri can Chilean GFR Calc Performed By: #### L 500.2500, L100.0100 #### [facility] [address] [place], [address] GAP 3 Low 5-15 [facility] Comment on above: Performed By: #### L 500.2500, L100.0100 #### [facility] [address] [place], [address] GFR/1.73 sq M.predicted among non-blacks MDRD (S/P/Bld) [Vol rate/Area] 91 mL/min/{1.73_m2} Normal >60 [facility] Comment on above: Result Comment: Non- GFR Calc Performed By: #### L 500.2500, L100.0100 #### [facility] [address] [place], [address] Glucose [Mass/Vol] 126 mg/dL High 74-106 [facility] Comment on above: Result Comment: Fast ing Glucose result greater than or equal to 126 mg/dL suggests DIABETES MELLITUS per A.D.A. criteria. Performed By: #### L 500.2500, L100.0100 #### [facility] [address] [place], [address] Potassium [Moles/Vol] 5.0 mmol/L Normal 3.5-5.1 [facility] Comment on above: Performed By: #### L 500.2500, L100.0100 #### [facility] [address] [place], [address] Sodium [Moles/Vol] 136 mmol/L Normal 136-145 [facility] Comment on above: Performed By: #### L 500.2500, L100.0100 #### [facility] [address] [place], [address] Urea nitrogen [Mass/Vol] 9 mg/dL Normal 7-18 [facility] Comment on above: Performed By: #### L 500.2500, L100.0100 #### [facility] [address] [place], [address] CBC W/Diff, Automatedon 10-3 -2023 Absolute Lymph 1.18 X10 3/uL Normal 0.83-4.51 [facility] Comment on above: Performed By: #### L 500.2500, L100.0100 #### [facility] [address] [place], [address] Absolute Neut 5.4 X10 3/uL Normal 2.0-7.7 [facility] Comment on above: Performed By: #### L 500.2500, L100.0100 #### [facility] [address] [place], [address] Basophils/100 WBC (Bld) 0.8 % Normal 0-1 [facility] Comment on above: Performed By: #### L 500.2500, L100.0100 #### [facility] [address] [place], [address] Eosinophils/100 WBC (Bld) 3.6 % Normal 0-5 [facility] Comment on above: Performed By: #### L 500.2500, L100.0100 #### [facility] [address] [place], [address] Erythrocyte distribution width (RBC) [Ratio] 12.4 % Normal 11.6-14.6 [facility] Comment on above: Performed By: #### L 500.2500, L100.0100 #### [facility] [address] [place], [address] Hematocrit (Bld) [Volume fraction] 46.2 % Normal 37-47 [facility] Comment on above: Performed By: #### L 500.2500, L100.0100 #### [facility] [address] [place], [address] Hemoglobin (Bld) [Mass/Vol] 14.6 g/dL Normal 12.0-15.0 [facility] Comment on above: Performed By: #### L 500.2500, L100.0100 #### [facility] [address] [place], [address] IG% 0.400 Normal 0.0-0.9 [facility] Comment on above: Result Comment: IG% - Immature Granulocytes (promyelocytes, myelocytes and metamyelocytes) > 1% indicates that a LEFT SHIFT is Present. Performed By: #### L 500.2500, L100.0100 #### [facility] [address] [place], [address] Lymphocytes/100 WBC (Bld) 15.8 % Low 19-41 [facility] Comment on above: Performed By: #### L 500.2500, L100.0100 #### [facility] [address] [place], [address] MCH (RBC) [Entitic mass] 31.0 pg Normal 27.0-32.0 [facility] Comment on above: Performed By: #### L 500.2500, L100.0100 #### [facility] [address] [place], [address] MCHC (RBC) [Mass/Vol] 31.6 g/dL Low 32-36 [facility] Comment on above: Performed By: #### L 500.2500, L100.0100 #### [facility] [address] [place], [address] MCV (RBC) [Entitic vol] 98.1 fL Normal 81-99 [facility] Comment on above: Performed By: #### L 500.2500, L100.0100 #### [facility] [address] [place], [address] Monocytes/100 WBC (Bld) 7.5 % Normal 0-10 [facility] Comment on above: Performed By: #### L 500.2500, L100.0100 #### [facility] [address] [place], [address] Neutrophils/100 WBC (Bld) 71.9 % High 47-70 [facility] Comment on above: Performed By: #### L 500.2500, L100.0100 #### [facility] [address] [place], [address] Nucleated RBC (Bld) [#/Vol] 0 10*3/uL Normal 0-5 [facility] Comment on above: Performed By: #### L 500.2500, L100.0100 #### [facility] [address] [place], [address] Platelet mean volume (Bld) [Entitic vol] 10.6 fL Normal 6.2-12.0 [facility] Comment on above: Performed By: #### L 500.2500, L100.0100 #### [facility] [address] [place], [address] Platelets (Bld) [#/Vol] 337 10*3/uL Normal 150-450 [facility] Comment on above: Performed By: #### L 500.2500, L100.0100 #### [facility] [address] [place], [address] RBC (Bld) [#/Vol] 4.71 10*6/uL Normal 4.2-5.4 [place] Comment on above: Performed By: #### L 500.2500, L100.0100 #### [facility] [address] [place], [address] RDW SD 45.4 fl High 35.1-43.9 [facility] Comment on above: Performed By: #### L 500.2500, L100.0100 #### [facility] [address] [place], [address] WBC (Bld) [#/Vol] 7.5 10*3/uL Normal 4.4-11.0 [facility] Comment on above: Performed By: #### L 500.2500, L100.0100 #### [facility] [address] [place], [address] HIP, UNI W/ Pelvis 2-3 Views on 06-28-2024 HIP, UNI W/ Pelvis 2-3 Views [facility] Imaging Services [address] [place] [address] HIP, UNI W/ Pelvis 2-3 Views MR#: [id number] Acct: [id number] Name: VIOLA SCOTT Rep #: [id number] : 1955 F 68 From: Ignacio Brady MD PCP: Dr. Silviano Walsh MD Status: REG CLI Study: HIP, UNI W/ Pelvis 2-3 Views Date of Exam: Exam# [id number] Ordering Dr: Silviano Walsh MD [id number] STUDY: X-RAY - PELVIS AND RIGHT HIP REASON FOR EXAM: Female, 68 years old. Right hip pain. TECHNIQUE: 3 views of the pelvis and right hip. COMPARISON: None. FINDINGS: There is a non-specific bowel gas pattern. There are multiple metallic surgical clips in the pelvis.. Normal bilateral iliac wings, sacroiliac joints and visualized sacrum. Normal bilateral superior and inferior pubic rami. Normal pubic symphysis. Normal bilateral ischial tuberosities. Normal visualized femoral head. Normal acetabulum. Normal hip joint. There is no demonstrated acute fracture. RAD/HIP, UNI W/ Pelvis 2-3 Views IMPRESSION: Unremarkable x-ray examination of the pelvis and right hip. Electronically Signed: Ignacio Brady MD at 15:32 EDT Reading Location ID and State: [address] [place] [address] , Service support , CC: Dr. 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 Silviano pastrana MD Age/Sex: 68/F Location: [facility] Status: Signed Intake Vital Signs 05/23/24 13:23 06/28/24 13:48 Height 5 ft 3 in 5 ft 3 in Weight: 114 lb 112 lb BMI 20.2 19.8 BP 124/74 H 116/72 Blood Pressure Location Lt brachial Lt brachial Position Sitting Sitting Respiration 14 12 Pulse 72 122 H Pulse Source Monitor Monitor Temp 97.2 F L 97.3 F L Temp Source Temporal Temporal Pulse Oximetry (%) 98 96 Oxygen Delivery Method room air room air Intake Visit Reasons: 1 M FU Chief Complaint: Follow-up chronic conditions Allergies moxifloxacin (From Avelox) Allergy (Severe, Verified 06/28/24 13:49) hives/swelling Seasonal Allergies: Uncoded Allergy (Intermediate, Verified 06/28/24 13:49) Other Medications ???Medication ???Instructions ???Recorded ???Confirmed ???Type Lactobacillus acidophilus 250 100 mmu cells PO DAILY 03/07/20 06/28/24 History million cell capsule (Probiotic Acidophilus) ephedrine-guaifenesin 12.5 mg-200 1 tab PO Q4H PRN 03/07/20 06/28/24 History mg tablet (Primatene Asthma) nebulizer accessories (Hypersoniq #1 ea 07/01/20 05/23/24 Rx Nebulizer Cartridge) albuterol sulfate 2.5 mg/3 mL 2.5 mg (3 mL) inhalation Q4H PRN 06/17/21 06/28/24 Rx (0.083 %) solution for nebulization shortness of breath or wheezing #90 mL calcium 300 mg-D3 20 mcg-magnesium 1 tab PO DAILY 07/09/21 06/28/24 History 25 mg-coppr 0.5 [id number] tablet (Caltrate-D3 Plus Minerals) ascorbic acid (vitamin C) 500 mg mg PO 11/05/21 06/28/24 History capsule acetaminophen 650 mg 650 mg PO Q8H 04/02/22 06/28/24 History tablet,extended release (Tylenol Arthritis Pain) triamcinolone acetonide 0.1 % 1 applic topical TID PRN rash #80 01/06/23 06/28/24 Rx topical cream grams fluticasone propionate 50 1 spray intranasal BID PRN 09/26/23 06/28/24 Rx mcg/actuation nasal allergies, congestion #16 grams spray,suspension citalopram 40 mg tablet (Celexa) 40 mg PO DAILY #90 tabs 03/09/24 06/28/24 Rx hydrochlorothiazide 12.5 mg tablet 12.5 mg PO QAM #90 tabs 03/09/24 06/28/24 Rx lisinopril 40 mg tablet 40 mg PO DAILY #90 tabs 03/09/24 06/28/24 Rx meloxicam 15 mg tablet See Rx Instructions .Route 03/09/24 06/28/24 Rx .COMPLEX #90 tabs montelukast 10 mg tablet 10 mg PO QHS #90 tabs 03/09/24 06/28/24 Rx (Singulair) simvastatin 40 mg tablet 40 mg PO QPM #90 tabs 03/09/24 06/28/24 Rx zoledronic acid 5 mg/100 mL in 1 ea .Route .Yearly #100 mL 03/09/24 06/28/24 Rx mannitol 5 %-water intravenous piggybck (Reclast) budesonide 160 mcg-glycopyr 9 2 inh inhalation BID #10.7 grams 05/08/24 06/28/24 Rx mcg-formot 4.8 mcg/actuation HFA inhaler (Breztri Aerosphere) baclofen 10 mg tablet 10 mg PO Q8H PRN muscle spasm #90 05/23/24 06/28/24 Rx tabs albuterol sulfate 90 mcg/actuation 2 puff inhalation Q4H PRN 06/01/24 06/28/24 Rx aerosol inhaler shortness of breath or wheezing #18 grams metoprolol succinate 25 mg 12.5 mg (1/2 x 25 mg) PO DAILY #90 06/28/24 06/28/24 Rx tablet,extended release 24 hr tabs Have you fallen in the past year?: No [facility] Medical History (Updated 06/28/24 @ 14:[address] Silviano Walsh MD) Flu vaccine need Chronic back pain Hyponatremia Health care maintenance Cat bite of hand Elevated liver enzymes Chronic cough COPD (chronic obstructive pulmonary disease) Right hip pain Tobacco use disorder, continuous Encounter for screening for malignant neoplasm of lung in current smoker with 30 pack year history or greater Osteoporosis Muscle spasm of back Osteoarthritis Asthma exacerbation Allergic rhinitis Heart burn Pleurisy Vitamin deficiency History of skin cancer Osteoarthritis History of kidney stones Migraine High cholesterol Hypertension Frequent headaches History of fracture Back pain Asthma Arthritis Seasonal allergies Surgical History H/O tubal ligation H/O hernia repair History of tonsillectomy and adenoidectomy Family History Father Skin cancer TIA (transient ischemic attack) High cholesterol Hypertension Heart disease Asthma Alzheimer disease Social History 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 Normal [facility] Inital Evaluation (1) - PTon 05-30-2024 Inital Evaluation (1) - PT [facility] Physical Therapy [facility] [address] [place] [address] / REHABILITATION SERVICES INITIAL EVALUATION MR#: [id number] Acct: [id number] Name: VIOLA SCOTT Rep #: [id number] : 1955 68 From: Brenda Scott PT. MD [place], OCS Referring Dr.: Dr. Silviano Walsh MD Status: REG [facility] Insurance: [facility] SEL[employer] PAY [facility]URANCE Patient's Visit Information Visit Information Visit Information: VIOLA SCOTT is a 68 year old F referred to Physical Therapy by Dr. Silviano Walsh MD with a diagnosis of DORSALGIA. Date of Evaluation: 05/30/24 Physical Therapist: Ilya Bergman PT, Cert T, OCS Visit Plan Frequency: 2x /Week Duration: 4 Weeks Plan: PRECAUTION: OSTEOPOROSIS PT INTERVENTIONS DLS,POSTURAL EX'S , THORACIC STRENGTHENING ,ACTIVITY MODIFICATION AND FUNCTIONAL STRENGTHENING Subjective Subjective: This 68 y/o female presents to physical therapy with lumbar/thoracic pain. Patient injury in March pain progressively worse . Patient had flu and had continue throwing up which made symptoms worse. Patient eventually seen DR had x-rays showed apparent compression fx . Patient was referred to pain management. Initially, taking oxycodone which patient stopped. Pain location of pain mid thoracic spine and lumbar spine .Patient taking osteoporosis reclast infusion 1x /year. Aggravating factors bending lifting. Alleviating factors rest. Symptoms described as tired.Coughing/sneezin g -. Denies paresthesia/tingling -. Bowel/bladder -. Patient condition affects and job demands. Patient goals prevent compression fractures /back pain and RTW SOCAIL: VOCATION: [employer] at [employer] Pain Bilateral Back: Pain Intensity (Out of 10): 6 Pain Intensity Range: 10 Objective Objective: POSTURE: thoracic kyphosis with swayed spine GAIT: reciprocal pattern PALAPTION: unremarkable BUE: AROM WFL THORACIC ROM: flexion min loss ,extension severe loss , rotation mod loss LUMBAR ROM: flexion mod loss ,extension severe loss ,side glides mod loss FLEXABILITY: hamstrings min loss MMT: BUE grossly 4/5 quad/hams 4/5 ,hip flexion 4-/5 ,ankle 5/5 Special Tests L/S Slump test left side: Negative L/S Slump test right side: Negative L/S Left Straight Leg Raise: Negative L/S Right Straight Leg Raise: Negative Balance/Special Test Scores Oswestry Low Back Score: 26 Goals Goal 1:: Patient to be I with HEP for back Goal Time Frame: 4-6 Weeks Goal 2:: Patient to improve back oswestry score by 5 points to improve QOL and function Goal Time Frame: 4-6 Weeks Goal 3:: Patient to demonstrate 50% improvement with less pain and improved function Goal Time Frame: 4-6 Weeks Goal 4:: Patient eb able to return to work with min limations Goal Time Frame: 4-6 Weeks Rehabilitation Potential Physical Therapy Diagnosis: This patient has lumbar and thoracic pain with apparent compression fracture with h/o with pain with bending/lifting affects ADL'S and RTW Rehabilitation Potential: Good Anticipated Interventions Patient/Client Instruction: Educate patient on: Condition and Plan of Care For the Purpose of:: To decrease pain, To increase ROM, To improve muscle performance and motor function, To improve ability to perform ADL's, To increase tolerance to activity/condition/pos ition, To improve ability of physical actions for home/community/work/le isure, To improve health of tissue, To decrease soft tissue restriction, To increase flexibility/ROM, To prevent re-injury and To improve tolerance to ADL's Therapeutic Exercise to Include: Strength training, Endurance training, Postural training, Flexibilty training and Dynamic Lumbar Stabilization For the Purpose of:: To decrease pain, To improve muscle performance and motor function, To improve ability to perform ADL's, To improve performance and independence with ADL's, To improve ability of physical actions for home/community/work/le isure, To improve health of tissue, To decrease soft tissue restriction, To increase flexibility/ROM and To reduce risk of recurrence TENS: Yes IF ES: Yes Thermo therapy (hot pack): Yes Ultrasound (thermal/non thermal): Yes For the Purpose of:: To decrease pain Text: Thank you for the opportunity to evaluate your patient. For Medicare and Medicare HMO plans, please review the plan of care and approve it. It will need to be FAXED BACK to us at [phone] for Medicare purposes. For Medicare only, by signing this I certify the plan of care. Please let me know if there are questions or concerns regarding this plan of care. Physician Signature: Date:__ 05/31/24 9137 CC: Dr. Silviano Walsh MD CARLITO Signed Normal [facility] Internal Medicine Office Vis ito 05-23-2024 Internal Medicine Office Visit [facility] [place] [place] [address] OFFICE VISIT Date of Service: 05/23/24 MR#: [id number] Acct: [id number] Name: VIOLA SCOTT Rep #: [id number] : 1955 Provider: Dr. 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 Is patient in pain?: Yes (Low back pain) Pain scale (1-10): 8 Allergies moxifloxacin (From Avelox) Allergy (Severe, Verified 05/23/24 13:15) hives/swelling Seasonal Allergies: Uncoded Allergy (Intermediate, Verified 05/23/24 13:15) Other Medications ???Medication ???Instructions ???Recorded ???Confirmed ???Type Lactobacillus acidophilus 250 100 mmu cells PO DAILY 03/07/20 05/23/24 History million cell capsule (Probiotic Acidophilus) ephedrine-guaifenesin 12.5 mg-200 1 tab PO Q4H PRN 03/07/20 05/23/24 History mg tablet (Primatene Asthma) nebulizer accessories ([employer]oniq #1 ea 07/01/20 05/23/24 Rx Nebulizer Cartridge) albuterol sulfate 2.5 mg/3 mL 2.5 mg (3 mL) inhalation Q4H PRN 06/17/21 05/23/24 Rx (0.083 %) solution for nebulization shortness of breath or wheezing #90 mL calcium 300 mg-D3 20 mcg-magnesium 1 tab PO DAILY 07/09/21 05/23/24 History 25 mg-coppr 0.5 [id number] tablet (Caltrate-D3 Plus Minerals) ascorbic acid (vitamin C) 500 mg mg PO 11/05/21 05/23/24 History capsule acetaminophen 650 mg 650 mg PO Q8H 04/02/22 05/23/24 History tablet,extended release (Tylenol Arthritis Pain) triamcinolone acetonide 0.1 % 1 applic topical TID PRN rash #80 01/06/23 05/23/24 Rx topical cream grams fluticasone propionate 50 1 spray intranasal BID PRN 09/26/23 05/23/24 Rx mcg/actuation nasal allergies, congestion #16 grams spray,suspension metoprolol succinate 25 mg 12.5 mg (1/2 x 25 mg) PO DAILY #90 09/26/23 05/23/24 Rx tablet,extended release 24 hr tabs albuterol sulfate 90 mcg/actuation 2 puff inhalation Q4H PRN 03/09/24 05/23/24 Rx aerosol inhaler shortness of breath or wheezing #18 grams citalopram 40 mg tablet (Celexa) 40 mg PO DAILY #90 tabs 03/09/24 05/23/24 Rx hydrochlorothiazide 12.5 mg tablet 12.5 mg PO QAM #90 tabs 03/09/24 05/23/24 Rx lisinopril 40 mg tablet 40 mg PO DAILY #90 tabs 03/09/24 05/23/24 Rx meloxicam 15 mg tablet See Rx Instructions .Route 03/09/24 05/23/24 Rx .COMPLEX #90 tabs montelukast 10 mg tablet 10 mg PO QHS #90 tabs 03/09/24 05/23/24 Rx (Singulair) simvastatin 40 mg tablet 40 mg PO QPM #90 tabs 03/09/24 05/23/24 Rx zoledronic acid 5 mg/100 mL in 1 ea .Route .Yearly #100 mL 03/09/24 05/23/24 Rx mannitol 5 %-water intravenous piggybck (Reclast) budesonide 160 mcg-glycopyr 9 2 inh inhalation BID #10.7 grams 05/08/24 05/23/24 Rx mcg-formot 4.8 mcg/actuation HFA inhaler (Breztri Aerosphere) baclofen 10 mg tablet 10 mg PO Q8H PRN muscle spasm #90 05/23/24 05/23/24 Rx tabs methylprednisolone 4 mg tablets in See Rx Instructions PO PER PKG DIR 05/23/24 05/23/24 Rx a dose pack (Medrol (Niko)) #21 tabs Have you fallen in the past year?: No [facility] Medical History (Updated 05/23/24 @ 13:[address] Silviano Walsh MD) Chronic back pain Hyponatremia Health care maintenance Cat bite of hand Elevated liver enzymes Chronic cough COPD (chronic obstructive pulmonary disease) Right hip pain Tobacco use disorder, continuous Encounter for screening for malignant neoplasm of lung in current smoker with 30 pack year history or greater Osteoporosis Muscle spasm of back Osteoarthritis Asthma exacerbation Allergic rhinitis Heart burn Pleurisy Vitamin deficiency History of skin cancer Osteoarthritis History of kidney stones Migraine High cholesterol Hypertension Frequent headaches History of fracture Back pain Asthma Arthritis Seasonal allergies Surgical History H/O tubal ligation H/O hernia repair History of tonsillectomy and adenoidectomy Family History Father Skin cancer TIA (transient ischemic attack) High cholesterol Hypertension Heart disease Asthma Alzheimer disease Social 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 Normal [facility] Emergency Department Summary on 05-14-2024 Emergency Department Summary [facility] Medical Records Department [address] [place] [address] Emergency Department Summary 05/14/24 MR#: [id number] Acct: [id number] Name: VIOLA SCOTT Rep #: [id number] : 1955 68 From: Kamron Zazueta MD PCP: Dr. Silviano Walsh MD Status:REG ER Location: ED HPI History of Present Illness Chief Complaint: Back Informant: patient Narrative Narrative: 68-year-old female with gradual onset of pain in her low-mid back nonlateralizing worse with movement for the past 3 to 4 weeks. She been referred to pain management has not seen them yet. She been taking baclofen and Tylenol for the pain, she had this from a prior back problem ended up being a compression fracture. She does not recall the events surrounding the onset of the pain. She denies any bowel or bladder dysfunction, radiation down her legs, numbness, or focal weakness. She denies any urinary abnormalities/symptoms . No saddle anesthesia. [facility] Medical History Hyponatremia Health care maintenance Cat bite of hand Elevated liver enzymes Chronic cough COPD (chronic obstructive pulmonary disease) Right hip pain Tobacco use disorder, continuous Encounter for screening for malignant neoplasm of lung in current smoker with 30 pack year history or greater Osteoporosis Muscle spasm of back Osteoarthritis Asthma exacerbation Allergic rhinitis Heart burn Pleurisy Vitamin deficiency History of skin cancer Osteoarthritis History of kidney stones Migraine High cholesterol Hypertension Frequent headaches History of fracture Back pain Asthma Arthritis Seasonal allergies Home Medications ???Medication ???Instructions ???Recorded ???Last Taken ???Type Lactobacillus acidophilus 250 100 mmu cells PO DAILY 03/07/20 Unknown History million cell capsule (Probiotic Acidophilus) ephedrine-guaifenesin 12.5 mg-200 1 tab PO Q4H PRN 03/07/20 Unknown History mg tablet (Primatene Asthma) nebulizer accessories (Hypersoniq #1 ea 07/01/20 Unknown Rx Nebulizer Cartridge) albuterol sulfate 2.5 mg/3 mL 2.5 mg (3 mL) inhalation Q4H PRN 06/17/21 Unknown Rx (0.083 %) solution for nebulization shortness of breath or wheezing #90 mL calcium carb 300 mg-D3 20 mcg-mag 1 tab PO DAILY 07/09/21 Unknown History ox 25 mg-coper hand 0.5 [id number] tablet (Caltrate-D3 Plus Minerals) ascorbic acid (vitamin C) 500 mg mg PO 11/05/21 Unknown History capsule acetaminophen 650 mg 650 mg PO Q8H 04/02/22 Unknown History tablet,extended release (Tylenol Arthritis Pain) triamcinolone acetonide 0.1 % 1 applic topical TID PRN rash #80 01/06/23 Unknown Rx topical cream grams fluticasone propionate 50 1 spray intranasal BID PRN 09/26/23 Unknown Rx mcg/actuation nasal allergies, congestion #16 grams spray,suspension metoprolol succinate 25 mg 12.5 mg (1/2 x 25 mg) PO DAILY #90 09/26/23 Unknown Rx tablet,extended release 24 hr tabs albuterol sulfate 90 mcg/actuation 2 puff inhalation Q4H PRN 03/09/24 Unknown Rx aerosol inhaler shortness of breath or wheezing #18 grams citalopram 40 mg tablet (Celexa) 40 mg PO DAILY #90 tabs 03/09/24 Unknown Rx hydrochlorothiazide 12.5 mg tablet 12.5 mg PO QAM #90 tabs 03/09/24 Unknown Rx lisinopril 40 mg tablet 40 mg PO DAILY #90 tabs 03/09/24 Unknown Rx meloxicam 15 mg tablet See Rx Instructions .Route 03/09/24 Unknown Rx .COMPLEX #90 tabs montelukast 10 mg tablet 10 mg PO QHS #90 tabs 03/09/24 Unknown Rx (Singulair) simvastatin 40 mg tablet 40 mg PO QPM #90 tabs 03/09/24 Unknown Rx zoledronic acid 5 mg/100 mL in 1 ea .Route .Yearly #100 mL 03/09/24 Unknown Rx mannitol 5 %-water intravenous piggybck (Reclast) baclofen 10 mg tablet 5 - 10 mg (0.5 - 1 x 10 mg) PO BID 03/13/24 Unknown Rx PRN muscle spasm #30 tabs budesonide 160 mcg-glycopyr 9 2 inh inhalation BID #10.7 grams 05/08/24 Unknown Rx mcg-formot 4.8 mcg/actuation HFA inhaler (Breztri Aerosphere) oxycodone-acetaminophe n 5 mg-325 1 tab PO Q6H PRN PRN Pain 3 days 05/14/24 Unknown Rx mg tablet #12 TABLETS Allergy/AdvReac Type Severity Reaction Status Date / Time moxifloxacin (From Avelox) Allergy Severe hives/swell Verified 05/14/24 11:02 ing Seasonal Allergies: Uncoded Allergy Intermediate Other Verified 05/14/24 11:02 Family History Father Skin cancer TIA (transient ischemic attack) High cholesterol Hypertension Heart disease Asthma Alzheimer disease Surgical History H/O tubal ligation H/O hernia repair History of tonsillectomy and adenoidectomy 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 Normal [facility] Lumbar Spine 2 or 3 Viewson 05-14-2024 Lumbar Spine 2 or 3 Views [facility] Imaging Services [address] [place] [address] Lumbar Spine 2 or 3 Views MR#: [id number] Acct: [id number] Name: VIOLA SCOTT Rep #: [id number] : 1955 F 68 From: Rivera wong MD PCP: Dr. Silviano Walsh MD Status: PRE ER Study: Lumbar Spine 2 or 3 Views Date of Exam: Exam# [id number] Ordering Dr: aKmron Zazueta MD [id number] STUDY: X-RAY - LUMBAR SPINE REASON FOR EXAM: Female, 68 years old. 3-4 week history of back pain. TECHNIQUE: 3 view(s) of the lumbar spine were obtained. COMPARISON: Comparison is made with prior study dated March 16, 2021. FINDINGS: There is an exaggerated lumbar lordosis. There is no substantial scoliosis. Minimal anterior listhesis of L4 on L5. Loss of height of the L5 vertebrae as well as the T12 and L1 vertebrae. This has progressed as compared to prior study. There is multi-level degenerative disc disease with multi-level disc space narrowing. Facet joint osteoarthritis. There is atherosclerotic calcification of the abdominal aorta without a demonstrated aneurysm. RAD/Lumbar Spine 2 or 3 Views IMPRESSION: Degenerative changes of the spine, as detailed above. Exaggerated lordosis. Loss of height of the superior endplate of the T12, L1 and L5 vertebrae. These have progressed as compared to prior study. Electronically Signed: Rivera De La O MD at 12:33 EDT , CC: Dr. Kamron Zazueta MD; Dr. 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 Silviano Walsh MD Status: PRE ER Study: Thoracic Spine 2 Views Date of Exam: 05/14/24 Exam# [id number] Ordering Dr: Kamron Zazueta MD [id number] STUDY: X-RAY - THORACIC SPINE REASON FOR EXAM: Female, 68 years old. Back pain. TECHNIQUE: 3 view(s) of the thoracic spine were obtained. COMPARISON: None. FINDINGS: There is an increase in the normal thoracic kyphosis. Mild dextroscoliosis. There is demineralization of the thoracic spine. Loss of height of mid and lower dorsal vertebrae. There is multilevel disc space narrowing of the thoracic spine. Atherosclerotic calcification of the aortic arch. RAD/Thoracic Spine 2 Views IMPRESSION: Minimal dextroscoliosis of the upper thoracic spine. Increased kyphosis. Loss of height of the mid and lower dorsal vertebrae. Electronically Signed: Rivera De La O MD at 12:37 EDT Reading Location ID and State: [address] [place] [address] , Service support , CC: Dr. Kamron Zazueta MD; Dr. Silviano Walsh MD [employer] Good[employer] Worker: Signed Normal [facility] SCRN MAMM (CAD)W/CHEVY Davis n 05-02-2024 SCRN MAMM (CAD)W/CHEVY BILAT [facility] Imaging Services [address] [place], [place] [id number] SCRN MAMM (CAD)W/CHEVY MICHIAT MR#: [id number] Acct: [id number] Name: VIOLA SCOTT Rep #: [id number] : 1955 F 68 From: Rivera wong MD PCP: Dr. Silviano Walsh MD Status: REG [facility] Study: SCRN MAMM (CAD)W/CHEVY BILAT Date of Exam: 12/20 Exam# [id number] Ordering Dr: Silviano Walsh MD [id number] MAMMOGRAPHY - BILATERAL SCREENING REASON FOR EXAM: Female, 68 years old. Routine annual screening examination. PERTINENT HISTORY: Daughter with breast cancer. TECHNIQUE: Digital bilateral breast chevy (3D mammographic acquisition) in the CC and MLO projections. 2-D mediolateral oblique (MLO) and craniocaudad (CC) views of both breasts were obtained. CAD: Full Field Digital Mammography with Computer Added Detection was performed. COMPARISON: Comparison is made with prior study April 15, 2022 and May 01, 2020. FINDINGS: Breast Composition: The breasts are almost entirely fatty. There are no dominant masses or suspicious calcifications. No other significant abnormalities are identified. There has been no significant change since the prior study. BI/SCRN MAMM (CAD)W/CHEVY BILAT IMPRESSION: Stable bilateral screening mammogram. Yearly follow-up mammogram recommended. (A) ASSESSMENT CATEGORY: BIRADS Category 1: Negative. A letter regarding these results will be sent to the patient by the facility within 30 days. Approximately 10% of breast cancers are not detected by mammography. A normal mammogram should not delay biopsy of a clinically suspicious abnormality. [id number] Electronically Signed: Rivera De La O MD at 15:29 EDT , CC: Dr. Silviano Walsh MD [employer] Worker: Signed Normal [facility] Laboratory - Chemistry and C hemistry - challengeOrdered By: Silviano Walsh on 10-14-2023 Amylase [Catalytic activity/Vol] 180 U/L 5-55 [facility] Absolute lymphocyte countOrd ered By: Silviano Walsh on 09-22-2023 Lymphocytes Auto (Unsp spec) [#/Vol] 1.45 10*3/uL 0.83-4.51 [facility] Automated lymphocyte count a s percentage of total leukocytesOrdered By: Silviano Walsh on 09-22-2023 Lymphocytes/100 WBC Auto (Unsp spec) 30.9 % 19-41 [facility] Basophil percentageOrdered B y: Silviano Walsh on 09-22-2023 Basophils/100 WBC (Bld) 1.7 % 0-1 [facility] Bilirubin [Mass/Vol] 0.40 mg/dL 0.20-1.00 [facility] Comment on above: For patients on eltr ombopag therapy, use of Dimension [place] TBIL is not recommended. Chloride [Moles/Vol] 100 mmol/L 98-107 [facility] Cholesterol [Mass/Vol] 187 mg/dL <200 [facility] Comment on above: <200 mg/dL Desirable 200-240 mg/dL Borderline >240 mg/dL High Risk Eosinophils/100 WBC (Bld) 3.6 % 0-5 [facility] Glucose [Mass/Vol] 120 mg/dL 74-106 [facility] Comment on above: Fasting Glucose resu lt from 100 to 125 mg/dL suggests IMPAIRED HOMEOSTASIS per A.D.A. criteria. Hemoglobin (Bld) [Mass/Vol] 14.0 g/dL 12.0-15.0 [facility] Monocytes/100 WBC (Bld) 10.0 % 0-10 [facility] Neutrophils (Bld) [#/Vol] 2.5 10*3/uL 2.0-7.7 [facility] Neutrophils/100 WBC (Bld) 53.6 % 47-70 [facility] Potassium [Moles/Vol] 4.4 mmol/L 3.5-5.1 [facility] Protein [Mass/Vol] 7.3 g/dL 6.4-8.2 [facility] Sodium [Moles/Vol] 133 mmol/L 136-145 [facility] Triglyceride [Mass/Vol] 58 mg/dL <199 [facility] Comment on above: The drugs N-Acetylcy steine and Metamizole may falsely depress this assay.Serum Triglycerides Reference Interval Normal <150 mg/dL Borderline high 150 - 199 mg/dL High 200 - 499 mg/dL Very High > or = 500 mg/dL WBC (Bld) [#/Vol] 4.7 10*3/uL 4.4-11.0 [facility] Determination of erythrocyte mean corpuscular volume (MCV)Ordered By: Silviano Walsh on 09-22-2023 MCV (RBC) [Entitic vol] 95.2 fL 81-99 [facility] Erythrocyte distribution wid th ratioOrdered By: Les[place]ej[place]kermit Walsh on 09-22-2023 Erythrocyte distribution width (RBC) [Ratio] 11.6 % 11.6-14.6 [facility] Erythrocyte distribution wid th standard deviationOrdered By: [facility] Vilazane on 09-22-2023 Erythrocyte distribution width (RBC) [Entitic vol] 40.6 fL 35.1-43.9 [facility] Hematocrit Auto (Bld) [Volum e fraction]Ordered By: Silviano Walsh on 09-22-2023 Hematocrit (Bld) [Volume fraction] 42.1 % 37-47 [facility] Immature granulocytes/100 WB C Auto (Bld)Ordered By: Silviano Walsh on 09-22-2023 Immature granulocytes/100 WBC (Bld) 0.200 % 0.0-0.9 [facility] Comment on above: IG% - Immature Granu locytes (promyelocytes, myelocytes and metamyelocytes) > 1% indicates that a LEFT SHIFT is Present. Laboratory - Chemistry and C hemistry - challengeOrdered By: Silviano aWlsh on 09-22-2023 Albumin/Globulin [Mass ratio] 0.9 {ratio} 0.9-2.4 [facility] ALP [Catalytic activity/Vol] 178 U/L 45-117 [facility] ALT [Catalytic activity/Vol] 34 U/L 13-56 [facility] Cholesterol in HDL (Body fld) [Mass/Vol] 82 mg/dL >40 [facility] Comment on above: The drugs N-Acetylcy steine and Metamizole may falsely depress this assay. Reference Range HDL <40 mg/dL Low HDL Cholesterol HDL >or= 60 mg/dL High HDL Cholesterol Cholesterol in LDL (Body fld) [Moles/Vol] 93 mg/dL 0-130 [facility] Cholesterol in VLDL Calc [Moles/Vol] 12 mg/dL 5-40 [facility] CO2 [Moles/Vol] 30.0 mmol/L 21.0-32.0 [facility] Globulin (S) [Mass/Vol] 3.8 g/dL 2.2-4.2 [facility] Urea nitrogen/Creatinine [Mass ratio] 13.5 mg/mg 10-20 [facility] Laboratory - Hematology and Cell countsOrdered By: Silviano Walsh on 09-22-2023 MCH (RBC) [Entitic mass] 31.7 pg 27.0-32.0 [facility] MCHC (RBC) [Mass/Vol] 33.3 g/dL 32-36 [facility] Nucleated RBC/100 WBC (Bld) [Ratio] 0 % 0-5 [facility] Platelets (Bld) [#/Vol] 251 10*3/uL 150-450 [facility] No Panel InformationOrdered By: Silviano Walsh on 09-22-2023 Estimated GFR (MDRD) Amer 129 mL/min >60 [facility] Comment on above: GFR Calc Estimated GFR (MDRD) Non-Af Amer 107 mL/min >60 [facility] Comment on above: Non- GFR Calc Platelet mean volume Terrance-Ec ker (Bld) [Entitic vol]Ordered By: Silviano Walsh on 09-22-2023 Platelet mean volume (Bld) [Entitic vol] 9.7 fL 6.2-12.0 [facility] RBC Auto (Bld) [#/Vol]Ordere d By: Silviano Walsh on 09-22-2023 RBC (Bld) [#/Vol] 4.42 10*6/uL 4.2-5.4 [place] Serum or plasma calcium makayla urement (mass/volume)Ordered By: Silviano Walsh on 09-22-2023 Calcium [Mass/Vol] 9.4 mg/dL 8.5-10.1 [facility] Serum or plasma creatinine m easurement (mass/volume)Ordered By: Silviano Walsh on 09-22-2023 Creatinine [Mass/Vol] 0.59 mg/dL 0.55-1.02 [facility] Comment on above: The validity of the calculated GFR & GFRAA in patients over 70 years has not been determined. Clinical correlation is essential. Serum or plasma urea nitroge n measurement (mass/volume)Ordered By: Silviano Walsh on 09-22-2023 Urea nitrogen [Mass/Vol] 8 mg/dL 7-18 [facility] Thin prep Papanicolaou smear with manual screeningOrdered By: Silviano Walsh on 09-22-2023 Thin prep Papanicolaou smear with manual screening 3.5 g/dL 3.2-5.0 [facility] Thin prep Papanicolaou smear with manual screening 23 U/L 15-37 [facility] Thin prep Papanicolaou smear with manual screening 3 5-15 [facility] XR Lumbar spine 3 Viewson IMPRESSION: Age indeterminant moderate superior endplate compression deformity of T12 and mild superior endplate compression deformity of L1. Grade 1 retrolisthesis of L1 on L2 and of L2 on L3. Degenerative changes as described [employer] Worker: PSCB Transcribe Date/Time: Jan 17 2023 4:03P Dictated by : RANDELL BAXTER MD This examination was interpreted and the report reviewed and electronically signed by: RANDELL BAXTER MD on Jan 17 2023 4:06PM [facility] [place] DIVISION OF RADIOLOGY * * *Final Report* [...] in the pelvis. DIVISION OF RADIOLOGY Provider, [facility] - 01/17/2023 * * *Final Report* * [...] L2 on L3. Degenerative changes as described [employer] Worker: EILEEN Transcribe Date/Time: Jan 17 2023 4:03P Dictated by : RANDELL BAXTER MD This examination was interpreted and the report reviewed and electronically signed by: RANDELL BAXTER MD on Jan 17 2023 4:06PM EST [facility] Radiology Study observation (narrative) Kristan rick [facility] XR Lumbar spine 3 ViewsOrder ed By: [facility] Provider on 01-17-2023 [facility] Absolute lymphocyte countOrd ered By: Dr. Walsh on 01-06-2023 Lymphocytes Auto (Unsp spec) [#/Vol] 1.44 10*3/uL 0.83-4.51 [facility] Basophil percentageOrdered B y: Dr. Walsh on 01-06-2023 Basophils/100 WBC (Bld) 1.3 % 0-1 [facility] Bilirubin [Mass/Vol] 0.40 mg/dL 0.20-1.00 [facility] Comment on above: For patients on eltr ombopag therapy, use of Dimension [place] TBIL is not recommended. Chloride [Moles/Vol] 103 mmol/L 98-107 [facility] Eosinophils/100 WBC (Bld) 8.3 % 0-5 [facility] Glucose [Mass/Vol] 101 mg/dL 74-106 [facility] Comment on above: Fasting Glucose resu lt from 100 to 125 mg/dL suggests IMPAIRED HOMEOSTASIS per A.D.A. criteria. Neutrophils (Bld) [#/Vol] 2.2 10*3/uL 2.0-7.7 [facility] Neutrophils/100 WBC (Bld) 48.1 % 47-70 [facility] Potassium [Moles/Vol] 4.3 mmol/L 3.5-5.1 [facility] Protein [Mass/Vol] 7.6 g/dL 6.4-8.2 [facility] Sodium [Moles/Vol] 137 mmol/L 136-145 [facility] WBC (Bld) [#/Vol] 4.5 10*3/uL 4.4-11.0 [facility] Blood erythrocytes count (nu mber/volume)Ordered By: Dr. Walsh on 01-06-2023 RBC (Bld) [#/Vol] 4.61 10*6/uL 4.2-5.4 [place] Blood hemoglobin measurement (mass/volume)Ordered By: Dr. Walsh on 01-06-2023 Hemoglobin (Bld) [Mass/Vol] 14.5 g/dL 12.0-15.0 [facility] Blood lymphocytes/100 leukoc ytesOrdered By: Dr. Walsh on 01-06-2023 Lymphocytes/100 WBC (Bld) 32.2 % 19-41 [facility] Blood monocytes/100 leukocyt esOrdered By: Dr. Walsh on 01-06-2023 Monocytes/100 WBC (Bld) 10.1 % 0-10 [facility] Blood platelet mean volumeOr dered By: Dr. Walsh on 01-06-2023 Platelet mean volume (Bld) [Entitic vol] 11.1 fL 6.2-12.0 [facility] Determination of erythrocyte mean corpuscular volume (MCV)Ordered By: Dr. Walsh on 01-06-2023 MCV (RBC) [Entitic vol] 99.8 fL 81-99 [facility] Hematocrit Auto (Bld) [Volum e fraction]Ordered By: Dr. Walsh on 01-06-2023 Hematocrit (Bld) [Volume fraction] 46.0 % 37-47 [facility] Laboratory - Chemistry and C hemistry - challengeOrdered By: Dr. Walsh on 01-06-2023 ALP [Catalytic activity/Vol] 228 U/L 45-117 [facility] ALT [Catalytic activity/Vol] 58 U/L 13-56 [facility] CO2 [Moles/Vol] 29.0 mmol/L 21.0-32.0 [facility] Globulin (S) [Mass/Vol] 4.0 g/dL 2.2-4.2 [facility] Urea nitrogen/Creatinine [Mass ratio] 16.8 mg/mg 10-20 [facility] Laboratory - Hematology and Cell countsOrdered By: Dr. Walsh on 01-06-2023 Erythrocyte distribution width (RBC) [Entitic vol] 43.8 fL 35.1-43.9 [facility] Erythrocyte distribution width (RBC) [Ratio] 11.9 % 11.6-14.6 [facility] Immature granulocytes/100 WBC (Bld) 0.000 % 0.0-0.9 [facility] Comment on above: IG% - Immature Granu locytes (promyelocytes, myelocytes and metamyelocytes) > 1% indicates that a LEFT SHIFT is Present. MCH (RBC) [Entitic mass] 31.5 pg 27.0-32.0 [facility] Nucleated RBC/100 WBC (Bld) [Ratio] 0 % 0-5 [facility] MCHC Auto (RBC) [Mass/Vol]Or dered By: Dr. Walsh on 01-06-2023 MCHC (RBC) [Mass/Vol] 31.5 g/dL 32-36 [facility] No Panel InformationOrdered By: Dr. Walsh on 01-06-2023 Estimated GFR (MDRD) Amer 145 mL/min >60 [facility] Comment on above: GFR Calc Estimated GFR (MDRD) Non-Af Amer 120 mL/min >60 [facility] Comment on above: Non- GFR Calc Vitamin D 25-Hydroxy 49.2 ng/mL [facility] Comment on above: Vitamin D 25(OH) Sta tus Range Deficiency <20 ng/mL (50nmol/L) Insufficiency 20 - 30 ng/mL (50 - 75 nmol/L) Sufficiency 30 - 100 ng/mL (75 - 250 nmol/L) Toxicity >100 ng/mL (>250 nmol/L) Platelets bldOrdered By: Dr. Walsh on 01-06-2023 Platelets (Bld) [#/Vol] 266 10*3/uL 150-450 [facility] Serum or plasma albumin makayla urement (mass/volume)Ordered By: Dr. Walsh on 01-06-2023 Albumin [Mass/Vol] 3.6 g/dL 3.2-5.0 [facility] Serum or plasma albumin/glob ulin mass ratioOrdered By: Dr. Walsh on 01-06-2023 Albumin/Globulin [Mass ratio] 0.9 {ratio} 0.9-2.4 [facility] Serum or plasma calcium makayla urement (mass/volume)Ordered By: Dr. Walsh on 01-06-2023 Calcium [Mass/Vol] 9.4 mg/dL 8.5-10.1 [facility] Serum or plasma creatinine m easurement (mass/volume)Ordered By: Dr. Walsh on 01-06-2023 Creatinine [Mass/Vol] 0.54 mg/dL 0.55-1.02 [facility] Comment on above: The validity of the calculated GFR & GFRAA in patients over 70 years has not been determined. Clinical correlation is essential. Serum or plasma urea nitroge n measurement (mass/volume)Ordered By: Dr. Walsh on 01-06-2023 Urea nitrogen [Mass/Vol] 9 mg/dL 7-18 [facility] Thin prep Papanicolaou smear with manual screeningOrdered By: Dr. Walsh on 01-06-2023 Thin prep Papanicolaou smear with manual screening 34 U/L 15-37 [facility] Thin prep Papanicolaou smear with manual screening 5 5-15 [facility] Basophil percentageOrdered B y: Dr. Walsh on 10-08-2022 Bilirubin [Mass/Vol] 0.60 mg/dL 0.20-1.00 [facility] Comment on above: For patients on eltr ombopag therapy, use of Dimension [place] TBIL is not recommended. Chloride [Moles/Vol] 101 mmol/L 98-107 [facility] Glucose [Mass/Vol] 114 mg/dL 74-106 [facility] Comment on above: Fasting Glucose resu lt from 100 to 125 mg/dL suggests IMPAIRED HOMEOSTASIS per A.D.A. criteria. Potassium [Moles/Vol] 4.1 mmol/L 3.5-5.1 [facility] Protein [Mass/Vol] 7.5 g/dL 6.4-8.2 [facility] Sodium [Moles/Vol] 135 mmol/L 136-145 [facility] Laboratory - Chemistry and C hemistry - challengeOrdered By: Dr. Walsh on 10-08-2022 ALP [Catalytic activity/Vol] 148 U/L 45-117 [facility] ALT [Catalytic activity/Vol] 36 U/L 13-56 [facility] CO2 [Moles/Vol] 29.0 mmol/L 21.0-32.0 [facility] Globulin (S) [Mass/Vol] 3.8 g/dL 2.2-4.2 [facility] Urea nitrogen/Creatinine [Mass ratio] 12.9 mg/mg 10-20 [facility] No Panel InformationOrdered By: Dr. Walsh on 10-08-2022 Estimated GFR (MDRD) Amer 123 mL/min >60 [facility] Comment on above: GFR Calc Estimated GFR (MDRD) Non-Af Amer 102 mL/min >60 [facility] Comment on above: Non- GFR Calc Vitamin D 25-Hydroxy 30.0 ng/mL [facility] Comment on above: Vitamin D 25(OH) Sta tus Range Deficiency <20 ng/mL (50nmol/L) Insufficiency 20 - 30 ng/mL (50 - 75 nmol/L) Sufficiency 30 - 100 ng/mL (75 - 250 nmol/L) Toxicity >100 ng/mL (>250 nmol/L) Serum or plasma albumin makayla urement (mass/volume)Ordered By: Dr. Walsh on 10-08-2022 Albumin [Mass/Vol] 3.7 g/dL 3.2-5.0 [facility] Serum or plasma albumin/glob ulin mass ratioOrdered By: Dr. Walsh on 10-08-2022 Albumin/Globulin [Mass ratio] 1.0 {ratio} 0.9-2.4 [facility] Serum or plasma calcium makayla urement (mass/volume)Ordered By: Dr. Walsh on 10-08-2022 Calcium [Mass/Vol] 9.3 mg/dL 8.5-10.1 [facility] Serum or plasma creatinine m easurement (mass/volume)Ordered By: Dr. Walsh on 10-08-2022 Creatinine [Mass/Vol] 0.62 mg/dL 0.55-1.02 [facility] Comment on above: The validity of the calculated GFR & GFRAA in patients over 70 years has not been determined. Clinical correlation is essential. Serum or plasma urea nitroge n measurement (mass/volume)Ordered By: Dr. Walsh on 10-08-2022 Urea nitrogen [Mass/Vol] 8 mg/dL 7-18 [facility] Thin prep Papanicolaou smear with manual screeningOrdered By: Dr. Walsh on 10-08-2022 Thin prep Papanicolaou smear with manual screening 30 U/L 15-37 [facility] Thin prep Papanicolaou smear with manual screening 5 5-15 [facility] Absolute lymphocyte counton 04-02-2022 Lymphocytes Auto (Unsp spec) [#/Vol] 1.52 10*3/uL 0.83-4.51 [facility] Work Phone: Basophil percentageon 2021 Basophils/100 WBC (Bld) 1.3 % 0-1 [facility] Work Phone: [phone] Bilirubin [Mass/Vol] 0.20 mg/dL 0.20-1.00 [facility] Work Phone: Comment on above: For patients on eltr ombopag therapy, use of Dimension [place] TBIL is not recommended. Chloride [Moles/Vol] 101 mmol/L 98-107 [facility] Work Phone: Cholesterol [Mass/Vol] 187 mg/dL <200 [facility] Work Phone: Comment on above: <200 mg/dL Desirable 200-240 mg/dL Borderline >240 mg/dL High Risk Eosinophils/100 WBC (Bld) 4.0 % 0-5 [facility] Work Phone: Glucose [Mass/Vol] 111 mg/dL 74-106 [facility] Work Phone: Comment on above: Fasting Glucose resu lt from 100 to 125 mg/dL suggests IMPAIRED HOMEOSTASIS per A.D.A. criteria. Neutrophils (Bld) [#/Vol] 3.1 10*3/uL 2.0-7.7 [facility] Work Phone: Neutrophils/100 WBC (Bld) 58.1 % 47-70 [facility] Work Phone: Potassium [Moles/Vol] 4.3 mmol/L 3.5-5.1 [facility] Work Phone: Protein [Mass/Vol] 7.3 g/dL 6.4-8.2 [facility] Work Phone: Sodium [Moles/Vol] 137 mmol/L 136-145 [facility] Work Phone: [phone] Triglyceride [Mass/Vol] 112 mg/dL <199 [facility] Work Phone: Comment on above: The drugs N-Acetylcy steine and Metamizole may falsely depress this assay.Serum Triglycerides Reference Interval Normal <150 mg/dL Borderline high 150 - 199 mg/dL High 200 - 499 mg/dL Very High > or = 500 mg/dL WBC (Bld) [#/Vol] 5.3 10*3/uL 4.4-11.0 [facility] Work Phone: [phone] Blood erythrocytes count (nu mber/volume)on 04-02-2022 RBC (Bld) [#/Vol] 4.43 10*6/uL 4.2-5.4 [place] Work Phone: [phone] Blood hemoglobin measurement (mass/volume)on 04-02-2022 Hemoglobin (Bld) [Mass/Vol] 14.2 g/dL 12.0-15.0 [facility] Work Phone: Blood lymphocytes/100 leukoc yteson 04-02-2022 Lymphocytes/100 WBC (Bld) 28.8 % 19-41 [facility] Work Phone: [phone] Blood monocytes/100 leukocyt eson 04-02-2022 Monocytes/100 WBC (Bld) 7.6 % 0-10 [facility] Work Phone: [phone] Blood platelet mean volumeon 04-02-2022 Platelet mean volume (Bld) [Entitic vol] 10.7 fL 6.2-12.0 [facility] Work Phone: [phone] Determination of erythrocyte mean corpuscular volume (MCV)on 04-02-2022 MCV (RBC) [Entitic vol] 98.0 fL 81-99 [facility] Work Phone: [phone] Hematocrit Auto (Bld) [Volum e fraction]on 04-02-2022 Hematocrit (Bld) [Volume fraction] 43.4 % 37-47 [facility] Work Phone: [phone] Laboratory - Chemistry and C hemistry - challengeon 04-02-2022 ALP [Catalytic activity/Vol] 197 U/L 45-117 [facility] Work Phone: [phone] ALT [Catalytic activity/Vol] 38 U/L 13-56 [facility] Work Phone: [phone] CO2 [Moles/Vol] 31.0 mmol/L 21.0-32.0 [facility] Work Phone: [phone] Globulin (S) [Mass/Vol] 3.7 g/dL 2.2-4.2 [facility] Work Phone: [phone] Urea nitrogen/Creatinine [Mass ratio] 10.9 mg/mg 10-20 [facility] Work Phone: [phone] Laboratory - Hematology and Cell countson 04-02-2022 Erythrocyte distribution width (RBC) [Entitic vol] 44.5 fL 35.1-43.9 [facility] Work Phone: [phone] Erythrocyte distribution width (RBC) [Ratio] 12.1 % 11.6-14.6 [facility] Work Phone: [phone] Immature granulocytes/100 WBC (Bld) 0.200 % 0.0-0.9 [facility] Work Phone: [phone] Comment on above: IG% - Immature Granu locytes (promyelocytes, myelocytes and metamyelocytes) > 1% indicates that a LEFT SHIFT is Present. MCH (RBC) [Entitic mass] 32.1 pg 27.0-32.0 [facility] Work Phone: [phone] Nucleated RBC/100 WBC (Bld) [Ratio] 0 % 0-5 [facility] Work Phone: [phone] MCHC Auto (RBC) [Mass/Vol]on 04-02-2022 MCHC (RBC) [Mass/Vol] 32.7 g/dL 32-36 [facility] Work Phone: [phone] Panel Informationon 04-02 Estimated GFR (MDRD) Amer 118 mL/min >60 [facility] Work Phone: [phone] Comment on above: GFR Calc Estimated GFR (MDRD) Non-Af Amer 97 mL/min >60 [facility] Work Phone: Comment on above: Non- GFR Calc Thyroid Stimulating Hormone (TSH) 0.82 uIU/mL 0.358-3.74 [facility] Work Phone: Platelets bldon 04-02-2022 Platelets (Bld) [#/Vol] 267 10*3/uL 150-450 [facility] Work Phone: [phone] Serum or plasma albumin makayla urement (mass/volume)on 04-02-2022 Albumin [Mass/Vol] 3.6 g/dL 3.2-5.0 [facility] Work Phone: [phone] Serum or plasma albumin/glob ulin mass ratioon 04-02-2022 Albumin/Globulin [Mass ratio] 1.0 {ratio} 0.9-2.4 [facility] Work Phone: Serum or plasma calcium makayla urement (mass/volume)on 04-02-2022 Calcium [Mass/Vol] 9.0 mg/dL 8.5-10.1 [facility] Work Phone: Serum or plasma cholesterol in HDL measurement (mass/volume)on 04-02-2022 Cholesterol in HDL [Mass/Vol] 67 mg/dL >40 [facility] Work Phone: Comment on above: The drugs N-Acetylcy steine and Metamizole may falsely depress this assay. Reference Range HDL <40 mg/dL Low HDL Cholesterol HDL >or= 60 mg/dL High HDL Cholesterol Serum or plasma cholesterol in VLDL measurement (mass/volume)on 04-02-2022 Cholesterol in VLDL [Mass/Vol] 22 mg/dL 5-40 [facility] Work Phone: [phone] Serum or plasma creatinine m easurement (mass/volume)on 04-02-2022 Creatinine [Mass/Vol] 0.64 mg/dL 0.55-1.02 [facility] Work Phone: Comment on above: The validity of the calculated GFR & GFRAA in patients over 70 years has not been determined. Clinical correlation is essential. Serum or plasma low density lipoprotein (LDL) cholesterol measurement (mass/volume)on 04-02-2022 Cholesterol in LDL [Mass/Vol] 98 mg/dL 0-130 [facility] Work Phone: Serum or plasma urea nitroge n measurement (mass/volume)on 04-02-2022 Urea nitrogen [Mass/Vol] 7 mg/dL 7-18 [facility] Work Phone: Thin prep Papanicolaou smear with manual screeningon 04-02-2022 Thin prep Papanicolaou smear with manual screening 29 U/L 15-37 [facility] Work Phone: Thin prep Papanicolaou smear with manual screening 5 5-15 [facility] Work Phone: CNOVon 12-02-2020 CNOV Office Visit ([facility] ) VIOLA SCOTT ([id number]) 1955 F Date Time Provider Department 12/02/20 1:30 PM MADELINE CHAIDEZ) [facility] During your visit today, we recorded the following information about you: Temperature Pulse Respiration Blood pressure 97.7 degrees 110/minute 18/minute 132/82 Weight 59.9 kg Madeline Chaidez PA-C 12/02/2020 2:28 PM Signed This note was created using WISE s.r.lriter. Subjective Viola Scott is a 65 year old female. HPI [...] wheezing recently. She has not tried anything tpki-xih-wfjaqde for her symptoms. No other new medications. [...] HENT: Head: Normocephalic and atraumatic. Mouth/Throat: Lips: [place]. Mouth: Mucous membranes are moist. Pharynx: Oropharynx [...] Status:Closed by MADELINE CHAIDEZ PA-C on 12/02/20 Normal [facility] PROGRESSon 12-02-2020 PROGRESS HNO ID: [id number] Author: Madeline Chaidez (Pa) Service: ? Author Type: Physician Power System Engineer Type: Progress Notes Filed: 12/02/2020 2:28 PM Note Text: This note was created using WISE s.r.lriter. Subjective Viola Scott is a 65 year old female. HPI [...] wheezing recently. She has not tried anything ozxg-iju-bznixia for her symptoms. No other new medications. [...] HENT: Head: Normocephalic and atraumatic. Mouth/Throat: Lips: [place]. Mouth: Mucous membranes are moist. Pharynx: Oropharynx [...] with this plan. Madeline Chaidez PA-C Normal [facility] COVID PCR, SCREENING CONGREG ATEon 02-21-2020 CORONAVIRUS 2019,PCR NOT DETECTED Normal Not Detected [facility] Comment on above: Result Comment: This assay [...] patient management decisions. Fact sheet for providers: https://www.fda.gov/media/327627/download Fact sheet for patients: https://www.fda.gov/media/268724/download This test has received FDA Emergency Use Authorization (EUA) and has been verified by [facility]). This test is only authorized for the duration of time that circumstances exist to justify the authorization of the emergency use of in vitro diagnostic tests for the detection of SARS-CoV-2 virus and/or diagnosis of COVID-19 infection under section 564(b)(1) of the Act, 21 U.S.C. 360bbb-3(b)(1), unless the authorization is terminated or revoked sooner. [facility] ([facility]) is certified under CLIA-88 as qualified to perform high complexity testing. This tests analytical performance characteristics have been determined by [facility]. Testing is performed at [facility] is located at [facility] [place] [address] (CLIA License #[id number], CAP #[id number]). Performed By: #### C VCLA #### [facility] [address] [place] [address] COVID PCR, SCREENING CONGREG ATEon 02-20-2020 Lab Specimen Source Nasal, Nasopharyngeal Normal [facility] Comment on above: Performed By: #### C VCLA #### [facility] [address] [place] [address] Vital Signs Date Time Vital Sign Value Performing Clinician Pushpai cate 03-22-2025 14:06-0400 Body height 157.[address] Silviano Walsh MD Work Phone: [facility] 03-22-2025 14:06-0400 Body mass index (BMI) [Ratio] 17.2 kg/m2 Dr. Silviano Walsh MD Work Phone: [facility] 03-22-2025 14:06-0400 Body temperature 98.8 [degF] Dr. Silviano Walsh MD Work Phone: [facility] 03-22-2025 14:06-0400 Body weight 42.[address] Silviano Walsh MD Work Phone: [facility] 03-22-2025 14:06-0400 Diastolic blood pressure 88 mm[Hg] Dr. Silviano Walsh MD Work Phone: [facility] 03-22-2025 14:06-0400 Heart rate 102 /min Dr. Silviano Walsh MD Work Phone: [facility] 03-22-2025 14:06-0400 Respiratory rate 16 /min Dr. Silviano Walsh MD Work Phone: [facility] 03-22-2025 14:06-0400 SaO2% (BldA) [Mass fraction] 95 % Dr. Silviano Walsh MD Work Phone: [facility] 03-22-2025 14:06-0400 Systolic blood pressure 156 mm[Hg] Dr. Silviano Walsh MD Work Phone: [facility] 03-22-2025 13:42-0400 Body mass index (BMI) [Ratio] 17.8 kg/m2 Dr. Silviano Walsh MD Work Phone: [facility] 03-22-2025 13:42-0400 Body temperature 98.1 [degF] Dr. Silviano Walsh MD Work Phone: [facility] 03-22-2025 13:42-0400 Body weight 44.[address] Silviano Walsh MD Work Phone: [facility] 03-22-2025 13:42-0400 Diastolic blood pressure 86 mm[Hg] Dr. Silviano Walsh MD Work Phone: [facility] 03-22-2025 13:42-0400 Heart rate 70 /min Dr. Silviano Walsh MD Work Phone: [facility] 03-22-2025 13:42-0400 Respiratory rate 16 /min Dr. Silviano Walsh MD Work Phone: [facility] 03-22-2025 13:42-0400 SaO2% (BldA) [Mass fraction] 70 % Dr. Silviano Walsh MD Work Phone: [facility] 03-22-2025 13:42-0400 Systolic blood pressure 146 mm[Hg] Dr. Silviano Walsh MD Work Phone: [facility] 02-15-2025 14:09-0400 Body height 157.[address] Silviano Walsh MD Work Phone: [facility] 02-15-2025 14:09-0400 Body mass index (BMI) [Ratio] 17.7 kg/m2 Dr. Silviano Walsh MD Work Phone: [facility] 02-15-2025 14:09-0400 Body temperature 97.8 [degF] Dr. Silviano Walsh MD Work Phone: [facility] 02-15-2025 14:09-0400 Body weight 43.[address] Silviano Walsh MD Work Phone: [facility] 02-15-2025 14:09-0400 Diastolic blood pressure 92 mm[Hg] Dr. Silviano Walsh MD Work Phone: [facility] 02-15-2025 14:09-0400 Heart rate 81 /min Dr. Silviano Walsh MD Work Phone: [facility] 02-15-2025 14:09-0400 Respiratory rate 18 /min Dr. Silviano Walsh MD Work Phone: [facility] 02-15-2025 14:09-0400 SaO2% (BldA) [Mass fraction] 94 % Dr. Silviano Walsh MD Work Phone: [facility] 02-15-2025 14:09-0400 Systolic blood pressure 148 mm[Hg] Dr. Silviano Walsh MD Work Phone: [facility] 01-23-2025 13:59-0400 Body height 157.[address] Silviano Walsh MD Work Phone: [facility] 01-23-2025 13:59-0400 Body mass index (BMI) [Ratio] 18.1 kg/m2 Dr. Silviano Walsh MD Work Phone: [facility] 01-23-2025 13:59-0400 Body weight 45.[address] Silviano Walsh MD Work Phone: [facility] 01-23-2025 13:59-0400 Diastolic blood pressure 74 mm[Hg] Dr. Silviano Walsh MD Work Phone: [facility] 01-23-2025 13:59-0400 Heart rate 78 /min Dr. Silviano Walsh MD Work Phone: [facility] 01-23-2025 13:59-0400 Respiratory rate 17 /min Dr. Silviano Walsh MD Work Phone: [facility] 01-23-2025 13:59-0400 SaO2% (BldA) [Mass fraction] 93 % Dr. Silviano Walsh MD Work Phone: [facility] 01-23-2025 13:59-0400 Systolic blood pressure 155 mm[Hg] Dr. Silviano Walsh MD Work Phone: [facility] 01-22-2025 13:58-0400 Body height 157.[address] Silviano Walsh MD Work Phone: [facility] 01-22-2025 13:58-0400 Body mass index (BMI) [Ratio] 17.6 kg/m2 Dr. Silviano Walsh MD Work Phone: [facility] 01-22-2025 13:58-0400 Body temperature 98.8 [degF] Dr. Silviano Walsh MD Work Phone: [facility] 01-22-2025 13:58-0400 Body weight 43.[address] Silviano Walsh MD Work Phone: [facility] 01-22-2025 13:58-0400 Diastolic blood pressure 97 mm[Hg] Dr. Silviano Walsh MD Work Phone: [facility] 01-22-2025 13:58-0400 Heart rate 83 /min Dr. Silviano Walsh MD Work Phone: [facility] 01-22-2025 13:58-0400 Respiratory rate 18 /min Dr. Silviano Walsh MD Work Phone: [facility] 01-22-2025 13:58-0400 SaO2% (BldA) [Mass fraction] 96 % Dr. Silviano Walsh MD Work Phone: [facility] 01-22-2025 13:58-0400 Systolic blood pressure 169 mm[Hg] Dr. Silviano Walsh MD Work Phone: [facility] 12-21-2024 14:03-0400 Diastolic blood pressure 90 mm[Hg] Dr. Silviano Walsh MD Work Phone: [facility] 12-21-2024 14:03-0400 Systolic blood pressure 152 mm[Hg] Dr. Silviano Walsh MD Work Phone: [facility] 12-21-2024 13:58-0400 Body mass index (BMI) [Ratio] 17.4 kg/m2 Dr. Silviano Walsh MD Work Phone: [facility] 12-21-2024 13:58-0400 Body temperature 98 [degF] Dr. Silviano Walsh MD Work Phone: [facility] 12-21-2024 13:58-0400 Body weight 43.[address] Silviano Walsh MD Work Phone: [facility] 12-21-2024 13:58-0400 Heart rate 97 /min Dr. Silviano Walsh MD Work Phone: [facility] 12-21-2024 13:58-0400 Respiratory rate 18 /min Dr. Silviano Walsh MD Work Phone: [facility] 12-21-2024 13:58-0400 SaO2% (BldA) [Mass fraction] 97 % Dr. Silviano Walsh MD Work Phone: [facility] 11-22-2024 14:06-0400 Body height 157.[address] Silviano Walsh MD Work Phone: [facility] 11-22-2024 14:06-0400 Body mass index (BMI) [Ratio] 17.4 kg/m2 Dr. Silviano Walsh MD Work Phone: [facility] 11-22-2024 14:06-0400 Body temperature 96.2 [degF] Dr. Silviano Walsh MD Work Phone: [facility] 11-22-2024 14:06-0400 Body weight 43.[address] Silviano Walsh MD Work Phone: [facility] 11-22-2024 14:06-0400 Diastolic blood pressure 84 mm[Hg] Dr. Silviano Walsh MD Work Phone: [facility] 11-22-2024 14:06-0400 Heart rate 66 /min Dr. Silviano Walsh MD Work Phone: [facility] 11-22-2024 14:06-0400 Respiratory rate 14 /min Dr. Silviano Walsh MD Work Phone: [facility] 11-22-2024 14:06-0400 SaO2% (BldA) [Mass fraction] 97 % Dr. Silviano Walsh MD Work Phone: [facility] 11-22-2024 14:06-0400 Systolic blood pressure 128 mm[Hg] Dr. Silviano Walsh MD Work Phone: [facility] 10-05-2024 13:28-0500 Body mass index (BMI) [Ratio] 17.7 kg/m2 Dr. Silviano Walsh MD Work Phone: [facility] 10-05-2024 13:28-0500 Body temperature 98.7 [degF] Dr. Silviano Walsh MD Work Phone: [facility] 10-05-2024 13:28-0500 Body weight 43.[address] Silviano Walsh MD Work Phone: [facility] 10-05-2024 13:28-0500 Diastolic blood pressure 82 mm[Hg] Dr. Silviano Walsh MD Work Phone: [facility] 10-05-2024 13:28-0500 Heart rate 114 /min Dr. Silviano Walsh MD Work Phone: [facility] 10-05-2024 13:28-0500 Respiratory rate 19 /min Dr. Silviano Walsh MD Work Phone: [facility] 10-05-2024 13:28-0500 SaO2% (BldA) [Mass fraction] 97 % Dr. Silviano Walsh MD Work Phone: [facility] 10-05-2024 13:28-0500 Systolic blood pressure 144 mm[Hg] Dr. Silviano Walsh MD Work Phone: [facility] 10-02-2024 02:32-0500 Body temperature 96.9 [degF] Dr. Silviano Walsh MD Work Phone: [facility] 10-02-2024 02:32-0500 Diastolic blood pressure 83 mm[Hg] Dr. Silviano Walsh MD Work Phone: [facility] 10-02-2024 02:32-0500 Heart rate 87 /min Dr. Silviano Walsh MD Work Phone: [facility] 10-02-2024 02:32-0500 Respiratory rate 18 /min Dr. Silviano Walsh MD Work Phone: [facility] 10-02-2024 02:32-0500 SaO2% (BldA) [Mass fraction] 97 % Dr. Silviano Walsh MD Work Phone: [facility] 10-02-2024 02:32-0500 Systolic blood pressure 171 mm[Hg] Dr. Silviano Walsh MD Work Phone: [facility] 10-01-2024 23:05-0500 Body mass index (BMI) [Ratio] 18.1 kg/m2 Dr. Silviano Walsh MD Work Phone: [facility] 10-01-2024 23:05-0500 Body weight 45.[address] Silviano Walsh MD Work Phone: [facility] 09-27-2024 12:16-0500 Body mass index (BMI) [Ratio] 18.3 kg/m2 Dr. Silviano Walsh MD Work Phone: [facility] 09-27-2024 12:16-0500 Body temperature 98.4 [degF] Dr. Silviano Walsh MD Work Phone: [facility] 09-27-2024 12:16-0500 Body weight 45.[address] Silviano Walsh MD Work Phone: [facility] 09-27-2024 12:16-0500 Diastolic blood pressure 80 mm[Hg] Dr. Silviano Walsh MD Work Phone: [facility] 09-27-2024 12:16-0500 Heart rate 82 /min Dr. Silviano Walsh MD Work Phone: [facility] 09-27-2024 12:16-0500 Respiratory rate 17 /min Dr. Silviano Walsh MD Work Phone: [facility] 09-27-2024 12:16-0500 SaO2% (BldA) [Mass fraction] 95 % Dr. Silviano Walsh MD Work Phone: [facility] 09-27-2024 12:16-0500 Systolic blood pressure 146 mm[Hg] Dr. Silviano Walsh MD Work Phone: [facility] 09-22-2023 15:25-0500 Body height 160.[address] Silviano Walsh Work Phone: [facility] 09-22-2023 15:25-0500 Body mass index (BMI) [Ratio] 21.4 kg/m2 Dr. Silviano Walsh Work Phone: [facility] 09-22-2023 15:25-0500 Body temperature 96.8 [degF] Dr. Silviano Walsh Work Phone: [facility] 09-22-2023 15:25-0500 Body weight 54.[address] Silviano Walsh Work Phone: [facility] 09-22-2023 15:25-0500 Diastolic blood pressure 84 mm[Hg] Dr. Silviano Walsh Work Phone: [facility] 09-22-2023 15:25-0500 Heart rate 81 /min Dr. Silviano Walsh Work Phone: [facility] 09-22-2023 15:25-0500 Respiratory rate 16 /min Dr. Silviano Walsh Work Phone: [facility] 09-22-2023 15:25-0500 SaO2% (BldA) [Mass fraction] 97 % Dr. Silviano Walsh Work Phone: [facility] 09-22-2023 15:25-0500 Systolic blood pressure 130 mm[Hg] Dr. Silviano Walsh Work Phone: [facility] 01-06-2023 14:29-0400 Body height 160.[address] Silviano Walsh Work Phone: [facility] 01-06-2023 14:29-0400 Body mass index (BMI) [Ratio] 20 kg/m2 Dr. Silviano Walsh Work Phone: [facility] 01-06-2023 14:29-0400 Body temperature 97.2 [degF] Dr. Silviano Walsh Work Phone: [facility] 01-06-2023 14:29-0400 Body weight 51.[address] Silviano Walsh Work Phone: [facility] 01-06-2023 14:29-0400 Diastolic blood pressure 82 mm[Hg] Dr. Silviano Walsh Work Phone: [facility] 01-06-2023 14:29-0400 Heart rate 87 /min Dr. Silviano Walsh Work Phone: [facility] 01-06-2023 14:29-0400 Respiratory rate 12 /min Dr. Silviano Walsh Work Phone: [facility] 01-06-2023 14:29-0400 SaO2% (BldA) [Mass fraction] 97 % Dr. Silviano Walsh Work Phone: [facility] 01-06-2023 14:29-0400 Systolic blood pressure 142 mm[Hg] Dr. Silviano Walsh Work Phone: [facility] 12-14-2022 14:29-0400 Body temperature 97.2 [degF] Ericka Larryisler-Cosme REPORT CHECKER.DESKTOP ENGINEER Work Phone: [facility] 12-14-2022 14:29-0400 Body weight 52.62 kg Ericka Praisler-Cosme REPORT CHECKER.DESKTOP ENGINEER Work Phone: [facility] 12-14-2022 14:29-0400 Diastolic blood pressure 72 mm[Hg] Ericka Praisler-Cosme REPORT CHECKER.DESKTOP ENGINEER Work Phone: [facility] 12-14-2022 14:29-0400 Heart rate 101 /min Ericka Praisler-Wood REPORT CHECKER.DESKTOP ENGINEER Work Phone: [facility] 12-14-2022 14:29-0400 Respiratory rate 20 /min Ericka Choe REPORT CHECKER.DESKTOP ENGINEER Work Phone: [facility] 12-14-2022 14:29-0400 SaO2% (BldA) [Mass fraction] 97 % Ericka LarryMichel REYNOSO.DESKTOP ENGINEER Work Phone: [facility] 12-14-2022 14:29-0400 Systolic blood pressure 124 mm[Hg] Ericka Choe REPORT CHECKER.DESKTOP ENGINEER Work Phone: [facility] 10-08-2022 14:25-0500 Body height 160.[address] Silviano Walsh Work Phone: [facility] 10-08-2022 14:25-0500 Body mass index (BMI) [Ratio] 21 kg/m2 Dr. Silviano Walsh Work Phone: [facility] 10-08-2022 14:25-0500 Body temperature 98.4 [degF] Dr. Silviano Walsh Work Phone: [facility] 10-08-2022 14:25-0500 Body weight 53.[address] Silviano Walsh Work Phone: [facility] 10-08-2022 14:25-0500 Diastolic blood pressure 64 mm[Hg] Dr. Silviano Walsh Work Phone: [facility] 10-08-2022 14:25-0500 Heart rate 100 /min Dr. Sivliano Walsh Work Phone: [facility] 10-08-2022 14:25-0500 Respiratory rate 16 /min Dr. Silviano Walsh Work Phone: [facility] 10-08-2022 14:25-0500 SaO2% (BldA) [Mass fraction] 96 % Dr. Silviano Walsh Work Phone: [facility] 10-08-2022 14:25-0500 Systolic blood pressure 108 mm[Hg] Dr. Silviano Walsh Work Phone: [facility] 06-29-2022 13:05-0400 Body temperature 98 [degF] Dr. Silviano Walsh Work Phone: [facility] 06-29-2022 13:05-0400 Body weight 55.[address] Silviano Walsh Work Phone: [facility] 06-29-2022 13:05-0400 Diastolic blood pressure 80 mm[Hg] Dr. Silviano Walsh Work Phone: [facility] 06-29-2022 13:05-0400 Heart rate 97 /min Dr. Silviano Walsh Work Phone: [facility] 06-29-2022 13:05-0400 Respiratory rate 18 /min Dr. Silviano Walsh Work Phone: [facility] 06-29-2022 13:05-0400 SaO2% (BldA) [Mass fraction] 96 % Dr. Silviano Walsh Work Phone: [facility] 06-29-2022 13:05-0400 Systolic blood pressure 154 mm[Hg] Dr. Silviano Walsh Work Phone: [facility] 05-14-2022 13:48-0400 Body height 160.[address] Silviano Walsh Work Phone: [facility] Work Phone: 05-14-2022 13:48-0400 Body mass index (BMI) [Ratio] 21.7 kg/m2 Dr. Silviano Walsh Work Phone: [facility] Work Phone: 05-14-2022 13:48-0400 Body temperature 98.6 [degF] Dr. Silviano Walsh Work Phone: [facility] Work Phone: 05-14-2022 13:48-0400 Body weight 55.[address] Silviano Walsh Work Phone: [facility] Work Phone: 05-14-2022 13:48-0400 Diastolic blood pressure 98 mm[Hg] Dr. Silviano Walsh Work Phone: [facility] Work Phone: 05-14-2022 13:48-0400 Heart rate 104 /min Dr. Silviano Walsh Work Phone: [facility] Work Phone: 05-14-2022 13:48-0400 Respiratory rate 16 /min Dr. Silviano Walsh Work Phone: [facility] Work Phone: 05-14-2022 13:48-0400 SaO2% (BldA) [Mass fraction] 97 % Dr. Silviano Walsh Work Phone: [facility] Work Phone: 05-14-2022 13:48-0400 Systolic blood pressure 140 mm[Hg] Dr. Silviano Walsh Work Phone: [facility] Work Phone: 04-02-2022 14:16-0400 Body height 160.[address] Silviano Walsh Work Phone: [facility] Work Phone: 04-02-2022 14:16-0400 Body mass index (BMI) [Ratio] 21.9 kg/m2 Dr. Silviano Walsh Work Phone: [facility] Work Phone: 04-02-2022 14:16-0400 Body temperature 97 [degF] Dr. Silviano Walsh Work Phone: [facility] Work Phone: 04-02-2022 14:16-0400 Body weight 56.[address] Silviano Walsh Work Phone: [facility] Work Phone: 04-02-2022 14:16-0400 Diastolic blood pressure 86 mm[Hg] Dr. Silviano Walsh Work Phone: [facility] Work Phone: 04-02-2022 14:16-0400 Heart rate 97 /min Dr. Silviano Walsh Work Phone: [facility] Work Phone: 04-02-2022 14:16-0400 Respiratory rate 16 /min Dr. Silviano Walsh Work Phone: [facility] Work Phone: 04-02-2022 14:16-0400 SaO2% (BldA) [Mass fraction] 96 % Dr. Silviano Walsh Work Phone: [facility] Work Phone: 04-02-2022 14:16-0400 Systolic blood pressure 140 mm[Hg] Dr. Silviano Walsh Work Phone: [facility] Work Phone: 12-02-2020 13:39-0400 Body Temperature 97.7 [degF] [facility] 12-02-2020 13:39-0400 Body weight 59.88 kg [facility] 12-02-2020 13:39-0400 BP Diastolic 82 mm[Hg] [facility] 12-02-2020 13:39-0400 BP Systolic 132 mm[Hg[facility] 13:39-0400 Pulse (Heart Rate) 110 /min Madeline [facility] fniesse 12-02-2020 13:39-0400 Pulse Oximetry 95 % [facility] 12-02-2020 13:39-0400 Respiratory Rate 18 /min Madeline [facility]idez [facility] Encounters Encounter Date Encounter Type Care Provider Facility Start: 04-19-2025 End: 04-19-2025 Patient encounter procedure Malik TRUJILLO -[facility] Work Phone: Start: 04-19-2025 End: 04-19-[address] Silviano Walsh MD Work Phone: [facility] Start: 03-22-2025 End: 03-22-2025 Patient encounter procedure Malik TRUJILLO [facility] Work Phone: Start: 03-22-2025 End: 03-22-[address] Silviano Walsh MD Work Phone: [facility] Start: 03-18-2025 ambulatory THO Quezada [facility] Start: 02-15-2025 End: 02-15-2025 Patient encounter procedure Malik TRUJILLO [facility] Internal [facility] Work Phone: Start: 02-15-2025 End: 02-15-[address] Silviano Walsh MD Work Phone: [facility] Work Phone: Start: 01-23-2025 End: 01-23-[address] Yash Gunter MD -[facility] Work Phone: Start: 01-23-2025 End: 01-23-[address] Silviano Walsh MD Work Phone: [facility] Work Phone: Start: 01-22-2025 End: 01-22-2025 Patient encounter procedure Trinity WILKINSON -[place] [facility] Work Phone: Start: 01-22-2025 End: 01-23-[address] Silviano Walsh MD Work Phone: [facility] Work Phone: Start: 01-22-2025 End: 01-22-2025 ambulatory Trinity Norma GRAYSON Facility:[facility] Start: 01-08-2025 End: 01-08-2025 ambulatory [facility] Start: 12-21-2024 End: 12-21-2024 Patient encounter procedure Malik TRUJILLO -[facility] Work Phone: Start: 12-21-2024 End: 12-21-2024 ambulatory Silviano Walsh Facility:[facility] Start: 12-12-2024 End: 12-12-[address] Silviano Walsh MD Work Phone: [facility] Work Phone: Start: 12-12-2024 End: 12-12-2024 Patient encounter procedure Malik TRUJILLO -Laboratory, Specimen Work Phone: Start: 12-12-2024 End: 12-12-2024 ambulatory Bandarmekakermit Vilajajazane Facility:[facility] Start: 11-22-2024 End: 11-22-[address] Silviano Walsh MD Work Phone: [facility] Work Phone: Start: 11-22-2024 End: 11-22-2024 Patient encounter procedure Malik TRUJILLO -[facility] Start: 11-22-2024 End: 11-22-2024 Patient encounter procedure Malik TRUJILLO -[facility] Work Phone: Start: 11-22-2024 End: 11-22-2024 ambulatory Silviano Walsh Facility:[facility] Start: 11-22-2024 End: 11-22-2024 ambulatory Silviano Michaelzane Facility:[facility] Start: 10-23-2024 End: 10-23-2024 ambulatory [facility] Start: 10-05-2024 End: 10-05-[address] Silviano Walsh MD -[facility] Work Phone: Start: 10-05-2024 End: 10-05-2024 ambulatory Efewongbe Oleghe Facility:[facility] Start: 10-01-2024 End: 10-02-2024 Emergency department patient visit Luis Madrigal -Emergency Department Work Phone: Start: 09-27-2024 End: 09-27-2024 Patient encounter procedure Frank TRUJILL[facility] Work Phone: Start: 09-27-2024 End: 09-27-2024 ambulatory Frank TRUJILLO Facility:[facility] Start: 09-27-2024 ambulatory THO ANDERSON [facility] Start: 08-06-2024 End: 08-06-2024 ambulatory THO ANDERSON [facility] Start: 07-25-2024 End: 07-25-2024 [facility] Start: 06-28-2024 End: 06-28-2024 [facility] Start: 06-28-2024 End: 06-28-2024 [facility] Start: 06-08-2024 End: 06-08-2024 [facility] Start: 05-23-2024 End: 05-23-2024 [facility] Start: 05-14-2024 End: 05-14-2024 [facility] Start: 05-10-2024 End: 05-10-2024 [facility] Start: 05-02-2024 End: 05-02-2024 [facility] Start: 03-09-[address] Zane Walsh MD Work Phone: [facility] Start: 10-14-2023 End: 10-14-[address] Silviano Walsh Work Phone: [facility] Work Phone: Start: 10-14-2023 End: 10-14-[address] Silviano Walsh Work Phone: [facility]-Laboratory, [facility] Start: 09-22-2023 End: 09-22-[address] Silviano Walsh Work Phone: [facility] Internal Medicine Work Phone: Start: 01-17-2023 End: 01-17-2023 Subsequent hospital visit by [facility] Work Phone: Radiology Comment on above: Acute right-sided lo w back pain with right-sided sciatica [M54.41] Start: 01-06-2023 End: 01-06-[address] Silviano Walsh Work Phone: [facility] Work Phone: Start: 01-06-2023 End: 01-06-[address] Silviano Walsh Work Phone: [facility] Internal Medicine Start: 12-14-2022 End: 12-14-2022 Patient encounter procedure Ericka Choe APRN.CNP Work Phone: [facility] Comment on above: Sinobronchitis (Prim randal Dx) Start: 10-28-2022 End: 10-28-[address] Silviano Walsh Work Phone: [facility] Internal Medicine Start: 10-21-2022 End: 10-21-[address] Silviano Walsh Work Phone: [facility] Work Phone: Start: 10-21-2022 End: 10-21-[address] Silviano Walsh Work Phone: [facility]-Outpatient Bone Densitometry Start: 10-08-2022 End: 10-08-[address] Silviano Walsh Work Phone: [facility] Work Phone: Start: 10-08-2022 End: 10-08-[address] Silviano Walsh Work Phone: [facility] Internal [facility] Start: 06-29-2022 End: 06-29-[address] Silviano Walsh Work Phone: [facility] Work Phone: Start: 06-29-2022 End: 06-29-[address] Silviano Walsh Work Phone: [facility] Start: 05-14-2022 End: 05-14-[address] Silviano Walsh Work Phone: [facility] Internal [facility] Start: 04-16-2022 End: 04-16-[address] Silviano Walsh Work Phone: [facility] Internal Medicine Start: 04-15-2022 End: 04-15-[address] Silviano Walsh Work Phone: [facility] Work Phone: Start: 04-15-2022 End: 04-15-[address] Silviano Walsh Work Phone: [facility]-Outpatient Breast Imaging Start: 04-02-2022 End: 04-02-[address] Silviano Walsh Work Phone: [facility] Internal Medicine Start: 12-02-2020 End: 12-02-2020 Patient encounter procedure Madeline Chaidez ([place]) Work Phone: [facility] Comment on above: Allergic contact spencer matitis due to metals (Primary Dx) Procedures Date Procedure Procedure Detail Performing Clinician Start: 01-23-[address] Chinmay Walsh MD Work Phone: Comment on above: Performed at: [facility] [id number] [place], [place] [id number] Director: Neel Tate PhD, Phone: [phone] Start: 01-23-2025 Antibody to centrome re measurement Dr. Silviano Walsh MD Work Phone: Comment on above: Test not performed Start: 01-23-2025 Antibody to extracta ble nuclear antigen measurement Dr. Silviano Walsh MD Work Phone: Comment on above: Test not performed Start: 01-23-2025 Antibody to BOBBY-[address] Silviano Walsh MD Work Phone: Comment on above: Test not performed Start: 01-23-2025 Antibody to lupus La protein measurement Dr. Silviano Walsh MD Work Phone: Comment on above: Test not performed Start: 01-23-2025 Antibody to SS-A measurement Dr. Silviano Walsh MD Work Phone: Comment on above: Test not performed Start: 01-23-[address] Silviano Walsh MD Work Phone: Comment on above: Test not performed Start: 01-23-2025 Hepatitis A virus an tibody, IgM type Dr. Silviano Walsh MD Work Phone: Comment on above: A negative anti-HAV IgM result suggests no recent orcurrent HAV infection. Start: 01-23-2025 Hepatitis B core ant ibody measurement, IgM type Dr. Silviano Walsh MD Work Phone: Start: 01-23-2025 Hepatitis C antibody measurement Dr. Silviano Walsh MD Work Phone: Start: 01-23-[address] Pankaj Walsh MD Work Phone: Comment on above: Performed at: [facility] [id number] [place], [place] [id number] Director: Neel Tate PhD, Phone: [phone] Test Ordered: [id number] Rzuau-1-Chpwzplriiw OpuvcefySlqfx-9-Tczikgstpif, Serum 172 mg/dL CB Reference Range: 101-187Phenotype (PI) MM BN Reference Range: .MM Phenotype is considered to be normal, producingnormal serum levels of nhzjk-8-vmttmrgt inhibitor andnot associated with clinical disease. Associated V0Jcdclk serum levels in other phenotypes and theirincidence in the general population are shown in thetable below.Phenotype Population % function A-1-AT Conc.* Incidence % compared to MM (Typical Range) MM 86.5% 100% (96 - 189) MS 8.0% 86% (83 - 161) MZ 3.9% 61% (60 - 111) FM 0.4% 100% (93 - 191) SZ 0.3% 41% (42 - 75) SS 0.1% 64% (62 - 119) ZZ 0.05% 19% (16 - 38) FS 0.05% 70% (70 - 128) FZ Unknown 46% (44 - 88) FF Unknown Unknown*A-1-AT concentration in the homozygous MM phenotype is taken as the reference normal. Percent deficiency in each phenotype is reported relative to this reference. Ranges used to confirm phenotype.Performed at: - [facility] [address] [id number] Director: Neel Tate PhD, Phone: [phone] at: - [facility] [id number] Director: Henrry Andres MD, Phone: [phone] Start: 01-23-2025 PLANT HR MANAGER antibody measurement Dr. Silviano Walsh MD Work Phone: Comment on above: Test not performed Start: 01-23-2025 Vitamin D, 25-hydrox y measurement Dr. Silviano Walsh MD Work Phone: Comment on above: Vitamin D StatusDefi ciency: <20 ng/mL (50nmol/L)Insufficiency: 20-30 ng/mL (50-75 nmol/L)Sufficiency: 30-100 ng/mL (75-250 nmol/L)Toxicity: >100 ng/mL (>250 nmol/L) Start: 01-22-[address] Pankaj Walhs MD Work Phone: Start: 12-12-2024 Measurement of occul t blood in stool specimen using immunoassay Dr. Silviano Walsh MD Work Phone: Start: 10-02-2024 SARS-CoV-2, Influenz a & RSV (PCR) Dr. Silviano Walsh MD Work Phone: Start: 10-02-2024 X-ray of chest, PA a nd lateral views Dr. Silviano Walsh MD Work Phone: Start: 01-17-2023 Radex spine lumbosac ral 2/3 views Marina TRUJILLO Work Phone: Start: 10-21-2022 Dual energy X-ray absorptiometry Dr. Silviano Walsh Work Phone: Start: 06-29-[address] Pankaj Walsh Work Phone: Start: 04-15-2022 Screening mammography Cindy Walsh Work Phone: Plan of Treatment Date Care Activity Detail Author Start: 05-14-2032 Urine microalbumin profile DTaP,Tdap,Td Vaccine (2 - Td or Tdap) [facility] Start: 05-03-2025 ambulatory Ambulatory Facility:[facility] Start: 01-23-2025 Cytoplasmic ANCA Screen [facility] Start: 01-23-2025 Mitochondria Ab [Presence] in Serum [facility] Start: 01-23-2025 Procedure [facility] Start: 12-21-2024 Patient referral [facility] Work Phone: Start: 10-02-2024 [facility] Start: 04-29-2024 Covid-19 Vaccine ( season) Covid-19 Vaccine () [facility] Start: 04-29-2024 Influenza vaccination Influenza Vaccine (#1) [facility] Start: 08-29-2023 Advance Directive Discussion Advance Directive Discussion [facility] Start: 04-29-2023 Influenza vaccination INFLUENZA (Season Ended) [facility] Start: 03-28-2023 Screening for malignant neoplasm of colon [facility] Start: 08-29-2022 ADVANCE DIRECTIVE DISCUSSION ADVANCE DIRECTIVE DISCUSSION [facility] Start: 08-29-2022 DEPRESSION ASSESSMENT DEPRESSION ASSESSMENT [facility] Start: 06-17-2021 COVID-19 VACCINE (3 - Booster for Pfizer series) COVID-19 VACCINE (3 - Booster for Pfizer series) [facility] Start: 04-29-2021 Influenza vaccination INFLUENZA (Season Ended) [facility] Start: 2018 ADVANCE DIRECTIVE DISCUSSION ADVANCE DIRECTIVE DISCUSSION [facility] Start: 2018 BONE DENSITY BONE DENSITY [facility] Start: 2018 PNEUMOVAX AGE 65 AND OVER WITH 5YR LOOKBACK (#1) PNEUMOVAX AGE 65 AND OVER WITH 5YR LOOKBACK (#1) [facility] Start: 2018 Screening for osteoporosis Bone Density Screening [facility] Start: 2013 RSV Vaccine (1 - 1-dose 60+ series) RSV Vaccine (1 - 1-dose 60+ series) [facility] Start: 2003 Screening for malignant neoplasm of colon [facility] Start: 2003 SHINGRIX VACCINE (1 of 2) SHINGRIX VACCINE (1 of 2) [facility] Start: 1998 COLOGUARD (FIT-DNA) COLOGUARD (FIT-DNA) [facility] Start: 1998 Colonoscopy COLONOSCOPY [facility] Start: 1998 COLORECTAL CANCER SCREENING COLORECTAL CANCER SCREENING [facility] Start: [address] COLONOGRAPHY [facility] Start: 1998 DIABETES SCREEN DIABETES SCREEN [facility] Start: 1998 Diabetes Screening Diabetes Screening [facility] Start: 1998 FECAL OCCULT BLOOD FECAL OCCULT BLOOD [facility] Start: 1998 Lipid panel Lipid Screening [facility] Start: 1998 LIPID SCREEN LIPID SCREEN [facility] Start: 1998 Screening for malignant neoplasm of colon [facility] Start: 1998 SIGMOIDOSCOPY SIGMOIDOSCOPY [facility] Start: 1993 Mammography MAMMOGRAM [facility] Start: 1993 Screening for malignant neoplasm of breast Mammogram Screening [facility] Start: 1972 Urine microalbumin profile DTAP,TDAP,TD (1 - Tdap) [facility] Start: 1971 Anxiety Screening Anxiety Screening [facility] Start: 1971 Depression Screening Depression Screening [facility] Start: 1971 HEPATITIS C SCREENING HEPATITIS C SCREENING [facility] Start: 1971 Hepatitis C screening Hepatitis C Screening [facility] Start: 1965 Adult depression screening assessment DEPRESSION SCREENING [facility] Start: 1959 Pneumococcal Vaccine: 65+ (1 of 2 - PCV) Pneumococcal Vaccine: 65+ (1 of 2 - PCV) [facility] Start: 1959 PNEUMOCOCCAL: 65+ (1 - PCV) PNEUMOCOCCAL: 65+ (1 - PCV) [facility] Antibody to lupus La protein measurement [facility] Antibody to SS-A measurement [facility] CT Chest [facility] DNA double strand Ab [Units/volume] in Serum [facility] DXA Bone [Mass/Area] Bone density [facility] Liver stiffness by US.transient elastography [facility] Measurement of occul t blood in stool specimen using immunoassay [facility] Measurement of respiratory function [facility] MG Breast - bilatera l Screening [facility] Work Phone: MG Breast - bilatera l Screening [facility] Patient Education RSV (Respirato ry Syncytial Virus) ED COPD Flare [facility] Work Phone: Patient referral [facility] Work Phone: XR Chest PA and Lateral [facility] XR Hip GE 2 Views [facility] XR Knee 3 Views [facility] XR Knee GE 4 Views [facility] Immunizations Immunization Date Immunization Notes Care Provider Fa cility 05-14-2022 tetanus toxoid, redu gagandeep diphtheria toxoid, and acellular pertussis vaccine, adsorbed Dr. Silviano Walsh Work Phone: [facility] Payers Date Payer Category Payer Medicare [id number] 2024 Self-pay [id number] 2024 Private Health Insurance [id number] 2018 Medicare MEDICARE MEDICAR E A AND B [id number] 2018-Present [place] Medicare [id number] 2018 Medicare MEDICARE MEDICAR E A AND B [id number] 2018-Present [phone] [place] [address] Medicare [id number] 2014 Unknown [id number] 1953 Unknown [id number] 51 1953 Unknown [id number] 51 1953 Unknown [id number] 51 1953 Unknown [id number] 51 1953 Unknown [id number] 51 Medicare [id number] Unknown [id number] Unknown [id number] Unknown [id number] 62 Unknown [id number] 62 Unknown [id number] 62 Unknown [id number] 62 Unknown [id number] 2.16.840.1.156833.3.579.2.4 62 Unknown [id number] 2.16.840.1.026165.3.579.2.4 62 Unknown [id number] 2.16.840.1.753304.3.579.2.4 62 Unknown [id number] 2.16.840.1.543024.3.579.2.4 62 Unknown [id number] 2.16.840.1.327606.3.579.2.4 62 Unknown [id number] 2.16.840.1.030614.3.579.2.4 62 Unknown [id number] 2.16.840.1.101336.3.579.2.4 62 Unknown [id number] 2.16.840.1.757328.3.579.2.4 62 Unknown [id number] 2.16.840.1.100877.3.579.2.4 62 Unknown [id number] 2.16.840.1.760703.3.579.2.4 62 Unknown [id number] 2.16.840.1.106021.3.579.2.4 62 Unknown [id number] 2.16.840.1.473863.3.579.2.4 62 Unknown [id number] 2.16.840.1.249775.3.579.2.4 62 Unknown [id number] 2.16.840.1.752240.3.579.2.4 62 Unknown [id number] 2.16.840.1.788089.3.579.2.4 62 Unknown [id number] 2.16.840.1.890704.3.579.2.4 62 Unknown [id number] 2.16.840.1.796993.3.579.2.4 62 Unknown [id number] 2.16.840.1.342853.3.579.2.4 62 Unknown [id number] 2.16.840.1.467679.3.579.2.4 62 Social History Date Type Detail Facility Start: 12-02-2020 End: 03-22-2025 Tobacco smoking status NHIS Current every day smoker [facility] Start: 12-02-2020 End: 12-14-2022 Tobacco use and exposure Never used [facility] Start: 1955 Sex Assigned At Not on file [facility] Exposure to SARS-CoV -2 (event) Not sure [facility] Start: 04-02-2022 End: 09-22-2023 Tobacco smoking status SCIS Unknown if ever smoked [facility] Start: 09-16-2020 None [facility] Start: 09-16-2020 Alone [facility]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 and depression October 05 1:24pm COPD (chronic obstructive pulmonary dise ase) October 05, 2024 1:24pm Hypertension October 05, 2024 1 :24pm RSV bronchitis October 05, 2024 1 :24pm Weight loss November 22, 2024 1:5 6pm Chief Complaint Admit Date ASTHMA FLARE-UP September 27, 2024 1 2:08pm sob October 01, 2024 1 1:04pm 3 M FU October 05, 2024 1 :24pm ACUTE UNEXPLAINED WEIGHT LOSS October 1:56pm 4 WK FU December 21, 2024 1:5 6pm LUNG CANCER SCREENING January 22, 2025 1:5 0pm Reason for Visit Admit Date Acute asthmatic bronchitis September 27, 2024 12:08pm Anxiety and depression October 05 1:24pm COPD (chronic obstructive pulmonary dise ase) October 05, 2024 1:24pm Hypertension October 05, 2024 1 :24pm RSV bronchitis October 05, 2024 1 :24pm Weight loss November 22, 2024 1:5 6pm Elevated blood pressure reading December 212024 1:56pm Elevated liver enzymes December 21, 2024 1:56pm Weight loss December 21, 2024 1:5 6pm Encounter for screening for malignant neoplasm of lung in current smoker wi January 22, 2025 1:50pm Tobacco use disorder, continuous December 1:50pm Chief Complaint Admit Date ASTHMA FLARE-UP September 27, 2024 1 2:08pm sob October 01, 2024 1 1:04pm 3 M FU October 05, 2024 1 :24pm ACUTE UNEXPLAINED WEIGHT LOSS October 1:56pm 4 WK FU December 21, 2024 1:5 6pm LUNG CANCER SCREENING January 22, 2025 1:5 0pm NICOTINE DEPENDENCE January 22, 2025 2:13p m Elevated LFTs January 23, 2025 1:38p m Reason for Visit Admit Date Acute asthmatic bronchitis September 27, 2024 12:08pm Anxiety and depression October 05 1:24pm COPD (chronic obstructive pulmonary dise ase) October 05, 2024 1:24pm Hypertension October 05, 2024 1 :24pm RSV bronchitis October 05, 2024 1 :24pm Weight loss November 22, 2024 1:5 6pm Elevated blood pressure reading December 212024 1:56pm Elevated liver enzymes December 21, 2024 1:56pm Weight loss December 21, 2024 1:5 6pm Encounter for screening for malignant neoplasm of lung in current smoker wi January 22, 2025 1:50pm Tobacco use disorder, continuous December 1:50pm Elevated liver function tests January 23, 2025 1:38pm Chief Complaint Admit Date sob October 01, 2024 1 1:04pm 3 M FU October 05, 2024 1 :24pm ACUTE UNEXPLAINED WEIGHT LOSS October 1:56pm 4 WK FU December 21, 2024 1:5 6pm LUNG CANCER SCREENING January 22, 2025 1:5 0pm NICOTINE DEPENDENCE January 22, 2025 2:13p m Elevated LFTs January 23, 2025 1:38p m EORDERS January 23, 2025 2:34p m Reason for Visit Admit Date Anxiety and depression October 05 1:24pm COPD (chronic obstructive pulmonary dise ase) October 05, 2024 1:24pm Hypertension October 05, 2024 1 :24pm RSV bronchitis October 05, 2024 1 :24pm Weight loss November 22, 2024 1:5 6pm Elevated blood pressure reading December 212024 1:56pm Elevated liver enzymes December 21, 2024 1:56pm Weight loss December 21, 2024 1:5 6pm Encounter for screening for malignant neoplasm of lung in current smoker wi January 22, 2025 1:50pm Tobacco use disorder, continuous December 1:50pm Elevated liver function tests January 23, 2025 1:38pm Chief Complaint Admit Date ACUTE UNEXPLAINED WEIGHT LOSS October 1:56pm 4 WK FU December 21, 2024 1:5 6pm LUNG CANCER SCREENING January 22, 2025 1:5 0pm NICOTINE DEPENDENCE January 22, 2025 2:13p m Elevated LFTs January 23, 2025 1:38p m EORDERS January 23, 2025 2:34p m 2 M FU February 15, 2025 2:05 pm Reason for Visit Admit Date Weight loss November 22, 2024 1:5 6pm Elevated blood pressure reading December 212024 1:56pm Elevated liver enzymes December 21, 2024 1:56pm Weight loss December 21, 2024 1:5 6pm Encounter for screening for malignant neoplasm of lung in current smoker wi January 22, 2025 1:50pm Tobacco use disorder, continuous December 1:50pm Elevated liver function tests January 23, 2025 1:38pm Chief Complaint Admit Date ACUTE UNEXPLAINED WEIGHT LOSS October 1:56pm 4 WK FU December 21, 2024 1:5 6pm LUNG CANCER SCREENING January 22, 2025 1:5 0pm NICOTINE DEPENDENCE January 22, 2025 2:13p m Elevated LFTs January 23, 2025 1:38p m EORDERS January 23, 2025 2:34p m 2 M FU February 15, 2025 2:05 pm ACUTE RIGHT KNEE PAIN March 22, 2025 1: 34pm Reason for Visit Admit Date Weight loss November 22, 2024 1:5 6pm Elevated blood pressure reading December 212024 1:56pm Elevated liver enzymes December 21, 2024 1:56pm Weight loss December 21, 2024 1:5 6pm Encounter for screening for malignant neoplasm of lung in current smoker wi January 22, 2025 1:50pm Tobacco use disorder, continuous December 1:50pm Elevated liver function tests January 23, 2025 1:38pm Weight loss February 15, 2025 2:05 pm COPD (chronic obstructive pulmonary dise ase) February 15, 2025 2:05pm Hypertension February 15, 2025 2:05 pm Right knee pain March 22, 2025 1:34 pm Chief Complaint Admit Date 4 WK FU December 21, 2024 1:5 6pm LUNG CANCER SCREENING January 22, 2025 1:5 0pm NICOTINE DEPENDENCE January 22, 2025 2:13p m Elevated LFTs January 23, 2025 1:38p m EORDERS January 23, 2025 2:34p m 2 M FU February 15, 2025 2:05 pm ACUTE RIGHT KNEE PAIN March 22, 2025 1: 34pm 3 WEEK FOLLOW UP April 19, 2025 1: 22pm Reason for Visit Admit Date Elevated blood pressure reading December 212024 1:56pm Elevated liver enzymes December 21, 2024 1:56pm Weight loss December 21, 2024 1:5 6pm Encounter for screening for malignant neoplasm of lung in current smoker wi January 22, 2025 1:50pm Tobacco use disorder, continuous December 1:50pm Elevated liver function tests January 23, 2025 1:38pm Weight loss February 15, 2025 2:05 pm COPD (chronic obstructive pulmonary dise ase) February 15, 2025 2:05pm Hypertension February 15, 2025 2:05 pm Synovial cyst of popliteal space [Funes] , right knee March 22, 2025 1:34pm Hypertension March 22, 2025 1:34 pm Additional Source Comments INFORMATION SOURCE (unrecogn ized section and content) DATE CREATED AUTHOR 03/18/2020 [facility] DATE CREATED AUTHOR AUTHOR'S ORGANIZ ATION 12/03/2020 [facility] DATE CREATED AUTHOR AUTHOR'S ORGANIZ ATION 03/20/2025 [facility] DATE CREATED AUTHOR AUTHOR'S ORGANIZ ATION [facility] Source Comments (unrecognize d section and content) In the event this informatio n is protected by the Federal Confidentiality of Alcohol and Drug Abuse Patient Records regulations: The Federal rules restrict any use of the information to criminally investigate or prosecute any alcohol or drug abuse patient.[facility] the event this information is protected by the Federal Confidentiality of Alcohol and Drug Abuse Patient Records regulations: The Federal rules restrict any use of the information to criminally investigate or prosecute any alcohol or drug abuse patient.[facility] the event this information is protected by the Federal Confidentiality of Alcohol and Drug Abuse Patient Records regulations: The Federal rules restrict any use of the information to criminally investigate or prosecute any alcohol or drug abuse patient.[facility] Reason for Visit (unrecogniz ed section and content) Reason Comments Rash around neck x 2 week s, itching and swollen throat x today Reason Comments Cough T reported chest con gestion, [place] x1 wk. Goals (unrecognized section and content) Goals may be documented in a n alternate sectionGoals may be documented in an alternate sectionGoals may be documented in an alternate sectionGoals may be documented in an alternate sectionGoals may be documented in an alternate sectionGoals may be documented in an alternate sectionGoals may be documented in an alternate sectionGoals may be documented in an alternate sectionGoals may be documented in an alternate sectionGoals may be documented in an alternate sectionGoals may be documented in an alternate sectionGoals may be documented in an alternate sectionGoals may be documented in an alternate sectionGoals may be documented in an alternate sectionGoals may be documented in an alternate sectionGoals may be documented in an alternate section Care Teams (unrecognized sec tion and content) Team Status: Active Member Role Status Dates Dr. Samir Huber MD Family Provider Active Dr. Silviano Walsh MD Primary Care Provider Active Team Status: Inactive Member Role Status Dates Dr. Silviano Walsh MD Primary Care P andi, Attending Provider, Referring Provider Active Team Status: Inactive Member Role Status Dates Dr. Silviano Walsh MD Primary Care Provider Active [employer] CIGARETTE MACHINE FILLER, CIGARETTE MACHINE FILLER-C Attending Provider, Referring Provider Active Floor Nurse Relationship Specialty Start Date End Date Silviano Walsh MD [address] [place] [address] PCP - General Internal Medicine 12/14/22 Floor Nurse Relationship Specialty Start Date End Date Silivano Walsh MD [address] [place] [address] PCP - General Internal Medicine 12/14/22 Team Status: Active Member Role Status Dates Dr. Silviano Walsh MD Primary Care Provider Active Team Status: Inactive Member Role Status Dates Dr. Silviano Walsh MD Primary Care Provider Active Start: September 27, 2024 End: September 27, 2024 Dr. Silviano Walsh MD Referring Provider Active Start: September 27, 2024 End: September 27, 2024 Frank TRUJILLO, PA Attending Provider Active Sta rt: September 27, 2024 End: September 27, 2024 Team Status: Inactive Member Role Status Dates Dr. Silviano Walsh MD Primary Care Provider Active Start: October 01, 2024 End: October 02, 2024 Dr. Luis Madrigal DO Attending Provider Active Start: October 01, 2024 End: October 02, 2024 Dr. Luis Madrigal DO Emergency Provider Active Start: October 01, 2024 End: October 02, 2024 Team Status: Inactive Member Role Status Dates Dr. Silviano Walsh MD Primary Care Provider Active Start: October 05, 2024 End: October 05, 2024 Dr. Silviano Walsh MD Attending Provider Active Start: October 05, 2024 End: October 05, 2024 Dr. Silviano Walsh MD Referring Provider Active Start: October 05, 2024 End: October 05, 2024 Team Status: Inactive Member Role Status Dates Dr. Silviano Walsh MD Primary Care Provider Active Start: November 22, 2024 End: November 22, 2024 Dr. Silviano Walsh MD Referring Provider Active Start: November 22, 2024 End: November 22, 2024 Malik TRUJILLO, PA Attending Provider Active St art: November 22, 2024 End: November 22, 2024 Team Status: Inactive Member Role Status Dates Dr. Silviano Walsh MD Primary Care Provider Active Start: November 22, 2024 End: November 22, 2024 Malik Gatn PA, PA Attending Provider Active St art: November 22, 2024 End: November 22, 2024 Malik Gant PA, PA Referring Provider Active St art: November 22, 2024 End: November 22, 2024 Team Status: Inactive Member Role Status Dates Dr. Silviano Walsh MD Primary Care Provider Active Start: December 12, 2024 End: December 12, 2024 Malik Gant PA, PA Attending Provider Active St art: December 12, 2024 End: December 12, 2024 Malik Gant PA, PA Referring Provider Active St art: December 12, 2024 End: December 12, 2024 Team Status: Inactive Member Role Status Dates Dr. Silviano Walsh MD Primary Care Provider Active Start: December 21, 2024 End: December 21, 2024 Dr. Silviano Walsh MD Referring Provider Active Start: December 21, 2024 End: December 21, 2024 Malik Gant PA, PA Attending Provider Active St art: December 21, 2024 End: December 21, 2024 Team Status: Inactive Member Role Status Dates Dr. Silviano Walsh MD Primary Care Provider Active Start: January 22, 2025 End: January 22, 2025 Dr. Silviano Walsh MD Referring Provider Active Start: January 22, 2025 End: January 22, 2025 [employer] Green CIGARETTE MACHINE FILLER, CIGARETTE MACHINE FILLER-C Attending Provider Active Start: January 22, 2025 End: January 22, 2025 Team Status: Active Member Role Status Dates Dr. Silviano Walsh MD Primary Care Provider Active Start: January 22, 2025 Trinity Green CIGARETTE MACHINE FILLER, CIGARETTE MACHINE FILLER-C Attending Provider Active Start: January 22, 2025 Trinityaze[employer] Green CIGARETTE MACHINE FILLER, CIGARETTE MACHINE FILLER-C Referring Provider Active Start: January 22, 2025 Team Status: Inactive Member Role Status Dates Dr. Silviano Walsh MD Primary Care Provider Active Start: January 23, 2025 End: January 23, 2025 Dr. Silviano Walsh MD Referring Provider Active Start: January 23, 2025 End: January 23, 2025 Dr. Yash Gunter MD Attending Provider Active Start: January 23, 2025 End: January 23, 2025 Team Status: Inactive Member Role Status Dates Dr. Silviano Walsh MD Primary Care Provider Active Start: January 22, 2025 End: January 22, 2025 [employer] Green CIGARETTE MACHINE FILLER, CIGARETTE MACHINE FILLER-C Attending Provider Active Start: January 22, 2025 End: January 22, 2025 [employer] Green CIGARETTE MACHINE FILLER, CIGARETTE MACHINE FILLER-C Referring Provider Active Start: January 22, 2025 End: January 22, 2025 Team Status: Active Member Role Status Dates Dr. Silviano Walsh MD Primary Care Provider Active Start: January 23, 2025 Dr. Yash Gunter MD Attending Provider Active Start: January 23, 2025 Dr. Yash Gunter MD Referring Provider Active Start: January 23, 2025 Team Status: Inactive Member Role Status Dates Dr. Silviano Walsh MD Primary Care Provider Active Start: January 23, 2025 End: January 23, 2025 Dr. Yash Gunter MD Attending Provider Active Start: January 23, 2025 End: January 23, 2025 Dr. Yash Gunter MD Referring Provider Active Start: January 23, 2025 End: January 23, 2025 Team Status: Inactive Member Role Status Dates Dr. Silviano Walsh MD Primary Care Provider Active Start: February 15, 2025 End: February 15, 2025 Dr. Silviano Walsh MD Referring Provider Active Start: February 15, 2025 End: February 15, 2025 Malik TRUJILLO, PA Attending Provider Active St art: February 15, 2025 End: February 15, 2025 Team Status: Active Member Role/Relationship Status Dates Dr. Silviano Walsh MD Primary Care Provider Active Team Status: Inactive Member Role/Relationship Status Dates Dr. Silviano Walsh MD Primary Care Provider Active Start: November 22, 2024 End: November 22, 2024 Dr. Silviano Walsh MD Referring Provider Active Start: November 22, 2024 End: November 22, 2024 Malik TRUJILLO, PA Attending Provider Active St art: November 22, 2024 End: November 22, 2024 Team Status: Inactive Member Role/Relationship Status Dates Dr. Silviano Walsh MD Primary Care Provider Active Start: November 22, 2024 End: November 22, 2024 Malik Gant PA, PA Attending Provider Active St art: November 22, 2024 End: November 22, 2024 Malik Gant PA, PA Referring Provider Active St art: November 22, 2024 End: November 22, 2024 Team Status: Inactive Member Role/Relationship Status Dates Dr. Silviano Walsh MD Primary Care Provider Active Start: December 12, 2024 End: December 12, 2024 Malik Gant PA, PA Attending Provider Active St art: December 12, 2024 End: December 12, 2024 Malik Gant PA, PA Referring Provider Active St art: December 12, 2024 End: December 12, 2024 Team Status: Inactive Member Role/Relationship Status Dates Dr. Silviano Walsh MD Primary Care Provider Active Start: December 21, 2024 End: December 21, 2024 Dr. Silviano Walsh MD Referring Provider Active Start: December 21, 2024 End: December 21, 2024 Malik Gant PA, PA Attending Provider Active St art: December 21, 2024 End: December 21, 2024 Team Status: Inactive Member Role/Relationship Status Dates Dr. Silviano Walsh MD Primary Care Provider Active Start: January 22, 2025 End: January 22, 2025 [employer] Green CIGARETTE MACHINE FILLER, CIGARETTE MACHINE FILLER-C Attending Provider Active Start: January 22, 2025 End: January 22, 2025 [employer] Green CIGARETTE MACHINE FILLER, CIGARETTE MACHINE FILLER-C Referring Provider Active Start: January 22, 2025 End: January 22, 2025 Team Status: Inactive Member Role/Relationship Status Dates Dr. Silviano Walsh MD Primary Care Provider Active Start: January 22, 2025 End: January 22, 2025 [employer] Green CIGARETTE MACHINE FILLER, CIGARETTE MACHINE FILLER-C Attending Provider Active Start: January 22, 2025 End: January 22, 2025 [employer] Green CIGARETTE MACHINE FILLER, CIGARETTE MACHINE FILLER-C Referring Provider Active Start: January 22, 2025 End: January 22, 2025 Team Status: Inactive Member Role/Relationship Status Dates Dr. Silviano Walsh MD Primary Care Provider Active Start: January 23, 2025 End: January 23, 2025 Dr. Silviano Walsh MD Referring Provider Active Start: January 23, 2025 End: January 23, 2025 Dr. Yash Gunter MD Attending Provider Active Start: January 23, 2025 End: January 23, 2025 Team Status: Inactive Member Role/Relationship Status Dates Dr. Silviano Walsh MD Primary Care Provider Active Start: January 23, 2025 End: January 23, 2025 Dr. Yash Gunter MD Attending Provider Active Start: January 23, 2025 End: January 23, 2025 Dr. Yash Gunter MD Referring Provider Active Start: January 23, 2025 End: January 23, 2025 Team Status: Inactive Member Role/Relationship Status Dates Dr. Silviano Walsh MD Primary Care Provider Active Start: February 15, 2025 End: February 15, 2025 Dr. Silviano Walsh MD Referring Provider Active Start: February 15, 2025 End: February 15, 2025 Malik TRUJILLO PA Attending Provider Active St art: February 15, 2025 End: February 15, 2025 Team Status: Inactive Member Role/Relationship Status Dates Dr. Silviano Walsh MD Primary Care Provider Active Start: March 22, 2025 End: March 22, 2025 Dr. Silviano Walsh MD Referring Provider Active Start: March 22, 2025 End: March 22, 2025 CASSANDRA Arango Attending Provider Active St art: March 22, 2025 End: March 22, 2025 Team Status: Inactive Member Role/Relationship Status Dates Dr. Silviano Walsh MD Primary Care Provider Active Start: December 21, 2024 End: December 21, 2024 Dr. Silviano Walsh MD Referring Provider Active Start: December 21, 2024 End: December 21, 2024 CASSANDRA Arango Attending Provider Active St art: December 21, 2024 End: December 21, 2024 Team Status: Inactive Member Role/Relationship Status Dates Dr. Silviano Walsh MD Primary Care Provider Active Start: January 22, 2025 End: January 22, 2025 [employer] Green CIGARETTE MACHINE FILLER, CIGARETTE MACHINE FILLER-C Attending Provider Active Start: January 22, 2025 End: January 22, 2025 [employer] Green CIGARETTE MACHINE FILLER, CIGARETTE MACHINE FILLER-C Referring Provider Active Start: January 22, 2025 End: January 22, 2025 Team Status: Inactive Member Role/Relationship Status Dates Dr. Silviano Walsh MD Primary Care Provider Active Start: January 22, 2025 End: January 22, 2025 [employer] Green CIGARETTE MACHINE FILLER, CIGARETTE MACHINE FILLER-C Attending Provider Active Start: January 22, 2025 End: January 22, 2025 [employer] Green CIGARETTE MACHINE FILLER, CIGARETTE MACHINE FILLER-C Referring Provider Active Start: January 22, 2025 End: January 22, 2025 Team Status: Inactive Member Role/Relationship Status Dates Dr. Silviano Walsh MD Primary Care Provider Active Start: January 23, 2025 End: January 23, 2025 Dr. Silviano Walsh MD Referring Provider Active Start: January 23, 2025 End: January 23, 2025 Dr. Yash Gunter MD Attending Provider Active Start: January 23, 2025 End: January 23, 2025 Team Status: Inactive Member Role/Relationship Status Dates Dr. Silviano Walsh MD Primary Care Provider Active Start: January 23, 2025 End: January 23, 2025 Dr. Yash Gunter MD Attending Provider Active Start: January 23, 2025 End: January 23, 2025 Dr. Yash Gunter MD Referring Provider Active Start: January 23, 2025 End: January 23, 2025 Team Status: Inactive Member Role/Relationship Status Dates Dr. Silviano Walsh MD Primary Care Provider Active Start: February 15, 2025 End: February 15, 2025 Dr. Silviano Walsh MD Referring Provider Active Start: February 15, 2025 End: February 15, 2025 CASSANDRA Arango Attending Provider Active St art: February 15, 2025 End: February 15, 2025 Team Status: Inactive Member Role/Relationship Status Dates Dr. Silviano Walsh MD Primary Care Provider Active Start: March 22, 2025 End: March 22, 2025 Dr. Silviano Walsh MD Referring Provider Active Start: March 22, 2025 End: March 22, 2025 CASSANDRA Arango Attending Provider Active St art: March 22, 2025 End: March 22, 2025 Team Status: Inactive Member Role/Relationship Status Dates Dr. Silviano Walsh MD Primary Care Provider Active Start: April 19, 2025 End: April 19, 2025 Dr. Silviano Walsh MD Referring Provider Active Start: April 19, 2025 End: April 19, 2025 CASSANDRA Arango Attending Provider Active St art: April 19, 2025 End: April 19, 2025 FOR RECORDS PERTAINING TO PATIENTS WHO ARE [...] BE BASED ON THE PRIMARY CLINICAL RECORDS. [facility] [employer] provides no warranty or guarantee of the accuracy or completeness of information in this document.
--- NOTE | 2025-05-03 08:12 | RAD_ITS ---
EXAM: XR Right Knee Complete, 4 or More Views CLINICAL INDICATION: KNEE PAIN TECHNIQUE: Four or more views of the right knee. COMPARISON: No relevant prior studies available. FINDINGS: BONES/JOINTS: Moderate degenerative change of the medial compartment of the knee joint. No acute fracture. No dislocation. SOFT TISSUES: Unremarkable. VASCULATURE: Vascular calcification. RAD/Knee 4 or More Views IMPRESSION: 1. Moderate degenerative change of the medial compartment of the knee joint. 2. Degenerative changes as above. Reading Location: [id number]
== END | disposition home or self-care (01) ==
PROVIDERS: PCP Internal Medicine; Referring Provider Internal Medicine; Visit Provider Internal Medicine
DX: M25.561 Pain in right knee (principal); R74.8 Abnormal levels of other serum enzymes; R63.4 Abnormal weight loss; I10 Essential (primary) hypertension; M81.0 Age-related osteoporosis without current pathological fracture
CPT/HCPCS: 73564; 76705; 76981

== ENCOUNTER 2025-07-26 11:14 | Outpatient (CLI) | payer MEDICARE, SELFPAY ==
--- OUTSIDE RECORDS SUMMARY | 2025-07-26 11:21 | XMS RPT_ITS | CCD ---
Author Organization [facility] Care Team Providers Care Torch Heater Name Role Phone Blanche Ramírez Primary Care Provider [phone] Dr. Genevieve Walsh Primary Care Provider [phone] Dr. Genevieve Walsh Referring Provider [phone] Erica HEALTH INSURANCE ADJUSTER, HEALTH INSURANCE ADJUSTER-C Luís Attending Provider [phone] Dr. Genevieve Walsh Primary Care Provider [phone]) Dr. Genevieve Walsh Referring Provider [phone] Erica HEALTH INSURANCE ADJUSTER, HEALTH INSURANCE ADJUSTER-C Luís Attending Provider [phone] Norma HEALTH INSURANCE ADJUSTER, HEALTH INSURANCE ADJUSTER-C Trinity Attending Provider Dr. Genevieve Walsh Primary Care Provider [phone] Norma HEALTH INSURANCE ADJUSTER, HEALTH INSURANCE ADJUSTER-C Trinity Referring Provider Dr. Genevieve Walsh Attending Provider [phone] Dr. Genevieve Walsh Referring Provider [phone] Genevieve Walsh MD Primary Care Provider [phone] Dr. Genevieve Walsh Primary Care Provider 1(33 0) Dr. Genevieve Walsh Attending Provider [phone] Dr. Genevieve Walsh Referring Provider [phone] Dr. Genevieve Walsh Primary Care Provider 1(33 0) Dr. Genevieve Walsh Attending Provider [phone] Dr. Genevieve Walsh Referring Provider Genevieve Walsh MD Primary Care Provider [phone] Jillian GONGORA, Dr. Shore Primary Care Provider Jillian GONGORA, Dr. Shore Referring Provider [phone] [phone]) Frank Oro Attending Provider Andazeem DO, Dr. Smith Attending Provider Andazeem DO, Dr. Smith Emergency Provider Jillian GONGORA, Dr. Shore Attending Provider [phone]) Malik Diaz Attending Provider Malik Diaz Referring Provider Norma HEALTH INSURANCE ADJUSTER-C, Trinity Attending Provider Norma HEALTH INSURANCE ADJUSTER-C, Trinity Referring Provider Jani GONGORA, Dr. Berrios Attending Provider Jillian GONGORA, Dr. Shore Primary Care Provider Jillian GONGORA, Dr. Shore Referring Provider [phone]) Jani GONGORA, Dr. Berrios Referring Provider Jillian GONGORA, Dr. Shore Primary Care Provider Jillian GONGORA, Dr. Shore Referring Provider 1(33 0) Norma HEALTH INSURANCE ADJUSTER-C, Trinity Referring Provider Jillian GONGORA, Dr. Shore Primary Care Provider Jillian GONGORA, Dr. Shore Referring Provider [phone] 0) Malik Diaz Attending Provider Jillian GONGORA, Dr. Shore Primary Care Physician Jillian GONGORA, Dr. Shore Referring Provider [phone]) Malik Diaz Attending Physician Jani GONGORA, Dr. Berrios Attending Physician Jani GONGORA, Dr. Berrios Referring Provider Malik Diaz Nurse Practitioner ANDERSON, THO Primary Care Unavailable RENEA, SAMIR CHI Consulting Unavailable ANDERSON, THO Admitting Unavailable ANDERSON, THO Attending Unavailable PROVIDER, UNKNOWN Consulting Unavailable PROVIDER, UNKNOWN Consulting Unavailable ANDERSON, THO Attending Unavailable PROVIDER, UNKNOWN Consulting Unavailable ANDERSON, THO Primary Care Unavailable ANDERSON, THO Admitting Unavailable ANDERSON, THO Primary Care Unavailable RENEA, SAMIR CHI Consulting Unavailable ANDERSON, THO Admitting Unavailable ANDERSON, THO Attending Unavailable PROVIDER, UNKNOWN Consulting Unavailable PROVIDER, UNKNOWN Consulting Unavailable RENEA, SAMIR CHI Consulting Unavailable ANDERSON, THO Primary Care Unavailable ANDERSON, THO Admitting Unavailable ANDERSON, THO Attending Unavailable PROVIDER, UNKNOWN Consulting Unavailable PROVIDER, UNKNOWN Consulting Unavailable GENEVIEVE WALSH MD Consulting Unavailable ANDERSON, THO Primary Care Unavailable ANDERSON, THO Admitting Unavailable ANDERSON, THO Attending Unavailable PROVIDER, UNKNOWN Consulting Unavailable ANDERSON, THO Primary Care Unavailable RENEA, SAMIR CHI Consulting Unavailable ANDERSON, THO Admitting Unavailable ANDERSON, THO Attending Unavailable PROVIDER, UNKNOWN Consulting Unavailable PROVIDER, UNKNOWN Consulting Unavailable Oleghe, Efewongbe Primary Care Unavailable Luis Madrigal Attending Unavailable Oleghe, Efewongbe Primary Care Unavailable Yash Gunter Attending Unavailable Malik Diaz Consulting Unavailable Yash Gunter Referring Unavailable Oleghe, Efewongbe Referring Unavailable Oleghe, Efewongbe Primary Care Unavailable Malik Diaz Attending Unavailable Oleghe, Efewongbe Primary Care Unavailable Oleghe, Efewongbe Referring Unavailable Malik Diaz Attending Unavailable Oleghe, Efewongbe Attending Unavailable Oleghe, Efewongbe Primary Care Unavailable Oleghe, Efewongbe Referring Unavailable Oleghe, Efewongbe Primary Care Unavailable Oleghe, Efewongbe Referring Unavailable Malik Diaz Attending Unavailable Oleghe, Efewongbe Primary Care Unavailable Oleghe, Efewongbe Referring Unavailable Yash Gunter Attending Unavailable Norma HEALTH INSURANCE ADJUSTER Trinity Attending Unavailable Oleghe, Efewongbe Primary Care Unavailable Norma HEALTH INSURANCE ADJUSTER, Trinity Referring Unavailable Oleghe, Efewongbe Primary Care Unavailable Malik Diaz Attending Unavailable Oleghe, Efewongbe Referring Unavailable Oleghe, Efewongbe Primary Care Unavailable Oleghe, Efewongbe Referring Unavailable Stalin TRUJILLO, Malik Attending Unavailable Oleghe, Efewongbe Primary Care Unavailable Oleghe, Efewongbe Referring Unavailable Stalin TRUJILLO, Malik Attending Unavailable Oleghe, Efewongbe Attending Unavailable Oleghe, Efewongbe Primary Care Unavailable Oleghe, Efewongbe Referring Unavailable Oleghe, Efewongbe Primary Care Unavailable Oleghe, Efewongbe Referring Unavailable Frank Oro Attending Unavailable Oleghe, Efewongbe Primary Care Unavailable Norma HEALTH INSURANCE ADJUSTER, Trinity Referring Unavailable Norma HEALTH INSURANCE ADJUSTER, Trinity Attending Unavailable Oleghe, Efewongbe Primary Care Unavailable Stalin TRUJILLO, Malik Referring Unavailable Stalin TRUJILLO, Malik Attending Unavailable Oleghe, Efewongbe Primary Care Unavailable Stalin TRUJILLO, Malik Referring Unavailable Stalin PA, Malik Attending Unavailable Oleghe, Efewongbe Primary Care Unavailable Jani Yash Referring Unavailable Jani Yash Attending Unavailable Allergies Allergy Classification Reported Allergen(s) Allergy Type Date of Onset Reaction(s) Facility (20 sources) moxifloxacin Drug Allergy 1 Rash, Swelling [facility] (11 sources) Seasonal Allergies: Uncoded; Translations: [Seasonal Allergies: Uncoded] Allergy to substance 5 Other [facility] Comment on above: runny nose, cough (1 source) AVALOX Drug allergy (disorder) [facility] (1 source) moxifloxacin Drug Allergy 5 [facility] Medications Current Medications Medication Drug Class(es) Dates Sig (Normalized) Sig (Original) 8 hr acetaminophen 650 mg extended release oral tablet (20 sources) Start: 04-02-2022 End: 12-21-2024 take 1 tablet by mouth every eight hours as needed Comment on above: Take by mouth. albuterol 0.833 mg/ml / ipratropium bromide 0.167 mg/ml inhalation solution (20 sources) Anticholinergic, beta2-Adrenergic Agonist Start: 09-27-2024 End: 10-02-2024 take 1 mL by inhalation every six hours as needed ascorbic acid 500 mg oral capsule (17 sources) Vitamin C Start: 11-05-2021 Start: 11-05-2021 Ascorbic Acid (Vitamin C) Active MG PO November 05, 2021 12:00am baclofen 10 mg oral tablet (20 sources) gamma-Aminobutyric Acid-ergic Agonist Start: 05-23-2024 End: 08-30-2024 take 1 tablet by mouth every eight hours as needed for muscle spasms Start: 01-06-2023 baclofen (SARAH ESAL) 10 mg tablet 01/06/2023 Active Start: 11-05-2021 End: 05-23-2024 take 5-10 mg by mouth twice daily as needed for muscle spasms Baclofen 10 mg tablet Discontinued 5 - 10 mg PO TWICE A DAY as needed for muscle spasm 30 March 13, 2024 10:36am May 23, 2024 1:35pm Hphyrblkub-Tzhmibgf-Kbdrlsev ol (20 sources) Corticosteroid, beta2-Adrenergic Agonist Start: 12-21-2024 Start: 12-21-2024 Budesonide-Gly copyr-Formoterol (Breztri Aerosphere) 160-9-4.8 mcg/actuation HFA aerosol inhaler Active 2 NMA INHALATION TWICE A DAY 10.7 3 December 21, 2024 2:42pm Start: 12-21-2024 Budesonide-Gly copyr-Formoterol (Breztri Aerosphere) 160-9-4.8 mcg/actuation HFA aerosol inhaler Active 2 NMA INHALATION TWICE A DAY 10.7 December 21, 2024 2:42pm Start: 10-09-2024 End: 12-21-2024 Yiggtmontj-Ogkpozse-Zafaeuip ol (Breztri Aerosphere) 160-9-4.8 mcg/actuation HFA aerosol inhaler Discontinued 2 NMA INHALATION TWICE A DAY 10.7 3 October 09, 2024 12:34pm December 21, 2024 2:42pm Start: 10-09-2024 End: 12-21-2024 Yiuykxwdyk-Sdhziecp-Enbkqldd ol (Breztri Aerosphere) 160-9-4.8 mcg/actuation HFA aerosol inhaler Discontinued 2 NMA INHALATION TWICE A DAY 10.7 October 09, 2024 12:34pm December 21, 2024 2:42pm Start: 10-09-2024 Budesonide-Gly copyr-Formoterol (Breztri Aerosphere) 160-9-4.8 mcg/actuation HFA aerosol inhaler Active 2 NMA INHALATION TWICE A DAY 10.7 October 09, 2024 12:34pm Start: 07-05-2024 End: 10-09-2024 Muecrutoho-Vcwdiahm-Pfftbxnc ol (Breztri Aerosphere) 160-9-4.8 mcg/actuation HFA aerosol inhaler Discontinued 2 NMA INHALATION TWICE A DAY 10.7 3 July 05, 2024 11:40am October 09, 2024 12:34pm Start: 07-05-2024 End: 10-09-2024 Ebowmlxhte-Tptuuluh-Tpblvymj ol (Breztri Aerosphere) 160-9-4.8 mcg/actuation HFA aerosol inhaler Discontinued 2 NMA INHALATION TWICE A DAY 10.7 July 05, 2024 11:40am October 09, 2024 12:34pm Start: 07-04-2024 End: 07-05-2024 Psmjymiqdt-Njjgomyn-Fsiafmil ol (Breztri Aerosphere) 160-9-4.8 mcg/actuation HFA aerosol inhaler Discontinued 2 NMA INHALATION TWICE A DAY 10.7 1 July 04, 2024 4:42pm July 05, 2024 11:40am Start: 07-04-2024 End: 07-05-2024 Vuiglexetz-Fshqrgoh-Ldwhfnnm ol (Breztri Aerosphere) 160-9-4.8 mcg/actuation HFA aerosol inhaler Discontinued 2 NMA INHALATION TWICE A DAY 10.7 July 04, 2024 4:42pm July 05, 2024 11:40am Start: 05-08-2024 End: 07-04-2024 Islnyrhvzb-Yseufnhp-Ldhleqjo ol (Breztri Aerosphere) 160-9-4.8 mcg/actuation HFA aerosol inhaler Discontinued 2 NMA INHALATION TWICE A DAY 10.7 May 08, 2024 4:11pm July 04, 2024 4:42pm Start: 05-08-2024 End: 07-04-2024 Grvbrsxxsi-Rncmgepv-Jmpxnycv ol (Breztri Aerosphere) 160-9-4.8 mcg/actuation HFA aerosol inhaler Discontinued 2 NMA INHALATION TWICE A DAY 10.7 May 08, 2024 4:11pm July 04, 2024 4:42pm Start: 08-08-2023 End: 05-08-2024 Tostytpzfg-Awbxhcjw-Odgzzrgo ol (Breztri Aerosphere) 160-9-4.8 mcg/actuation HFA aerosol inhaler Discontinued 2 NMA INHALATION TWICE A DAY 10.7 1 August 08, 2023 4:57pm May 08, 2024 4:12pm Start: 08-08-2023 End: 05-08-2024 Snowvyofvd-Bfnddrwb-Omhsugxs ol (Breztri Aerosphere) 160-9-4.8 mcg/actuation HFA aerosol inhaler Discontinued 2 NMA INHALATION TWICE A DAY 10.7 August 08, 2023 4:57pm May 08, 2024 4:12pm Start: 08-08-2023 Budesonide-Gly copyr-Formoterol (Breztri Aerosphere) 160-9-4.8 mcg/actuation HFA aerosol inhaler Active 2 INH INHALATION TWICE A DAY 10.7 August 08, 2023 3:57pm Start: 05-30-2023 End: 08-08-2023 Kwysunfqat-Trmymfpz-Eyhvptnn ol (Breztri Aerosphere) 160-9-4.8 mcg/actuation HFA aerosol inhaler Discontinued 2 NMA INHALATION TWICE A DAY 10.7 1 May 30, 2023 8:59pm August 08, 2023 4:57pm Start: 05-30-2023 End: 08-08-2023 Tioricncua-Tbewrspg-Hpplnzpe ol (Breztri Aerosphere) 160-9-4.8 mcg/actuation HFA aerosol inhaler Discontinued 2 NMA INHALATION TWICE A DAY 10.7 May 30, 2023 8:59pm August 08, 2023 4:57pm Start: 05-30-2023 End: 08-08-2023 Qxqdumhfnk-Haorynnm-Czenimin ol (Breztri Aerosphere) 160-9-4.8 mcg/actuation HFA aerosol inhaler Discontinued 2 INH INHALATION TWICE A DAY 10.7 May 30, 2023 7:59pm August 08, 2023 3:57pm Start: 01-18-2023 End: 05-30-2023 Mbcdjypafn-Wvbeabcc-Gvdcpddt ol (Breztri Aerosphere) 160-9-4.8 mcg/actuation HFA aerosol inhaler Discontinued 2 NMA INHALATION TWICE A DAY 10.7 3 January 18, 2023 12:00am May 30, 2023 8:59pm Start: 01-18-2023 End: 05-30-2023 Asdebanyed-Vigzwuiq-Viaudhlc ol (Breztri Aerosphere) 160-9-4.8 mcg/actuation HFA aerosol inhaler Discontinued 2 NMA INHALATION TWICE A DAY 10.7 January 18, 2023 12:00am May 30, 2023 8:59pm Start: 01-18-2023 End: 05-30-2023 Ohlxfcdhgn-Hqypytux-Ueezlmti ol (Breztri Aerosphere) 160-9-4.8 mcg/actuation HFA aerosol inhaler Discontinued 2 INH INHALATION TWICE A DAY 10.7 January 17, 2023 11:00pm May 30, 2023 7:59pm Ca Carb-D3-Mag Ys-Nyq-Lpmz-Z n (Caltrate + D3 Plus Minerals) 300 mg-800 unit -25 mg-0.5 mg tablet (17 sources) Start: 07-09-2021 take 1 tablet by [facility] once daily Start: 07-09-2021 take 1 tablet by [facility] once daily Ca Carb-D3-Mag Yo-Xrw-Ebod-Zn (Caltrate + D3 Plus Minerals) 300 mg-800 unit -25 mg-0.5 mg tablet Active 1 {tbl} PO DAILY July 09, 2021 1:00am Start: 07-09-2021 take 1 tablet by [facility] once daily Ca Carb-D3-Mag Ra-Ylm-Mdyp-Zn (Caltrate + D3 Plus Minerals) 300 mg-800 unit -25 mg-0.5 mg tablet Active 1 TABLET PO DAILY July 09, 2021 12:00am Start: 07-09-2021 take 1 tablet by [facility] once daily Ca Carb-D3-Mag Vw-Kwq-Dzgh-Zn (Caltrate + D3 Plus Minerals) 300 mg-800 unit -25 mg-0.5 mg tablet Active 1 TABLET PO DAILY July 09, 2021 1:00am citalopram 40 mg oral tablet (20 sources) Serotonin Reuptake Inhibitor Start: 04-22-2020 End: 05-14-2025 take 1 tablet by mouth once daily Start: 03-07-2020 End: 04-22-2020 Citalopram (Celexa) 40 mg ta blet Discontinued 20 mg PO DAILY April 22, 2020 12:00am April 22, 2020 11:57am Comment on above: Take 40 mg by mouth. hydroCHLOROthiazide 25 mg or al tablet (20 sources) Thiazide Diuretic Start: 04-19-2025 take 1 tablet by mouth once daily Start: 03-22-2025 End: 04-19-2025 take 1 tablet by mouth once daily in the morning Hydrochlorothiazide 12.5 mg tablet Discontinued 12.5 mg PO EVERY MORNING 30 0 March 22, 2025 12:00am April 19, 2025 1:46pm Start: 09-26-2020 End: 10-05-2024 take 1 tablet by mouth once daily in the morning Hydrochlorothiazide 12.5 mg tablet Discontinued 12.5 mg PO EVERY MORNING 90 September 26, 2023 6:50pm March 09, 2024 3:09pm ibuprofen 200 mg oral tablet (20 sources) Nonsteroidal Anti-inflammatory Drug Start: 12-21-2024 take 1 tablet by mouth once as needed Start: 03-07-2020 End: 11-05-2021 take 1 capsule by mouth every six hours as needed Ibuprofen 200 mg capsule Discontinued 200 mg PO EVERY 6 HOURS as needed March 07, 2020 12:00am November 05, 2021 12:20pm lactobacillus acidophilus 1.5 mg oral capsule (17 sources) Start: 03-07-2020 24 hr metoprolol succinate 50 mg extended release oral tablet (20 sources) beta-Adrenergic Chantel Start: 04-19-2025 take 1 tablet by mouth once daily Start: 12-21-2024 End: 04-19-2025 take 1 tablet by mouth once daily Metoprolol Succinate 25 mg tablet extended release 24 hr Discontinued 25 mg PO DAILY 90 December 21, 2024 2:34pm April 19, 2025 1:46pm Start: 03-07-2020 End: 12-21-2024 take 2 tablets by mouth once daily Metoprolol Succinate 25 mg tablet extended release 24 hr Discontinued 12.5 mg PO DAILY 0 September 26, 2023 6:50pm June 28, [...] mouth. Nebulizer Accessories (Hypersoniq Nebulizer Cartridge) misc (17 sources) Start: 07-01-2020 Nebulizer Accessories (Hypersoniq Nebulizer [...] supplies traMADol hydrochloride 50 mg oral tablet (10 sources) Opioid Agonist Start: 11-22-2024 take 1 tablet by mouth three times daily as needed triamcinolone acetonide 1 mg/ml topical cream (20 sources) Corticosteroid Start: 01-06-2023 End: 01-06-2023 Start: 12-02-2020 End: 12-09-2020 triamcinolone acetonide (ARTI ALOG) 0.1 % cream Apply 1 application to affected area three times daily for 7 days. Apply sparingly to area for rash/itching. 45 g 0 12/02/2020 12/09/2020 Active Comment on above: Apply 1 application to affected area three times daily for 7 days. Apply sparingly to area for rash/itching. ursodiol 500 mg oral tablet (12 sources) Bile Acid Start: 01-26-2025 take 1 tablet by mouth three times daily Start: 01-23-2025 End: 01-26-2025 take 1 tablet by mouth twice daily Ursodiol 500 mg tablet Discontinued 500 mg PO TWICE A DAY 60 30 4 January 23, 2025 12:00am January 26, 2025 7:24am After the lab draw 100 ml zoledronic acid 0.05 mg/ml injection (10 sources) Bisphosphonate Start: 03-09-2024 Completed/Discontinued Medications Medication Drug Class(es) Dates Sig (Normalized) Sig (Original) acetaminophen 500 mg / diphenhydrAMINE hydrochloride 25 mg oral tablet (17 sources) Histamine-1 Receptor Antagonist Start: 03-07-2020 End: 03-09-2024 Diphenhydramine-Ac etaminophen (Tylenol Pm Extra Strength) 25-500 mg tablet Discontinued 2 {tbl} PO AT BEDTIME as needed March 07, 2020 12:00am March 09, 2024 2:54pm acetaminophen 325 mg / oxyCODONE hydrochloride 5 mg oral tablet (10 sources) Opioid Agonist Start: 05-14-2024 End: 05-23-2024 Oxycodone-Acetamin ophen 5-325 mg tablet Discontinued 1 {tbl} PO EVERY 6 HOURS NEEDED as needed for Pain 12 3 0 May 14, 2024 May 23, 2024 1:21pm Compression fracture of thoracic vertebra [id number] actuat albuterol 0.09 mg/actuat metered dose inhaler (20 sources) beta2-Adrenergic Agonist Start: 11-10-2020 End: 04-19-2025 Albuterol Sulfate 90 mcg/actuation HFA aerosol inhaler Discontinued 2 NMA INHALATION Q4H as needed for shortness of breath or wheezing 18 January 02, 2025 1:00pm April 19, 2025 1:51pm Start: 11-10-2020 End: [...] albuterol HFA (PROAIR HFA) 90 mcg/actuation inhaler Albuterol 90 mcg/actuation aerosol (10 sources) Start: 03-07-2020 End: 03-07-2020 Albuterol 90 mcg/actuation aerosol Discontinued 90 ug INHALATION .2 [id number] March 07, 2020 12:00am March 07, 2020 2:22pm albuterol 90 mcg/actuation aerosol inhaler (7 sources) Start: 03-07-2020 End: 03-07-2020 albuterol 90 mcg/actuation aerosol inhaler Discontinued 90 MCG INHALATION .2 [id number] March 06, 2020 11:00pm March 07, 2020 1:22pm Start: 03-07-2020 End: 03-07-2020 albuterol 90 mcg/actuation a erosol inhaler Discontinued 90 MCG INHALATION .2 [id number] March 07, 2020 12:00am March 07, 2020 [...] tablet Discontinued 1 {tbl} PO Q12H 14 March 09, 2024 12:00am May 14, 2024 11:03am Start: 10-08-2022 End: 01-06-2023 Amoxicillin-Pot Clavulanate 875-125 mg tablet Discontinued 1 {tbl} PO TWICE A DAY 14 October 08, 2022 1:00am January 06, 2023 2:25pm Start: 10-08-2022 End: 01-06-2023 take 1 tablet by mouth twice daily Amoxicillin-Pot Clavulanate Discontinued 1 TABLET PO TWICE A DAY 14 October 08, 2022 12:00am January 06, 2023 1:25pm Start: 05-14-2022 End: 06-29-2022 Amoxicillin-Pot Clavulanate 875-125 mg tablet Discontinued 1 {tbl} PO TWICE A DAY 20 May 14, 2022 12:00am June 29, 2022 [...] on above: Take 1 tablet by baljinder th twice daily for 7 days. cetirizine hydrochloride 10 mg oral tablet (1 source) Histamine-1 Receptor Antagonist Start: 12-03-19 End: 12-17-19 take 1 tablet by mouth once daily cetirizine (ZYRTEC) 10 mg tablet Take 1 tablet by mouth once daily for 14 days. 14 tablet 0 12/02/2020 12/16/2020 Active Comment on above: Take 1 tablet by baljinder once daily for 14 days. cholecalciferol 0.01 mg oral capsule (17 sources) Vitamin D Start: 06-06-20 End: 07-09-20 take 1 capsule by mouth once daily Cholecalciferol (Vitamin D3) 10 mcg (400 unit) capsule Discontinued 10 ug PO DAILY June 06, 2020 12:00am July 09, 2021 2:09pm codeine phosphate 2 mg/ml / guaiFENesin 20 mg/ml oral solution (10 sources) Opioid Agonist Start: 10-02-19 End: 12-22-19 [...] 2024 2:54pm dexamethasone 6 mg oral tablet (17 sources) Corticosteroid Start: 09-01-19 End: 11-06-19 take 1 tablet by mouth once daily Dexamethasone 6 mg tablet Discontinued 6 mg PO DAILY 7 September 01, 2021 1:00am November 05, 2021 12:00pm doxycycline hyclate 100 mg oral capsule (17 sources) Tetracycline-class Drug Start: 10-02-19 End: 11-08-19 take 1 capsule by mouth twice daily Doxycycline Hyclate 100 mg capsule Discontinued 100 mg PO TWICE A DAY 14 October 02, 2020 1:00am November 07, 2020 2:11pm ePHEDrine hydrochloride 12.5 mg / guaiFENesin 200 mg oral tablet (17 sources) alpha-Adrenergic Agonist, beta-Adrenergic Agonist, Norepinephrine Releasing [...] NMA INHALATION TWICE A DAY 60 2 January 19, 2021 9:43am April 09, 2021 [...] DAILY glucosamine sulfate 1000 mg oral capsule (17 sources) Start: End: take 1 capsule by mouth once daily [...] Lisinopril-Hydrochlorothiazide Discontin ued 1 TABLET PO DAILY 90 March 07, 2020 1:21pm November 07, 2020 1:12pm lisinopril 40 mg oral tablet (20 sources) Angiotensin Converting Enzyme Inhibitor Start: 09-26-2020 End: 11-22-2024 take 1 tablet by mouth once daily Lisinopril 40 mg tablet Discontinued 40 mg PO DAILY 90 September 26, 2023 6:50pm March 09, 2024 3:09pm Comment on above: Take 40 mg by mouth. loratadine 10 mg oral tablet (17 sources) Start: 03-07-2020 End: 02-10-2021 take 1 tablet by mouth once daily Loratadine (Claritin) 10 mg tablet Discontinued 10 mg PO DAILY March 07, 2020 12:00am February 10, 2021 10:07am magnesium oxide 500 mg oral capsule (17 sources) Start: 03-07-2020 End: 01-22-2021 take 1 capsule by mouth once daily Magnesium Oxide 500 mg capsule Discontinued 500 mg PO DAILY March 07, 2020 12:00am January 22, 2021 2:26pm meloxicam 15 mg oral tablet (20 sources) Nonsteroidal Anti-inflammatory Drug Start: 11-05-2021 End: 11-22-2024 take 0.5-1 tablets by mouth once daily as needed for pain Meloxicam 15 mg tablet Discontinued 0 .ROUTE .COMPLEX 90 1 July 19, 2023 2:27pm March 09, 2024 3:09pm TAKE ONE-HALF TO ONE TABLET BY MOUTH ONCE DAILY NEEDED FOR JOINT PAIN methylPREDNISolone 4 mg oral tablet (20 sources) Corticosteroid Start: 09-27-2024 End: 10-03-2024 take 1 tablet by mouth once Methylprednisolone (Medrol (Niko)) 4 mg tablets,dose pack Discontinued 4 mg PO per package directions 21 6 0 September 27, 2024 1:00am October 02, 2024 [...] pack Discontinued 0 PO per package directions January 22, 2021 12:00am February 10, 2021 [...] tablet Discontinued 10 mg PO AT BEDTIME 90 2 September 26, 2023 6:50pm March 09, [...] mg tablet Discontinued 40 mg PO DAILY 10 October 08, 2022 1:00am January 06, 2023 2:26pm Start: 10-08-2022 End: 01-06-2023 take 40 mg by mouth once daily Prednisone Discontinued 40 MG PO DAILY October 08, 2022 12:00am January 06, 2023 1:26pm Start: 02-10-2021 End: 04-09-2021 Prednisone 10 mg tablet Disc ontinued 0 PO daily 30 February 10, 2021 10:10am April 09, 2021 [...] mg tablet Disc ontinued 0 PO daily 30 November 07, 2020 1:00am January 22, 2021 [...] food. promethazine hydrochloride 12.5 mg oral tablet (17 sources) Phenothiazine Start: 09-01-19 End: 11-06-19 take 1 tablet by mouth twice daily as needed for nausea and vomiting Promethazine 12.5 mg tablet Discontinued 12.5 mg PO TWICE A DAY as needed for nausea and vomiting 20 September 01, 2021 1:00am November 05, 2021 12:01pm simvastatin 40 mg oral tablet (20 sources) HMG-CoA Reductase Inhibitor Start: 03-13-20 End: 03-09-20 take 1 tablet by mouth once daily in the evening Simvastatin 40 mg tablet Discontinued 40 mg PO EVERY EVENING 90 September 26, 2023 6:51pm March 09, 2024 3:09pm tumeric with cumin OTC (17 sources) Start: 03-07-20 End: 11-06-19 tumeric with cumin OTC Discontinued PO 0 March 07, 2020 12:00am November 05, 2021 12:02pm Start: 03-07-2020 End: 11-05-2021 tumeric with cumin OTC Disco ntinued PO March 06, 2020 11:00pm November 05, 2021 11:02am Start: 03-07-2020 End: 11-05-2021 tumeric with cumin OTC Disco ntinued PO March 07, 2020 12:00am November 05, 2021 12:02pm Zinc (17 sources) Start: 07-09-2021 End: 10-08-2022 take 1 [...] Date Documented Da te Episodic/Chronic Acute bronchitis (16 sources) Respiratory syncytial virus bronchitis; Translations: [Acute [...] [Chronic obstructive pulmonary disease, unspecified] 01-06-2023 Chronic Disorders of lipid metabolism (1 source) Hyperlipidemia, unspecified; Translations: [Hyperlipidemia, unspecified] Onset: 07-03-2025 Chronic Essential hypertension (20 sources) Hypertensive disorder; Translations: [Essential (primary) hypertension] Onset: 07-03-2025 Chronic Fluid and electrolyte disorders (10 sources) Hyponatremia; Translations: [Hypo-osmolality and hyponatremia] 03-09-2024 Episodic Immunizations and screening for infectious disease (11 sources) Encounter for immunization; Translations: [Need for prophylactic vaccination and inoculation against diphtheria-tetanus- pertussis, combined [DTP] [DTaP]] Episodic Comment on above: Patient declined Open wounds of extremities (10 sources) Cat bite - wound; Translations: [Open bite of unspecified hand, initial encounter] 03-09-2024 Episodic Osteoarthritis (20 sources) Osteoarthritis; Translations: [Unspecified osteoarthritis, unspecified site] Chronic Osteoporosis (20 sources) Osteoporosis; Translations: [Age-related osteoporosis without current pathological fracture] Chronic Other circulatory disease (15 sources) Elevated blood pressure; Translations: [Elevated blood-pressure reading, without diagnosis of hypertension] 12-24-2024 Episodic Other connective tissue disease (4 sources) Synovial cyst of popliteal space [Funes], right knee; Translations: [Synovial cyst of right popliteal space] 03-22-2025 Episodic Other fractures (10 sources) Compression fracture of thoracic spine; Translations: [Wedge compression fracture of unspecified thoracic vertebra, initial encounter for closed fracture] 05-22-2024 Episodic Other liver diseases (19 sources) Elevated liver enzymes level; Translations: [Abnormal levels of other serum enzymes] 01-07-2023 Episodic Other lower respiratory disease (12 sources) Chronic cough; Translations: [Chronic cough] 01-06-2023 Episodic Other non-traumatic joint disorders (14 sources) Hip pain; Translations: [Pain in right hip] 10-08-2022 Episodic Other non-traumatic joint disorders (5 sources) Pain in right knee; Translations: [Right knee pain] Onset: 07-03-2025 03-22-2025 Episodic Other nutritional; endocrine; and metabolic disorders (20 sources) Weight decreased; Translations: [Abnormal weight loss] 11-22-2024 Episodic Other upper respiratory disease (17 sources) Allergic rhinitis; Translations: [Allergic rhinitis, unspecified] 01-22-2021 Chronic Other upper respiratory infections (1 source) Chronic sinusitis; Translations: [Chronic sinusitis, unspecified] Chronic Skin and subcutaneous tissue infections (1 source) Cellulitis, unspecified; Translations: [Cellulitis and abscess of unspecified sites] Episodic Spondylosis; intervertebral disc disorders; other back problems (20 sources) Spasm of back muscles; Translations: [Muscle spasm of back] 11-05-2021 Episodic Substance-related disorders (20 sources) Tobacco dependence, continuous; Translations: [Nicotine dependence, unspecified, with unspecified nicotine-induced disorders] Onset: 02-27-2025 Chronic Unclassified (16 sources) Elevated liver enzymes; Translations: [R74.8 - Abnormal levels of other serum enzymes] Unclassified (1 source) Cough, unspecified; Translations: [Cough, unspecified] Onset: 09-27-2024 Past or Other Problems Problem Classification Problem Date Documented Da te Episodic/Chronic Other lower respiratory disease (1 source) Shortness of breath; Translations: [Shortness of breath] Onset: 10-19-2024 Episodic Other lower respiratory disease (1 source) Wheezing; Translations: [Wheezing] Onset: 09-27-2024 Episodic Other nutritional; endocrine; and metabolic disorders (1 source) Abnormal weight loss; Translations: [Abnormal weight loss] Onset: 12-17-2024 Episodic Other screening for suspected conditions (not mental disorders or infectious disease) (20 sources) Patient encounter status; Translations: [Encounter for screening for malignant neoplasm of respiratory organs] Onset: 02-27-2025 Episodic Screening and history of mental health and substance abuse codes (1 source) Personal history of nicotine dependence; Translations: [Personal history of nicotine dependence] Onset: 02-27-2025 Episodic Results Test Name Value Interpretation Reference Range Facility Internal Medicine Office Vis iton 07-03-2025 Internal Medicine Office Visit [facility] Internal Medicine [address] [place] [address] [place] [address] OFFICE VISIT Date of Service: 07/03/25 MR#: [id number] Acct: [id number] Name: VIOLA SCOTT Rep #: [id number] : 1955 Provider: CASSANDRA Tiwari Age/Sex: 69/F Location: [facility] Status: Signed Intake Vital Signs 03/22/25 14:06 07/03/25 13:00 Height 5 ft 2 in 5 ft 2 in Weight: 94 lb 103 lb BMI 17.2 18.8 BP 156/88 H 142/100 H Blood Pressure Location Lt brachial Lt brachial Position Sitting Sitting Respiration 16 18 Pulse 102 H 85 Pulse Source Monitor Monitor Temp 98.8 F 97.4 F L Temp Source Temporal Temporal Pulse Oximetry (%) 95 98 Oxygen Delivery Method room air room air Intake Visit Reasons: FU Chief Complaint: FU Is patient in pain?: No Allergies moxifloxacin (From Avelox) Allergy (Severe, Verified 07/03/25 12:59) hives/swelling Seasonal Allergies: Uncoded Allergy (Intermediate, Verified 07/03/25 12:59) Other Medications ???Medication ???Instructions ???Recorded ???Confirmed ???Type Lactobacillus acidophilus 250 100 mmu cells PO DAILY 03/07/20 History million cell capsule (Probiotic Acidophilus) nebulizer accessories (Hypersoniq #1 ea 07/01/20 07/03/25 Rx Nebulizer Cartridge) albuterol sulfate 2.5 mg/3 mL 2.5 mg (3 mL) inhalation Q4H PRN 1 07/03/25 Rx (0.083 %) solution for nebulization shortness of breath or wheezing #90 mL calcium 300 mg-D3 20 mcg-magnesium 1 tab PO DAILY 07/09/21 07/03/25 History 25 mg-coppr 0.5 vi-zcxr-gqgp tablet (Caltrate-D3 Plus Minerals) ascorbic acid (vitamin C) 500 mg mg PO 11/05/21 04/19/25 History capsule triamcinolone acetonide 0.1 % 1 applic topical TID PRN rash #80 01/06/23 07/03/25 Rx topical cream grams simvastatin 40 mg tablet 40 mg PO QPM #90 tabs 03/09/2401/20 Rx baclofen 10 mg tablet 10 mg PO Q8H PRN muscle spasm #90 08/30/24 07/03/25 Rx tabs ipratropium 0.5 mg-albuterol 3 mg 3 ml inhalation Q6H PRN shortness 10/02/24 07/03/25 Rx (2.5 mg base)/3 mL nebulization of breath #180 mL soln tramadol 50 mg tablet 50 mg PO TID PRN 11/22/24 07/03/25 History acetaminophen 650 mg 650 mg PO Q8H PRN 12/21/24 5 History tablet,extended release (Tylenol Arthritis Pain) budesonide 160 mcg-glycopyr 9 2 inh inhalation BID #10.7 grams 0 12/21/24 07/03/25 Rx mcg-formot 4.8 mcg/actuation HFA inhaler (Breztri Aerosphere) ibuprofen 200 mg tablet 200 mg PO ONCE PRN 12/21/24 History ursodiol 500 mg tablet 500 mg PO TID 1 month #90 tabs 07/03/25 Rx fluticasone propionate 50 1 spray intranasal BID PRN 5 07/03/25 Rx mcg/actuation nasal allergies, congestion #16 grams spray,suspension montelukast 10 mg tablet 10 mg PO QHS #90 tabs 03/12/2501/20 Rx (Singulair) citalopram 40 mg tablet (Celexa) 40 mg PO DAILY #90 tabs 05/14/25 1 09/02/24 Rx hydrochlorothiazide 25 mg tablet 25 mg PO QDAY #90 tabs 05/29/25 Rx lisinopril 40 mg tablet 40 mg PO DAILY #90 tabs 05/29/25 1 09/02/24 Rx metoprolol succinate 50 mg 50 mg PO QDAY #90 tabs 05/29/25 Rx tablet,extended release 24 hr albuterol sulfate 90 mcg/actuation 2 puff inhalation Q4H PRN 07/03/25 Rx aerosol inhaler shortness of breath or wheezing #18 grams ibuprofen 200 mg tablet 200 mg PO Q6H PRN 07/03/25 5 History valsartan 320 mg tablet 320 mg PO QDAY #30 tabs 07/03/25 1 09/02/24 Rx zoledronic acid 5 mg/100 mL in 1 ea .Route .Yearly #100 mL 07/03/25 Rx mannitol 5 %-water intravenous piggybck (Reclast) Have you fallen in the past year?: No Nurse's Note: pt reports that she is here for a follow up on a blood pressure check pt states that she is experiencing alot of stress in her life right now which she feels is affecting her blood pressure. she denies chest pain or shortness of breath except when she has asthma flares. pt's blood pressure is noted elevated today, pt denies CP and shortness of breath at this time. [facility] Medical History Encounter for screening for malignant [...] Osteoarthritis History of kidney stones Migraine High cholester (more content not included)... Normal [facility] ABD Limited w/ Elastographyo n 05-03-2025 ABD Limited w/ Elastography [facility] Imaging Services [facility] [address] [place], [place] [address] ABD Limited w/ Elastography MR#: [id number] Acct: [id number] Name: VIOLA SCOTT Rep #: [id number] : 1955 F 69 From: Rivera wong MD PCP: Dr. Genevieve Walsh MD Status: REG CLI Study: ABD Limited w/ Elastography Date of Exam: 01/20 Exam# [id number] Ordering Dr: Yash Gunter MD PROCEDURE: ABD LIMITED W/ ELASTOGRAPHY REASON FOR EXAM: ELEVATED ALP AND GGT COMPARISON: None. TECHNIQUE: Procedure Code: USABDLELPARO Modality: US Procedure: ABD LIMITED W/ ELASTOGRAPHY Right upper quadrant abdominal ultrasound. [facility] ElastQ Imaging shear wave elastography for non- invasive assessment of liver tissue stiffness. [facility] EPIQ Elite. FINDINGS: LIVER: Size: Unremarkable Length: 16.7 cm Echotexture: Coarsened Contour: Normal Lesions: None identified Elastography: EQI Med: 6.5 kPa EQI Med Remy: 1.47 m/s IQR/Med: 22 %* GALLBLADDER: Multiple small gallstones. COMMON BILE DUCT: Normal measuring 5.6 mm . PANCREAS: Normal Visualized portions of the right kidney are unremarkable. No right upper quadrant ascites. The spleen is not enlarged. The spleen measures 8.5 cm 3.8 cm 3.8 cm. US/ABD Limited w/ Elastography IMPRESSION: Mild hepatic fibrosis. Multiple gallstones. The spleen is not enlarged. Reference Values: SRU <1.37 m/s (5.7kPa): No to mild fibrosis 1.37 m/s - 2.2 m/s: Moderate to severe fibrosis >2.2 m/s (15kPa): Significant fibrosis / cirrhosis METAVIR Score F2 or higher: 1.34 m/s (5.7kPa) F3 or higher: 1.55 m/s (7.3kPa) F4: 1.80 m/s (10kPa) * If the IQR/Med is >30%, the variance in the measurements is a large and the accuracy of the measurement may be in question. Reading Location: [place] [address] CC: Dr. Genevieve Walsh MD; Dr. Yash Gunter MD Quality Reviewer: Signed Normal [facility] Knee 4 or More Viewson 05-03 Knee 4 or More Views [facility] Imaging Services [address] [place] [address] Knee 4 or More Views MR#: [id number] Acct: [id number] Name: VIOLA SCOTT Rep #: [id number] : 1955 F 69 From: Luís Gray MD PCP: Dr. Genevieve Walsh MD Status: REG CLI Study: Knee 4 or More Views Date of Exam: 05/03/25 Exam# [id number] Ordering Dr: Malik Gant EXAM: XR Right Knee Complete, 4 or More Views CLINICAL INDICATION: KNEE PAIN TECHNIQUE: Four or more views of the right knee. COMPARISON: No relevant prior studies available. FINDINGS: BONES/JOINTS: Moderate degenerative change of the medial compartment of the knee joint. No acute fracture. No dislocation. SOFT TISSUES: Unremarkable. VASCULATURE: Vascular calcification. RAD/Knee 4 or More Views IMPRESSION: 1. Moderate degenerative change of the medial compartment of the knee joint. 2. Degenerative changes as above. Reading Location: [facility] CC: Dr. Genevieve Walsh MD; CASSANDRA Tiwari Quality Reviewer: Signed Normal [facility] Internal Medicine Office Vis iton 04-19-2025 Internal Medicine Office Visit [facility] [address] [place] [address] [address] [place] [address] OFFICE VISIT Date of Service: 04/19/25 MR#: [id number] Acct: [id number] Name: VIOLA SCOTT Rep #: [id number] : 1955 Provider: CASSANDRA Tiwari Age/Sex: 69/F Location: [facility] Status: Signed Intake Vital Signs 03/22/25 13:42 [...] Intake Visit Reasons: 3 WEEK FOLLOW UP Video Rental Clerk Required: No Accompanied by: Self Is patient in pain?: No Allergies moxifloxacin (From Avelox) Allergy (Severe, Verified 04/19/25 13:26) hives/swelling Seasonal Allergies: Uncoded Allergy (Intermediate, Verified 04/19/25 13:26) Other Medications ???Medication ???Instructions ???Recorded ???Confirmed ???Type Lactobacillus acidophilus 250 100 mmu cells PO DAILY 03/07/20 History million cell capsule (Probiotic Acidophilus) nebulizer accessories (StarShooterq #1 ea 07/01/20 03/22/25 Rx Nebulizer Cartridge) albuterol sulfate 2.5 mg/3 mL 2.5 mg (3 mL) inhalation Q4H PRN 1 04/19/25 Rx (0.083 %) solution for nebulization shortness of breath or wheezing #90 mL calcium 300 mg-D3 20 mcg-magnesium 1 tab PO DAILY 07/09/21 04/19/25 History 25 mg-coppr 0.5 uz-ttcq-dtrt tablet (Caltrate-D3 Plus Minerals) ascorbic acid (vitamin [...] Asthma Alzheimer disease Social History ... Normal [facility] OPERATIVE PROCEDURESon 04-03 OPERATIVE PROCEDURES [facility] OPERATIVE REPORT NAME ACCOUNT SEX AGE ADMIT DISCHARGE PT MED. RECORD# NUMBER DATE DATE TYPE TYLER [id number] Isabela 69 04/02/25 04/02/25 Lorenzo Perez [id number] ROOM: DATE OF : 1955 DICTATING PHYSICIAN: Tho Anderson DATE OF PROCEDURE: April 02, 2025 SURGEON: Tho Anderson DO PACKAGE PICK UP: None. ANESTHESIA: Local. PRE-PROCEDURE DIAGNOSIS: Right hip/bursal pain/M70.61. POST-PROCEDURE DIAGNOSIS: Right hip/bursal pain/M70.61. PROCEDURE PERFORMED: Right hip/bursal injection under palpatory guidance. COMPLICATIONS: None. ESTIMATED BLOOD LOSS: None. INTRAVENOUS FLUIDS: None. INDICATIONS: This is a 69-year-old female with severe right hip bursal pain refractory to medications, including opioids. She agrees to the risks and benefits of the procedure. DESCRIPTION OF PROCEDURE: This 69-year-old female was taken to the pain block room and was placed in the standing position. Under sterile prep with Betadine and alcohol to the right bursal area identified via palpation, the pain was reproduced. A 25-gauge needle was placed into the right hip/bursa. After negative aspiration, Kenalog 40 mg with Marcaine 0.25% preservative free 4 mL was then injected through the needle. The needle was removed intact. Dictated By: Tho Anderson DO 04/02/25 14:19 JOB #: [id number] Transcribed By: joceline 04/02/25 15:21 Electronically signed by: E-SIGN: THO ANDERSON 04/03/25 07:43 Page 1 of 1 VIOLA SCOTT Operative Report Normal [facility] Internal Medicine Office Vis iton 03-22-2025 Internal Medicine Office Visit [facility] [address] [place] [address] [place] [address] OFFICE VISIT Date of Service: 03/22/25 MR#: [id number] Acct: [id number] Name: VIOLA SCOTT Rep #: [id number] : 1955 Provider: CASSANDRA Tiwari Age/Sex: 69/F Location: [facility] Status: Signed Intake Vital Signs 02/15/25 14:09 [...] PAIN Chief Complaint: large behind the knee Video Rental Clerk Required: No Accompanied by: Self Is patient [...] DAILY 07/09/21 03/22/25 History 25 mg-coppr 0.5 hj-hjjj-gunp tablet (Caltrate-D3 Plus Minerals) ascorbic acid (vitamin [...] right knee lump in back of knee [facility] Medical History Encounter for screening for malignant [...] High cholesterol (more content not included)... Normal [facility] Internal Medicine Office Vis iton 02-15-2025 Internal Medicine Office Visit [facility] [address] [place] [address] [place] [address] OFFICE VISIT Date of Service: 02/15/25 MR#: [id number] Acct: [id number] Name: VIOLA SCOTT Rep #: [id number] : 1955 Provider: CASSANDRA Tiwari Age/Sex: 69/F Location: [facility] Status: Signed Intake Vital Signs 12/21/24 13:58 [...] million cell capsule (Probiotic Acidophilus) nebulizer accessories (Rosumoniq #1 ea 07/01/20 01/22/25 Rx Nebulizer Cartridge) albuterol sulfate 2.5 mg/3 mL 2.5 mg (3 mL) inhalation Q4H PRN 1 02/15/25 Rx (0.083 %) solution for nebulization shortness of breath or wheezing #90 mL calcium 300 mg-D3 20 mcg-magnesium 1 tab PO DAILY 07/09/21 02/15/25 History 25 mg-coppr 0.5 ju-hmln-aseq tablet (Caltrate-D3 Plus Minerals) ascorbic acid (vitamin [...] Asthma Alzheimer disease Social History 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 Normal [facility] L3410.9992on 01-28-2025 [facility] Mis. COMMENT Normal . [facility] Comment on above: Order Comment: [id number] 3Alpha-1 pheno TIGER RT Result Comment: Test Ordered: [id number] Gimkz-8-Ffuulxjikdd Phenotyp Nwbna-8-Ivjzpvyflfh, Serum 172 mg/dL Reference Range: 101-187 Phenotype (PI) MM Reference Range: . MM Phenotype is considered to be normal, producing normal serum levels of oapmc-9-czwdezza inhibitor and not associated with clinical disease. [...] used to confirm phenotype. Performed at: - [facility] [id number] Conference Manager: Neel Tate PhD, Phone: [phone] Performed at: - [address] [id number] Conference Manager: Henrry Andres MD, Phone: [phone] Performed By: #### L 500.4050, L506.1001, L504.2610, L501.4700, L501.9520, L501.5101, L500.4100, L300.3900, L3410.9994, L800.1280, L803.2200, L503.6550, L501.6710, L3100.5450, L3890.6202, L3410.9992, L3250.0100, L501.9985, L100.0100, L3000.0375 ####[facility] [address] [facility]. [place], [place], [id number] JUAQUIN w/ Reflex Mult Confirmon 01-26-2025 ANTI-DNA (DS)AB TNP Normal [facility] Comment on above: Performed By: #### L 500.4050, L506.1001, L504.2610, L501.4700, L501.9520, L501.5101, L500.4100, L300.3900, L3410.9994, L800.1280, L803.2200, L503.6550, L501.6710, L3100.5450, L3890.6202, L3410.9992, L3250.0100, L501.9985, L100.0100, L3000.0375 ####[facility] [address] [facility]. [place], [place], [id number] ANTI-SS-A TNP Normal [facility] Comment on above: Performed By: #### L 500.4050, L506.1001, L504.2610, L501.4700, L501.9520, L501.5101, L500.4100, L300.3900, L3410.9994, L800.1280, L803.2200, L503.6550, L501.6710, L3100.5450, L3890.6202, L3410.9992, L3250.0100, L501.9985, L100.0100, L3000.0375 ####[facility] [address] [place], [place], [id number] ANTI-SS-B TNP Normal [facility] Comment on above: Performed By: #### L 500.4050, L506.1001, L504.2610, L501.4700, L501.9520, L501.5101, L500.4100, L300.3900, L3410.9994, L800.1280, L803.2200, L503.6550, L501.6710, L3100.5450, L3890.6202, L3410.9992, L3250.0100, L501.9985, L100.0100, L3000.0375 ####[facility] [address] [facility] [place], [address] ALK Phos Isoenzymeon 01-25- 025 ALK PHOS, S 353 IU/L High 44-121 [facility] Comment on above: Performed By: #### L 500.4050, L506.1001, L504.2610, L501.4700, L501.9520, L501.5101, L500.4100, L300.3900, L3410.9994, L800.1280, L803.2200, L503.6550, L501.6710, L3100.5450, L3890.6202, L3410.9992, L3250.0100, L501.9985, L100.0100, L3000.0375 ####[facility] [address] [facility] [place], [address] BONE FRACTION 24 Normal 14 [facility] Comment on above: Performed By: #### L 500.4050, L506.1001, L504.2610, L501.4700, L501.9520, L501.5101, L500.4100, L300.3900, L3410.9994, L800.1280, L803.2200, L503.6550, L501.6710, L3100.5450, L3890.6202, L3410.9992, L3250.0100, L501.9985, L100.0100, L3000.0375 ####[facility] [address] [place], [place], [phone]) INTESTINAL FRAC 0 Normal 0-18 [facility] Comment on above: Performed By: #### L 500.4050, L506.1001, L504.2610, L501.4700, L501.9520, L501.5101, L500.4100, L300.3900, L3410.9994, L800.1280, L803.2200, L503.6550, L501.6710, L3100.5450, L3890.6202, L3410.9992, L3250.0100, L501.9985, L100.0100, L3000.0375 ####[facility] [address] [place], [place], [id number] LIVER FRACTION 76 Normal 18-85 [facility] Comment on above: Performed By: #### L 500.4050, L506.1001, L504.2610, L501.4700, L501.9520, L501.5101, L500.4100, L300.3900, L3410.9994, L800.1280, L803.2200, L503.6550, L501.6710, L3100.5450, L3890.6202, L3410.9992, L3250.0100, L501.9985, L100.0100, L3000.0375 ####[facility] [address] [place], [place], [id number] Anti-Mitochondrial ABon 05-3 0-2024 ANTIMITOCHON AB <20.0 Normal 0.0-20.0 [facility] Comment on above: Result Comment: Nega tive 0.0 - 20.0 Equivocal 20.1 - 24.9 Positive >24.9 Mitochondrial (M2) Antibodies are found in 90-96% of patients with primary biliary cirrhosis. Performed By: #### L 500.4050, L506.1001, L504.2610, L501.4700, L501.9520, L501.5101, L500.4100, L300.3900, L3410.9994, L800.1280, L803.2200, L503.6550, L501.6710, L3100.5450, L3890.6202, L3410.9992, L3250.0100, L501.9985, L100.0100, L3000.0375 ####[facility] [address] [facility] [place], [address] Anti-Smooth Muscle ABSon ANTISMOOTH MUSC 126 Units Abnormal 0-19 [facility] Comment on above: Result Comment: Nega tive 0 - 19 Weak positive 20 - 30 Moderate to strong positive >30 Actin Antibodies are found in 52-85% of patients with autoimmune hepatitis or chronic active hepatitis and in 22% of patients with primary biliary cirrhosis. Performed By: #### L 500.4050, L506.1001, L504.2610, L501.4700, L501.9520, L501.5101, L500.4100, L300.3900, L3410.9994, L800.1280, L803.2200, L503.6550, L501.6710, L3100.5450, L3890.6202, L3410.9992, L3250.0100, L501.9985, L100.0100, L3000.0375 ####[facility] [address] [facility] [place], [address] Hepatitis Panel Acuteon 05- COMMENT Comment Normal . [facility] Comment on above: Result Comment: Not infected with HCV unless early or acute infection is suspected (which may be delayed in an immunocompromised individual), or other evidence exists to indicate HCV infection. Performed By: #### L 500.4050, L506.1001, L504.2610, L501.4700, L501.9520, L501.5101, L500.4100, L300.3900, L3410.9994, L800.1280, L803.2200, L503.6550, L501.6710, L3100.5450, L3890.6202, L3410.9992, L3250.0100, L501.9985, L100.0100, L3000.0375 ####[facility] [address] [facility]. [place], [place], [id number] HEP B CORE,IgM Negative Normal Negative [facility] Comment on above: Performed By: #### L 500.4050, L506.1001, L504.2610, L501.4700, L501.9520, L501.5101, L500.4100, L300.3900, L3410.9994, L800.1280, L803.2200, L503.6550, L501.6710, L3100.5450, L3890.6202, L3410.9992, L3250.0100, L501.9985, L100.0100, L3000.0375 ####[facility] [address] [facility] [place], [address] HEP B SURF AG Negative Normal Negative [facility] Comment on above: Performed By: #### L 500.4050, L506.1001, L504.2610, L501.4700, L501.9520, L501.5101, L500.4100, L300.3900, L3410.9994, L800.1280, L803.2200, L503.6550, L501.6710, L3100.5450, L3890.6202, L3410.9992, L3250.0100, L501.9985, L100.0100, L3000.0375 ####[facility] [address] [facility]. [place], [place], [id number] HEP C VIRUS AB Non-Reactive Normal Non Reactive [facility] Comment on above: Performed By: #### L 500.4050, L506.1001, L504.2610, L501.4700, L501.9520, L501.5101, L500.4100, L300.3900, L3410.9994, L800.1280, L803.2200, L503.6550, L501.6710, L3100.5450, L3890.6202, L3410.9992, L3250.0100, L501.9985, L100.0100, L3000.0375 ####[facility] [address] [facility]. [place], [place], [id number] HEPATITIS A-IgM Negative Normal Negative [facility] Comment on above: Result Comment: A ne gative anti-HAV IgM result suggests no recent or current HAV infection. Performed By: #### L 500.4050, L506.1001, L504.2610, L501.4700, L501.9520, L501.5101, L500.4100, L300.3900, L3410.9994, L800.1280, L803.2200, L503.6550, L501.6710, L3100.5450, L3890.6202, L3410.9992, L3250.0100, L501.9985, L100.0100, L3000.0375 ####[facility] [address] [place], [place], [address] L3410.9994on 01-25-2025 [facility] Mis. 2 COMMENT Normal . [facility] Comment on above: Order Comment: [id number] 9Serum ELF test RF Result Comment: Perf ormed at: - [facility] [address] [id number] Conference Manager: Neel Tate PhD, Phone: [phone] Performed By: #### L 500.4050, L506.1001, L504.2610, L501.4700, L501.9520, L501.5101, L500.4100, L300.3900, L3410.9994, L800.1280, L803.2200, L503.6550, L501.6710, L3100.5450, L3890.6202, L3410.9992, L3250.0100, L501.9985, L100.0100, L3000.0375 ####[facility] [address] [facility] [place], [address] L501.5101on 01-25-2025 GGTP 165 IU/L Abnormal 0-60 [facility] Comment on above: Result Comment: Perf ormed at: - [facility] [address] [id number] Conference Manager: Neel Tate PhD, Phone: [phone] Performed By: #### L 500.4050, L506.1001, L504.2610, L501.4700, L501.9520, L501.5101, L500.4100, L300.3900, L3410.9994, L800.1280, L803.2200, L503.6550, L501.6710, L3100.5450, L3890.6202, L3410.9992, L3250.0100, L501.9985, L100.0100, L3000.0375 ####[facility] [address] [facility]. [place], [place], [id number] Absolute lymphocyte countOrd ered By: Yash Gunter on 01-23-2025 Lymphocytes Auto (Unsp spec) [#/Vol] 1.74 10*3/uL 0.83-4.51 [facility] Absolute neutrophil countOrd ered By: Yash Gunter on 01-23-2025 Neutrophils (Bld) [#/Vol] 1.7 10*3/uL Low 2.0-7.7 [facility] Alkaline phosphatase, serumO rdered By: Yash Gunter on 01-23-2025 ALP [Catalytic activity/Vol] 353 U/L High 44-121 [facility] Anion gap in Serum or Plasma Ordered By: Yash Gunter on 01-23-2025 Anion gap [Moles/Vol] 9 mmol/L 5-15 [facility] Automated lymphocyte count a s percentage of total leukocytesOrdered By: Yash Gunter on 01-23-2025 Lymphocytes/100 WBC Auto (Unsp spec) 38.3 % 19-41 [facility] BUN/creatinine ratioOrdered By: Yash Gunter on 01-23-2025 Urea nitrogen/Creatinine [Mass ratio] 13.0 mg/mg 10-20 [facility] Basophil percentageOrdered B y: Yash Gunter on 01-23-2025 Basophils/100 WBC (Bld) 2.2 % High 0-1 [facility] Bilirubin directOrdered By: Yash Gunter on 01-23-2025 Bilirubin.direct [Mass/Vol] 0.12 mg/dL 0.00-0.30 [facility] Bilirubin, Directon 01-24-20 Bilirubin.direct [Mass/Vol] 0.12 mg/dL Normal 0.00-0.30 [facility] Comment on above: Performed By: #### L 500.4050, L506.1001, L504.2610, L501.4700, L501.9520, L501.5101, L500.4100, L300.3900, L3410.9994, L800.1280, L803.2200, L503.6550, L501.6710, L3100.5450, L3890.6202, L3410.9992, L3250.0100, L501.9985, L100.0100, L3000.0375 ####[facility] [address] [place], [place], [id number] Bilirubin, totalOrdered By: Yash Gunter on 01-23-2025 Bilirubin [Mass/Vol] 0.25 mg/dL 0.00-1.30 [facility] CBC W/Diff, Automatedon 12-28 Absolute Lymph 1.74 X10 3/uL Normal 0.83-4.51 [facility] Comment on above: Performed By: #### L 500.4050, L506.1001, L504.2610, L501.4700, L501.9520, L501.5101, L500.4100, L300.3900, L3410.9994, L800.1280, L803.2200, L503.6550, L501.6710, L3100.5450, L3890.6202, L3410.9992, L3250.0100, L501.9985, L100.0100, L3000.0375 ####[facility] [address] [place], [place], [id number] Absolute Neut 1.7 X10 3/uL Low 2.0-7.7 [facility] Comment on above: Performed By: #### L 500.4050, L506.1001, L504.2610, L501.4700, L501.9520, L501.5101, L500.4100, L300.3900, L3410.9994, L800.1280, L803.2200, L503.6550, L501.6710, L3100.5450, L3890.6202, L3410.9992, L3250.0100, L501.9985, L100.0100, L3000.0375 ####[facility] [address] [place], [place], [phone] Basophils/100 WBC (Bld) 2.2 % High 0-1 [facility] Comment on above: Performed By: #### L 500.4050, L506.1001, L504.2610, L501.4700, L501.9520, L501.5101, L500.4100, L300.3900, L3410.9994, L800.1280, L803.2200, L503.6550, L501.6710, L3100.5450, L3890.6202, L3410.9992, L3250.0100, L501.9985, L100.0100, L3000.0375 ####[facility] [address] [place], [place], [phone] Eosinophils/100 WBC (Bld) 11.0 % High 0-5 [facility] Comment on above: Performed By: #### L 500.4050, L506.1001, L504.2610, L501.4700, L501.9520, L501.5101, L500.4100, L300.3900, L3410.9994, L800.1280, L803.2200, L503.6550, L501.6710, L3100.5450, L3890.6202, L3410.9992, L3250.0100, L501.9985, L100.0100, L3000.0375 ####[facility] [address] [place], [place], [phone] Erythrocyte distribution width (RBC) [Ratio] 12.6 % Normal 11.6-14.6 [facility] Comment on above: Performed By: #### L 500.4050, L506.1001, L504.2610, L501.4700, L501.9520, L501.5101, L500.4100, L300.3900, L3410.9994, L800.1280, L803.2200, L503.6550, L501.6710, L3100.5450, L3890.6202, L3410.9992, L3250.0100, L501.9985, L100.0100, L3000.0375 ####[facility] [address] [place], [place], [phone] Hematocrit (Bld) [Volume fraction] 41.1 % Normal 37-47 [facility] Comment on above: Performed By: #### L 500.4050, L506.1001, L504.2610, L501.4700, L501.9520, L501.5101, L500.4100, L300.3900, L3410.9994, L800.1280, L803.2200, L503.6550, L501.6710, L3100.5450, L3890.6202, L3410.9992, L3250.0100, L501.9985, L100.0100, L3000.0375 ####[facility] [address] [place], [place], [address] Hemoglobin (Bld) [Mass/Vol] 13.3 g/dL Normal 12.0-15.0 [facility] Comment on above: Performed By: #### L 500.4050, L506.1001, L504.2610, L501.4700, L501.9520, L501.5101, L500.4100, L300.3900, L3410.9994, L800.1280, L803.2200, L503.6550, L501.6710, L3100.5450, L3890.6202, L3410.9992, L3250.0100, L501.9985, L100.0100, L3000.0375 ####[facility] [address] [facility]. [place], [place], [address] IG% 0.200 Normal 0.0-0.9 [facility] Comment on above: Result Comment: IG% - Immature Granulocytes (promyelocytes, myelocytes and metamyelocytes) > 1% indicates that a LEFT SHIFT is Present. Performed By: #### L 500.4050, L506.1001, L504.2610, L501.4700, L501.9520, L501.5101, L500.4100, L300.3900, L3410.9994, L800.1280, L803.2200, L503.6550, L501.6710, L3100.5450, L3890.6202, L3410.9992, L3250.0100, L501.9985, L100.0100, L3000.0375 ####[facility] [address] [facility] [place], [address] Lymphocytes/100 WBC (Bld) 38.3 % Normal 19-41 [facility] Comment on above: Performed By: #### L 500.4050, L506.1001, L504.2610, L501.4700, L501.9520, L501.5101, L500.4100, L300.3900, L3410.9994, L800.1280, L803.2200, L503.6550, L501.6710, L3100.5450, L3890.6202, L3410.9992, L3250.0100, L501.9985, L100.0100, L3000.0375 ####[facility] [address] [facility] [address] [place], [place], [phone] MCH (RBC) [Entitic mass] 30.9 pg Normal 27.0-32.0 [facility] Comment on above: Performed By: #### L 500.4050, L506.1001, L504.2610, L501.4700, L501.9520, L501.5101, L500.4100, L300.3900, L3410.9994, L800.1280, L803.2200, L503.6550, L501.6710, L3100.5450, L3890.6202, L3410.9992, L3250.0100, L501.9985, L100.0100, L3000.0375 ####[facility] [address] [facility]. [place], [place], [phone] MCHC (RBC) [Mass/Vol] 32.4 g/dL Normal 32-36 [facility] Comment on above: Performed By: #### L 500.4050, L506.1001, L504.2610, L501.4700, L501.9520, L501.5101, L500.4100, L300.3900, L3410.9994, L800.1280, L803.2200, L503.6550, L501.6710, L3100.5450, L3890.6202, L3410.9992, L3250.0100, L501.9985, L100.0100, L3000.0375 ####[facility] [address] [facility] [place], [address] MCV (RBC) [Entitic vol] 95.6 fL Normal 81-99 [facility] Comment on above: Performed By: #### L 500.4050, L506.1001, L504.2610, L501.4700, L501.9520, L501.5101, L500.4100, L300.3900, L3410.9994, L800.1280, L803.2200, L503.6550, L501.6710, L3100.5450, L3890.6202, L3410.9992, L3250.0100, L501.9985, L100.0100, L3000.0375 ####[facility] [address] [facility] [place], [address] Monocytes/100 WBC (Bld) 10.1 % High 0-10 [facility] Comment on above: Performed By: #### L 500.4050, L506.1001, L504.2610, L501.4700, L501.9520, L501.5101, L500.4100, L300.3900, L3410.9994, L800.1280, L803.2200, L503.6550, L501.6710, L3100.5450, L3890.6202, L3410.9992, L3250.0100, L501.9985, L100.0100, L3000.0375 ####[facility] [address] [facility] [place], [address] Neutrophils/100 WBC (Bld) 38.2 % Low 47-70 [facility] Comment on above: Performed By: #### L 500.4050, L506.1001, L504.2610, L501.4700, L501.9520, L501.5101, L500.4100, L300.3900, L3410.9994, L800.1280, L803.2200, L503.6550, L501.6710, L3100.5450, L3890.6202, L3410.9992, L3250.0100, L501.9985, L100.0100, L3000.0375 ####[facility] [address] [facility]. [place], [place], [phone] Nucleated RBC (Bld) [#/Vol] 0 10*3/uL Normal 0-5 [facility] Comment on above: Performed By: #### L 500.4050, L506.1001, L504.2610, L501.4700, L501.9520, L501.5101, L500.4100, L300.3900, L3410.9994, L800.1280, L803.2200, L503.6550, L501.6710, L3100.5450, L3890.6202, L3410.9992, L3250.0100, L501.9985, L100.0100, L3000.0375 ####[facility] [address] [facility]. [place], [place], [phone] Platelet mean volume (Bld) [Entitic vol] 11.9 fL Normal 6.2-12.0 [facility] Comment on above: Performed By: #### L 500.4050, L506.1001, L504.2610, L501.4700, L501.9520, L501.5101, L500.4100, L300.3900, L3410.9994, L800.1280, L803.2200, L503.6550, L501.6710, L3100.5450, L3890.6202, L3410.9992, L3250.0100, L501.9985, L100.0100, L3000.0375 ####[facility] [address] [facility]. [place], [place], [phone](423) Platelets (Bld) [#/Vol] 211 10*3/uL Normal 150-450 [facility] Comment on above: Performed By: #### L 500.4050, L506.1001, L504.2610, L501.4700, L501.9520, L501.5101, L500.4100, L300.3900, L3410.9994, L800.1280, L803.2200, L503.6550, L501.6710, L3100.5450, L3890.6202, L3410.9992, L3250.0100, L501.9985, L100.0100, L3000.0375 ####[facility] [address] [facility]. [place], [place], [phone](434) RBC (Bld) [#/Vol] 4.30 10*6/uL Normal 4.2-5.4 [facility] Comment on above: Performed By: #### L 500.4050, L506.1001, L504.2610, L501.4700, L501.9520, L501.5101, L500.4100, L300.3900, L3410.9994, L800.1280, L803.2200, L503.6550, L501.6710, L3100.5450, L3890.6202, L3410.9992, L3250.0100, L501.9985, L100.0100, L3000.0375 ####[facility] [address] [facility]. [place], [place], [phone](219) RDW SD 44.2 fl High 35.1-43.9 [facility] Comment on above: Performed By: #### L 500.4050, L506.1001, L504.2610, L501.4700, L501.9520, L501.5101, L500.4100, L300.3900, L3410.9994, L800.1280, L803.2200, L503.6550, L501.6710, L3100.5450, L3890.6202, L3410.9992, L3250.0100, L501.9985, L100.0100, L3000.0375 ####[facility] [address] [place], [place], [address] WBC (Bld) [#/Vol] 4.5 10*3/uL Normal 4.4-11.0 [facility] Comment on above: Performed By: #### L 500.4050, L506.1001, L504.2610, L501.4700, L501.9520, L501.5101, L500.4100, L300.3900, L3410.9994, L800.1280, L803.2200, L503.6550, L501.6710, L3100.5450, L3890.6202, L3410.9992, L3250.0100, L501.9985, L100.0100, L3000.0375 ####[facility] [address] [place], [place], [phone] CRPon 01-23-2025 C-REACTIVE PROT < 3.00 Normal 0.0-3.0 [facility] Comment on above: Performed By: #### L 500.4050, L506.1001, L504.2610, L501.4700, L501.9520, L501.5101, L500.4100, L300.3900, L3410.9994, L800.1280, L803.2200, L503.6550, L501.6710, L3100.5450, L3890.6202, L3410.9992, L3250.0100, L501.9985, L100.0100, L3000.0375 ####[facility] [address] [facility] [address] [place], [place], [phone] Calculated very low density lipoprotein (VLDL) cholesterol measurementOrdered By: Yash Gunter on 01-23-2025 Calculated very low density lipoprotein (VLDL) cholesterol measurement 23 mg/dL 5-40 [facility] Carbon dioxide, total [Moles /volume] in Central venous bloodOrdered By: Yash Gunter on 01-23-2025 CO2 [Moles/Vol] 26.9 mmol/L 21.0-32.0 [facility] Chloride assayOrdered By: Jannette Gunter on 01-23-2025 Chloride [Moles/Vol] 100 mmol/L 98-108 [facility] Comprehensive Metabolic Prof ilon 01-23-2025 Albumin [Mass/Vol] 4.0 g/dL Normal 3.4-4.8 [facility] Comment on above: Performed By: #### L 500.4050, L506.1001, L504.2610, L501.4700, L501.9520, L501.5101, L500.4100, L300.3900, L3410.9994, L800.1280, L803.2200, L503.6550, L501.6710, L3100.5450, L3890.6202, L3410.9992, L3250.0100, L501.9985, L100.0100, L3000.0375 ####[facility] [address] [place], [address] Albumin/Globulin [Mass ratio] 1.3 {ratio} Normal 0.9-2.4 [facility] Comment on above: Performed By: #### L 500.4050, L506.1001, L504.2610, L501.4700, L501.9520, L501.5101, L500.4100, L300.3900, L3410.9994, L800.1280, L803.2200, L503.6550, L501.6710, L3100.5450, L3890.6202, L3410.9992, L3250.0100, L501.9985, L100.0100, L3000.0375 ####[facility] [address] [place], [address] ALK PHOS 355 U/L High 35-104 [facility] Comment on above: Performed By: #### L 500.4050, L506.1001, L504.2610, L501.4700, L501.9520, L501.5101, L500.4100, L300.3900, L3410.9994, L800.1280, L803.2200, L503.6550, L501.6710, L3100.5450, L3890.6202, L3410.9992, L3250.0100, L501.9985, L100.0100, L3000.0375 ####[facility] [address] [facility]. [place], [place], [phone] ALT [Catalytic activity/Vol] 41 U/L High <=34 [facility] Comment on above: Performed By: #### L 500.4050, L506.1001, L504.2610, L501.4700, L501.9520, L501.5101, L500.4100, L300.3900, L3410.9994, L800.1280, L803.2200, L503.6550, L501.6710, L3100.5450, L3890.6202, L3410.9992, L3250.0100, L501.9985, L100.0100, L3000.0375 ####[facility] [address] [place], [place], [address] AST [Catalytic activity/Vol] 44 U/L High <=31 [facility] Comment on above: Performed By: #### L 500.4050, L506.1001, L504.2610, L501.4700, L501.9520, L501.5101, L500.4100, L300.3900, L3410.9994, L800.1280, L803.2200, L503.6550, L501.6710, L3100.5450, L3890.6202, L3410.9992, L3250.0100, L501.9985, L100.0100, L3000.0375 ####[facility] [address] [place], [place], [phone](160) Bilirubin [Mass/Vol] 0.25 mg/dL Normal 0.00-1.30 [facility] Comment on above: Performed By: #### L 500.4050, L506.1001, L504.2610, L501.4700, L501.9520, L501.5101, L500.4100, L300.3900, L3410.9994, L800.1280, L803.2200, L503.6550, L501.6710, L3100.5450, L3890.6202, L3410.9992, L3250.0100, L501.9985, L100.0100, L3000.0375 ####[facility] [address] [place], [place], [phone](728) BUN/CRE 13.0 RATIO Normal 10-20 [facility] Comment on above: Performed By: #### L 500.4050, L506.1001, L504.2610, L501.4700, L501.9520, L501.5101, L500.4100, L300.3900, L3410.9994, L800.1280, L803.2200, L503.6550, L501.6710, L3100.5450, L3890.6202, L3410.9992, L3250.0100, L501.9985, L100.0100, L3000.0375 ####[facility] [address] [place], [place], [phone] Calcium [Mass/Vol] 9.2 mg/dL Normal 7.6-11.0 [facility] Comment on above: Performed By: #### L 500.4050, L506.1001, L504.2610, L501.4700, L501.9520, L501.5101, L500.4100, L300.3900, L3410.9994, L800.1280, L803.2200, L503.6550, L501.6710, L3100.5450, L3890.6202, L3410.9992, L3250.0100, L501.9985, L100.0100, L3000.0375 ####[facility] [address] [place], [place], [phone](846) Chloride [Moles/Vol] 100 mmol/L Normal 98-108 [facility] Comment on above: Performed By: #### L 500.4050, L506.1001, L504.2610, L501.4700, L501.9520, L501.5101, L500.4100, L300.3900, L3410.9994, L800.1280, L803.2200, L503.6550, L501.6710, L3100.5450, L3890.6202, L3410.9992, L3250.0100, L501.9985, L100.0100, L3000.0375 ####[facility] [address] [place], [place], [phone](813) CO2 [Moles/Vol] 26.9 mmol/L Normal 21.0-32.0 [facility] Comment on above: Performed By: #### L 500.4050, L506.1001, L504.2610, L501.4700, L501.9520, L501.5101, L500.4100, L300.3900, L3410.9994, L800.1280, L803.2200, L503.6550, L501.6710, L3100.5450, L3890.6202, L3410.9992, L3250.0100, L501.9985, L100.0100, L3000.0375 ####[facility] [address] [place], [place], [phone](069) Creatinine [Mass/Vol] 0.57 mg/dL Low 0.70-1.20 [facility] Comment on above: Performed By: #### L 500.4050, L506.1001, L504.2610, L501.4700, L501.9520, L501.5101, L500.4100, L300.3900, L3410.9994, L800.1280, L803.2200, L503.6550, L501.6710, L3100.5450, L3890.6202, L3410.9992, L3250.0100, L501.9985, L100.0100, L3000.0375 ####[facility] [address] [place], [address] GAP 9 Normal 5-15 [facility] Comment on above: Performed By: #### L 500.4050, L506.1001, L504.2610, L501.4700, L501.9520, L501.5101, L500.4100, L300.3900, L3410.9994, L800.1280, L803.2200, L503.6550, L501.6710, L3100.5450, L3890.6202, L3410.9992, L3250.0100, L501.9985, L100.0100, L3000.0375 ####[facility] [address] [place], [place], [phone] GFR/1.73 sq M.predicted among non-blacks MDRD (S/P/Bld) [Vol rate/Area] 97 mL/min/{1.73_m2} Normal >60 [facility] Comment on above: Result Comment: mL/m in/1.73m2 CKD-EPI Creatinine Equation (2020) Performed By: #### L 500.4050, L506.1001, L504.2610, L501.4700, L501.9520, L501.5101, L500.4100, L300.3900, L3410.9994, L800.1280, L803.2200, L503.6550, L501.6710, L3100.5450, L3890.6202, L3410.9992, L3250.0100, L501.9985, L100.0100, L3000.0375 ####[facility] [address] [place], [address] Globulin (S) [Mass/Vol] 3.0 g/dL Normal 2.2-4.2 [facility] Comment on above: Performed By: #### L 500.4050, L506.1001, L504.2610, L501.4700, L501.9520, L501.5101, L500.4100, L300.3900, L3410.9994, L800.1280, L803.2200, L503.6550, L501.6710, L3100.5450, L3890.6202, L3410.9992, L3250.0100, L501.9985, L100.0100, L3000.0375 ####[facility] [address] [place], [address] Glucose [Mass/Vol] 78 mg/dL Normal 70-99 [facility] Comment on above: Performed By: #### L 500.4050, L506.1001, L504.2610, L501.4700, L501.9520, L501.5101, L500.4100, L300.3900, L3410.9994, L800.1280, L803.2200, L503.6550, L501.6710, L3100.5450, L3890.6202, L3410.9992, L3250.0100, L501.9985, L100.0100, L3000.0375 ####[facility] [address] [place], [address] Potassium [Moles/Vol] 3.7 mmol/L Normal 3.3-5.1 [facility] Comment on above: Performed By: #### L 500.4050, L506.1001, L504.2610, L501.4700, L501.9520, L501.5101, L500.4100, L300.3900, L3410.9994, L800.1280, L803.2200, L503.6550, L501.6710, L3100.5450, L3890.6202, L3410.9992, L3250.0100, L501.9985, L100.0100, L3000.0375 ####[facility] [address] [place], [place], [phone] Sodium [Moles/Vol] 137 mmol/L Normal 133-145 [facility] Comment on above: Performed By: #### L 500.4050, L506.1001, L504.2610, L501.4700, L501.9520, L501.5101, L500.4100, L300.3900, L3410.9994, L800.1280, L803.2200, L503.6550, L501.6710, L3100.5450, L3890.6202, L3410.9992, L3250.0100, L501.9985, L100.0100, L3000.0375 ####[facility] [address] [place], [place], [id number] T PROT 7.0 g/dL Normal 5.9-8.4 [facility] Comment on above: Performed By: #### L 500.4050, L506.1001, L504.2610, L501.4700, L501.9520, L501.5101, L500.4100, L300.3900, L3410.9994, L800.1280, L803.2200, L503.6550, L501.6710, L3100.5450, L3890.6202, L3410.9992, L3250.0100, L501.9985, L100.0100, L3000.0375 ####[facility] [address] [facility]. [place], [place], [phone] Urea nitrogen [Mass/Vol] 7 mg/dL Normal 4-19 [facility] Comment on above: Performed By: #### L 500.4050, L506.1001, L504.2610, L501.4700, L501.9520, L501.5101, L500.4100, L300.3900, L3410.9994, L800.1280, L803.2200, L503.6550, L501.6710, L3100.5450, L3890.6202, L3410.9992, L3250.0100, L501.9985, L100.0100, L3000.0375 ####[facility] [address] [place], [place], [id number] Eosinophil percentageOrdered By: [facility] on 01-23-2025 Eosinophils/100 WBC (Bld) 11.0 % High 0-5 [facility] Erythrocyte distribution wid th ratioOrdered By: [facility] on 01-23-2025 Erythrocyte distribution width (RBC) [Ratio] 12.6 % 11.6-14.6 [facility] Erythrocyte distribution wid th standard deviationOrdered By: [facility] on 01-23-2025 Erythrocyte distribution width (RBC) [Ratio] 44.2 fl High 35.1-43.9 [facility] Ferritinon 01-23-2025 Ferritin [Mass/Vol] 68 ng/mL Normal 22-378 [facility] Comment on above: Performed By: #### L 500.4050, L506.1001, L504.2610, L501.4700, L501.9520, L501.5101, L500.4100, L300.3900, L3410.9994, L800.1280, L803.2200, L503.6550, L501.6710, L3100.5450, L3890.6202, L3410.9992, L3250.0100, L501.9985, L100.0100, L3000.0375 ####[facility] [address] [place], [address] Gamma glutamyl transferase ( GGT) measurementOrdered By: Yash Gunter on 01-23-2025 Amylase [Catalytic activity/Vol] 165 U/L High 0-60 [facility] Comment on above: Performed at: - [facility] [address] [id number] Director: Neel Tate PhD, Phone: [phone] Gastroenterology Visit Repor ton 01-23-2025 Gastroenterology Visit Report [facility] [address] [place] [address] OFFICE VISIT Date of Service: 01/23/25 MR#: [id number] Acct: [id number] Name: VIOLA SCOTT Rep #: [id number] : 1955 Provider: Dr. 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 Normal [facility] Glomerular filtration rate ( GFR) estimation/1.73 sq m using serum, plasma, or whole bOrdered By: Yash Gunter on 01-23-2025 GFR/1.73 sq M.predicted among non-blacks MDRD (S/P/Bld) [Vol rate/Area] 97 mL/min/{1.73_m2} >60 [facility] Comment on above: mL/min/1.73m2 CKD-EP I Creatinine Equation (2020) Hematocrit Auto (Bld) [Volum e fraction]Ordered By: Yash Gunter on 01-23-2025 Hematocrit (Bld) [Volume fraction] 41.1 % 37-47 [facility] Hemoglobin A1con 01-23-2025 HbA1c (Bld) [Mass fraction] 5.3 % Normal <=5.6 [facility] Comment on above: Result Comment: Norm al < 5.7 % Prediabetic 5.7 - 6.4 % Diabetic >or= 6.5 % Please note range changes. Performed By: #### L 500.4050, L506.1001, L504.2610, L501.4700, L501.9520, L501.5101, L500.4100, L300.3900, L3410.9994, L800.1280, L803.2200, L503.6550, L501.6710, L3100.5450, L3890.6202, L3410.9992, L3250.0100, L501.9985, L100.0100, L3000.0375 ####[facility] [address] [place], [place], [address] Hemoglobin A1c percentageOrd ered By: Yash Gunter on 01-23-2025 HbA1c (Bld) [Mass fraction] 5.3 % <5.7 [facility] Comment on above: Normal < 5.7 % Predi abetic 5.7 - 6.4 % Diabetic >or= 6.5 % Please note range changes. Hemoglobin measurementOrdere d By: Yash Gunter on 01-23-2025 Hemoglobin (Bld) [Mass/Vol] 13.3 g/dL 12.0-15.0 [facility] Hepatitis B Surface Antibody on 01-23-2025 HEP B Surf Ab Non-Reactive Normal [facility] Comment on above: Result Comment: <8.5 mIU/mL: Non-Reactive 8.5<= x <11.5 mIU/mL: Indeterminate >=11.5 mIU/mL: Reactive Non Reactive: Inconsistent with immunity less than <10 mIU/mL Reactive: Consistent with immunity greater than or equal to 10 mIU/mL Performed By: #### L 500.4050, L506.1001, L504.2610, L501.4700, L501.9520, L501.5101, L500.4100, L300.3900, L3410.9994, L800.1280, L803.2200, L503.6550, L501.6710, L3100.5450, L3890.6202, L3410.9992, L3250.0100, L501.9985, L100.0100, L3000.0375 ####[facility] [address] [place], [address] Immature granulocytes/100 WB C Auto (Bld)Ordered By: Yash Gunter on 01-23-2025 Immature granulocytes/100 WBC (Bld) 0.200 % 0.0-0.9 [facility] Comment on above: IG% - Immature Granu locytes (promyelocytes, myelocytes and metamyelocytes) > 1% indicates that a LEFT SHIFT is Present. International normalized rat io (INR) calculationOrdered By: Yash Gunter on 01-23-2025 INR Coag (Bld) [Relative time] 0.9 {INR} [facility] LDHon 01-23-2025 LDH 188 U/L Normal 84-246 [facility] Comment on above: Order Comment: 1 Performed By: #### L 500.4050, L506.1001, L504.2610, L501.4700, L501.9520, L501.5101, L500.4100, L300.3900, L3410.9994, L800.1280, L803.2200, L503.6550, L501.6710, L3100.5450, L3890.6202, L3410.9992, L3250.0100, L501.9985, L100.0100, L3000.0375 ####[facility] [address] [place], [address] LDL calc ser/plasOrdered By: Yash Gunter on 01-23-2025 Cholesterol in LDL [Mass/Vol] 122 mg/dL [facility] Comment on above: Jxuhvlnlnd=323-991 m g/dL & Higher Sofo=146 mg/dL or greater Laboratory - Chemistry and C hemistry - challengeOrdered By: Yash Gunter on 01-23-2025 AST [Catalytic activity/Vol] 44 U/L High <32 [facility] Lactate dehydrogenase (LDH) measurementOrdered By: Yash Gunter on 01-23-2025 LDH [Catalytic activity/Vol] 188 U/L 84-246 [facility] Lipid Profileon 01-23-2025 CHOL:HDL 3.03 Normal [facility] Comment on above: Performed By: #### L 500.4050, L506.1001, L504.2610, L501.4700, L501.9520, L501.5101, L500.4100, L300.3900, L3410.9994, L800.1280, L803.2200, L503.6550, L501.6710, L3100.5450, L3890.6202, L3410.9992, L3250.0100, L501.9985, L100.0100, L3000.0375 ####[facility] [address] [place], [address] Cholesterol [Mass/Vol] 216 mg/dL High <=200 [facility] Comment on above: Result Comment: Chol esterol level, Desirable <200 mg/dL Borderline high cholesterol 200-239 mg/dL High cholesterol >=240 mg/dL Recommendations of the NCEP Adult Treatment Panel for the following risk-cutoff thresholds for the [place] population. Performed By: #### L 500.4050, L506.1001, L504.2610, L501.4700, L501.9520, L501.5101, L500.4100, L300.3900, L3410.9994, L800.1280, L803.2200, L503.6550, L501.6710, L3100.5450, L3890.6202, L3410.9992, L3250.0100, L501.9985, L100.0100, L3000.0375 ####[facility] [address] [place], [address] Cholesterol in HDL [Mass/Vol] 71 mg/dL Normal [facility] Comment on above: Result Comment: Megan onal Cholesterol Education Program (NCEP) guidelines: <40 mg/dL: Low HDL-cholesterol (major risk factor for CHD) >= 60 mg/dL: High HDL-cholesterol (negative risk factor for CHD) HDL-cholesterol is affected by a number of factors, e.g. smoking, exercise, hormones, sex and age. Performed By: #### L 500.4050, L506.1001, L504.2610, L501.4700, L501.9520, L501.5101, L500.4100, L300.3900, L3410.9994, L800.1280, L803.2200, L503.6550, L501.6710, L3100.5450, L3890.6202, L3410.9992, L3250.0100, L501.9985, L100.0100, L3000.0375 ####[facility] [address] [facility] [place], [address] Cholesterol in LDL [Mass/Vol] 122 mg/dL Normal [facility] Comment on above: Result Comment: Bord tzjiyj=093-879 mg/dL Higher Ydnn=308 mg/dL or greater Performed By: #### L 500.4050, L506.1001, L504.2610, L501.4700, L501.9520, L501.5101, L500.4100, L300.3900, L3410.9994, L800.1280, L803.2200, L503.6550, L501.6710, L3100.5450, L3890.6202, L3410.9992, L3250.0100, L501.9985, L100.0100, L3000.0375 ####[facility] [address] [place], [place], [id number] Cholesterol in VLDL [Mass/Vol] 23 mg/dL Normal 5-40 [facility] Comment on above: Performed By: #### L 500.4050, L506.1001, L504.2610, L501.4700, L501.9520, L501.5101, L500.4100, L300.3900, L3410.9994, L800.1280, L803.2200, L503.6550, L501.6710, L3100.5450, L3890.6202, L3410.9992, L3250.0100, L501.9985, L100.0100, L3000.0375 ####[facility] [address] [facility] [place], [address] Triglyceride [Mass/Vol] 116 mg/dL Normal [facility] Comment on above: Result Comment: The drugs N-Acetylcysteine and Metamizole may falsely depress this assay. Normal range: <150 mg/dL Borderline High: 150-199 mg/dL High: 200-499 mg/dL Very High: >500 mg/dL Performed By: #### L 500.4050, L506.1001, L504.2610, L501.4700, L501.9520, L501.5101, L500.4100, L300.3900, L3410.9994, L800.1280, L803.2200, L503.6550, L501.6710, L3100.5450, L3890.6202, L3410.9992, L3250.0100, L501.9985, L100.0100, L3000.0375 ####[facility] [address] [facility] [place], [address] MCV (mean corpuscular volume ) determinationOrdered By: Yash Gunter on 01-23-2025 MCV (RBC) [Entitic vol] 95.6 fL 81-99 [facility] Mean corpuscular hemoglobin (MCH) determinationOrdered By: Yash Gunter on 01-23-2025 MCH (RBC) [Entitic mass] 30.9 pg 27.0-32.0 [facility] Mean corpuscular hemoglobin concentration (MCHC) determinationOrdered By: Yash Gunter on 01-23-2025 MCHC (RBC) [Mass/Vol] 32.4 g/dL 32-36 [facility] Mean platelet volume determi nationOrdered By: Yash Gunter on 01-23-2025 Platelet mean volume (Bld) [Entitic vol] 11.9 fL 6.2-12.0 [facility] Monocyte percentageOrdered B y: Yash Gunter on 01-23-2025 Monocytes/100 WBC (Bld) 10.1 % High 0-10 [facility] Neutrophil percentageOrdered By: Yash Gunter on 01-23-2025 Neutrophils/100 WBC (Bld) 38.2 % Low 47-70 [facility] No Panel InformationOrdered By: Yash Gunter on 01-23-2025 Hepatitis C Antibody Comment Comment . [facility] Comment on above: Not infected with HC V unless early or acute infection issuspected (which may be delayed in an immunocompromisedindividual), or other evidence exists to indicate HCVinfection. Nucleated red blood cell per centageOrdered By: Yash Gunter on 01-23-2025 Nucleated RBC/100 WBC (Bld) [Ratio] 0 % 0-5 [facility] Platelet countOrdered By: Jannette Gunter on 01-23-2025 Platelets (Bld) [#/Vol] 211 10*3/uL 150-450 [facility] Potassium measurement (mass/ volume)Ordered By: Yash Gunter on 01-23-2025 Potassium (Unsp spec) [Mass/Vol] 3.7 mmol/L 3.3-5.1 [facility] Prothrombin Time w/INRon INR Coag (PPP) [Relative time] 0.9 {INR} Normal [facility] Comment on above: Performed By: #### L 500.4050, L506.1001, L504.2610, L501.4700, L501.9520, L501.5101, L500.4100, L300.3900, L3410.9994, L800.1280, L803.2200, L503.6550, L501.6710, L3100.5450, L3890.6202, L3410.9992, L3250.0100, L501.9985, L100.0100, L3000.0375 ####[facility] [address] [place], [place], [id number] PT Coag (PPP) [Time] 12.2 s Normal 11.7-14.9 [facility] Comment on above: Performed By: #### L 500.4050, L506.1001, L504.2610, L501.4700, L501.9520, L501.5101, L500.4100, L300.3900, L3410.9994, L800.1280, L803.2200, L503.6550, L501.6710, L3100.5450, L3890.6202, L3410.9992, L3250.0100, L501.9985, L100.0100, L3000.0375 ####[facility] [address] [place], [place], [id number] Prothrombin timeOrdered By: Yash Gunter on 01-23-2025 PT Coag (PPP) [Time] 12.2 s 11.7-14.9 [facility] RBC Auto (Bld) [#/Vol]Ordere d By: Yash Gunter on 01-23-2025 RBC (Bld) [#/Vol] 4.30 10*6/uL 4.2-5.4 [facility] Screening total cholesterol/ high density lipoprotein (HDL) cholesterol ratioOrdered By: Yash Gunter on 01-23-2025 Cholesterol.total/Choles terol in HDL [Mass ratio] 3.03 {ratio} [facility] Serum DNA double strand anti body assay (units/volume)Ordered By: Yash Gunter on 01-23-2025 DNA double strand Ab Qn (S) TNP [facility] Comment on above: Test not performed Serum Scl-70 antibody assay (units/volume)Ordered By: Yash Gunter on 01-23-2025 SCL-70 extractable nuclear Ab Qn (S) TNP [facility] Comment on above: Test not performed Serum creatinine measurement (mass/volume)Ordered By: Yash Gunter on 01-23-2025 Creatinine [Mass/Vol] 0.57 mg/dL Low 0.70-1.20 [facility] Serum globulin measurementOr dered By: Yash Gunter on 01-23-2025 Globulin (S) [Mass/Vol] 3.0 g/dL 2.2-4.2 [facility] Serum glucose measurement (m ass/volume)Ordered By: Yash Gunter on 01-23-2025 Glucose [Mass/Vol] 78 mg/dL 70-99 [facility] Serum hepatitis B virus surf mari antibody detectionOrdered By: Yash Gunter on 01-23-2025 HBV surface Ab Ql (S) Non-Reactive [facility] Comment on above: <8.5 mIU/mL: Non-[place] ctive8.5<= x <11.5 mIU/mL: Indeterminate>=11.5 mIU/mL: Reactive Non Reactive: Inconsistent with immunity less than <10 mIU/mL Reactive: Consistent with immunity greater than or equal to 10 mIU/mL Serum mitochondria antibody detectionOrdered By: Yash Gunter on 01-23-2025 Mitochondria Ab Ql (S) <20.0 Units 0.0-20.0 [facility] Comment on above: Negative 0.0 - 20.0 Equivocal 20.1 - 24.9 Positive >24.9Mitochondrial (M2) Antibodies are found in 90-96% ofpatients with primary biliary cirrhosis. Serum or plasma C reactive p rotein measurement (mass/volume)Ordered By: Yash Gunter on 01-23-2025 CRP [Mass/Vol] mg/L 0.0-3.0 [facility] Serum or plasma actin IgG an tibody assay (units/volume)Ordered By: Yash Gunter on 01-23-2025 Actin IgG Qn 126 Units High 0-19 [facility] Comment on above: Negative 0 - 19 Weak positive 20 - 30 Moderate to strong positive >30 Actin Antibodies are found in 52-85% of patients with autoimmune hepatitis or chronic active hepatitis and in 22% of patients with primary biliary cirrhosis. Serum or plasma alanine valdez otransferase (ALT) measurementOrdered By: Yash Gunter on 01-23-2025 ALT [Catalytic activity/Vol] 41 U/L High <35 [facility] Serum or plasma albumin makayla urement (mass/volume)Ordered By: Yash Gunter on 01-23-2025 Albumin [Mass/Vol] 4.0 g/dL 3.4-4.8 [facility] Serum or plasma albumin/glob ulin mass ratioOrdered By: Yash Gunter on 01-23-2025 Albumin/Globulin [Mass ratio] 1.3 {ratio} 0.9-2.4 [facility] Serum or plasma alkaline martha sphatase measurementOrdered By: Yash Gunter on 01-23-2025 ALP [Catalytic activity/Vol] 355 U/L High 35-104 [facility] Serum or plasma bone alkalin e phosphatase/total alkaline phosphatase ratio (catalyticOrdered By: Yash Gunter on 01-23-2025 ALP Bone [Catalytic fraction] 24 % 14-68 [facility] Serum or plasma calcium makayla urement (mass/volume)Ordered By: Yash Gunter on 01-23-2025 Calcium [Mass/Vol] 9.2 mg/dL 7.6-11.0 [facility] Serum or plasma cholesterol in HDL measurement (mass/volume)Ordered By: Yash Gunter on 01-23-2025 Cholesterol in HDL [Mass/Vol] 71 mg/dL >40 [facility] Comment on above: National Cholesterol Education Program (NCEP) guidelines:<40 mg/dL: Low HDL-cholesterol (major risk factor for CHD)>= 60 mg/dL: High HDL-cholesterol (negative risk factor for CHD)HDL-cholesterol is affected by a number of factors, e.g. smoking, exercise, hormones, sex and age. Serum or plasma cholesterol measurement (mass/volume)Ordered By: Yash Gunter on 01-23-2025 Cholesterol [Mass/Vol] 216 mg/dL High <201 [facility] Comment on above: Cholesterol level, D esirable <200 mg/dLBorderline high cholesterol 200-239 mg/dLHigh cholesterol >=240 mg/dLRecommendations of the NCEP Adult Treatment Panel for the following risk-cutoff thresholds for the [place] population. Serum or plasma ferritin stan surement (mass/volume)Ordered By: Yash Gunetr on 01-23-2025 Ferritin [Mass/Vol] 68 ng/mL 22-378 [facility] Serum or plasma hepatitis B virus surface antigen detection by immunoassayOrdered By: Yash Gunter on 01-23-2025 HBV surface Ag IA Ql Negative Negative [facility] Serum or plasma intestinal a lkaline phosphatase/total alkaline phosphatase ratio (catOrdered By: Yash Gunter on 01-23-2025 ALP Intest [Catalytic fraction] 0 % 0-18 [facility] Serum or plasma liver alkali ne phosphatase/total alkaline phosphatase ratio (catalytiOrdered By: Yash Gunter on 01-23-2025 ALP Liver [Catalytic fraction] 76 % 18-85 [facility] Serum or plasma urea nitroge n measurement (mass/volume)Ordered By: Yash Gunter on 01-23-2025 Urea nitrogen [Mass/Vol] 7 mg/dL 4-19 [facility] Sodium levelOrdered By: Dada Gunter on 01-23-2025 Sodium [Moles/Vol] 137 mmol/L 133-145 [facility] TSH DL <= 0.005 mIU/L QnOrde red By: Yash Gunter on 01-23-2025 TSH Qn 0.868 uIU/mL 0.300-4.200 [facility] Thyroid Stim Hormone (TSH)on 01-23-2025 TSH 0.868 uIU/mL Normal 0.300-4.200 [facility] Comment on above: Performed By: #### L 500.4050, L506.1001, L504.2610, L501.4700, L501.9520, L501.5101, L500.4100, L300.3900, L3410.9994, L800.1280, L803.2200, L503.6550, L501.6710, L3100.5450, L3890.6202, L3410.9992, L3250.0100, L501.9985, L100.0100, L3000.0375 ####[facility] [address] [place], [place], [address] Total proteinOrdered By: Kendy Gunter on 01-23-2025 Protein [Mass/Vol] 7.0 g/dL 5.9-8.4 [facility] Triglycerides measurementOrd ered By: Yash Gunter on 01-23-2025 Triglyceride [Mass/Vol] 116 mg/dL <199 [facility] Comment on above: The drugs N-Acetylcy steine and Metamizole may falsely depress this assay. Normal range: <150 mg/dLBorderline High: 150-199 mg/dLHigh: 200-499 mg/dLVery High: >500 mg/dL Vitamin D,25 Hydroxyon 01-23 Vitamin D 25-OH 31.9 ng/mL Normal 30-100 [facility] Comment on above: Result Comment: Tori min D Status Deficiency: <20 ng/mL (50nmol/L) Insufficiency: 20-30 ng/mL (50-75 nmol/L) Sufficiency: 30-100 ng/mL (75-250 nmol/L) Toxicity: >100 ng/mL (>250 nmol/L) Performed By: #### L 500.4050, L506.1001, L504.2610, L501.4700, L501.9520, L501.5101, L500.4100, L300.3900, L3410.9994, L800.1280, L803.2200, L503.6550, L501.6710, L3100.5450, L3890.6202, L3410.9992, L3250.0100, L501.9985, L100.0100, L3000.0375 ####[facility] [address] [place], [place], [id number] White blood cell (WBC) count Ordered By: Yash Gunter on 01-23-2025 WBC (Bld) [#/Vol] 4.5 10*3/uL 4.4-11.0 [facility] Low Dose CT Lung Screeningon 01-22-[address] Lung Screening [facility] Imaging Services [address] [place] [address] Lung Screening MR#: [id number] Acct: [id number] Name: VIOLA SCOTT Rep #: [id number] : 1955 F 69 From: Rivera wong MD PCP: Dr. Genevieve Walsh MD Status: REG CLI Study: Low Dose CT Lung Screening Date of Exam: 01/22 Exam# [id number] Ordering Dr: Trinity Green NP, NP PROCEDURE: [...] use of iterative reconstruction technique). REFERENCE LINK: [employer] Lung-RADS RADIATION DOSE SUMMARY: CTDlvol: 2.01 mGy [...] LDCT. Other Significant Findings: None. Reading Location: [facility] CC: JAJA Green; Dr. 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 Status: Signed HPI HPI Reviewed eligibility criteria: [...] DAILY 07/09/21 01/22/25 History 25 mg-coppr 0.5 lg-crpf-khpq tablet (Caltrate-D3 Plus Minerals) ascorbic acid (vitamin C) 500 mg mg PO 11/05/21 01/22/25 History capsule triamcinolone acetonide 0.1 % 1 applic topical TID PRN rash #80 01/06/23 01/22/25 Rx topical cream grams fluticasone propionate 50 1 spray intranasal BID PRN 4 01/22/25 Rx mcg/actuation nasal allergies, congestion #16 grams [...] mg t (more content not included)... Normal [facility] Internal Medicine Office Vis itosamara 12-21-2024 Internal Medicine Office Visit [facility] [address] [place] [address] [place] [address] OFFICE VISIT Date of Service: 12/21/24 MR#: [id number] Acct: [id number] Name: VIOLA SCOTT Rep #: [id number] : 1955 Provider: CASSANDRA Tiwari Age/Sex: 69/F Location: [facility] Status: Signed Intake Vital Signs 11/22/24 14:06 [...] DAILY 07/09/21 12/21/24 History 25 mg-coppr 0.5 zw-oluw-bdnh tablet (Caltrate-D3 Plus Minerals) ascorbic acid (vitamin [...] mg PO DAILY #90 tabs 11/22/24 0 12/21/24 Rx tramadol 50 mg tablet [...] History (R (more content not included)... Normal [facility] Lower GI hemoglobin IA Ql (S tl)Ordered By: Malik Gant on 12-12-2024 Stool Occult Blood (KLAUDIA) [facility] Stool Occult Blood iFOBon STOB Negative Normal [facility] Comment on above: Performed By: #### M 100.7900 #### [facility] [address] [place], [address] Stool gastrointestinal hemog lobin detection by immunologic methodOrdered By: Malik Gant on 12-12-2024 Lower GI hemoglobin IA Ql (Stl) [facility] Absolute lymphocyte countOrd ered By: Malik Gant on 11-22-2024 Lymphocytes Auto (Unsp spec) [#/Vol] 1.37 10*3/uL 0.83-4.51 [facility] Absolute neutrophil countOrd ered By: Malik Gant on 11-22-2024 Neutrophils (Bld) [#/Vol] 2.6 10*3/uL 2.0-7.7 [facility] Anion gap in Serum or Plasma Ordered By: Malik Gant on 11-22-2024 Anion gap [Moles/Vol] 12 mmol/L 5-15 [facility] Automated lymphocyte count a s percentage of total leukocytesOrdered By: Malik Gant on 11-22-2024 Lymphocytes/100 WBC Auto (Unsp spec) 29.3 % - [facility] BUN/creatinine ratioOrdered By: Malik Gant on 11-22-2024 Urea nitrogen/Creatinine [Mass ratio] 11.8 mg/mg 10-20 [facility] Basophil percentageOrdered B y: Malik Gant on 11-22-2024 Basophils/100 WBC (Bld) 1.3 % High 0-1 [facility] Bilirubin, totalOrdered By: Malik Gant on 11-22-2024 Bilirubin [Mass/Vol] 0.26 mg/dL 0.00-1.30 [facility] CBC W/Diff, Automatedon 10-28 Absolute Lymph 1.37 X10 3/uL Normal 0.83-4.51 [facility] Comment on above: Performed By: #### L 500.4050, L501.9310, L100.0100, L501.9520 #### [facility] [address] [place], [address] Absolute Neut 2.6 X10 3/uL Normal 2.0-7.7 [facility] Comment on above: Performed By: #### L 500.4050, L501.9310, L100.0100, L501.9520 #### [facility] [address] [place], [address] Basophils/100 WBC (Bld) 1.3 % High 0-1 [facility] Comment on above: Performed By: #### L 500.4050, L501.9310, L100.0100, L501.9520 #### [facility] [address] [place], [address] Eosinophils/100 WBC (Bld) 3.2 % Normal 0-5 [facility] Comment on above: Performed By: #### L 500.4050, L501.9310, L100.0100, L501.9520 #### [facility] [address] [place], [address] Erythrocyte distribution width (RBC) [Ratio] 12.5 % Normal 11.6-14.6 [facility] Comment on above: Performed By: #### L 500.4050, L501.9310, L100.0100, L501.9520 #### [facility] [address] [place], [address] Hematocrit (Bld) [Volume fraction] 39.9 % Normal 37-47 [facility] Comment on above: Performed By: #### L 500.4050, L501.9310, L100.0100, L501.9520 #### [facility] [address] [place], [address] Hemoglobin (Bld) [Mass/Vol] 13.0 g/dL Normal 12.0-15.0 [facility] Comment on above: Performed By: #### L 500.4050, L501.9310, L100.0100, L501.9520 #### [facility] [address] [place], [address] IG% 0.200 Normal 0.0-0.9 [facility] Comment on above: Result Comment: IG% - Immature Granulocytes (promyelocytes, myelocytes and metamyelocytes) > 1% indicates that a LEFT SHIFT is Present. Performed By: #### L 500.4050, L501.9310, L100.0100, L501.9520 #### [facility] [address] [place], [address] Lymphocytes/100 WBC (Bld) 29.3 % Normal 19-41 [facility] Comment on above: Performed By: #### L 500.4050, L501.9310, L100.0100, L501.9520 #### [facility] [address] [place], [address] MCH (RBC) [Entitic mass] 30.9 pg Normal 27.0-32.0 [facility] Comment on above: Performed By: #### L 500.4050, L501.9310, L100.0100, L501.9520 #### [facility] [address] [place], [address] MCHC (RBC) [Mass/Vol] 32.6 g/dL Normal 32-36 [facility] Comment on above: Performed By: #### L 500.4050, L501.9310, L100.0100, L501.9520 #### [facility] [address] [place], [address] MCV (RBC) [Entitic vol] 94.8 fL Normal 81-99 [facility] Comment on above: Performed By: #### L 500.4050, L501.9310, L100.0100, L501.9520 #### [facility] [address] [place], [address] Monocytes/100 WBC (Bld) 10.3 % High 0-10 [facility] Comment on above: Performed By: #### L 500.4050, L501.9310, L100.0100, L501.9520 #### [facility] [address] [place], [address] Neutrophils/100 WBC (Bld) 55.7 % Normal 47-70 [facility] Comment on above: Performed By: #### L 500.4050, L501.9310, L100.0100, L501.9520 #### [facility] [address] [place], [address] Nucleated RBC (Bld) [#/Vol] 0 10*3/uL Normal 0-5 [facility] Comment on above: Performed By: #### L 500.4050, L501.9310, L100.0100, L501.9520 #### [facility] [address] [place], [address] Platelet mean volume (Bld) [Entitic vol] 11.1 fL Normal 6.2-12.0 [facility] Comment on above: Performed By: #### L 500.4050, L501.9310, L100.0100, L501.9520 #### [facility] [address] [place], [address] Platelets (Bld) [#/Vol] 233 10*3/uL Normal 150-450 [facility] Comment on above: Performed By: #### L 500.4050, L501.9310, L100.0100, L501.9520 #### [facility] [address] [place], [address] RBC (Bld) [#/Vol] 4.21 10*6/uL Normal 4.2-5.4 [facility] Comment on above: Performed By: #### L 500.4050, L501.9310, L100.0100, L501.9520 #### [facility] [address] [place], [address] RDW SD 43.6 fl Normal 35.1-43.9 [facility] Comment on above: Performed By: #### L 500.4050, L501.9310, L100.0100, L501.9520 #### [facility] [address] [place], [address] WBC (Bld) [#/Vol] 4.7 10*3/uL Normal 4.4-11.0 [facility] Comment on above: Performed By: #### L 500.4050, L501.9310, L100.0100, L501.9520 #### [facility] [address] [place], [address] Carbon dioxide, total [Moles /volume] in Central venous bloodOrdered By: Malik Gant on 11-22-2024 CO2 [Moles/Vol] 25.3 mmol/L 21.0-32.0 [facility] Chloride assayOrdered By: Scott Gant on 11-22-2024 Chloride [Moles/Vol] 102 mmol/L 98-108 [facility] Comprehensive Metabolic Prof ilon 11-22-2024 Albumin [Mass/Vol] 3.7 g/dL Normal 3.4-4.8 [facility] Comment on above: Performed By: #### L 500.4050, L501.9310, L100.0100, L501.9520 ####[facility] [address] [place], [address] Albumin/Globulin [Mass ratio] 1.4 {ratio} Normal 0.9-2.4 [facility] Comment on above: Performed By: #### L 500.4050, L501.9310, L100.0100, L501.9520 ####[facility] [address] [place], [address] ALK PHOS 288 U/L High 35-104 [facility] Comment on above: Performed By: #### L 500.4050, L501.9310, L100.0100, L501.9520 ####[facility] [address] [place], [address] ALT [Catalytic activity/Vol] 32 U/L Normal <=34 [facility] Comment on above: Performed By: #### L 500.4050, L501.9310, L100.0100, L501.9520 ####[facility] [address] [place], [address] AST [Catalytic activity/Vol] 36 U/L High <=31 [facility] Comment on above: Performed By: #### L 500.4050, L501.9310, L100.0100, L501.9520 ####[facility] [address] [place], [address] Bilirubin [Mass/Vol] 0.26 mg/dL Normal 0.00-1.30 [facility] Comment on above: Performed By: #### L 500.4050, L501.9310, L100.0100, L501.9520 ####[facility] [address] [place], [address] BUN/CRE 11.8 RATIO Normal 10-20 [facility] Comment on above: Performed By: #### L 500.4050, L501.9310, L100.0100, L501.9520 ####[facility] [address] [place], [address] Calcium [Mass/Vol] 9.1 mg/dL Normal 7.6-11.0 [facility] Comment on above: Performed By: #### L 500.4050, L501.9310, L100.0100, L501.9520 ####[facility] [address] [place], [address] Chloride [Moles/Vol] 102 mmol/L Normal 98-108 [facility] Comment on above: Performed By: #### L 500.4050, L501.9310, L100.0100, [id number] ####[facility] [address] [place], [address] CO2 [Moles/Vol] 25.3 mmol/L Normal 21.0-32.0 [facility] Comment on above: Performed By: #### L 500.4050, L501.9310, L100.0100, [id number] ####[facility] [address] [place], [address] Creatinine [Mass/Vol] 0.58 mg/dL Low 0.70-1.20 [facility] Comment on above: Performed By: #### L 500.4050, L501.9310, L100.0100, [id number] ####[facility] [address] [place], [address] GAP 12 Normal 5-15 [facility] [facility] Comment on above: Performed By: #### L 500.4050, L501.9310, L100.0100, L501.9520 ####[facility] [address] [place], [address] GFR/1.73 sq M.predicted among non-blacks MDRD (S/P/Bld) [Vol rate/Area] 97 mL/min/{1.73_m2} Normal >60 [facility] Comment on above: Result Comment: mL/m in/1.73m2 CKD-EPI Creatinine Equation (2020) Performed By: #### L 500.4050, L501.9310, L100.0100, L501.9520 ####[facility] [address] [place], [address] Globulin (S) [Mass/Vol] 2.6 g/dL Normal 2.2-4.2 [facility] Comment on above: Performed By: #### L 500.4050, L501.9310, L100.0100, L501.9520 ####[facility] [address] [place], [address] Glucose [Mass/Vol] 91 mg/dL Normal 70-99 [facility] Comment on above: Performed By: #### L 500.4050, L501.9310, L100.0100, L501.9520 ####[facility] [address] [place], [address] Potassium [Moles/Vol] 4.4 mmol/L Normal 3.3-5.1 [facility] Comment on above: Performed By: #### L 500.4050, L501.9310, L100.0100, L501.9520 ####[facility] [address] [place], [address] Sodium [Moles/Vol] 139 mmol/L Normal 133-145 [facility] Comment on above: Performed By: #### L 500.4050, L501.9310, L100.0100, L501.9520 ####[facility] [address] [place], [address] T PROT 6.3 g/dL Normal 5.9-8.4 [facility] Comment on above: Performed By: #### L 500.4050, L501.9310, L100.0100, L501.9520 ####[facility] [address] [place], [address] Urea nitrogen [Mass/Vol] 7 mg/dL Normal 4-19 [facility] Comment on above: Performed By: #### L 500.4050, L501.9310, L100.0100, L501.9520 ####[facility] [address] [place], [address] Eosinophil percentageOrdered By: Malik Gant on 11-22-2024 Eosinophils/100 WBC (Bld) 3.2 % 0-5 [facility] Erythrocyte distribution wid th ratioOrdered By: Malik Gant on 11-22-2024 Erythrocyte distribution width (RBC) [Ratio] 12.5 % 11.6-14.6 [facility] Erythrocyte distribution wid th standard deviationOrdered By: Malik Gant on 11-22-2024 Erythrocyte distribution width (RBC) [Entitic vol] 43.6 fL 35.1-43.9 [facility] Erythrocyte distribution width (RBC) [Ratio] 43.6 fl 35.1-43.9 [facility] GFR/1.73 sq M.predicted hu g non-blacks MDRD (S/P/Bld) [Vol rate/Area]Ordered By: Malik Gant on 11-22-2024 Estimated GFR (MDRD) Non-Af Amer 97 >60 [facility] Comment on above: mL/min/1.73m2 CKD-EP I Creatinine Equation (2020) Glomerular filtration rate ( GFR) estimation/1.73 sq m using serum, plasma, or whole bOrdered By: Malik Gant on 11-22-2024 GFR/1.73 sq M.predicted among non-blacks MDRD (S/P/Bld) [Vol rate/Area] 97 mL/min/{1.73_m2} >60 [facility] Comment on above: mL/min/1.73m2 CKD-EP I Creatinine Equation (2020) Hematocrit Auto (Bld) [Volum e fraction]Ordered By: Malik Gant on 11-22-2024 Hematocrit (Bld) [Volume fraction] 39.9 % 37-47 [facility] Hemoglobin measurementOrdere d By: Malik Gant on 11-22-2024 Hemoglobin (Bld) [Mass/Vol] 13.0 g/dL 12.0-15.0 [facility] Immature granulocytes/100 WB C Auto (Bld)Ordered By: Malik Gant on 11-22-2024 Immature granulocytes/100 WBC (Bld) 0.200 % 0.0-0.9 [facility] Comment on above: IG% - Immature Granu locytes (promyelocytes, myelocytes and metamyelocytes) > 1% indicates that a LEFT SHIFT is Present. 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 [facility] Medical History Flu vaccine need Chronic [...] Frequent he (more content not included)... Normal [facility] Laboratory - Chemistry and C hemistry - challengeOrdered By: Malik Gant on 11-22-2024 AST [Catalytic activity/Vol] 36 U/L High <32 [facility] Lymphocytes Auto (Unsp spec) [#/Vol]Ordered By: Malik Gant on 11-22-2024 Lymphocytes (Bld) [#/Vol] 1.37 10*3/uL 0.83-4.51 [facility] Lymphocytes/100 WBC Auto (Un sp spec)Ordered By: Malik Gant on 11-22-2024 Lymphocytes/100 WBC (Bld) 29.3 % 19-41 [facility] MCV (mean corpuscular volume ) determinationOrdered By: Malik Gant on 11-22-2024 MCV (RBC) [Entitic vol] 94.8 fL 81-99 [facility] Mean corpuscular hemoglobin (MCH) determinationOrdered By: Malik Gant on 11-22-2024 MCH (RBC) [Entitic mass] 30.9 pg 27.0-32.0 [facility] Mean corpuscular hemoglobin concentration (MCHC) determinationOrdered By: Malik Gant on 11-22-2024 MCHC (RBC) [Mass/Vol] 32.6 g/dL 32-36 [facility] Mean platelet volume determi nationOrdered By: Malik Gant on 11-22-2024 Platelet mean volume (Bld) [Entitic vol] 11.1 fL 6.2-12.0 [facility] Monocyte percentageOrdered B y: Malik Gant on 11-22-2024 Monocytes/100 WBC (Bld) 10.3 % High 0-10 [facility] Neutrophil percentageOrdered By: Malik Gant on 11-22-2024 Neutrophils/100 WBC (Bld) 55.7 % 47-70 [facility] Nucleated red blood cell per centageOrdered By: Malik Gant on 11-22-2024 Nucleated RBC/100 WBC (Bld) [Ratio] 0 % 0-5 [facility] Platelet countOrdered By: Scott ttromel Gant on 11-22-2024 Platelets (Bld) [#/Vol] 233 10*3/uL 150-450 [facility] Potassium (Unsp spec) [Mass/ Vol]Ordered By: Malik Gant on 11-22-2024 Potassium [Moles/Vol] 4.4 mmol/L 3.3-5.1 [facility] Potassium measurement (mass/ volume)Ordered By: Malik Gant on 11-22-2024 Potassium (Unsp spec) [Mass/Vol] 4.4 mmol/L 3.3-5.1 [facility] RBC Auto (Bld) [#/Vol]Ordere d By: Malik Gant on 11-22-2024 RBC (Bld) [#/Vol] 4.21 10*6/uL 4.2-5.4 [facility] Serum creatinine measurement (mass/volume)Ordered By: Malik Gant on 11-22-2024 Creatinine [Mass/Vol] 0.58 mg/dL Low 0.70-1.20 [facility] Serum globulin measurementOr dered By: Malik Gant on 11-22-2024 Globulin (S) [Mass/Vol] 2.6 g/dL 2.2-4.2 [facility] Serum glucose measurement (m ass/volume)Ordered By: Malik Gant on 11-22-2024 Glucose [Mass/Vol] 91 mg/dL 70-99 [facility] Serum or plasma alanine valdez otransferase (ALT) measurementOrdered By: Malik Gant on 11-22-2024 ALT [Catalytic activity/Vol] 32 U/L <35 [facility] Serum or plasma albumin makayla urement (mass/volume)Ordered By: Malik Gant on 11-22-2024 Albumin [Mass/Vol] 3.7 g/dL 3.4-4.8 [facility] Serum or plasma albumin/glob ulin mass ratioOrdered By: Malik Gant on 11-22-2024 Albumin/Globulin [Mass ratio] 1.4 {ratio} 0.9-2.4 [facility] Serum or plasma alkaline martha sphatase measurementOrdered By: Malik Gant on 11-22-2024 ALP [Catalytic activity/Vol] 288 U/L High 35-104 [facility] Serum or plasma calcium makayla urement (mass/volume)Ordered By: Malik Gant on 11-22-2024 Calcium [Mass/Vol] 9.1 mg/dL 7.6-11.0 [facility] Serum or plasma urea nitroge n measurement (mass/volume)Ordered By: Malik Gant on 11-22-2024 Urea nitrogen [Mass/Vol] 7 mg/dL 4-19 [facility] Sodium levelOrdered By: Nahun Gant on 11-22-2024 Sodium [Moles/Vol] 139 mmol/L 133-145 [facility] T4 Total, Thyroxinon 03-27-2 025 T4 [Mass/Vol] 6.0 ug/dL Normal 4.8-13.9 [facility] Comment on above: Performed By: #### L 500.4050, L501.9310, L100.0100, L501.9520 ####[facility] [address] [place], [address] TSH DL <= 0.005 mIU/L QnOrde red By: Malik Gant on 11-22-2024 Thyroid Stimulating Hormone (TSH) 0.811 uIU/mL 0.300-4.200 [facility] TSH Qn 0.811 uIU/mL 0.300-4.200 [facility] Thyroid Stim Hormone (TSH)on 11-22-2024 TSH 0.811 uIU/mL Normal 0.300-4.200 [facility] Comment on above: Performed By: #### L 500.4050, L501.9310, L100.0100, L501.9520 ####[facility] [address] [place], [place], [address] ThyroxineOrdered By: Malik Gant on 11-22-2024 T4 [Mass/Vol] 6.0 ug/dL 4.8-13.9 [facility] Total proteinOrdered By: Khanh Gant on 11-22-2024 Protein [Mass/Vol] 6.3 g/dL 5.9-8.4 [facility] White blood cell (WBC) count Ordered By: Malik Gant on 11-22-2024 WBC (Bld) [#/Vol] 4.7 10*3/uL 4.4-11.0 [facility] Internal Medicine Office Vis iton 10-05-2024 Internal Medicine Office Visit [facility] [place], [place] [address] OFFICE VISIT Date of Service: 10/05/24 MR#: [id number] Acct: [id number] Name: VIOLA SCOTT Rep #: [id number] : 1955 Provider: Dr. Genevieve pastrana MD Age/Sex: 69/F Location: [facility] Status: Signed Intake Vital Signs 06/28/24 13:48 [...] DAILY 07/09/21 10/05/24 History 25 mg-coppr 0.5 dz-kyji-hbcn tablet (Caltrate-D3 Plus Minerals) ascorbic acid (vitamin [...] 10 mg PO UD #33 tabs 10/02/24 0203/22 Rx Have you fallen in the past year?: No Nurse's Note: pt reports she tested positive for RSV on Tuesday [facility] Medical History Flu vaccine need Chronic [...] Alzheimer disease (more content not included)... Normal [facility] Chest PA and Lateralon 10-02 Chest PA and Lateral [facility] Imaging Services [address] [place], [place] [address] Chest PA and Lateral MR#: [id number] Acct: [id number] Name: VIOLA SCOTT Rep #: [id number] : 1955 F 69 From: Edwardo Ulloa DO PCP: Dr. Genevieve Walsh MD Status: PRE ER Study: Chest PA and Lateral Date of Exam: 10/02/24 Exam# [id number] Ordering Dr: Luis Madrigal DO PROCEDURE: CHEST [...] 2. COPD. Reading Location: [facility] CC: Dr. Genevieve Walsh MD; Luis Madrigal DO Quality Reviewer: Signed Normal [facility] Emergency Department Summary on 10-02-2024 Emergency Department Summary [facility] Medical Records Department [address] [place] [address] Emergency Department Summary 10/02/24 MR#: [id number] Acct: [id number] Name: VIOLA SCOTT Rep #: [id number] : 1955 69 From: Luis Madrigal DO PCP: Dr. Genevieve Walsh MD Status:DEP ER Location: ED HPI [...] to this she returns for repeat evaluation [facility] Medical History Flu vaccine need Chronic back [...] DAILY 07/09/21 Unknown History 25 mg-coppr 0.5 iy-xvem-oaft tablet (Caltrate-D3 Plus Minerals) ascorbic acid (vitamin [...] History F (more content not included)... Normal [facility] M100.678on 10-02-2024 SARS-CoV-2 (COVID-19) Ab IA Ql Normal Reference Range = Negative FLUABV+SARS-CoV-2+RSV Pnl Resp KRISTEN+probe GeneXpert Instrument, PCR method FLUABV+SARS-CoV-2+RSV Pnl Resp KRISTEN+probe CRITICAL VALUE CALLED TO EFINK 10/02/24 [address] Ascencio. RESULTS READ BACK BY SAME. SARS-CoV-2 (COVID 19) Negative INFLUENZA A Negative INFLUENZA B Negative RSV PCR A Positive A RSV Normal [facility] Comment on above: Performed By: #### M 100.678 ####[facility] [address] [place], [address] Influenza virus A and B and SARS-CoV-2 (COVID-19) and Respiratory syncytial virus RNAOrdered By: Luis Madrigal on 10-01-2024 SARS-CoV-2 (COVID-19) RNA KRISTEN+probe Ql (Unsp spec) RSV Abnormal [facility] No Panel InformationOrdered By: Frank Cano on 09-27-2024 Influenza Types A,B Rapid (Clinic) Negative [facility] POC SARS CoV-2 Antigen Negative [facility] Urgent Care Visit Reporton 0 09-27-2024 Urgent Care Visit Report [facility] [address], [address] [place] [address] OFFICE VISIT Date of Service: 09/27/24 MR#: [id number] Acct: [id number] Name: VIOLA SCOTT Rep #: [id number] : 1955 Provider: CASSANDRA Madsen Age/Sex: 69/F Location: [facility] Status: Signed Intake Vital Signs 06/28/24 13:48 [...] Complaint: cough, congestion, REEVES, BA, SOB, wheeze Video Rental Clerk Required: No Is patient in pain?: No [...] inhalers not helping. did not try nebs. 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 Normal [facility] OPERATIVE PROCEDURESon 08-07 OPERATIVE PROCEDURES [facility] OPERATIVE REPORT NAME ACCOUNT SEX AGE ADMIT DISCHARGE PT MED. RECORD# NUMBER DATE DATE TYPE TYLER [id number] F 68 08/06/24 08/06/24 2 VIOLA Perez [id number] ROOM: DATE OF : 1955 DICTATING PHYSICIAN: Tho Anderson DATE OF PROCEDURE: August 06, 2024 SURGEON: Tho Anderson DO PACKAGE PICK UP: None. ANESTHESIA: Local. PREPROCEDURE DIAGNOSIS: Right hip/bursal [...] Tho Anderson DO 08/06/24 13:14 JOB #: [id number] Transcribed By: am 08/07/24 12:13 Electronically signed by: E-SIGN: THO ANDERSON Page 1 of 2 VIOLA SCOTT Operative Report VIOLA SCOTT : 1955 08/07/24 14:43 Page 2 of 2 VIOLA SCOTT Operative Report Normal [facility] DRUG SCREEN URINE MEDICon AMPHETAMINES Negative Normal [facility] Comment on above: Performed By: #### 2 74852 #### [facility],[address] [place] [address],[facility] [address] B-DIAZEPINES Negative Normal [facility] Comment on above: Performed By: #### 2 65381 #### [facility],[address] [place] [address],[facility] [address] BARBITURATES Negative Normal [facility] Comment on above: Performed By: #### 2 09597 #### [facility],[address] [place] [address],[facility] [address] COCAINE Negative Normal [facility] Comment on above: Performed By: #### 2 46801 #### [facility],[address] [place] [address] DRUG SCREEN URINE MEDIC Normal [facility] Comment on above: Result Comment: DRUG SCREEN - URINE Performed By: #### 2 46228 #### [facility] [address] METHADONE Negative Normal [facility] Comment on above: Performed By: #### 2 73805 #### [facility],[address] [place] [address] OPIATES Negative [facility] Comment on above: Performed By: #### 2 97799 #### [facility],[address] [place] [address],[place] [address] PCP Negative Normal [facility] Comment on above: Performed By: #### 2 36454 #### [facility],[address] [place] [address],[facility] [address] THC Negative Normal [facility] Comment on above: Result Comment: DAVID ENTS RECEIVING PROTON PUMP INHIBITORS MAY DEMONSTRATE FALSE POSITIVE THC/CANNABINOID RESULTS. AN ALTERNATIVE CONFIRMATORY METHOD SHOULD BE CONSIDERED TO VERIFY POSITIVE RESULTS. Performed By: #### 2 80694 #### [facility],[address] [address] Internal Medicine Office Vis vivian 07-25-2024 Internal Medicine Office Visit [facility] [address] [place] [id number] OFFICE VISIT Date of Service: 07/25/24 MR#: [id number] Acct: [id number] Name: VIOLA SCOTT Rep #: [id number] : 1955 Provider: SHAKIRA NURSE Age/Sex: 68/F Location: [facility] Status: Signed Intake Vital Signs 06/28/24 13:48 [...] DAILY 07/09/21 07/25/24 History 25 mg-coppr 0.5 qz-nrtq-kawm tablet (Caltrate-D3 Plus Minerals) ascorbic acid (vitamin [...] 07/25/24 Rx mcg-formot 4.8 mcg/actuation HFA [facility]er [facility] Have you fallen in the past year?: No Nurse's Note: pt presents for BP check, pt states no htn sx , taking medication as prescribed. pt bp cuff-184/99 pulse 86 after adjustment of arm and bp monitor pt bp 158/88 our cuff- 150/80, pulse 80 pt informed of form to use when bp is being checked. and to continue to monitor [facility] Medical History (Updated 06/28/24 @ 14:[address] Genevieve Walsh MD) Flu vaccine need Chronic back [...] current occupation: (more content not included)... Normal [facility] Laboratory - Chemistry and C hemistry - challengeOrdered By: Genevieve Walsh on 10-14-2023 Amylase [Catalytic activity/Vol] 180 U/L 5-55 [facility] Absolute lymphocyte countOrd ered By: Genevieve Walsh on 09-22-2023 Lymphocytes Auto (Unsp spec) [#/Vol] 1.45 10*3/uL 0.83-4.51 [facility] Automated lymphocyte count a s percentage of total leukocytesOrdered By: Genevieve Walsh on 09-22-2023 Lymphocytes/100 WBC Auto (Unsp spec) 30.9 % 19-41 [facility] Basophil percentageOrdered B y: Genevieve Walsh on 09-22-2023 Basophils/100 WBC (Bld) 1.7 % 0-1 [facility] Bilirubin [Mass/Vol] 0.40 mg/dL 0.20-1.00 [facility] Comment on above: For patients on eltr ombopag therapy, use of Dimension [place] TBIL is not recommended. Chloride [Moles/Vol] 100 mmol/L 98-107 [facility] Cholesterol [Mass/Vol] 187 mg/dL <200 [facility] Comment on above: <200 mg/dL Desirable 200-240 mg/dL Borderline >240 mg/dL High Risk Eosinophils/100 WBC (Bld) 3.6 % 0-5 [facility] Glucose [Mass/Vol] 120 mg/dL 74-106 [facility] Comment on above: Fasting Glucose resu lt from 100 to 125 mg/dL suggests IMPAIRED HOMEOSTASIS per A.D.A. criteria. Hemoglobin (Bld) [Mass/Vol] 14.0 g/dL 12.0-15.0 [facility] Monocytes/100 WBC (Bld) 10.0 % 0-10 [facility] Neutrophils (Bld) [#/Vol] 2.5 10*3/uL 2.0-7.7 [facility] Neutrophils/100 WBC (Bld) 53.6 % 47-70 [facility] Potassium [Moles/Vol] 4.4 mmol/L 3.5-5.1 [facility] Protein [Mass/Vol] 7.3 g/dL 6.4-8.2 [facility] Sodium [Moles/Vol] 133 mmol/L 136-145 [facility] Triglyceride [Mass/Vol] 58 mg/dL <199 [facility] Comment on above: The drugs N-Acetylcy steine and Metamizole may falsely depress this assay.Serum Triglycerides Reference Interval Normal <150 mg/dL Borderline high 150 - 199 mg/dL High 200 - 499 mg/dL Very High > or = 500 mg/dL WBC (Bld) [#/Vol] 4.7 10*3/uL 4.4-11.0 [facility] Determination of erythrocyte mean corpuscular volume (MCV)Ordered By: Genevieve Walsh on 09-22-2023 MCV (RBC) [Entitic vol] 95.2 fL 81-99 [facility] Erythrocyte distribution wid th ratioOrdered By: [facility] Vilazane on 09-22-2023 Erythrocyte distribution width (RBC) [Ratio] 11.6 % 11.6-14.6 [facility] Erythrocyte distribution wid th standard deviationOrdered By: [facility] Julitozane on 09-22-2023 Erythrocyte distribution width (RBC) [Entitic vol] 40.6 fL 35.1-43.9 [facility] Hematocrit Auto (Bld) [Volum e fraction]Ordered By: [facility] Julitozane on 09-22-2023 Hematocrit (Bld) [Volume fraction] 42.1 % 37-47 [facility] Immature granulocytes/100 WB C Auto (Bld)Ordered By: [facility] Julitozane on 09-22-2023 Immature granulocytes/100 WBC (Bld) 0.200 % 0.0-0.9 [facility] Comment on above: IG% - Immature Granu locytes (promyelocytes, myelocytes and metamyelocytes) > 1% indicates that a LEFT SHIFT is Present. Laboratory - Chemistry and C hemistry - challengeOrdered By: karleast orleanskermit Vilazane on 09-22-2023 Albumin/Globulin [Mass ratio] 0.9 {ratio} 0.9-2.4 [facility] ALP [Catalytic activity/Vol] 178 U/L 45-117 [facility] ALT [Catalytic activity/Vol] 34 U/L 13-56 [facility] Cholesterol in HDL (Body fld) [Mass/Vol] 82 mg/dL >40 [facility] Comment on above: The drugs N-Acetylcy steine and Metamizole may falsely depress this assay. Reference Range HDL <40 mg/dL Low HDL Cholesterol HDL >or= 60 mg/dL High HDL Cholesterol Cholesterol in LDL (Body fld) [Moles/Vol] 93 mg/dL 0-130 [facility] Cholesterol in VLDL Calc [Moles/Vol] 12 mg/dL 5-40 [facility] CO2 [Moles/Vol] 30.0 mmol/L 21.0-32.0 [facility] Globulin (S) [Mass/Vol] 3.8 g/dL 2.2-4.2 [facility] Urea nitrogen/Creatinine [Mass ratio] 13.5 mg/mg 10-20 [facility] Laboratory - Hematology and Cell countsOrdered By: Genevieve Walsh on 09-22-2023 MCH (RBC) [Entitic mass] 31.7 pg 27.0-32.0 [facility] MCHC (RBC) [Mass/Vol] 33.3 g/dL 32-36 [facility] Nucleated RBC/100 WBC (Bld) [Ratio] 0 % 0-5 [facility] Platelets (Bld) [#/Vol] 251 10*3/uL 150-450 [facility] No Panel InformationOrdered By: Genevieve Walsh on 09-22-2023 Estimated GFR (MDRD) Amer 129 mL/min >60 [facility] Comment on above: GFR Calc Estimated GFR (MDRD) Non-Af Amer 107 mL/min >60 [facility] Comment on above: Non- GFR Calc Platelet mean volume Terrance-Ec ker (Bld) [Entitic vol]Ordered By: Genevieve Walsh on 09-22-2023 Platelet mean volume (Bld) [Entitic vol] 9.7 fL 6.2-12.0 [facility] RBC Auto (Bld) [#/Vol]Ordere d By: Genevieve Walsh on 09-22-2023 RBC (Bld) [#/Vol] 4.42 10*6/uL 4.2-5.4 [facility] Serum or plasma calcium makayla urement (mass/volume)Ordered By: Genevieve Walsh on 09-22-2023 Calcium [Mass/Vol] 9.4 mg/dL 8.5-10.1 [facility] Serum or plasma creatinine m easurement (mass/volume)Ordered By: Genevieve Walsh on 09-22-2023 Creatinine [Mass/Vol] 0.59 mg/dL 0.55-1.02 [facility] Comment on above: The validity of the calculated GFR & GFRAA in patients over 70 years has not been determined. Clinical correlation is essential. Serum or plasma urea nitroge n measurement (mass/volume)Ordered By: Genevieve Walsh on 09-22-2023 Urea nitrogen [Mass/Vol] 8 mg/dL 7-18 [facility] Thin prep Papanicolaou smear with manual screeningOrdered By: Genevieve Walsh on 09-22-2023 Thin prep Papanicolaou smear with manual screening 3.5 g/dL 3.2-5.0 [facility] Thin prep Papanicolaou smear with manual screening 23 U/L 15-37 [facility] Thin prep Papanicolaou smear with manual screening 3 5-15 [facility] XR Lumbar spine 3 Viewson IMPRESSION: Age indeterminant moderate superior endplate compression deformity of T12 and mild superior endplate compression deformity of L1. Grade 1 retrolisthesis of L1 on L2 and of L2 on L3. Degenerative changes as described Quality Reviewer: EILEEN Transcribe Date/Time: Jan 17 2023 4:03P Dictated by : RANDELL BAXTER MD This examination was interpreted and the report reviewed and electronically signed by: RANDELL BAXTER MD on Jan 17 2023 4:06PM [facility] DIVISION OF RADIOLOGY * * *Final [...] in the pelvis. DIVISION OF RADIOLOGY Provider, [facility] Kizzy [facility] - 01/17/2023 * * *Final Report* * [...] L2 on L3. Degenerative changes as described Quality Reviewer: [facility] Transcribe Date/Time: Jan 17 2023 4:03P Dictated by : RANDELL BAXTER MD This examination was interpreted and the report reviewed and electronically signed by: RANDELL BAXTER MD on Jan 17 2023 4:06PM EST [facility] Radiology Study observation (narrative) Kristan [facility] XR Lumbar spine 3 ViewsOrder ed By: [facility] Provider on 01-17-2023 [facility] Absolute lymphocyte countOrd ered By: Dr. Walsh on 01-06-2023 Lymphocytes Auto (Unsp spec) [#/Vol] 1.44 10*3/uL 0.83-4.51 [facility] Basophil percentageOrdered B y: Dr. Walsh on 01-06-2023 Basophils/100 WBC (Bld) 1.3 % 0-1 [facility] Bilirubin [Mass/Vol] 0.40 mg/dL 0.20-1.00 [facility] Comment on above: For patients on eltr ombopag therapy, use of Dimension [place] TBIL is not recommended. Chloride [Moles/Vol] 103 mmol/L 98-107 [facility] Eosinophils/100 WBC (Bld) 8.3 % 0-5 [facility] Glucose [Mass/Vol] 101 mg/dL 74-106 [facility] Comment on above: Fasting Glucose resu lt from 100 to 125 mg/dL suggests IMPAIRED HOMEOSTASIS per A.D.A. criteria. Neutrophils (Bld) [#/Vol] 2.2 10*3/uL 2.0-7.7 [facility] Neutrophils/100 WBC (Bld) 48.1 % 47-70 [facility] Potassium [Moles/Vol] 4.3 mmol/L 3.5-5.1 [facility] Protein [Mass/Vol] 7.6 g/dL 6.4-8.2 [facility] Sodium [Moles/Vol] 137 mmol/L 136-145 [facility] WBC (Bld) [#/Vol] 4.5 10*3/uL 4.4-11.0 [facility] Blood erythrocytes count (nu mber/volume)Ordered By: Dr. Walsh on 01-06-2023 RBC (Bld) [#/Vol] 4.61 10*6/uL 4.2-5.4 [facility] Blood hemoglobin measurement (mass/volume)Ordered By: Dr. Walsh on 01-06-2023 Hemoglobin (Bld) [Mass/Vol] 14.5 g/dL 12.0-15.0 [facility] Blood lymphocytes/100 leukoc ytesOrdered By: Dr. Walsh on 01-06-2023 Lymphocytes/100 WBC (Bld) 32.2 % 19-41 [facility] Blood monocytes/100 leukocyt esOrdered By: Dr. Walsh on 01-06-2023 Monocytes/100 WBC (Bld) 10.1 % 0-10 [facility] Blood platelet mean volumeOr dered By: Dr. Walsh on 01-06-2023 Platelet mean volume (Bld) [Entitic vol] 11.1 fL 6.2-12.0 [facility] Determination of erythrocyte mean corpuscular volume (MCV)Ordered By: Dr. Walsh on 01-06-2023 MCV (RBC) [Entitic vol] 99.8 fL 81-99 [facility] Hematocrit Auto (Bld) [Volum e fraction]Ordered By: Dr. Walsh on 01-06-2023 Hematocrit (Bld) [Volume fraction] 46.0 % 37-47 [facility] - Chemistry and C hemistry - challengeOrdered By: Dr. Walsh on 01-06-2023 ALP [Catalytic activity/Vol] 228 U/L 45-117 [facility] ALT [Catalytic activity/Vol] 58 U/L 13-56 [facility] CO2 [Moles/Vol] 29.0 mmol/L 21.0-32.0 [facility] Globulin (S) [Mass/Vol] 4.0 g/dL 2.2-4.2 [facility] Urea nitrogen/Creatinine [Mass ratio] 16.8 mg/mg 10-20 [facility] - Hematology and Cell countsOrdered By: Dr. Walsh on 01-06-2023 Erythrocyte distribution width (RBC) [Entitic vol] 43.8 fL 35.1-43.9 [facility] Erythrocyte distribution width (RBC) [Ratio] 11.9 % 11.6-14.6 [facility] Immature granulocytes/100 WBC (Bld) 0.000 % 0.0-0.9 [facility] Comment on above: IG% - Immature Granu locytes (promyelocytes, myelocytes and metamyelocytes) > 1% indicates that a LEFT SHIFT is Present. MCH (RBC) [Entitic mass] 31.5 pg 27.0-32.0 [facility] Nucleated RBC/100 WBC (Bld) [Ratio] 0 % 0-5 [facility] MCHC Auto (RBC) [Mass/Vol]Or dered By: Dr. Walsh on 01-06-2023 MCHC (RBC) [Mass/Vol] 31.5 g/dL 32-36 [facility] No Panel InformationOrdered By: Dr. Walsh on 01-06-2023 Estimated GFR (MDRD) Amer 145 mL/min >60 [facility] Comment on above: GFR Calc Estimated GFR (MDRD) Non-Af Amer 120 mL/min >60 [facility] Comment on above: Non- GFR Calc Vitamin D 25-Hydroxy 49.2 ng/mL [facility] Comment on above: Vitamin D 25(OH) Sta tus Range Deficiency <20 ng/mL (50nmol/L) Insufficiency 20 - 30 ng/mL (50 - 75 nmol/L) Sufficiency 30 - 100 ng/mL (75 - 250 nmol/L) Toxicity >100 ng/mL (>250 nmol/L) Platelets bldOrdered By: Dr. Walsh on 01-06-2023 Platelets (Bld) [#/Vol] 266 10*3/uL 150-450 [facility] Serum or plasma albumin makayla urement (mass/volume)Ordered By: Dr. Walsh on 01-06-2023 Albumin [Mass/Vol] 3.6 g/dL 3.2-5.0 [facility] Serum or plasma albumin/glob ulin mass ratioOrdered By: Dr. Walsh on 01-06-2023 Albumin/Globulin [Mass ratio] 0.9 {ratio} 0.9-2.4 [facility] Serum or plasma calcium makayla urement (mass/volume)Ordered By: Dr. Walsh on 01-06-2023 Calcium [Mass/Vol] 9.4 mg/dL 8.5-10.1 [facility] Serum or plasma creatinine m easurement (mass/volume)Ordered By: Dr. Walsh on 01-06-2023 Creatinine [Mass/Vol] 0.54 mg/dL 0.55-1.02 [facility] Comment on above: The validity of the calculated GFR & GFRAA in patients over 70 years has not been determined. Clinical correlation is essential. Serum or plasma urea nitroge n measurement (mass/volume)Ordered By: Dr. Walsh on 01-06-2023 Urea nitrogen [Mass/Vol] 9 mg/dL 7-18 [facility] Thin prep Papanicolaou smear with manual screeningOrdered By: Dr. Walsh on 01-06-2023 Thin prep Papanicolaou smear with manual screening 34 U/L 15-37 [facility] Thin prep Papanicolaou smear with manual screening 5 5-15 [facility] Basophil percentageOrdered B y: Dr. Walsh on 10-08-2022 Bilirubin [Mass/Vol] 0.60 mg/dL 0.20-1.00 [facility] Comment on above: For patients on eltr ombopag therapy, use of Dimension [place] TBIL is not recommended. Chloride [Moles/Vol] 101 mmol/L 98-107 [facility] Glucose [Mass/Vol] 114 mg/dL 74-106 [facility] Comment on above: Fasting Glucose resu lt from 100 to 125 mg/dL suggests IMPAIRED HOMEOSTASIS per A.D.A. criteria. Potassium [Moles/Vol] 4.1 mmol/L 3.5-5.1 [facility] Protein [Mass/Vol] 7.5 g/dL 6.4-8.2 [facility] Sodium [Moles/Vol] 135 mmol/L 136-145 [facility] Laboratory - Chemistry and C hemistry - challengeOrdered By: Dr. Walsh on 10-08-2022 ALP [Catalytic activity/Vol] 148 U/L 45-117 [facility] ALT [Catalytic activity/Vol] 36 U/L 13-56 [facility] CO2 [Moles/Vol] 29.0 mmol/L 21.0-32.0 [facility] Globulin (S) [Mass/Vol] 3.8 g/dL 2.2-4.2 [facility] Urea nitrogen/Creatinine [Mass ratio] 12.9 mg/mg 10-20 [facility] No Panel InformationOrdered By: Dr. Walsh on 10-08-2022 Estimated GFR (MDRD) Amer 123 mL/min >60 [facility] Comment on above: GFR Calc Estimated GFR (MDRD) Non-Af Amer 102 mL/min >60 [facility] Comment on above: Non- GFR Calc Vitamin D 25-Hydroxy 30.0 ng/mL [facility] Comment on above: Vitamin D 25(OH) Sta tus Range Deficiency <20 ng/mL (50nmol/L) Insufficiency 20 - 30 ng/mL (50 - 75 nmol/L) Sufficiency 30 - 100 ng/mL (75 - 250 nmol/L) Toxicity >100 ng/mL (>250 nmol/L) Serum or plasma albumin makayla urement (mass/volume)Ordered By: Dr. Walsh on 10-08-2022 Albumin [Mass/Vol] 3.7 g/dL 3.2-5.0 [facility] Serum or plasma albumin/glob ulin mass ratioOrdered By: Dr. Walsh on 10-08-2022 Albumin/Globulin [Mass ratio] 1.0 {ratio} 0.9-2.4 [facility] Serum or plasma calcium makayla urement (mass/volume)Ordered By: Dr. Walsh on 10-08-2022 Calcium [Mass/Vol] 9.3 mg/dL 8.5-10.1 [facility] Serum or plasma creatinine m easurement (mass/volume)Ordered By: Dr. Walsh on 10-08-2022 Creatinine [Mass/Vol] 0.62 mg/dL 0.55-1.02 [facility] Comment on above: The validity of the calculated GFR & GFRAA in patients over 70 years has not been determined. Clinical correlation is essential. Serum or plasma urea nitroge n measurement (mass/volume)Ordered By: Dr. Walsh on 10-08-2022 Urea nitrogen [Mass/Vol] 8 mg/dL 7-18 [facility] Thin prep Papanicolaou smear with manual screeningOrdered By: Dr. Walsh on 10-08-2022 Thin prep Papanicolaou smear with manual screening 30 U/L 15-37 [facility] Thin prep Papanicolaou smear with manual screening 5 5-15 [facility] Absolute lymphocyte counton 04-02-2022 Lymphocytes Auto (Unsp spec) [#/Vol] 1.52 10*3/uL 0.83-4.51 [facility] Work Phone: Basophil percentageon 2021 Basophils/100 WBC (Bld) 1.3 % 0-1 [facility] Work Phone: Bilirubin [Mass/Vol] 0.20 mg/dL 0.20-1.00 [facility] Work Phone: Comment on above: For patients on eltr ombopag therapy, use of Dimension [place] TBIL is not recommended. Chloride [Moles/Vol] 101 mmol/L 98-107 [facility] Work Phone: Cholesterol [Mass/Vol] 187 mg/dL <200 [facility] Work Phone: Comment on above: <200 mg/dL Desirable 200-240 mg/dL Borderline >240 mg/dL High Risk Eosinophils/100 WBC (Bld) 4.0 % 0-5 [facility] Work Phone: Glucose [Mass/Vol] 111 mg/dL 74-106 [facility] Work Phone: Comment on above: Fasting Glucose resu lt from 100 to 125 mg/dL suggests IMPAIRED HOMEOSTASIS per A.D.A. criteria. Neutrophils (Bld) [#/Vol] 3.1 10*3/uL 2.0-7.7 [facility] Work Phone: [phone] Neutrophils/100 WBC (Bld) 58.1 % 47-70 [facility] Work Phone: [phone] Potassium [Moles/Vol] 4.3 mmol/L 3.5-5.1 [facility] Work Phone: [phone] Protein [Mass/Vol] 7.3 g/dL 6.4-8.2 [facility] Work Phone: Sodium [Moles/Vol] 137 mmol/L 136-145 [facility] Work Phone: [phone] Triglyceride [Mass/Vol] 112 mg/dL <199 [facility] Work Phone: Comment on above: The drugs N-Acetylcy steine and Metamizole may falsely depress this assay.Serum Triglycerides Reference Interval Normal <150 mg/dL Borderline high 150 - 199 mg/dL High 200 - 499 mg/dL Very High > or = 500 mg/dL WBC (Bld) [#/Vol] 5.3 10*3/uL 4.4-11.0 [facility] Work Phone: Blood erythrocytes count (nu mber/volume)on 04-02-2022 RBC (Bld) [#/Vol] 4.43 10*6/uL 4.2-5.4 [facility] Work Phone: [phone] Blood hemoglobin measurement (mass/volume)on 04-02-2022 Hemoglobin (Bld) [Mass/Vol] 14.2 g/dL 12.0-15.0 [facility] Work Phone: Blood lymphocytes/100 leukoc yteson 04-02-2022 Lymphocytes/100 WBC (Bld) 28.8 % 19-41 [facility] Work Phone: [phone] Blood monocytes/100 leukocyt eson 04-02-2022 Monocytes/100 WBC (Bld) 7.6 % 0-10 [facility] Work Phone: [phone] Blood platelet mean volumeon 04-02-2022 Platelet mean volume (Bld) [Entitic vol] 10.7 fL 6.2-12.0 [facility] Work Phone: [phone] Determination of erythrocyte mean corpuscular volume (MCV)on 04-02-2022 MCV (RBC) [Entitic vol] 98.0 fL 81-99 [facility] Work Phone: [phone] Hematocrit Auto (Bld) [Volum e fraction]on 04-02-2022 Hematocrit (Bld) [Volume fraction] 43.4 % 37-47 [facility] Work Phone: Laboratory - Chemistry and C hemistry - challengeon 04-02-2022 ALP [Catalytic activity/Vol] 197 U/L 45-117 [facility] Work Phone: [phone] ALT [Catalytic activity/Vol] 38 U/L 13-56 [facility] Work Phone: [phone] CO2 [Moles/Vol] 31.0 mmol/L 21.0-32.0 [facility] Work Phone: [phone] Globulin (S) [Mass/Vol] 3.7 g/dL 2.2-4.2 [facility] Work Phone: [phone] Urea nitrogen/Creatinine [Mass ratio] 10.9 mg/mg 10-20 [facility] Work Phone: [phone] Laboratory - Hematology and Cell countson 04-02-2022 Erythrocyte distribution width (RBC) [Entitic vol] 44.5 fL 35.1-43.9 [facility] Work Phone: [phone] Erythrocyte distribution width (RBC) [Ratio] 12.1 % 11.6-14.6 [facility] Work Phone: [phone] Immature granulocytes/100 WBC (Bld) 0.200 % 0.0-0.9 [facility] Work Phone: [phone] Comment on above: IG% - Immature Granu locytes (promyelocytes, myelocytes and metamyelocytes) > 1% indicates that a LEFT SHIFT is Present. MCH (RBC) [Entitic mass] 32.1 pg 27.0-32.0 [facility] Work Phone: [phone] Nucleated RBC/100 WBC (Bld) [Ratio] 0 % 0-5 [facility] Work Phone: [phone] MCHC Auto (RBC) [Mass/Vol]on 04-02-2022 MCHC (RBC) [Mass/Vol] 32.7 g/dL 32-36 [facility] Work Phone: No Panel Informationon 04-02 Estimated GFR (MDRD) Amer 118 mL/min >60 [facility] Work Phone: [phone] Comment on above: GFR Calc Estimated GFR (MDRD) Non-Af Amer 97 mL/min >60 [facility] Work Phone: [phone] Comment on above: Non- GFR Calc Thyroid Stimulating Hormone (TSH) 0.82 uIU/mL 0.358-3.74 [facility] Work Phone: Platelets bldon 04-02-2022 Platelets (Bld) [#/Vol] 267 10*3/uL 150-450 [facility] Work Phone: [phone] Serum or plasma albumin makayla urement (mass/volume)on 04-02-2022 Albumin [Mass/Vol] 3.6 g/dL 3.2-5.0 [facility] Work Phone: [phone] Serum or plasma albumin/glob ulin mass ratioon 04-02-2022 Albumin/Globulin [Mass ratio] 1.0 {ratio} 0.9-2.4 [facility] Work Phone: Serum or plasma calcium makayla urement (mass/volume)on 04-02-2022 Calcium [Mass/Vol] 9.0 mg/dL 8.5-10.1 [facility] Work Phone: Serum or plasma cholesterol in HDL measurement (mass/volume)on 04-02-2022 Cholesterol in HDL [Mass/Vol] 67 mg/dL >40 [facility] Work Phone: Comment on above: The drugs N-Acetylcy steine and Metamizole may falsely depress this assay. Reference Range HDL <40 mg/dL Low HDL Cholesterol HDL >or= 60 mg/dL High HDL Cholesterol Serum or plasma cholesterol in VLDL measurement (mass/volume)on 04-02-2022 Cholesterol in VLDL [Mass/Vol] 22 mg/dL 5-40 [facility] Work Phone: [phone] Serum or plasma creatinine m easurement (mass/volume)on 04-02-2022 Creatinine [Mass/Vol] 0.64 mg/dL 0.55-1.02 [facility] Work Phone: Comment on above: The validity of the calculated GFR & GFRAA in patients over 70 years has not been determined. Clinical correlation is essential. Serum or plasma low density lipoprotein (LDL) cholesterol measurement (mass/volume)on 04-02-2022 Cholesterol in LDL [Mass/Vol] 98 mg/dL 0-130 [facility] Work Phone: [phone] Serum or plasma urea nitroge n measurement (mass/volume)on 04-02-2022 Urea nitrogen [Mass/Vol] 7 mg/dL 7-18 [facility] Work Phone: [phone] Thin prep Papanicolaou smear with manual screeningon 04-02-2022 Thin prep Papanicolaou smear with manual screening 29 U/L 15-37 [facility] Work Phone: Thin prep Papanicolaou smear with manual screening 5 5-15 [facility] Work Phone: [phone] CNOVon 12-02-2020 CNOV Office Visit (UCWSTR ) VIOLA SCOTT ([id number]) 1955 F Date Time Provider Department 12/02/20 1:30 PM MADELINE CHAIDEZ) [facility] During your visit today, we recorded the following information about you: Temperature Pulse Respiration Blood pressure 97.7 degrees 110/minute 18/minute 132/82 Weight 59.9 kg Madeline Chaidez PA-C 12/02/2020 2:28 PM Signed This note was created using [employer]. Subjective Viola Scott is a 65 year [...] wheezing recently. She has not tried anything [id number] for her symptoms. No other new medications. [...] HENT: Head: Normocephalic and atraumatic. Mouth/Throat: Lips: [place]. Mouth: Mucous membranes are moist. Pharynx: Oropharynx [...] Status:Closed by MADELINE CHAIDEZ PA-C on 12/02/20 [facility] PROGRESSon 12-02-2020 PROGRESS HNO ID: [id number] Author: Madeline Chaidez (Pa) Service: ? Author Type: Physician Event Marketing Representative Type: Progress Notes Filed: 12/02/2020 2:28 PM Note Text: This note was created using [employer]. Subjective Viola Scott is a 65 year [...] wheezing recently. She has not tried anything [id number] for her symptoms. No other new medications. [...] HENT: Head: Normocephalic and atraumatic. Mouth/Throat: Lips: [place]. Mouth: Mucous membranes are moist. Pharynx: Oropharynx [...] with this plan. Madeline Chaidez PA-C Normal [facility] COVID PCR, SCREENING CONGREG ATE02-21-2020 CORONAVIRUS 2019,PCR NOT DETECTED Normal Not Detected [facility] Comment on above: Result Comment: This assay [...] patient management decisions. Fact sheet for providers: https://www.fda.gov/media/451948/download Fact sheet for patients: https://www.fda.gov/media/162830/download This test has received FDA Emergency Use Authorization (EUA) and has been verified by [facility] ([facility]). This test is only authorized for the duration of time that circumstances exist to justify the authorization of the emergency use of in vitro diagnostic tests for the detection of SARS-CoV-2 virus and/or diagnosis of COVID-19 infection under section 564(b)(1) of the Act, 21 U.S.C. 360bbb-3(b)(1), unless the authorization is terminated or revoked sooner. [facility] ([facility]) is certified under CLIA-88 as qualified to perform high complexity testing. This tests analytical performance characteristics have been determined by [facility]. Testing is performed at [facility] is located at [address] [place] [address] (CLIA License #[id number], CAP #[id number]). Performed By: #### C [facility] #### [facility] [address] [place] [address] COVID PCR, SCREENING CONGREG ATE 02-20-2020 Lab Specimen Source Nasal, Nasopharyngeal Normal [facility] Comment on above: Performed By: #### C [facility] #### [facility] [address] [place] [address] Vital Signs Date Time Vital Sign Value Performing Clinician Hugh esposito 03-22-2025 14:06-0400 Body height 157.[address] Genevieve Walsh MD Work Phone: [facility] 03-22-2025 14:06-0400 Body mass index (BMI) [Ratio] 17.2 kg/m2 Dr. Genevieve Walsh MD Work Phone: [facility] 03-22-2025 14:06-0400 Body temperature 98.8 [degF] Dr. Genevieve Walsh MD Work Phone: [facility] 03-22-2025 14:06-0400 Body weight 42.[address] Genevieve Walsh MD Work Phone: [facility] 03-22-2025 14:06-0400 Diastolic blood pressure 88 mm[Hg] Dr. Genevieve Walsh MD Work Phone: [facility] 03-22-2025 14:06-0400 Heart rate 102 /min Dr. Genevieve Walsh MD Work Phone: [facility] 03-22-2025 14:06-0400 Respiratory rate 16 /min Dr. Genevieve Walsh MD Work Phone: [facility] 03-22-2025 14:06-0400 SaO2% (BldA) [Mass fraction] 95 % Dr. Genevieve Walsh MD Work Phone: [facility] 03-22-2025 14:06-0400 Systolic blood pressure 156 mm[Hg] Dr. Genevieve Walsh MD Work Phone: [facility] 03-22-2025 13:42-0400 Body mass index (BMI) [Ratio] 17.8 kg/m2 Dr. Genevieve Walsh MD Work Phone: [facility] 03-22-2025 13:42-0400 Body temperature 98.1 [degF] Dr. Genevieve Walsh MD Work Phone: [facility] 03-22-2025 13:42-0400 Body weight 44.[address] Genevieve Walsh MD Work Phone: [facility] 03-22-2025 13:42-0400 Diastolic blood pressure 86 mm[Hg] Dr. Genevieve Walsh MD Work Phone: [facility] 03-22-2025 13:42-0400 Heart rate 70 /min Dr. Genevieve Walsh MD Work Phone: [facility] 03-22-2025 13:42-0400 Respiratory rate 16 /min Dr. Genevieve Walsh MD Work Phone: [facility] 03-22-2025 13:42-0400 SaO2% (BldA) [Mass fraction] 70 % Dr. Genevieve Walsh MD Work Phone: [facility] 03-22-2025 13:42-0400 Systolic blood pressure 146 mm[Hg] Dr. Genevieve Walsh MD Work Phone: [facility] 02-15-2025 14:09-0400 Body height 157.[address] Genevieve Walsh MD Work Phone: [facility] 02-15-2025 14:09-0400 Body mass index (BMI) [Ratio] 17.7 kg/m2 Dr. Genevieve Walsh MD Work Phone: [facility] 02-15-2025 14:09-0400 Body temperature 97.8 [degF] Dr. Genevieve Walsh MD Work Phone: [facility] 02-15-2025 14:09-0400 Body weight 43.[address] Genevieve Walsh MD Work Phone: [facility] 02-15-2025 14:09-0400 Diastolic blood pressure 92 mm[Hg] Dr. Genevieve Walsh MD Work Phone: [facility] 02-15-2025 14:09-0400 Heart rate 81 /min Dr. Genevieve Walsh MD Work Phone: [facility] 02-15-2025 14:09-0400 Respiratory rate 18 /min Dr. Genevieve Walsh MD Work Phone: [facility] 02-15-2025 14:09-0400 SaO2% (BldA) [Mass fraction] 94 % Dr. Genevieve Walsh MD Work Phone: [facility] 02-15-2025 14:09-0400 Systolic blood pressure 148 mm[Hg] Dr. Genevieve Walsh MD Work Phone: [facility] 01-23-2025 13:59-0400 Body height 157.[address] Genevieve Walsh MD Work Phone: [facility] 01-23-2025 13:59-0400 Body mass index (BMI) [Ratio] 18.1 kg/m2 Dr. Genevieve Walsh MD Work Phone: [facility] 01-23-2025 13:59-0400 Body weight 45.[address] Genevieve Walsh MD Work Phone: [facility] 01-23-2025 13:59-0400 Diastolic blood pressure 74 mm[Hg] Dr. Genevieve Walsh MD Work Phone: [facility] 01-23-2025 13:59-0400 Heart rate 78 /min Dr. Genevieve Walsh MD Work Phone: [facility] 01-23-2025 13:59-0400 Respiratory rate 17 /min Dr. Genevieve Walsh MD Work Phone: [facility] 01-23-2025 13:59-0400 SaO2% (BldA) [Mass fraction] 93 % Dr. Genevieve Walsh MD Work Phone: [facility] 01-23-2025 13:59-0400 Systolic blood pressure 155 mm[Hg] Dr. Genevieve Walsh MD Work Phone: [facility] 01-22-2025 13:58-0400 Body height 157.[address] Genevieve Walsh MD Work Phone: [facility] 01-22-2025 13:58-0400 Body mass index (BMI) [Ratio] 17.6 kg/m2 Dr. Genevieve Walsh MD Work Phone: [facility] 01-22-2025 13:58-0400 Body temperature 98.8 [degF] Dr. Genevieve Walsh MD Work Phone: [facility] 01-22-2025 13:58-0400 Body weight 43.[address] Genevieve Walsh MD Work Phone: [facility] 01-22-2025 13:58-0400 Diastolic blood pressure 97 mm[Hg] Dr. Genevieve Walsh MD Work Phone: [facility] 01-22-2025 13:58-0400 Heart rate 83 /min Dr. Genevieve Walsh MD Work Phone: [facility] 01-22-2025 13:58-0400 Respiratory rate 18 /min Dr. Genevieve Walsh MD Work Phone: [facility] 01-22-2025 13:58-0400 SaO2% (BldA) [Mass fraction] 96 % Dr. Genevieve Walsh MD Work Phone: [facility] 01-22-2025 13:58-0400 Systolic blood pressure 169 mm[Hg] Dr. Genevieve Walsh MD Work Phone: [facility] 12-21-2024 14:03-0400 Diastolic blood pressure 90 mm[Hg] Dr. Genevieve Walsh MD Work Phone: [facility] 12-21-2024 14:03-0400 Systolic blood pressure 152 mm[Hg] Dr. Genevieve Walsh MD Work Phone: [facility] 12-21-2024 13:58-0400 Body mass index (BMI) [Ratio] 17.4 kg/m2 Dr. Genevieve Walsh MD Work Phone: [facility] 12-21-2024 13:58-0400 Body temperature 98 [degF] Dr. Genevieve Walsh MD Work Phone: [facility] 12-21-2024 13:58-0400 Body weight 43.[address] Genevieve Walsh MD Work Phone: [facility] 12-21-2024 13:58-0400 Heart rate 97 /min Dr. Genevieve Walsh MD Work Phone: [facility] 12-21-2024 13:58-0400 Respiratory rate 18 /min Dr. Genevieve Walsh MD Work Phone: [facility] 12-21-2024 13:58-0400 SaO2% (BldA) [Mass fraction] 97 % Dr. Genevieve Walsh MD Work Phone: [facility] 11-22-2024 14:06-0400 Body height 157.[address] Genevieve Walsh MD Work Phone: [facility] 11-22-2024 14:06-0400 Body mass index (BMI) [Ratio] 17.4 kg/m2 Dr. Genevieve Walsh MD Work Phone: [facility] 11-22-2024 14:06-0400 Body temperature 96.2 [degF] Dr. Genevieve Walsh MD Work Phone: [facility] 11-22-2024 14:06-0400 Body weight 43.[address] Genevieve Walsh MD Work Phone: [facility] 11-22-2024 14:06-0400 Diastolic blood pressure 84 mm[Hg] Dr. Genevieve Walsh MD Work Phone: [facility] 11-22-2024 14:06-0400 Heart rate 66 /min Dr. Genevieve Walsh MD Work Phone: [facility] 11-22-2024 14:06-0400 Respiratory rate 14 /min Dr. Genevieve Walsh MD Work Phone: [facility] 11-22-2024 14:06-0400 SaO2% (BldA) [Mass fraction] 97 % Dr. Genevieve Walsh MD Work Phone: [facility] 11-22-2024 14:06-0400 Systolic blood pressure 128 mm[Hg] Dr. Genevieve Walhs MD Work Phone: [facility] 10-05-2024 13:28-0500 Body mass index (BMI) [Ratio] 17.7 kg/m2 Dr. Genevieve Walsh MD Work Phone: [facility] 10-05-2024 13:28-0500 Body temperature 98.7 [degF] Dr. Genevieve Walsh MD Work Phone: [facility] 10-05-2024 13:28-0500 Body weight 43.[address] Genevieve Walsh MD Work Phone: [facility] 10-05-2024 13:28-0500 Diastolic blood pressure 82 mm[Hg] Dr. Genevieve Walsh MD Work Phone: [facility] 10-05-2024 13:28-0500 Heart rate 114 /min Dr. Genevieve Walsh MD Work Phone: [facility] 10-05-2024 13:28-0500 Respiratory rate 19 /min Dr. Genevieve Walsh MD Work Phone: [facility] 10-05-2024 13:28-0500 SaO2% (BldA) [Mass fraction] 97 % Dr. Genevieve Walsh MD Work Phone: [facility] 10-05-2024 13:28-0500 Systolic blood pressure 144 mm[Hg] Dr. Genevieve Walsh MD Work Phone: [facility] 10-02-2024 02:32-0500 Body temperature 96.9 [degF] Dr. Genevieve Walsh MD Work Phone: [facility] 10-02-2024 02:32-0500 Diastolic blood pressure 83 mm[Hg] Dr. Genevieve Walsh MD Work Phone: [facility] 10-02-2024 02:32-0500 Heart rate 87 /min Dr. Genevieve Walsh MD Work Phone: [facility] 10-02-2024 02:32-0500 Respiratory rate 18 /min Dr. Genevieve Walsh MD Work Phone: [facility] 10-02-2024 02:32-0500 SaO2% (BldA) [Mass fraction] 97 % Dr. Genevieve Walsh MD Work Phone: [facility] 10-02-2024 02:32-0500 Systolic blood pressure 171 mm[Hg] Dr. Genevieve Walsh MD Work Phone: [facility] 10-01-2024 23:05-0500 Body mass index (BMI) [Ratio] 18.1 kg/m2 Dr. Genevieve Walsh MD Work Phone: [facility] 10-01-2024 23:05-0500 Body weight 45.[address] Genevieve Walsh MD Work Phone: [facility] 09-27-2024 12:16-0500 Body mass index (BMI) [Ratio] 18.3 kg/m2 Dr. Genevieve Walsh MD Work Phone: [facility] 09-27-2024 12:16-0500 Body temperature 98.4 [degF] Dr. Genevieve Walsh MD Work Phone: [facility] 09-27-2024 12:16-0500 Body weight 45.[address] Genevieve Walsh MD Work Phone: [facility] 09-27-2024 12:16-0500 Diastolic blood pressure 80 mm[Hg] Dr. Genevieve Walsh MD Work Phone: [facility] 09-27-2024 12:16-0500 Heart rate 82 /min Dr. Genevieve Walsh MD Work Phone: [facility] 09-27-2024 12:16-0500 Respiratory rate 17 /min Dr. Genevieve Walsh MD Work Phone: [facility] 09-27-2024 12:16-0500 SaO2% (BldA) [Mass fraction] 95 % Dr. Genevieve Walsh MD Work Phone: [facility] 09-27-2024 12:16-0500 Systolic blood pressure 146 mm[Hg] Dr. Genevieve Walsh MD Work Phone: [facility] 09-22-2023 15:25-0500 Body height 160.[address] Genevieve Walsh Work Phone: [facility] 09-22-2023 15:25-0500 Body mass index (BMI) [Ratio] 21.4 kg/m2 Dr. Genevieve Walsh Work Phone: [facility] 09-22-2023 15:25-0500 Body temperature 96.8 [degF] Dr. Genevieve Walsh Work Phone: [facility] 09-22-2023 15:25-0500 Body weight 54.[address] Genevieve Walsh Work Phone: [facility] 09-22-2023 15:25-0500 Diastolic blood pressure 84 mm[Hg] Dr. Genevieve Walsh Work Phone: [facility] 09-22-2023 15:25-0500 Heart rate 81 /min Dr. Genevieve Walsh Work Phone: [facility] 09-22-2023 15:25-0500 Respiratory rate 16 /min Dr. Genevieve Walsh Work Phone: [facility] 09-22-2023 15:25-0500 SaO2% (BldA) [Mass fraction] 97 % Dr. Genevieve Walsh Work Phone: [facility] 09-22-2023 15:25-0500 Systolic blood pressure 130 mm[Hg] Dr. Genevieve Walsh Work Phone: [facility] 01-06-2023 14:29-0400 Body height 160.[address] Genevieve Walsh Work Phone: [facility] 01-06-2023 14:29-0400 Body mass index (BMI) [Ratio] 20 kg/m2 Dr. Genevieve Walsh Work Phone: [facility] 01-06-2023 14:29-0400 Body temperature 97.2 [degF] Dr. Genevieve Walsh Work Phone: [facility] 01-06-2023 14:29-0400 Body weight 51.[address] Genevieve Walsh Work Phone: [facility] 01-06-2023 14:29-0400 Diastolic blood pressure 82 mm[Hg] Dr. Genevieve Walsh Work Phone: [facility] 01-06-2023 14:29-0400 Heart rate 87 /min Dr. Genevieve Walsh Work Phone: [facility] 01-06-2023 14:29-0400 Respiratory rate 12 /min Dr. Genevieve Walsh Work Phone: [facility] 01-06-2023 14:29-0400 SaO2% (BldA) [Mass fraction] 97 % Dr. Genevieve Walsh Work Phone: [facility] 01-06-2023 14:29-0400 Systolic blood pressure 142 mm[Hg] Dr. Genevieve Walsh Work Phone: [facility] 12-14-2022 14:29-0400 Body temperature 97.2 [degF] Ericka Praisler-Wood [employer] ATTENDANT Work Phone: [facility] 12-14-2022 14:29-0400 Body weight 52.62 kg Ericka Praisler-Wood [employer]ER.MARINE [employer] ATTENDANT Work Phone: [facility] 12-14-2022 14:29-0400 Diastolic blood pressure 72 mm[Hg] Ericka Praisler-Wood [employer]ER.MARINE [employer] DOCK ATTENDANT Work Phone: [facility] 12-14-2022 14:29-0400 Heart rate 101 /min Ericka Praisler-Wood [employer]ER.MARINE [employer]OCK ATTENDANT Work Phone: [facility] 12-14-2022 14:29-0400 Respiratory rate 20 /min Ericka Praisler-Wood [employer]ER.MARINE [employer]OCK ATTENDANT Work Phone: [facility] 12-14-2022 14:29-0400 SaO2% (BldA) [Mass fraction] 97 % Ericka Praisler-Wood [employer]ER.MARINE [employer]OCK ATTENDANT Work Phone: [facility] 12-14-2022 14:29-0400 Systolic blood pressure 124 mm[Hg] Ericka Praisler-Wood [employer]ER.[employer]INE [employer] ATTENDANT Work Phone: [facility] 10-08-2022 14:25-0500 Body height 160.[address] Genevieve Walsh Work Phone: [facility] 10-08-2022 14:25-0500 Body mass index (BMI) [Ratio] 21 kg/m2 Dr. Genevieve Walsh Work Phone: [facility] 10-08-2022 14:25-0500 Body temperature 98.4 [degF] Dr. Genevieve Walsh Work Phone: [facility] 10-08-2022 14:25-0500 Body weight 53.[address] Genevieve Walsh Work Phone: [facility] 10-08-2022 14:25-0500 Diastolic blood pressure 64 mm[Hg] Dr. Genevieve Walsh Work Phone: [facility] 10-08-2022 14:25-0500 Heart rate 100 /min Dr. Genevieve Walsh Work Phone: [facility] 10-08-2022 14:25-0500 Respiratory rate 16 /min Dr. Genevieve Walsh Work Phone: [facility] 10-08-2022 14:25-0500 SaO2% (BldA) [Mass fraction] 96 % Dr. Genevieve Walsh Work Phone: [facility] 10-08-2022 14:25-0500 Systolic blood pressure 108 mm[Hg] Dr. Genevieve Walsh Work Phone: [facility] 06-29-2022 13:05-0400 Body temperature 98 [degF] Dr. Genevieve Walsh Work Phone: [facility] 06-29-2022 13:05-0400 Body weight 55.[address] Genevieve Walsh Work Phone: [facility] 06-29-2022 13:05-0400 Diastolic blood pressure 80 mm[Hg] Dr. Genevieve Walsh Work Phone: [facility] 06-29-2022 13:05-0400 Heart rate 97 /min Dr. Genevieve aWlsh Work Phone: [facility] 06-29-2022 13:05-0400 Respiratory rate 18 /min Dr. Genevieve Walsh Work Phone: [facility] 06-29-2022 13:05-0400 SaO2% (BldA) [Mass fraction] 96 % Dr. Genevieve Walsh Work Phone: [facility] 06-29-2022 13:05-0400 Systolic blood pressure 154 mm[Hg] Dr. Genevieve Walsh Work Phone: [facility] 05-14-2022 13:48-0400 Body height 160.[address] Genevieve Walsh Work Phone: [facility] Work Phone: 05-14-2022 13:48-0400 Body mass index (BMI) [Ratio] 21.7 kg/m2 Dr. Genevieve Walsh Work Phone: [facility] Work Phone: 05-14-2022 13:48-0400 Body temperature 98.6 [degF] Dr. Genevieve Walsh Work Phone: [facility] Work Phone: 05-14-2022 13:48-0400 Body weight 55.[address] Geenvieve Walsh Work Phone: [facility] Work Phone: 05-14-2022 13:48-0400 Diastolic blood pressure 98 mm[Hg] Dr. Genevieve Walsh Work Phone: [facility] Work Phone: 05-14-2022 13:48-0400 Heart rate 104 /min Dr. Genevieve Walsh Work Phone: [facility] Work Phone: 05-14-2022 13:48-0400 Respiratory rate 16 /min Dr. Genevieve Walsh Work Phone: [facility] Work Phone: 05-14-2022 13:48-0400 SaO2% (BldA) [Mass fraction] 97 % Dr. Genevieve Walsh Work Phone: [facility] Work Phone: 05-14-2022 13:48-0400 Systolic blood pressure 140 mm[Hg] Dr. Genevieve Walsh Work Phone: [facility] Work Phone: 04-02-2022 14:16-0400 Body height 160.[address] Genevieve Walsh Work Phone: [facility] Work Phone: 04-02-2022 14:16-0400 Body mass index (BMI) [Ratio] 21.9 kg/m2 Dr. Genevieve Walsh Work Phone: [facility] Work Phone: 04-02-2022 14:16-0400 Body temperature 97 [degF] Dr. Genevieve Walsh Work Phone: [facility] Work Phone: 04-02-2022 14:16-0400 Body weight 56.[address] Genevieve Walsh Work Phone: [facility] Work Phone: 04-02-2022 14:16-0400 Diastolic blood pressure 86 mm[Hg] Dr. Genevieve Walsh Work Phone: [facility] Work Phone: 04-02-2022 14:16-0400 Heart rate 97 /min Dr. Genevieve Walsh Work Phone: [facility] Work Phone: 04-02-2022 14:16-0400 Respiratory rate 16 /min Dr. Genevieve Walsh Work Phone: [facility] Work Phone: 04-02-2022 14:16-0400 SaO2% (BldA) [Mass fraction] 96 % Dr. Genevieve Walsh Work Phone: [facility] Work Phone: 04-02-2022 14:16-0400 Systolic blood pressure 140 mm[Hg] Dr. Genevieve Walsh Work Phone: [facility] Work Phone: 12-02-2020 13:39-0400 Body Temperature 97.7 [degF] [facility] 12-02-2020 13:39-0400 Body weight 59.[address] [facility] 12-02-2020 13:39-0400 BP Diastolic 82 mm[Hg] [facility] 12-02-2020 13:39-0400 BP Systolic 132 mm[Hg] [facility] 12-02-2020 13:39-0400 Pulse (Heart Rate) 110 /min [facility] 12-02-2020 13:39-0400 Pulse Oximetry 95 % [facility] 12-02-2020 13:39-0400 Respiratory Rate 18 /min [facility] Encounters Encounter Date Encounter Type Care Provider Facility Start: 07-03-2025 End: 07-03[facility] Start: 06-23-2025 ambulatory THO ANDERSON [facility] Start: 05-03-2025 End: 05-03-[address] Genevieve Walsh MD Work Phone: -Ultrasound [facility] Start: 05-03-2025 End: 05-03-[address] Yash Gunter MD -Ultrasound [facility] Work Phone: Start: 05-03-2025 End: 05-03-2025 ambulatory Genevieve Walsh Facility:[facility] Start: 04-19-2025 End: 04-19-2025 Patient encounter procedure Malik TRUJILLO -[facility] Work Phone: Start: 04-19-2025 End: 04-19-[address] Genevieve Walsh MD Work Phone: -[facility] Start: 04-02-2025 End: 04-02-2025 ambulatory GENEVIEVE WALSH [facility] Start: 03-22-2025 End: 03-22-2025 Patient encounter procedure Malik TRUJILLO [facility] Work Phone: Start: 03-22-2025 End: 03-22-[address] Genevieve Walsh MD Work Phone: -[facility] Start: 02-15-2025 End: 02-15-2025 Patient encounter procedure Malik TRUJILLO [facility] Work Phone: Start: 02-15-2025 End: 02-15-[address] Genevieve Walsh MD Work Phone: [facility] Work Phone: Start: 01-23-2025 End: 01-23-[address] Yash Gunter MD -[facility] Work Phone: Start: 01-23-2025 End: 01-23-[address] Genevieve Walsh MD Work Phone: [facility] Work Phone: Start: 01-22-2025 End: 01-22-2025 Patient encounter procedure Trinity WILKINSON [facility] Work Phone: Start: 01-22-2025 End: 01-23-[address] Genevieve Walsh MD Work Phone: [facility] Work Phone: Start: 01-22-2025 End: 01-22-2025 ambulatory Genevieve Walsh Facility:[facility] Start: 01-08-2025 End: 01-08-2025 ambulatory SAMIR MEIER [facility] Start: 12-21-2024 End: 12-21-2024 Patient encounter procedure Malik TRUJILLO -[facility] Work Phone: Start: 12-21-2024 End: 12-21-[facility] Start: 12-12-2024 End: 12-12-[address] Genevieve Walsh MD Work Phone: [facility] Work Phone: Start: 12-12-2024 End: 12-12-2024 Patient encounter procedure Malik TRUJILLO -Laboratory, Specimen Work Phone: Start: 12-12-2024 End: 12-12-2024 ambulatory [facility] Facility:[facility] Start: 11-22-2024 End: 11-22-[address] Genevieve Walsh MD Work Phone: [facility] Work Phone: Start: 11-22-2024 End: 11-22-2024 Patient encounter procedure Malik TRUJILLO -[facility] Start: 11-22-2024 End: 11-22-2024 Patient encounter procedure Malik TRUJILLO -[facility] Work Phone: Start: 11-22-2024 End: 11-22-2024 ambulatory karleast [place]it Walsh Facility:[facility] Start: 11-22-2024 End: 11-22-2024 ambulatory [facility] Facility:[facility] Start: 10-23-2024 End: 10-23-2024 ambulatory THO ANDERSON [facility] Start: 10-05-2024 End: 10-05-[address] Genevieve Walsh MD -[facility] Work Phone: Start: 10-05-2024 End: 10-05-2024 ambulatory [facility] Start: 10-01-2024 End: 10-02-2024 Emergency department patient visit Luis Madrigal -Emergency Department Work Phone: Start: 09-27-2024 End: 09-27-2024 Patient encounter procedure Frank Cano PA -[facility] Work Phone: Start: 09-27-2024 End: 09-27-2024 ambulatory [facility] Facility:[facility] Start: 09-27-2024 ambulatory THO ANDERSON [facility] Start: 08-06-2024 End: 08-06-2024 ambulatory THO ANDERSON [facility] Start: 07-25-2024 End: 07-25-2024 ambulatory [facility] Facility:[facility] Start: 03-09-[address] Zane Walsh MD Work Phone: [facility] Start: 10-14-2023 End: 10-14-[address] Genevieve Walsh Work Phone: [facility] Work Phone: Start: 10-14-2023 End: 10-14-[address] Genevieve Walsh Work Phone: [facility]-Laboratory, [place] Start: 09-22-2023 End: 09-22-[address] Genevieve Walsh Work Phone: [facility] Internal Medicine Work Phone: Start: 01-17-2023 End: 01-17-2023 Subsequent hospital visit by physician Xr [facility] Work Phone: Radiology Comment on above: Acute right-sided lo w back pain with right-sided sciatica [M54.41] Start: 01-06-2023 End: 01-06-[address] Genevieve Walsh Work Phone: [facility] Work Phone: Start: 01-06-2023 End: 01-06-[address] Genevieve Walsh Work Phone: [facility] Internal [facility] Start: 12-14-2022 End: 12-14-2022 Patient encounter procedure Ericka WheatNacho JOSEPH Work Phone: [facility] Comment on above: Sinobronchitis (Prim randal Dx) Start: 10-28-2022 End: 10-28-[address] Genevieve Walsh Work Phone: [facility] Internal [facility] Start: 10-21-2022 End: 10-21-[address] Genevieve Walsh Work Phone: [facility] Work Phone: Start: 10-21-2022 End: 10-21-[address] Genevieve Walsh Work Phone: [facility]-Outpatient Bone Densitometry Start: 10-08-2022 End: 10-08-[address] Genevieve Walsh Work Phone: [facility] Work Phone: Start: 10-08-2022 End: 10-08-[address] Genevieve Walsh Work Phone: [facility] Internal [facility] Start: 06-29-2022 End: 06-29-[address] Genevieve Walsh Work Phone: [facility] Work Phone: Start: 06-29-2022 End: 06-29-[address] Genevieve Walsh Work Phone: [facility] Start: 05-14-2022 End: 05-14-[address] Genevieve Walsh Work Phone: [facility] Internal Medicine Start: 04-16-2022 End: 04-16-[address] Genevieve Walsh Work Phone: [facility] Internal [facility] Start: 04-15-2022 End: 04-15-[address] Genevieve Walsh Work Phone: [facility] Work Phone: Start: 04-15-2022 End: 04-15-[address] Genevieve Walsh Work Phone: [facility]-Outpatient Breast Imaging Start: 04-02-2022 End: 04-02-[address] Genevieve Walsh Work Phone: [facility] Internal Medicine Start: 12-02-2020 End: 12-02-2020 Patient encounter procedure Madeline Chaidez (Pa) Work Phone: [facility] Comment on above: Allergic contact spencer matitis due to metals (Primary Dx) Procedures Date Procedure Procedure Detail Performing Clinician Start: 05-03-2025 Radiologic exam knee complete 4/more views Dr. Genevieve Walsh MD Work Phone: Start: 05-03-2025 Ultrasound elastogra phy of liver Dr. Genevieve Walsh MD Work Phone: Start: 01-23-[address] Chinmay Walsh MD Work Phone: Comment on above: Performed at: [address] [id number] Director: Neel Tate PhD, Phone: [phone] Start: 01-23-2025 Antibody to centrome re measurement Dr. Genevieve Walsh MD Work Phone: Comment on above: Test not performed Start: 01-23-2025 Antibody to extracta ble nuclear antigen measurement Dr. Genevieve Walsh MD Work Phone: Comment on above: Test not performed Start: 01-23-2025 Antibody to BOBBY-[address] Genevieve Walsh MD Work Phone: Comment on above: Test not performed Start: 01-23-2025 Antibody to lupus La protein measurement Dr. Genevieve Walsh MD Work Phone: Comment on above: Test not performed Start: 01-23-2025 Antibody to SS-A measurement Dr. Genevieve Walsh MD Work Phone: Comment on above: Test not performed Start: 01-23-[address] Genevieve Walsh MD Work Phone: Comment on above: Test not performed Start: 01-23-2025 Hepatitis A virus an tibody, IgM type Dr. Genevieve Walsh MD Work Phone: Comment on above: A negative anti-HAV IgM result suggests no recent orcurrent HAV infection. Start: 01-23-2025 Hepatitis B core ant ibody measurement, IgM type Dr. Genevieve Walsh MD Work Phone: Start: 01-23-2025 Hepatitis C antibody measurement Dr. Genevieve Walsh MD Work Phone: Start: 01-23-[address] Pankaj Walsh MD Work Phone: Comment on above: Performed at: - [address] [id number] Director: Neel Tate PhD, Phone: [phone] Test Ordered: [id number]-[id number] ZlxetrdjCyqjg-8-Gnthsxupbbh, Serum 172 mg/dL CB Reference Range: 101-187Phenotype (PI) MM BN Reference Range: .MM Phenotype is considered to be normal, producingnormal serum levels of iiuqd-4-dbmpaloq inhibitor andnot associated with clinical disease. Associated L3Wnllih serum levels in other phenotypes and theirincidence [...] reference. Ranges used to confirm phenotype.Performed at: [facility] [id number] Director: Neel Tate PhD, Phone: [phone] at: [facility] [id number] Director: Henrry Andres MD, Phone: [phone] Start: 01-23-2025 SHAPER SETTER antibody measurement Dr. Genevieve Walsh MD Work Phone: Comment on above: Test not performed Start: 01-23-2025 Vitamin D, 25-hydrox y measurement Dr. Genevieve Walsh MD Work Phone: Comment on above: Vitamin D StatusDefi ciency: <20 ng/mL (50nmol/L)Insufficiency: 20-30 ng/mL (50-75 nmol/L)Sufficiency: 30-100 ng/mL (75-250 nmol/L)Toxicity: >100 ng/mL (>250 nmol/L) Start: 01-22-[address] Pankaj Walsh MD Work Phone: Start: 12-12-2024 Measurement of occul t blood in stool specimen using immunoassay Dr. Genevieve Walsh MD Work Phone: Start: 10-02-2024 SARS-CoV-2, Influenz a & RSV (PCR) Dr. Genevieve Walsh MD Work Phone: Start: 10-02-2024 X-ray of chest, PA a nd lateral views Dr. Genevieve Walsh MD Work Phone: Start: 01-17-2023 Radex spine lumbosac ral 2/3 views Marina TRUJILLO Work Phone: Start: 10-21-2022 Dual energy X-ray absorptiometry Dr. Genevieve Walsh Work Phone: Start: 06-29-[address] Pankaj Walsh Work Phone: Start: 04-15-2022 Screening mammography Cindy Walsh Work Phone: Plan of Treatment Date Care Activity Detail Author Start: 05-14-2032 Urine microalbumin profile DTaP,Tdap,Td Vaccine (2 - Td or Tdap) [facility] Start: 01-23-2025 Cytoplasmic ANCA Screen [facility] Start: 01-23-2025 Mitochondria Ab [Presence] in Serum [facility] Start: 01-23-2025 Procedure [facility] Start: 12-21-2024 Patient referral [facility] Work Phone: Start: 10-02-2024 [facility] Start: 04-29-2024 Covid-19 Vaccine ( season) Covid-19 Vaccine ( season) [facility] Start: 04-29-2024 Influenza vaccination Influenza Vaccine (#1) [facility] Start: 08-29-2023 Advance Directive Discussion Advance Directive Discussion [facility] Start: 04-29-2023 Influenza vaccination INFLUENZA (Season Ended) [facility] Start: 03-28-2023 Screening for malignant neoplasm of colon [facility] Start: 08-29-2022 ADVANCE DIRECTIVE DISCUSSION ADVANCE DIRECTIVE DISCUSSION [facility] Start: 08-29-2022 DEPRESSION ASSESSMENT DEPRESSION ASSESSMENT [facility] Start: 06-17-2021 COVID-19 VACCINE (3 - Booster for Pfizer series) COVID-19 VACCINE (3 - Booster for Pfizer series) [facility] Start: 04-29-2021 Influ[facility] Start: 2018 ADVANCE DIRECTIVE DISCUSSION ADVANCE DIRECTIVE DISCUSSION [facility] Start: 2018 BONE DENSITY BONE DENSITY [facility] Start: 2018 PNEUMOVAX AGE 65 AND OVER WITH 5YR LOOKBACK (#1) PNEUMOVAX AGE 65 AND OVER WITH 5YR LOOKBACK (#1) [facility] Start: 2018 Screening for osteoporosis Bone Density Screening [facility] Start: 2013 RSV Vaccine (1 - 1-dose 60+ series) RSV Vaccine (1 - 1-dose 60+ series) [facility] Start: 2003 Screening for malignant neoplasm of colon [facility] Start: 2003 SHINGRIX VACCINE (1 of 2) SHINGRIX VACCINE (1 of 2) [facility] Start: 1998 COLOGUARD (FIT-DNA) COLOGUARD (FIT-DNA) [facility] Start: 1998 Colonoscopy COLONOSCOPY [facility] Start: 1998 COLORECTAL CANCER SCREENING COLORECTAL CANCER SCREENING [facility] Start: [address] COLONOGRAPHY [facility] Start: 1998 DIABETES SCREEN DIABETES SCREEN [facility] Start: 1998 Diabetes Screening Diabetes Screening [facility] Start: 1998 FECAL OCCULT BLOOD FECAL OCCULT BLOOD [facility] Start: 1998 Lipid panel Lipid Screening [facility] Start: 1998 LIPID SCREEN LIPID SCREEN [facility] Start: 1998 Screening for malignant neoplasm of colon [facility] Start: 1998 SIGMOIDOSCOPY SIGMOIDOSCOPY [facility] Start: 1993 Mammography MAMMOGRAM [facility] Start: 1993 Screening for malignant neoplasm of breast Mammogram Screening [facility] Start: 1972 Urine microalbumin profile DTAP,TDAP,TD (1 - Tdap) [facility] Start: 1971 Anxiety Screening Anxiety Screening [facility] Start: 1971 Depression Screening Depression Screening [facility] Start: 1971 HEPATITIS C SCREENING HEPATITIS C SCREENING [facility] Start: 1971 Hepatitis C screening Hepatitis C Screening [facility] Start: 1965 Adult depression screening assessment DEPRESSION SCREENING [facility] Start: 1959 Pneumococcal Vaccine: 65+ (1 of 2 - PCV) Pneumococcal Vaccine: 65+ (1 of 2 - PCV) [facility] Start: 1959 PNEUMOCOCCAL: 65+ (1 - PCV) PNEUMOCOCCAL: 65+ (1 - PCV) [facility] Antibody to lupus La protein measurement [facility] Antibody to SS-A measurement [facility] CT Chest [facility] DNA double strand Ab [Units/volume] in Serum [facility] DXA Bone [Mass/Area] Bone density [facility] Liver stiffness by US.transient elastography [facility] Measurement of occul t blood in stool specimen using immunoassay [facility] Measurement of respiratory function [facility] MG Breast - bilatera l Screening [facility] Work Phone: MG Breast - bilatera l Screening [facility] Patient Education RSV (Respirato ry Syncytial Virus) ED COPD Flare [facility] Work Phone: Patient referral [facility] Work Phone: XR Chest PA and Lateral [facility] XR Hip GE 2 Views [facility] XR Knee 3 Views [facility] XR Knee GE 4 Views [facility] Immunizations Immunization Date Immunization Notes Care Provider Fa cility 05-14-2022 tetanus toxoid, redu gagandeep diphtheria toxoid, and acellular pertussis vaccine, adsorbed Dr. Genevieve Walsh Work Phone: [facility] Payers Date Payer Category Payer Self-pay [id number] 2024 Private Health Insurance [id number] 2024 Medicare [id number] 2018 Medicare MEDICARE MEDICAR E A AND B [id number] 2018-Present [place] Medicare [id number] 2018 Medicare MEDICARE MEDICAR E A AND B [id number] 2018-Present [phone] [address] [address] [place] [address] Medicare [id number] 2014 Unknown [id number] 1955 Unknown [id number] 2.16.840.1.573280.3.579.2.6 51 1955 Unknown [id number] 2.16.840.1.684541.3.579.2.6 51 1955 Unknown [id number] 2.16.840.1.748627.3.579.2.6 51 1955 Unknown [id number] 2.16.840.1.926548.3.579.2.6 51 1955 Unknown [id number] 2.16840.1.714968.3.579.2.6 51 1955 Unknown [id number] 2.16.840.1.338009.3.579.2.6 49 Medicare [id number] Unknown [id number] Unknown [id number] Unknown [id number] 2.16.840.1.929057.3.579.2.4 62 Unknown [id number] 2.16.840.1.597569.3.579.2.4 62 Unknown [id number] 2.16.840.1.015375.3.579.2.4 62 Unknown [id number] 2.16.840.1.173981.3.579.2.4 62 Unknown [id number] 2.16.840.1.132367.3.579.2.4 62 Unknown [id number] 2.16.840.1.454690.3.579.2.4 62 Unknown [id number] 2.16.840.1.735445.3.579.2.4 62 Unknown [id number] 2.16.840.1.413166.3.579.2.4 62 Unknown [id number] 2.16.840.1.449321.3.579.2.4 62 Unknown [id number] 2.16.840.1.330662.3.579.2.4 62 Unknown [id number] 2.16.840.1.599445.3.579.2.4 62 Unknown [id number] 2.16.840.1.544073.3.579.2.4 62 Unknown [id number] 2.16.840.1.637240.3.579.2.4 62 Unknown [id number] 2.16.840.1.666267.3.579.2.4 62 Unknown [id number] 2.16.840.1.179851.3.579.2.4 62 Unknown [id number] 2.16.840.1.576520.3.579.2.4 62 Unknown [id number] 2.16.840.1.985453.3.579.2.4 62 Social History Date Type Detail Facility Start: 12-02-2020 End: 03-22-2025 Tobacco smoking status NHIS Current every day smoker [facility] Start: 12-02-2020 End: 12-14-2022 Tobacco use and exposure Never used [facility] Start: 1955 Sex Assigned At [facility] Exposure to SARS-CoV -2 (event) Not sure [facility] Start: 04-02-2022 End: 09-22-2023 Tobacco smoking status NHIS Unknown if ever smoked [facility] Start: 09-16-2020 None [facility] Start: 09-16-2020 Alone [facility] Start: 1955 Sex Assigned At Female [facility] Start: 12-14-2022 Tobacco smoking stat us NHIS Occasional tobacco smoker [facility]: 12-02-2020 End: 01-17-2023 History of Social function [facility] Start: 12-02-2020 End: 01-17-2023 Tobacco use panel [facility] National Score (1-100), lower number is lower risk Not on file [facility] Start: 11-26-2024 End: 12-17-2024 Sex Female (finding) [facility] Clinical Notes 12-14-2022 to 05-04-2025 Note Date & Type Note Facility 05-04-2025 Radiology Diagnostic study note [facility] Imaging Services [address] [place] [address] Knee 4 or More Views MR#: [id number] Acct: [id number] Name: VIOLA SCOTT Rep #: [id number] : 1955 F 69 From: Rimma Gray MD PCP: Dr. Genevieve Walsh MD Status: R EG CLI Study:Knee 4 or More Views Date of Exam: 05/03/25 Exam# [id number] Ordering Dr: Khanh Gant PA EXAM: XR Right Knee Complete, 4 or More Views CLINICAL INDICATION: KNEE PAIN TECHNIQUE: Four or more views of the right knee. COMPARISON: No relevant prior studies available. FINDINGS: BONES/JOINTS: Moderate degenerative change of the medial compartment of the knee joint. No acute fracture. No dislocation. SOFT TISSUES: Unremarkable. VASCULATURE: Vascular calcification. RAD/Knee 4 or More Views IMPRESSION: 1. Moderate degenerative change of the medial compartment of the knee joint. 2. Degenerative changes as above. Reading Location: [id number] CC: Dr. Genevieve Walsh MD; CASSANDRA Tiwari ~ Quality Reviewer: Signed [facility] 05-03-2025 Radiology Diagnostic study note [facility] Imaging Services [address] [place] [address] ABD Limited w/ Elastography MR#: [id number] Acct: [id number] Name: VIOLA SCOTT Rep #: [id number] : 1955 F 69 From: Sushil De La O MD PCP: Dr. Genevieve Walsh MD Status: R EG CLI Study:ABD Limited w/ Elastography Date of Exa m: 05/03/25 Exam# [id number] Ordering Dr: Jannette Gunter MD PROCEDURE: ABD LIMITED W/ ELASTOGRAPHY REASON FOR EXAM: ELEVATED ALP AND GGT COMPARISON: None. TECHNIQUE: Procedure Code: USABDLELPARO Modality: US Procedure: ABD LIMITED W/ ELASTOGRAPHY Right upper quadrant abdominal ultrasound. Sulma ElastQ Imaging shear wave elastography for non-invasive assessment of liver tissue stiffness. Sulma EPIQ Elite. FINDINGS: LIVER: Size: Unremarkable Length: 16.7 cm Echotexture: Coarsened Contour: Normal Lesions: None identified Elastography: EQI Med: 6.5 kPa EQI Med Remy: 1.47 m/s IQR/Med: 22 %* GALLBLADDER: Multiple small gallstones. COMMON BILE DUCT: Normal measuring 5.6 mm . PANCREAS: Normal Visualized portions of the right kidney are unremarkable. No right upper quadrant ascites. The spleen is not enlarged. The spleen measures 8.5 cm 3.8 cm 3.8 cm. US/ABD Limited w/ Elastography IMPRESSION: Mild hepatic fibrosis. Multiple gallstones. The spleen is not enlarged. Reference Values: SRU <1.37 m/s (5.7kPa): No to mild fibrosis 1.37 m/s - 2.2 m/s: Moderate to severe fibrosis >2.2 m/s (15kPa): Significant fibrosis / cirrhosis METAVIR Score F2 or higher: 1.34 m/s (5.7kPa) F3 or higher: 1.55 m/s (7.3kPa) F4: 1.80 m/s (10kPa) * If the IQR/Med is >30%, the variance in the measurements is a large and the accuracy of the measurement may be in question. Reading Location: [facility] CC: Dr. Genevieve Walsh MD; Dr. Yash Gunter MD ~ Quality Reviewer: Signed [facility] 04-03-2025 Note [facility] REPORT NAME ACCOUNT SEX AGE ADMIT DISCHARGE PT MED. RECORD# NUMBER DATE DATE TYPE TYLER [id number] F 69 04/02/2025 04/02/2025 2 VIOLA Perez [id number] ROOM: DATE OF : 1955 DICTATING PHYSICIAN: Tho Anderson PROGRESS NOTE HISTORY OF PRESENT ILLNESS: The patient was seen today on April 02, 2025, at the [facility] in [place], [place]. The patient is a fairly complex individual. She has had chronic weight loss now for approximately 6 months, but the weight has now stabilized. Her weight is down 25 pounds. She states when she is in pain she does not eat. She has had extensive work-up by her primary care including a CT of the lungs, which was reported to be within normal limits. The patient continues to smoke. We advised quitting once again, and that would also allow her to increase her weight. She does not really have any interest in quitting smoking. The patient has multiple pain complaints, the most prominent being low back and right hip. She points to the lateral right hip. She has had previous bursal injections she states in the past. She states the pain is severe and refractory to her medications, which include baclofen and tramadol. Tramadol is utilized 1-2 times a day usually, and a third one is utilized when the pain is severe. REVIEW OF SYSTEMS: The remainder of review of systems, intake form, pain questionnaire, nursing assessment, and OARRS report were reviewed. PHYSICAL EXAMINATION: GENERAL: This is a pleasant 69-year-old female who is alert and oriented x3. She is frail of build, and her vital signs are stable. Cranial nerves are intact with no focal deficits. She ambulates without ambulatory aids in a mildly flexed position. SPINE: The patient exhibits pain with lumbar extension. She has good range of motion of the cervical spine. HEART: Her heart remains regular. Peripheral pulses are maintained. LUNGS: Lungs have decreased breath sounds in all lung chavis. ABDOMEN: Abdomen is nonacute. HIPS: Examination of the hips reveals reproducible right bursal pain. The left is free of pain. ASSESSMENT: 1. Tobacco abuse. 2. Osteoarthritis/pain at multiple joint sites. 3. Right hip bursal pain. 4. Lumbar spondylosis without myelopathy. 5. History of compression fractures. 6. Thoracic spondylosis without myelopathy. Page 1 of 2 VIOLA SCOTT Adjunct English Instructor Report VIOLA SCOTT : 1955 PLAN: We will inject her right hip bursa today and refill her medications of tramadol and baclofen 10 mg once or twice a day for p.r.n. spasm. This was initially prescribed by her primary care, and I told her we would take over that for them. The patient agrees to the plan and will call for any problems. Dictated By: Tho Anderson DO 04/02/2025 14:21 JOB #: [id number] Transcribed By: joceline 04/02/2025 15:13 Electronically signed by: E-SIGN: THO ANDERSON 04/03/25 07:43 Page 2 of 2 VIOLA SCOTT Adjunct English Instructor Report [facility] 02-15-2025 Evaluation note Diagnosis Onset Date Resolution Weight loss acute February 15 2:05pm COPD (chronic obstructive pulmonary disease) chronic February 15, 2025 2:05pm Hypertension chronic February 15, 025 2:05pm Synovial cyst of popliteal space [Funes], right knee acute March 22, 2 025 1:34pm Hypertension chronic March 22, 2 025 1:34pm Hypertension chronic April 19, 2025 1:22pm [facility] Work Phone: 1(817) 629-831405-27-2025 Radiology Diagnostic study note [facility] Imaging Services [address] [place] [id number] Lung Screening MR#: [id number] Acct: [id number] Name: VIOLA SCOTT Rep #: [id number] : 1955 F 69 From: Sushil De La O MD PCP: Dr. Genevieve Walsh MD Status: R EG CLI Study:Low Dose CT Lung Screening Date of Exam : 01/22/25 Exam# [id number] Ordering Dr: Trinity Lynch HEALTH INSURANCE ADJUSTER HEALTH INSURANCE ADJUSTER-C PROCEDURE: LOW DOSE CT LUNG SCREENING 01/22/2025 REASON FOR EXAM: LUNG CANCER SCREENING Current smoker. TECHNIQUE: Low Dose CT Lung screening without contrast. Coronal and Sagittal reconstructionseries were provided. One or more dose reduction techniques were used (e.g., Automated exposure control, adjustment of the mA and/or kV according to patient size, use of iterative reconstruction technique). REFERENCE LINK: [employer] Lung-RADS RADIATION DOSE SUMMARY: CTDlvol: 2.01 mGy [...] LDCT. Other Significant Findings: None. Reading Location: [place] [address] CC: JAJA Green; Dr. Genevieve Walsh MD ~ Quality Reviewer: Signed [facility]05-14-2025 [facility] REPORT NAME ACCOUNT SEX AGE ADMIT DISCHARGE PT MED. RECORD# NUMBER DATE DATE TYPE TYLER, [id number] F 69 01/08/2025 01/08/2025 2 VIOLA Perez [id number] ROOM: DATE OF : 1955 DICTATING PHYSICIAN: Tho Anderson HISTORY OF PRESENT ILLNESS: The patient is seen today on January 08, 2025 at the [facility] in [place], [place]. The patient describes bilateral hip pain and points to her lateral hip bursa, right greater than left. We did review x-rays taken at [facility] of her hips, and basically within [...] progresses. Page 1 of 2 VIOLA SCOTT Adjunct English Instructor Report VIOLA SCOTT : 1955 The patient agrees to the plan, and will call if any problems. Dictated By: Tho Anderson DO 01/08/2025 11:00 JOB #: [id number] Transcribed By: am 01/08/2025 12:08 Electronically signed by: E-SIGN: THO ANDERSON 01/09/25 07:15 Page 2 of 2 VIOLA SCOTT Adjunct English In[facility] Evaluation note* Diagnosis Onset Date Resolution Status Admit Date Elevated blood pressure reading acute December 21, 2024 1:56pm Elevated liver enzymes acute Ap 2024 1:56pm Weight loss acute December 21, [...] 2:05pm Hypertension chronic February 15 025 2:05pm Synovial cyst of popliteal space [Funes], right knee acute February 272024 1:34pm Hypertension chronic March 22 025 1:34pm [facility] Work Phone: 1(834) 340-968003-27-2025 Evaluation note* Diagnosis Onset Date Resolution Status Admit Date Weight loss acute November 22 025 1:56pm Elevated blood pressure reading acute December 21, 2024 1:56pm Elevated liver enzymes acute Ap ril 2024 1:56pm Weight loss acute December 21 025 1:56pm Encounter for screening for malignant neoplasm of lung in current smoker wi acute January 22, 2025 1:50pm Tobacco use disorder, continuous chronic January 22, 2025 1 :50pm Elevated liver function tests noneac tive January 23, 2025 1:38pm [facility] Work Phone: 1(282) 540-881603-27-2025 Evaluation note* Diagnosis Onset Date Resolution Status Admit Date Weight loss acute November 22, 025 1:56pm Elevated blood pressure reading acute December 21, 2024 1:56pm Elevated liver enzymes acute Ap ril 2024 1:56pm Weight loss acute December 21, 025 1:56pm Encounter for screening for malignant [...] 2:05pm Right knee pain acute February 1:34pm [facility] Work Phone: 1(532) 590-153302-26-2025 [facility] NAME ACCOUNT SEX AGE ADMIT DISCHARGE PT MED. RECORD# NUMBER DATE DATE TYPE TYLER, [id number] F 69 10/23/2024 10/23/2024 2 VIOLA Perez [id number] ROOM: DATE OF : 1955 DICTATING PHYSICIAN: Tho Anderson HISTORY OF PRESENT ILLNESS: The patient is seen today on October 23, 2024 at the [facility] in [place], [place]. The patient continues to have thoracic pain, but she states it is a miracle drug, i.e. tramadol which we gave her, and it is a wonder drug. She is doing two to three pills per day, and gets her through work. She works in a [employer]. She has had a GI bug and [...] needed. Page 1 of 2 VIOLA SCOTT Adjunct English Instructor Report VIOLA SCOTT : 1955 Dictated By: Tho Anderson DO 10/23/2024 10:38 JOB #: [id number] Transcribed By: am 10/23/2024 10:49 Electronically signed by: E-SIGN: THO ANDERSON 10/24/24 01:33 Page 2 of 2 TYLERVIOLA Ana Adjunct English Instructor [facility] 10-05-2024 Evaluation note* Diagnosis Onset Date Resolution Status Admit Date Anxiety and depression chronic Fe 2024 1:24pm [...] tests noneactive January 23, 2025 1 :38pm [facility] Work Phone: 1(180) 879-517101-30-2025 Evaluation note* Diagnosis Onset Date Resolution Status Admit Date Acute asthmatic bronchitis acute September 27, 2024 12:08pm Anxiety and depression chronic 2024 1:24pm COPD (chronic obstructive pulmonary disease) chronic October 05, 2024 1:24pm Hypertension chronic September 1:24pm RSV bronchitis inactive October 052024 1:24pm Weight loss acute November 22, 2 025 1:56pm [facility] Work Phone: 1(174) 819-370901-30-2025 Evaluation note* Diagnosis Onset Date Resolution Status [...] continuous chronic January 22, 2025 1 :50pm [facility] Work Phone: 1(612) 371-216901-30-2025 Evaluation note* Diagnosis Onset Date Resolution Status Admit Date Acute asthmatic bronchitis acute September 27, 2024 12:08pm Anxiety and depression chronic Fe bruary 2024 1:24pm COPD (chronic obstructive pulmonary disease) [...] tests noneactive January 23, 2025 1 :38pm [facility] Work Phone: 1(531) 505-164012-10-2024 [facility] REPORT NAME ACCOUNT SEX AGE ADMIT DISCHARGE PT MED. RECORD# NUMBER DATE DATE TYPE TYLER, [id number] F 68 08/06/2024 08/06/2024 2 VIOLA Perez [id number] ROOM: DATE OF : 1955 DICTATING PHYSICIAN: Tho Anderson August 06, 2024 Dr. Genevieve Walsh MD [address] [address] RE: Violaazeem Scott : Dear Dr. Walsh: It was a pleasure to evaluate Ms. Scott at our [facility] in [place], [place]. 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 She is a smoker, and denies alcohol [...] dogs. Page 1 of 3 VIOLA SCOTT Adjunct English Instructor Report VIOLA SCOTT : 1955 REVIEW OF [...] DO Page 2 of 3 VIOLA SCOTT Adjunct English Instructor Report VIOLA SCTOT : 1955 08/06/2024 13:13 JOB #: [id number] Transcribed By: am 08/06/2024 15:07 Electronically signed by: E-SIGN: THO ANDERSON 08/07/24 14:43 Page 3 of 3 VIOLA SCOTT Adjunct English Instructor [facility] 01-17-2023 History of Present illness Narrative* Celeste Ojeda, RT(R) - 01/17/2023 3:40 PM EDT Radiology [...] 17, 2023 3:46 PM [facility] History of Present illness Narrative* Ericka Choe APRN.MARINE FUEL DOCK ATTENDANT - 12/14/2022 2:39 PM EDT Subjective Cough [...] shortness of breath. She works in a [employer] and has had one negative COVID test [...] illness Ericka Choe APRN.CNP [facility] Instructions* Patient Instructions* Ericka Choe APRN.CNP [...] days of proper treatment. [facility]* Diagnosis Onset Date Resolution Status Osteoporosis acute Anxiety and depression chron ic Asthma chronic Hypertension chronic Osteoarthritis [facility] Work Phone: evaluation note* Diagnosis Onset Date Resolution Status Osteoporosis acute Anxiety and depression chron ic Asthma chronic Hypertension chronic Osteoarthritis chronic Osteoporosis acute Need for Tdap vaccination no neactive Cellulitis noneactive [id number] acute Tobacco use disorder, continuous acute [facility] Work Phone: evaluation note* Diagnosis Onset Date Resolution Status [id number] acute Tobacco use disorder, continuous chronic Asthma exacerbation acute Hypertension chronic Osteoarthritis chronic Osteoporosis chronic Tobacco use disorder, continuous chronic [facility] Work Phone: evaluation note* Diagnosis Sinobronchitis- Primary Unspecified sinusitis (chronic) documented in this encounter [facility] note* Diagnosis Onset Date Resolution Status Asthma exacerbation acute Hypertension chronic Osteoarthritis chronic Osteoporosis chronic Tobacco use disorder, continuous chronic Osteoporosis chronic Anxiety and depression chron ic COPD (chronic obstructive pulmonary disease) chronic Hypertension chronic Osteoporosis [facility] Work Phone: evaluation note* Diagnosis Onset Date Resolution Status Anxiety and depression chron ic COPD (chronic obstructive pulmonary disease) chronic Hypertension chronic Osteoporosis [facility] Work Phone: Evaluation note* Diagnosis Acute right-sided low back pain with right-sided sciatica documented in this encounter [facility] for referral (narrative)* Diagnostic Procedure Only (Urgent) - Closed Specialty Diagnoses / Procedures Referred By Contmark t Referred To Contact XR IMAGING Diagnoses Acute right-sided low back pain with right-sided sciatica Procedures XR LUMBAR GENERAL 3V AP/LAT/L5-S1 RADEX SPINE LUMBOSACRAL 2/3 VIEWS [facility] [address] [place] [address] [place] [id number] Referral ID Status Reason Start Date Expiration Date V isits Requested Visits Authorized [id number] Closed Auto-Generate d Referral 01/17/2023 02/16/2024 1 1 [facility]ative)No reason for referral information availableWUniversity [facility]als [facility] Work Phone: Reason for visit Narrative* Diagnostic Procedure Only (Urgent) - Closed Specialty Diagnoses / Procedures Referred By Contac t Referred To Contact XR IMAGING Diagnoses Acute right-sided low back pain with right-sided sciatica Procedures XR LUMBAR GENERAL 3V AP/LAT/L5-S1 RADEX SPINE LUMBOSACRAL 2/3 VIEWS [facility] [address] [facility] [place] [address] [place] [id number] Referral ID Status Reason Start Date Expiration Date V isits Requested Visits Authorized [id number] Closed Auto-Generate d Referral 01/17/2023 02/16/2024 1 1 [facility] Summary Purpose Family History No Family History Records Found Relationship Condition Age at Onset Recorded Date/T echo father Malignant neoplasm of skin Unknown Transient ischemic attack Unknown High blood cholesterol Unknown Hypertension Unknown Cardiac disease Unknown Asthma Unknown Alzheimer's disease Unknown Advance Directives No Advanced Directives Records Found Advance Directive Response Recorded Date/ Time Living Will No September 16 1:16am Power of Catering Administrative Assistant No September 16, 2020 1:16am Advance Directive Response Recorded Date/ Time Living Will No September 16 12:16am Power of Catering Administrative Assistant No September 16, 2020 12:16am Advance Directive Response Recorded Date/ Time Living Will No October 02 11:56am Power of Catering Administrative Assistant No October 02, 2020 11:56am Advance Directive Response Recorded Date/ Time Living Will No May 14, 2024 11:09am Do you have a Healthcare Power of Catering Administrative Assistant? No May 14, 2024 11:09am Living Will No October 02 12:22am Do you have a Healthcare Power of Catering Administrative Assistant? No October 02, 2024 12:22am History of Present Illness * Madeline Chaidez (Cassandra) - 12/02/2020 1:53 PM EDT This note was created using [employer]ener[employer]. Subjective Viola Scott is a 65 year [...] wheezing recently. She has not tried anything ozqr-eyk-mhuadfj for her symptoms. No other newmedications. No [...] HENT: Head: Normocephalic and atraumatic. Mouth/Throat: Lips: [place]. Mouth: Mucous membranes are moist. Pharynx: Oropharynx [...] future. Pt agreeable with this plan. Madeline Cahidez PA-C documented in this encounter Assessments Diagnosis [...] Osteoarthritis Osteoporosis Need for Tdap vaccination Cellulitis [id number] Tobacco use disorder, continuous Chief Complaint Lung cancer screenin g LUNG SCREENING 6 M FU Reason for Visit [id number] Tobacco use disorder, continuous Asthma exacerbation Hypertension Osteoarthritis Osteoporosis Tobacco use disorder, continuous Chief Complaint Lung cancer screenin g LUNG SCREENING 6 M FU OSTOEPOROSIS Reason for Visit [id number] Tobacco use disorder, continuous Asthma exacerbation Hypertension [...] 1:34pm Hypertension March 22, 2025 1:34 pm Chief Complaint Admit Date 2 M FU February 15, 2025 2:05 pm ACUTE RIGHT KNEE PAIN March 22, 2025 1: 34pm 3 WEEK FOLLOW UP April 19, 2025 1: 22pm ELEVATED ALP AND GGT May 03, 2025 7:17am Reason for Visit Admit Date Weight loss February 15, 2025 2:05 pm COPD (chronic obstructive pulmonary dise ase) February 15, 2025 2:05pm Hypertension February 15, 2025 2:05 pm Synovial cyst of popliteal space [Funes] , right knee March 22, 2025 1:34pm Hypertension March 22, 2025 1:34 pm Hypertension April 19, 2025 1: 22pm Additional Source Comments INFORMATION SOURCE (unrecogn ized section and content) DATE CREATED AUTHOR 03/18/2020 [facility] DATE CREATED AUTHOR AUTHOR'S ORGANIZ ATION 12/03/2020 [facility] DATE CREATED AUTHOR AUTHOR'S ORGANIZ ATION 06/24/2025 Damien Arechiga [facility] DATE CREATED AUTHOR AUTHOR'S ORGANIZ ATION 07/05/2025 [facility] Source Comments (unrecognize d section and content) In the event this informatio n is protected by the Federal Confidentiality of Alcohol and Drug Abuse Patient Records regulations: The Federal rules restrict any use of the information to criminally investigate or prosecute any alcohol or drug abuse patient.[facility] HospitalIn the event this information is protected by the Federal Confidentiality of Alcohol and Drug Abuse Patient Records regulations: The Federal rules restrict any use of the information to criminally investigate or prosecute any alcohol or drug abuse patient.[facility] HospitalIn the event this information is protected by the Federal Confidentiality of Alcohol and Drug Abuse Patient Records regulations: The Federal rules restrict any use of the information to criminally investigate or prosecute any alcohol or drug abuse patient.[facility] Reason for Visit (unrecogniz ed section [...] Active Member Role Status Dates Dr. Samir Meier MD Family Provider Active Dr. Genevieve Walsh MD Primary Care Provider Active Team Status: Inactive Member Role Status Dates Dr. Genevieve Walsh MD Primary Care P andi, Attending Provider, Referring Provider Active Team Status: Inactive Member Role Status Dates Dr. Genevieve Walsh MD Primary Care Provider Active Trinity Green HEALTH INSURANCE ADJUSTER, HEALTH INSURANCE ADJUSTER-C Attending Provider, Referring Provider Active Torch Heater Relationship Specialty Start Date End Date Genevieve Walsh MD [address] [place] [place], [place] [address] PCP - General Internal Medicine 12/14/22 Torch Heater Relationship Specialty Start Date End Date Genevieve Walsh MD [address] [place] [address] PCP - General Internal Medicine 12/14/22 Team Status: Active Member Role Status Dates Dr. Genevieve Walsh MD Primary Care Provider Active Team Status: Inactive Member Role Status Dates Dr. Genevieve Walsh MD Primary Care Provider Active Start: September 27, 2024 End: September 27, 2024 Dr. Genevieve Walsh MD Referring Provider Active Start: September 27, 2024 End: September 27, 2024 Frank TRUJILLO, PA Attending Provider Active Sta rt: September 27, 2024 End: September 27, 2024 Team Status: Inactive Member Role Status Dates Dr. Genevieve Walsh MD Primary Care Provider Active Start: October 01, 2024 End: October 02, 2024 Dr. Luis Madrigal DO Attending Provider Active Start: October 01, 2024 End: October 02, 2024 Dr. Luis Madrigal DO Emergency Provider Active Start: October 01, 2024 End: October 02, 2024 Team Status: Inactive Member Role Status Dates Dr. Genevieve Walsh MD Primary Care Provider Active Start: October 05, 2024 End: October 05, 2024 Dr. Genevieve Walsh MD Attending Provider Active Start: October 05, 2024 End: October 05, 2024 Dr. Genevieve Walsh MD Referring Provider Active Start: October 05, 2024 End: October 05, 2024 Team Status: Inactive Member Role Status Dates Dr. Genevieve Walsh MD Primary Care Provider Active Start: November 22, 2024 End: November 22, 2024 Dr. Genevieve Walsh MD Referring Provider Active Start: November 22, 2024 End: November 22, 2024 Malik TRUJILLO PA Attending Provider Active St art: November 22, 2024 End: November 22, 2024 Team Status: Inactive Member Role Status Dates Dr. Genevieve Walsh MD Primary Care Provider Active Start: November 22, 2024 End: November 22, 2024 Malik Gant PA, PA Attending Provider Active St art: November 22, 2024 End: November 22, 2024 Malik Gant PA, PA Referring Provider Active St art: November 22, 2024 End: November 22, 2024 Team Status: Inactive Member Role Status Dates Dr. Genevieve Walsh MD Primary Care Provider Active Start: December 12, 2024 End: December 12, 2024 Malik TRUJILLO, PA Attending Provider Active St art: December 12, 2024 End: December 12, 2024 Malik TRUJILLO, PA Referring Provider Active St art: December 12, 2024 End: December 12, 2024 Team Status: Inactive Member Role Status Dates Dr. Genevieve Walsh MD Primary Care Provider Active Start: December 21, 2024 End: December 21, 2024 Dr. Genevieve Walsh MD Referring Provider Active Start: December 21, 2024 End: December 21, 2024 Malik TRUJILLO PA Attending Provider Active St art: December 21, 2024 End: December 21, 2024 Team Status: Inactive Member Role Status Dates Dr. Genevieve Walsh MD Primary Care Provider Active Start: January 22, 2025 End: January 22, 2025 Dr. Genevieve Walsh MD Referring Provider Active Start: January 22, 2025 End: January 22, 2025 [employer] HEALTH INSURANCE ADJUSTER, HEALTH INSURANCE ADJUSTER-C Attending Provider Active Start: January 22, 2025 End: January 22, 2025 Team Status: Active Member Role Status Dates Dr. Genevieve Walsh MD Primary Care Provider Active Start: January 22, 2025 [employer] HEALTH INSURANCE ADJUSTER, HEALTH INSURANCE ADJUSTER-C Attending Provider Active Start: January 22, 2025 [employer] HEALTH INSURANCE ADJUSTER, HEALTH INSURANCE ADJUSTER-C Referring Provider Active Start: January 22, 2025 Team Status: Inactive Member Role Status Dates Dr. Genevieve Walsh MD Primary Care Provider Active Start: January 23, 2025 End: January 23, 2025 Dr. Genevieve Walsh MD Referring Provider Active Start: January 23, 2025 End: January 23, 2025 Dr. Yash Gunter MD Attending Provider Active Start: January 23, 2025 End: January 23, 2025 Team Status: Inactive Member Role Status Dates Dr. Genevieve Walsh MD Primary Care Provider Active Start: January 22, 2025 End: January 22, 2025 [employer] HEALTH INSURANCE ADJUSTER, HEALTH INSURANCE ADJUSTER-C Attending Provider Active Start: January 22, 2025 End: January 22, 2025 [employer] HEALTH INSURANCE ADJUSTER, HEALTH INSURANCE ADJUSTER-C Referring Provider Active Start: January 22, 2025 End: January 22, 2025 Team Status: Active Member Role Status Dates Dr. Genevieve Walsh MD Primary Care Provider Active Start: January 23, 2025 Dr. Yash Gunter MD Attending Provider Active Start: January 23, 2025 Dr. Yash Gunter MD Referring Provider Active Start: January 23, 2025 Team Status: Inactive Member Role Status Dates Dr. Genevieve Walsh MD Primary Care Provider Active Start: January 23, 2025 End: January 23, 2025 Dr. Yash Gunter MD Attending Provider Active Start: January 23, 2025 End: January 23, 2025 Dr. Yash Gunter MD Referring Provider Active Start: January 23, 2025 End: January 23, 2025 Team Status: Inactive Member Role Status Dates Dr. Genevieve Walsh MD Primary Care Provider Active Start: February 15, 2025 End: February 15, 2025 Dr. Genevieve Walsh MD Referring Provider Active Start: February 15, 2025 End: February 15, 2025 Malik TRUJILLO PA Attending Provider Active St art: February 15, 2025 End: February 15, 2025 Team Status: Active Member Role/Relationship Status Dates Dr. Genevieve Walsh MD Primary Care Provider Active Team Status: Inactive Member Role/Relationship Status Dates Dr. Genevieve Walsh MD Primary Care Provider Active Start: November 22, 2024 End: November 22, 2024 Dr. Genevieve Walsh MD Referring Provider Active Start: November 22, 2024 End: November 22, 2024 Malik TRUJILLO PA Attending Provider Active St art: November 22, 2024 End: November 22, 2024 Team Status: Inactive Member Role/Relationship Status Dates Dr. Genevieve Walsh MD Primary Care Provider Active Start: November 22, 2024 End: November 22, 2024 Malik TRUJILLO PA Attending Provider Active St art: November 22, 2024 End: November 22, 2024 Malik TRUJILLO PA Referring Provider Active St art: November 22, 2024 End: November 22, 2024 Team Status: Inactive Member Role/Relationship Status Dates Dr. Genevieve Walsh MD Primary Care Provider Active Start: December 12, 2024 End: December 12, 2024 Malik TRUJILLO PA Attending Provider Active St art: December 12, 2024 End: December 12, 2024 Malik TRUJILLO, PA Referring Provider Active St art: December 12, 2024 End: December 12, 2024 Team Status: Inactive Member Role/Relationship Status Dates Dr. Genevieve Walsh MD Primary Care Provider Active Start: December 21, 2024 End: December 21, 2024 Dr. Genevieve Walsh MD Referring Provider Active Start: December 21, 2024 End: December 21, 2024 CASSANDRA Arango Attending Provider Active St art: December 21, 2024 End: December 21, 2024 Team Status: Inactive Member Role/Relationship Status Dates Dr. Genevieve Walsh MD Primary Care Provider Active Start: January 22, 2025 End: January 22, 2025 [employer] HEALTH INSURANCE ADJUSTER, HEALTH INSURANCE ADJUSTER-C Attending Provider Active Start: January 22, 2025 End: January 22, 2025 [employer] HEALTH INSURANCE ADJUSTER, HEALTH INSURANCE ADJUSTER-C Referring Provider Active Start: January 22, 2025 End: January 22, 2025 Team Status: Inactive Member Role/Relationship Status Dates Dr. Genevieve Walsh MD Primary Care Provider Active Start: January 22, 2025 End: January 22, 2025 [employer] HEALTH INSURANCE ADJUSTER, HEALTH INSURANCE ADJUSTER-C Attending Provider Active Start: January 22, 2025 End: January 22, 2025 [employer] HEALTH INSURANCE ADJUSTER, HEALTH INSURANCE ADJUSTER-C Referring Provider Active Start: January 22, 2025 End: January 22, 2025 Team Status: Inactive Member Role/Relationship Status Dates Dr. Genevieve Walsh MD Primary Care Provider Active Start: January 23, 2025 End: January 23, 2025 Dr. Genevieve Walsh MD Referring Provider Active Start: January 23, 2025 End: January 23, 2025 Dr. Yash Gunter MD Attending Provider Active Start: January 23, 2025 End: January 23, 2025 Team Status: Inactive Member Role/Relationship Status Dates Dr. Genevieve Walsh MD Primary Care Provider Active Start: January 23, 2025 End: January 23, 2025 Dr. Yash Gunter MD Attending Provider Active Start: January 23, 2025 End: January 23, 2025 Dr. Yash Gunter MD Referring Provider Active Start: January 23, 2025 End: January 23, 2025 Team Status: Inactive Member Role/Relationship Status Dates Dr. Genevieve Walsh MD Primary Care Provider Active Start: February 15, 2025 End: February 15, 2025 Dr. Genevieve Walsh MD Referring Provider Active Start: February 15, 2025 End: February 15, 2025 CASSANDRA Arango Attending Provider Active St art: February 15, 2025 End: February 15, 2025 Team Status: Inactive Member Role/Relationship Status Dates Dr. Genevieve Walsh MD Primary Care Provider Active Start: March 22, 2025 End: March 22, 2025 Dr. Genevieve Walsh MD Referring Provider Active Start: March 22, 2025 End: March 22, 2025 CASSANDRA Arango Attending Provider Active St art: March 22, 2025 End: March 22, 2025 Team Status: Inactive Member Role/Relationship Status Dates Dr. Genevieve Walsh MD Primary Care Provider Active Start: December 21, 2024 End: December 21, 2024 Dr. Genevieve Walsh MD Referring Provider Active Start: December 21, 2024 End: December 21, 2024 CASSANDRA Arango Attending Provider Active St art: December 21, 2024 End: December 21, 2024 Team Status: Inactive Member Role/Relationship Status Dates Dr. Genevieve Walsh MD Primary Care Provider Active Start: January 22, 2025 End: January 22, 2025 [employer] HEALTH INSURANCE ADJUSTER, HEALTH INSURANCE ADJUSTER-C Attending Provider Active Start: January 22, 2025 End: January 22, 2025 [employer] HEALTH INSURANCE ADJUSTER, HEALTH INSURANCE ADJUSTER-C Referring Provider Active Start: January 22, 2025 End: January 22, 2025 Team Status: Inactive Member Role/Relationship Status Dates Dr. Genevieve Walsh MD Primary Care Provider Active Start: January 22, 2025 End: January 22, 2025 [employer] HEALTH INSURANCE ADJUSTER, HEALTH INSURANCE ADJUSTER-C Attending Provider Active Start: January 22, 2025 End: January 22, 2025 [employer] HEALTH INSURANCE ADJUSTER, HEALTH INSURANCE ADJUSTER-C Referring Provider Active Start: January 22, 2025 End: January 22, 2025 Team Status: Inactive Member Role/Relationship Status Dates Dr. Genevieve Walsh MD Primary Care Provider Active Start: January 23, 2025 End: January 23, 2025 Dr. Genevieve Walsh MD Referring Provider Active Start: January 23, 2025 End: January 23, 2025 Dr. Yash Gunter MD Attending Provider Active Start: January 23, 2025 End: January 23, 2025 Team Status: Inactive Member Role/Relationship Status Dates Dr. Genevieve Walsh MD Primary Care Provider Active Start: January 23, 2025 End: January 23, 2025 Dr. Yash Gunter MD Attending Provider Active Start: January 23, 2025 End: January 23, 2025 Dr. Yash Gunter MD Referring Provider Active Start: January 23, 2025 End: January 23, 2025 Team Status: Inactive Member Role/Relationship Status Dates Dr. Genevieve Walsh MD Primary Care Provider Active Start: February 15, 2025 End: February 15, 2025 Dr. Genevieve Walsh MD Referring Provider Active Start: February 15, 2025 End: February 15, 2025 CASSANDRA Arango Attending Provider Active St art: February 15, 2025 End: February 15, 2025 Team Status: Inactive Member Role/Relationship Status Dates Dr. Genevieve Walsh MD Primary Care Provider Active Start: March 22, 2025 End: March 22, 2025 Dr. Genevieve Walsh MD Referring Provider Active Start: March 22, 2025 End: March 22, 2025 Malik TRUJILLO PA Attending Provider Active St art: March 22, 2025 End: March 22, 2025 Team Status: Inactive Member Role/Relationship Status Dates Dr. Genevieve Walsh MD Primary Care Provider Active Start: April 19, 2025 End: April 19, 2025 Dr. Genevieve Walsh MD Referring Provider Active Start: April 19, 2025 End: April 19, 2025 Malik TRUJILLO PA Attending Provider Active St art: April 19, 2025 End: April 19, 2025 Team Status: Active Member Role/Relationship Status Dates Dr. Genevieve Walsh MD Primary care physician Activ e Team Status: Inactive Member Role/Relationship Status Dates Dr. Genevieve Walsh MD Primary care physician Activ e Start: February 15, 2025 End: February 15, 2025 Dr. Genevieve Walsh MD Referring Provider Active Start: February 15, 2025 End: February 15, 2025 Malik TRUJILLO PA Attending physician Active S tart: February 15, 2025 End: February 15, 2025 Team Status: Inactive Member Role/Relationship Status Dates Dr. Genevieve Walsh MD Primary care physician Activ e Start: March 22, 2025 End: March 22, 2025 Dr. Genevieve Walsh MD Referring Provider Active Start: March 22, 2025 End: March 22, 2025 CASSANDRA Arango Attending physician Active S tart: March 22, 2025 End: March 22, 2025 Team Status: Inactive Member Role/Relationship Status Dates Dr. Genevieve Walsh MD Primary care physician Activ e Start: April 19, 2025 End: April 19, 2025 Dr. Genevieve Walsh MD Referring Provider Active Start: April 19, 2025 End: April 19, 2025 CASSANDRA Arango Attending physician Active S tart: April 19, 2025 End: April 19, 2025 Team Status: Inactive Member Role/Relationship Status Dates Dr. Genevieve Walsh MD Primary care physician Activ e Start: May 03, 2025 End: May 03, 2025 Dr. Yash Gunter MD Attending physician Active Start: May 03, 2025 End: May 03, 2025 Dr. Yash Gunter MD Referring Provider Active Start: May 03, 2025 End: May 03, 2025 CASSANDRA Arango Nurse Practitioner Active St art: May 03, 2025 End: May 03, 2025 FOR RECORDS PERTAINING TO PATIENTS WHO [...] BE BASED ON THE PRIMARY CLINICAL RECORDS. [email or web address] provides no warranty or guarantee of the accuracy or completeness of information in this document.
[2025-07-26 11:42] VITALS: BP 152/96; PULSE 66; RESP 16; TEMP 36.2; O2SAT 98; BMI 18.8
[2025-07-26] MEDS: 0.9% NaCl Peripheral Flush Adult IV (11:44)
[2025-07-26] MEDS: 0.9% NaCl IVPB Med Flush (100mL) 15 ML IV (11:44)
[2025-07-26 12:19] VITALS: BP 162/88; PULSE 66; RESP 16; TEMP 36.2; O2SAT 100
== END 2025-07-26 23:59 | disposition home or self-care (01) ==
LOC: MEDOUTP 11:15
PROVIDERS: PCP Internal Medicine; Referring Provider Internal Medicine; Visit Provider Internal Medicine
DX: M81.0 Age-related osteoporosis without current pathological fracture (principal)
CPT/HCPCS: 96365; A4216; J3489